=== PATIENT | female | born 1950 | race Caucasian/White ===

== ENCOUNTER 2016-12-04 18:03 | Inpatient (IN) | payer MEDICARE, OTHER ==
[~2016-12-04] VITALS: Ht 170.2 cm; Wt 135.5 kg
[2016-12-04] MEDS ORDERED: morphine 4 MG/ML VIAL IV STA (20:56)
[2016-12-04] MEDS ORDERED: ONDANSETRON 4 MG INJ IV STA (20:56)
[2016-12-04] MEDS ORDERED: PIPER-TAZO 3.375 GM IV (PMX) 100 ML IVPB STA (20:56)
[2016-12-04] MEDS ORDERED: VANCOMYCIN 1 GM (PMX) 250 ML IVPB SCH (21:00)
[2016-12-04 21:18] LABS: BASOPHIL # 0.1 10^3/ul (0.0-0.1); BASOPHILS % 0.4 % (0.0-2.0); EOSINOPHILS # 0.3 10^3/ul (0.0-0.5); EOSINOPHILS % 2.7 % (0.0-7.0); HEMATOCRIT 32.5 % (37.0-47.0); LYMPHOCYTES # 1.9 10^3/ul (0.8-2.9); LYMPHOCYTES % 15.9 % (15.0-51.0); MEAN CORPUSCULAR HGB CONC 30.8 g/dl (32.0-37.0); MEAN PLATELET VOLUME 10.6 fl (7.4-10.4); MONOCYTE # 1.1 10^3/ul (0.3-0.9); MONOCYTES % 8.9 % (0.0-11.0); NEUTROPHIL # 8.5 10^3/ul (1.6-7.5); NEUTROPHILS % 71.3 % (39.0-77.0); PLATELET COUNT 355 10^3/UL (140-415); RED BLOOD COUNT 3.57 10^6/ul (4.20-5.40); RED CELL DISTRIBUTION WIDTH 13.2 % (11.5-14.5); WHITE BLOOD COUNT 11.9 10^3/ul (4.8-10.8)
[2016-12-04 21:38] LABS: ALBUMIN 3.8 g/dl (3.3-4.9); ALBUMIN/GLOBULIN RATIO 0.88; CALCIUM 9.3 mg/dl (8.4-10.2); CREATININE 3.08 mg/dl (0.44-1.00); POTASSIUM 4.5 mmol/L (3.5-5.1); TOTAL PROTEIN 8.1 g/dl (6.1-8.1)
--- NOTE | 2016-12-04 21:39 | RADRPT ---
PROCEDURE: XR Left Foot CLINICAL INDICATION: Osteo TECHNIQUE: AP, oblique, and lateral radiographs were submitted. COMPARISON: None FINDINGS: Osseous structures: There is erosion irregularity to the lateral aspect of the distal left fifth met atarsal for which osteomyelitis is suspected. The remaining osseous elements appear somewhat rarefi ed but intact. Calcaneal spurring is seen at the insertion of the plantar aponeurosis. Joint spaces: There is hyperextension at the second through fifth metatarsal phalangeal joints with flexion of the toes. Soft tissues: There is soft tissue swelling and an ulceration lateral to the distal fifth metatarsal and to the proximal phalanx of the left fifth toe. Vascular calcification is evident. IMPRESSION: 1. Erosion and irregularity to the cortex at the lateral aspect of the distal left fifth metatarsal suspicious for osteomyelitis. There is overlying soft tissue swelling as well as a linear ulcerati on. 2. There is hyperextension at the second through fifth metatarsal phalangeal joints with flexion of the toes that could be a contracture or may be congenital. 3. Calcaneal spurring 4. Vascular calcification. Physician Ramone Date Time Electronically viewed and signed by Physician Ramone on 12/04/2016 21:39 /
[2016-12-04] MEDS ORDERED: HYDR100T7 PO (21:57)
[2016-12-04] MEDS ORDERED: KETO10DR5 OP (22:03)
[2016-12-04] MEDS ORDERED: LOSA25TA5 PO (22:04)
[2016-12-04] MEDS ORDERED: LORA5SOL5 PO (22:04)
[2016-12-04] MEDS ORDERED: NYST15CR28 TOP (22:05)
[2016-12-04] MEDS ORDERED: DEXT1DRO7 OP (22:06)
[2016-12-04] MEDS ORDERED: OMEP20CA16 PO (22:07)
[2016-12-04] MEDS ORDERED: PENT400T2 PO (22:08)
[2016-12-04] MEDS ORDERED: PRAV40TA76 PO (22:08)
[2016-12-04] MEDS ORDERED: AMLO-147 PO (22:09)
[2016-12-04] MEDS ORDERED: CHOL100062 PO (22:10)
[2016-12-04] MEDS ORDERED: FURO40TA4 PO (22:11)
[2016-12-04] MEDS ORDERED: CARSR60 PO (22:11)
[2016-12-04] MEDS ORDERED: LANT3I SC (22:13)
[2016-12-04] MEDS ORDERED: INSU100C SQ (22:14)
[2016-12-04 22:21] VITALS: TEMP 98.6
--- NOTE | 2016-12-04 22:36 | ERA ---
ER Documentation Chief Complaint Date/Time DATE: 12/04/16 TIME: 22:33 Chief Complaint "LEFT FOOT GANGRENE X 4.5 YEARS , FEET FEELS NUMB X 20 YEARS " HX DM HPI This is a 66-year-old female who has had a 4 year white with a left lateral foot ulcer. The patient says it had healed relatively well except 2 weeks ago or so she accidentally ran over her own foot with her automatic scooter. She says she scraped the side of her distal fifth metatarsal phalangeal area and that the wound progressively got worse. She says that it is starting to smell and weep pus. There is no swelling or erythema. She says the pain is constant and dull and worse with movement or standing ROS All systems reviewed and are negative except as per history of present illness. Medications Home Meds Reported Medications Insulin Lispro (Humalog) 100 Unit/1 Ml Cartridge, 12 UNIT SQ TID Y for MEALS 12/04/16 Insulin Glargine* (Lantus*) 100 Unit/Ml Soln, 45 UNIT SC BID, #1 VIAL 12/04/16 Furosemide* (Furosemide*) 40 Mg Tablet, 40 MG PO DAILY, TAB 12/04/16 Diltiazem Hcl* (Cardizem SR*) 60 Mg Capsr, 60 MG PO DAILY, #60 CAP 12/04/16 Cholecalciferol* (Vitamin D3*) 1,000 Unit Tablet, 1000 UNIT PO DAILY, TAB 12/04/16 Amlodipine Besylate* (Amlodipine Besylate*) 10 Mg Tablet, 10 MG PO DAILY, #30 TAB 12/04/16 Pravastatin Sodium* (Pravastatin Sodium*) 40 Mg Tablet, 40 MG PO HS, TAB 12/04/16 Pentoxifylline* (Pentoxifylline*) 400 Mg Tablet.sa, 400 MG PO BID, TAB 12/04/16 Omeprazole* (Omeprazole*) 20 Mg Capsule.dr, 20 MG PO DAILY, #30 CAP 12/04/16 Dextran 70/Hypromellose/Pf (ARTIFICIAL TEARS DROPS) 1 Each Droperette, 1 DROP OP QID 12/04/16 Nystatin* (Nystatin*) 15 Gm Cr, 1 APPLIC TOP TID, #1 TUB 12/04/16 Losartan Potassium* (Losartan Potassium*) 25 Mg Tablet, 25 MG PO DAILY, TAB 12/04/16 Loratadine* (Loratadine* Soln) 5 Mg/5 Ml Solution, 5 MG PO DAILY, #150 ML 12/04/16 Ketotifen Fumarate (Alaway) 10 Ml Drops, 1 DROP OP Q8H, BOTTLE 12/04/16 Hydralazine Hcl* (Hydralazine Hcl*) 100 Mg Tablet, 100 MG PO BID, #90 TAB 12/04/16 Allergies Allergies: Coded Allergies: No Known Allergy (Unverified , 12/04/16) PMhx/Soc History of Surgery: No Anesthesia Reaction: No Hx Neurological Disorder: No Hx Respiratory Disorders: No Hx Cardiac Disorders: Yes (HTN) Hx Psychiatric Problems: No Hx Miscellaneous Medical Probl: Yes (DM) Hx Alcohol Use: No Hx Substance Use: No Hx Tobacco Use: No Smoking Status: Never smoker FmHx Family History: No coronary disease Physical Exam Vitals Vital Signs Date Time Temp Pulse Resp B/P Pulse Ox O2 Delivery O2 Flow Rate FiO2 12/04/16 22:21 98.6 74 18 139/62 99 Room Air 12/04/16 18:07 99.0 79 20 144/68 95 Physical Exam Const: Well-developed, well-nourished Head: Atraumatic, normocephalic Eyes: Normal Conjunctiva, PERRLA, EOMI, normal sclera, no nystagmus ENT: Normal External Ears, Nose and Mouth, moist mucus membranes. Neck: Full range of motion. No meningismus, no lymphadenopathy. Resp: Clear to auscultation bilaterally, no wheezing, rhonchi, rales Cardio: Regular rate and rhythm, no murmurs, S1 S2 present Abd: Soft, non tender x 4, non distended. Normal bowel sounds, no guarding or rebound, no pulsitile abdominal masses or bruits Skin: No petechiae or rashes, no ecchymosis , no maculopapular rash Back: No midline or flank tenderness Ext: No cyanosis, or edema, FROM x 4, the left lateral distal fifth metatarsal has a severe deep wound that is oozing serosanguineous fluid with soft tissue exposure underneath the skin, neurovascularly intact x 4 Neur: Awake and alert, STR 5/5 x 4, sensation intact x 4, no focal findings, cerebellum intact Psych: Normal Mood and Affect Result Diagram: 8/9/17 2045 8/9/17 2045 Results 24 hrs Laboratory Tests Test 12/04/16 20:45 White Blood Count 11.910^3/ul Red Blood Count 3.5710^6/ul Hemoglobin 10.0g/dl Hematocrit 32.5% Mean Corpuscular Volume 91.0fl Mean Corpuscular Hemoglobin 28.0pg Mean Corpuscular Hemoglobin Concent 30.8g/dl Red Cell Distribution Width 13.2% Platelet Count 42404^3/UL Mean Platelet Volume 10.6fl Neutrophils % 71.3% Lymphocytes % 15.9% Monocytes % 8.9% Eosinophils % 2.7% Basophils % 0.4% Nucleated Red Blood Cells % 0.0/100WBC Neutrophils # 8.510^3/ul Lymphocytes # 1.910^3/ul Monocytes # 1.110^3/ul Eosinophils # 0.310^3/ul Basophils # 0.110^3/ul Nucleated Red Blood Cells # 0.010^3/ul Sodium Level 142mmol/L Potassium Level 4.5mmol/L Chloride Level 99mmol/L Carbon Dioxide Level 28mmol/L Anion Gap 20 Blood Urea Nitrogen 62mg/dl Creatinine 3.08mg/dl Glucose Level 302mg/dl Calcium Level 9.3mg/dl Total Bilirubin 0.0mg/dl Direct Bilirubin 0.00mg/dl Indirect Bilirubin 0.0mg/dl Aspartate Amino Transf (AST/SGOT) 16IU/L Alanine Aminotransferase (ALT/SGPT) 23IU/L Alkaline Phosphatase 115IU/L Total Protein 8.1g/dl Albumin 3.8g/dl Globulin 4.30g/dl Albumin/Globulin Ratio 0.88 Current Medications Medications (Trade) Dose Ordered Sig/Lorena Route PRN Reason Start Time Stop Time Status Last Admin Dose Admin Morphine Sulfate (morphine) 4 mg ONCE STAT IV 12/04/16 20:56 12/04/16 21:00 DC Ondansetron HCl 4 mg 4 mg ONCE STAT IV 12/04/16 20:56 12/04/16 21:00 DC Piperacillin Sod/ Tazobactam Sod 100 ml @ 200 mls/hr ONCE STAT IVPB 12/04/16 20:56 12/04/16 21:25 DC 12/04/16 21:14 Vancomycin HCl (Vancocin) 250 ml @ 125 mls/hr ONCE IVPB 12/04/16 21:00 12/04/16 22:59 12/04/16 22:15 Procedures/MDM PROCEDURE: XR Left Foot CLINICAL INDICATION: Osteo TECHNIQUE: AP, oblique, and lateral radiographs were submitted. COMPARISON: None FINDINGS: Osseous structures: There is erosion irregularity to the lateral aspect of the distal left fifth metatarsal for which osteomyelitis is suspected. The remaining osseous elements appear somewhat rarefied but intact. Calcaneal spurring is seen at the insertion of the plantar aponeurosis. Joint spaces: There is hyperextension at the second through fifth metatarsal phalangeal joints with flexion of the toes. Soft tissues: There is soft tissue swelling and an ulceration lateral to the distal fifth metatarsal and to the proximal phalanx of the left fifth toe. Vascular calcification is evident. IMPRESSION: 1. Erosion and irregularity to the cortex at the lateral aspect of the distal left fifth metatarsal suspicious for osteomyelitis. There is overlying soft tissue swelling as well as a linear ulceration. 2. There is hyperextension at the second through fifth metatarsal phalangeal joints with flexion of the toes that could be a contracture or may be congenital. 3. Calcaneal spurring 4. Vascular calcification. Physician Ramone Date Time Electronically viewed and signed by Physician Ramone on 12/04/2016 21:39 RH/ CC: TAE BUI DO Patient received blood cultures and IV antibiotics. We will admit the patient for osteomyelitis of the left foot. Patient will require CT scan and/or MRI of the foot. We will admit to panel Dr. Donald Diagnosis: Primary Impression: Foot osteomyelitis, left Qualified Code: M86.9 - Osteomyelitis of left foot, unspecified type Condition: Stable TAE BUI DO Dec 04, 2016 22:36
[2016-12-04] MEDS ORDERED: ACETAMINOPHEN 325 MG TAB PO PRN (23:00)
[2016-12-04] MEDS ORDERED: ONDANSETRON 4 MG INJ IV PRN (23:00)
[2016-12-05 01:00] VITALS: BP 180/72; RESP 19
[2016-12-05] MEDS ORDERED: INSULIN GLARGINE [LANtus] 3 ML PEN SC ONE ×2 (01:00→01:30)
[2016-12-05] MEDS: INSULIN ASPART [NOVOLOG] 3 ML PEN SC SCH ×7 (01:00→21:00)
[2016-12-05] MEDS: PENTOXIFYLLINE (SR) 400 MG TAB PO SCH ×4 (01:30→21:18)
[2016-12-05] MEDS: AMLODIPINE 10 MG TAB PO SCH ×2 (01:55→09:03)
[2016-12-05] MEDS ORDERED: ACCU-CHEK XX SCH (02:00)
[2016-12-05] MEDS: ACCU-CHEK XX SCH (02:00)
--- NOTE | 2016-12-05 02:08 | HP ---
Date/Time of Note Date/Time of Note DATE: 12/05/16 TIME: 02:08 Assessment/Plan VTE Prophylaxis VTE Prophylaxis Intervention: contraindicated VTE Contraindication Reason: bleeding Assessment/Plan Chief Complaint/Hosp Course This is a 66-year-old female being admitted to the [facility] for: #1 left foot wound infection: X-ray of the left foot is suspicious for osteomyelitis. There is serosanguineous drainage of the left foot along with scant pus material as well as a foul order. At the current time will start the patient on IV antibiotics of vancomycin and Levaquin for gram-positive and gram- negative coverage. Will obtain an MRI of the foot. Will also obtain arterial ultrasound to assess blood flow. Will consult vascular surgery and podiatry. Will consult infectious disease for antibiotic assistance. #2 diabetes mellitus: Continue patient's home regimen of Lantus and mealtime insulin put patient on insulin sliding scale. Check hemoglobin A1c #3 hypertension: Continue patient's home medications #4 hyperlipidemia: Continue statin #5 chronic kidney disease: Previous laboratory values are unknown as patient is here for the first time. Creatinine right now is 3.06 with a BUN of 62. Patient is nonoliguric. At the current time we will consult nephrology for further assistance. Renal dosing of antibiotics and medications. #6 peripheral vascular disease: Continue pentoxifylline #7 anemia: Normocytic anemia. Hemoglobin of 10. Will continue to monitor this. This likely to be secondary to underlying CKD. Will obtain iron studies. #8 DVT and GI prophylaxis: At the current time will hold off on chemical anticoagulation secondary to the patient's bleeding wound of the left foot. Will put SCDs on the patient's right lower extremity. We will put patient on heparin or bilateral SCDs once cleared by vascular surgery and podiatry. Treatment strategy will be implemented as per the clinical course Problems: HPI/ROS Admit Date/Time Admit Date/Time Dec 04, 2016 at 22:33 Hx of Present Illness Chief complaint: Left foot infection This is a 66-year-old female who has had a 4 year white with a left lateral foot ulcer/infection. The patient says it had healed relatively well except 2 weeks ago or so she accidentally ran over her own foot with her automatic scooter. She says she scraped the side of her distal fifth metatarsal phalangeal area and that the wound progressively got worse. She says that it is starting to smell and weep pus. There is no swelling or erythema. She says the pain is constant and dull and worse with movement or standing. Patient does state that she has noticed bleeding on it over the last couple months. She previously had a procedure performed on her left foot secondary to having a previous episode of osteomyelitis. She does follow at the wound clinic. Allergies: NKDA Medications: See JUN PAO Const: As per HPI Eyes : No pain discharge or redness or change in visual acuity ENT: No pain, sore throat, congestion, congestion, dysphagia or discharge Respiratory: No shortness of breath, cough, sputum, wheezing, or pleuritic pain Cardiovascular: No chest pain, palpitation, PND, or edema GI : no change in appetite, abdominal pain, nausea, vomiting, diarrhea, constipation, or change in the color his stool Genitourinary: No dysuria, hematuria, flank pain , discharge or CVA tenderness Musculoskeletal: As per HPI Skin: As per HPI Neuro: No headache, dizziness, syncope, seizure, focal weakness Endocrine: No polyuria, polydipsia, temperature intolerance Psych: No hallucination, depression, anxiety or suicidal ideation PMH/Family/Social Past Medical History Diabetes mellitus, previous left foot osteomyelitis, hypertension, hyperlipidemia, chronic kidney disease, PVD Past Surgical History Left foot surgery status post osteomyelitis, hysterectomy, eye surgery bilateral as a child Family History Significant Family History: no pertinent family hx Social History Alcohol Use: none Smoking Status: Never smoker Drug Use: none Exam/Review of Systems Vital Signs Vitals Vital Signs Date Time Temp Pulse Resp B/P Pulse Ox O2 Delivery O2 Flow Rate FiO2 12/04/16 23:29 77 20 126/66 99 Room Air 12/04/16 22:21 98.6 Exam Exam General: Patient is a morbidly obese female lying in bed in no acute distress HEENT: Atraumatic, normocephalic. The pupils are equal, round and reactive. Extraocular motor are intact Neck: Supple with full range of motion. No rigidity or meningismus Chest: Nontender Lungs: Clear to auscultation bilaterally no crackles rales or wheezing Heart: Normal S1-S2, Regular rhythm and rate. No murmur, S3, or S4 Abdomen: Soft , nontender, nondistended , bowel sounds are present. No guarding no rebound tenderness , No masses or organomegaly. No costovertebral temporal angle mass Extremities: Free range of motion 4, left foot lateral wounds with oozing serosanguineous drainage and foul odor, soft tissue exposure of the left foot on the plantar surface distal pulses diminished on the left lower extremity on exam. Right lower extremity lateral wound noted with dry blood no oozing or weeping. Neurologic: Normal mental status, speech normal, cranial nerves II through XII are intact, motor and sensory are intact, no focal weakness Additional Comments PROCEDURE: XR Left Foot CLINICAL INDICATION: Osteo TECHNIQUE: AP, oblique, and lateral radiographs were submitted. COMPARISON: None FINDINGS: Osseous structures: There is erosion irregularity to the lateral aspect of the distal left fifth metatarsal for which osteomyelitis is suspected. The remaining osseous elements appear somewhat rarefied but intact. Calcaneal spurring is seen at the insertion of the plantar aponeurosis. Joint spaces: There is hyperextension at the second through fifth metatarsal phalangeal joints with flexion of the toes. Soft tissues: There is soft tissue swelling and an ulceration lateral to the distal fifth metatarsal and to the proximal phalanx of the left fifth toe. Vascular calcification is evident. IMPRESSION: 1. Erosion and irregularity to the cortex at the lateral aspect of the distal left fifth metatarsal suspicious for osteomyelitis. There is overlying soft tissue swelling as well as a linear ulceration. 2. There is hyperextension at the second through fifth metatarsal phalangeal joints with flexion of the toes that could be a contracture or may be congenital. 3. Calcaneal spurring 4. Vascular calcification. Physician Ramone Date Time Electronically viewed and signed by Physician Ramone on 12/04/2016 21:39 RH/ CC: TAE BUI DO Labs Result Diagram: 12/04/16204412/04/162044 Medications Medications Current Medications Diagnostic Test (Pha) (Accu-Chek) 1 ea 02 XX ; Start 12/05/16 at 02:00 Amlodipine Besylate (Norvasc) 10 mg DAILY PO ; Start 12/05/16 at 01:42 Diltiazem HCl (Cardizem Sr) 60 mg DAILY PO ; Start 12/05/16 at 09:00 Furosemide (Lasix) 40 mg DAILY@06 PO ; Start 12/05/16 at 06:00 Hydralazine HCl (Apresoline) 100 mg BID PO ; Start 12/05/16 at 01:30 Insulin Glargine (Lantus) 45 unit BID SC ; Start 12/05/16 at 09:00 Losartan Potassium (Cozaar) 25 mg DAILY PO ; Start 12/05/16 at 09:00 Nystatin (Nystatin Cr) 1 applic TID TOP ; Start 12/05/16 at 09:00 Pentoxifylline (Trental) 400 mg BID PO ; Start 12/05/16 at 01:30 Miscellaneous Information 1 drop QID OP ; Start 12/05/16 at 09:00; Status UNV Miscellaneous Information 12 unit TID PRN SQ MEALS; Start 12/05/16 at 01:30 ; Status UNV Miscellaneous Information 1 drop Q8H OP ; Start 12/05/16 at 01:30; Status UNV Pantoprazole (Protonix Tab) 40 mg DAILY@06 PO ; Start 12/05/16 at 06:00 Atorvastatin Calcium (Lipitor) 10 mg DAILY@21 PO ; Start 12/05/16 at 21:00 Hydralazine HCl (Apresoline) 10 mg Q6H PRN IV ELEVATED SYSTOLIC BP; Start 12/05 at 02:00 RANJITH MCDONALD Dec 05, 2016 02:08
[2016-12-05 02:18] VITALS: BP 158/62; RESP 18
[2016-12-05] MEDS ORDERED: NACL 0.9% 3 ML SYG IV SCH (02:30)
[2016-12-05] MEDS ORDERED: morphine 2 MG INJ IV PRN (02:30)
[2016-12-05] MEDS ORDERED: VANCOMYCIN IV PER PHARMACY XX SCH (02:30)
[2016-12-05] MEDS ORDERED: VANCOMYCIN 1.5 GM in SOD CHLORIDE 0.9% 250 ML IVPB ONE (03:00)
[2016-12-05 04:19] VITALS: Ht 170.2 cm; Wt 135.5 kg
[2016-12-05 05:27] LABS: BASOPHILS % 0.4 % (0.0-2.0); EOSINOPHILS # 0.3 10^3/ul (0.0-0.5); EOSINOPHILS % 2.6 % (0.0-7.0); HEMATOCRIT 29.1 % (37.0-47.0); HEMOGLOBIN 9.5 g/dl (12.0-16.0); LYMPHOCYTES % 20.7 % (15.0-51.0); MEAN CORPUSCULAR HEMOGLOBIN 29.6 pg (29.0-33.0); MEAN CORPUSCULAR HGB CONC 32.6 g/dl (32.0-37.0); MEAN CORPUSCULAR VOLUME 90.7 fl (82.0-101.0); MEAN PLATELET VOLUME 10.5 fl (7.4-10.4); MONOCYTE # 0.9 10^3/ul (0.3-0.9); MONOCYTES % 9.2 % (0.0-11.0); NEUTROPHIL # 6.3 10^3/ul (1.6-7.5); NEUTROPHILS % 66.5 % (39.0-77.0); PLATELET COUNT 323 10^3/UL (140-415); RED BLOOD COUNT 3.21 10^6/ul (4.20-5.40); RED CELL DISTRIBUTION WIDTH 13.1 % (11.5-14.5); WHITE BLOOD COUNT 9.5 10^3/ul (4.8-10.8)
[2016-12-05 05:52] LABS: IRON 32 ug/dl (35-150)
[2016-12-05 05:53] LABS: ALBUMIN 3.5 g/dl (3.3-4.9); ALBUMIN/GLOBULIN RATIO 0.92; CALCIUM 9.1 mg/dl (8.4-10.2); CHOL/HDL RATIO 3.7 RATIO; CREATININE 2.96 mg/dl (0.44-1.00); MAGNESIUM 2.2 mg/dl (1.7-2.5); PHOSPHORUS 3.3 mg/dl (2.5-4.9); TOTAL PROTEIN 7.3 g/dl (6.1-8.1)
[2016-12-05] MEDS ORDERED: PENDING SANTYL ORDER FOR WOUND CARE XX PRN (06:00)
[2016-12-05 06:01] LABS: TOTAL IRON BINDING CAPACITY 198 ug/dl (241-421)
[2016-12-05 06:49] LABS: THYROID STIMULATING HORMONE 3.41 MIU/L (0.465-4.680)
[2016-12-05] MEDS: PANTOPRAZOLE (EC) 40 MG TAB PO SCH (07:05)
[2016-12-05] MEDS: FUROSEMIDE 40 MG TAB PO SCH (07:06)
[2016-12-05] MEDS: LEVOFLOXACIN 750MG/D5W (PMX) 150 ML IVPB SCH (07:23)
[2016-12-05 07:52] VITALS: BP 171/78; RESP 20
[2016-12-05] MEDS: KETOTIFEN FUMARATE XX SCH ×2 (08:30→14:29)
[2016-12-05] MEDS: NYSTATIN 15 GM CR TOP SCH ×3 (09:00→21:01)
[2016-12-05] MEDS ORDERED: LOSARTAN 25 MG TAB PO SCH (09:00)
[2016-12-05] MEDS: ARTIFICIAL TEARS 15 ML OPH BOTH EYES SCH ×4 (09:00→21:01)
[2016-12-05] MEDS: ONDANSETRON 4 MG INJ IV PRN (09:01)
[2016-12-05] MEDS: ACETAMINOPHEN 325 MG TAB PO PRN (09:01)
[2016-12-05] MEDS: DILTIAZEM (SR) 60 MG CAP PO SCH (09:03)
[2016-12-05] MEDS: INSULIN GLARGINE [LANtus] 3 ML PEN SC SCH ×2 (09:13→21:26)
--- NOTE | 2016-12-05 12:18 | CONS ---
Date/Time of Note Date/Time of Note DATE: 12/05/16 TIME: 12:17 Consultation Date/Type/Reason Admit Date/Time Dec 04, 2016 at 22:33 Date of Consultation: Dec 05, 2016 Type of Consultation: ID Reason for Consultation Antibiotic management Social History Alcohol Use: none Smoking Status: Never smoker Drug Use: none Exam/Review of Systems Vital Signs Vitals Vital Signs Date Time Temp Pulse Resp B/P Pulse Ox O2 Delivery O2 Flow Rate FiO2 12/05/16 07:52 97.7 71 20 171/78 95 12/04/16 23:29 Room Air Results Result Diagram: 12/05/16 0505 12/05/16 0505 Results 24 hrs Laboratory Tests Test 12/04/16 20:45 12/05/16 00:13 12/05/16 01:29 12/05/16 04:16 White Blood Count 11.9 H Red Blood Count 3.57 L Hemoglobin 10.0 L Hematocrit 32.5 L Mean Corpuscular Volume 91.0 Mean Corpuscular Hemoglobin 28.0 L Mean Corpuscular Hemoglobin Concent 30.8 L Red Cell Distribution Width 13.2 Platelet Count 355 Mean Platelet Volume 10.6 H Neutrophils % 71.3 Lymphocytes % 15.9 Monocytes % 8.9 Eosinophils % 2.7 Basophils % 0.4 Nucleated Red Blood Cells % 0.0 Neutrophils # 8.5 H Lymphocytes # 1.9 Monocytes # 1.1 H Eosinophils # 0.3 Basophils # 0.1 Nucleated Red Blood Cells # 0.0 Sodium Level 142 Potassium Level 4.5 Chloride Level 99 Carbon Dioxide Level 28 Anion Gap 20 H Blood Urea Nitrogen 62 H Creatinine 3.08 H Glucose Level 302 H Calcium Level 9.3 Total Bilirubin 0.0 L Direct Bilirubin 0.00 Indirect Bilirubin 0.0 Aspartate Amino Transf (AST/SGOT) 16 Alanine Aminotransferase (ALT/SGPT) 23 Alkaline Phosphatase 115 Total Protein 8.1 Albumin 3.8 Globulin 4.30 H Albumin/Globulin Ratio 0.88 Bedside Glucose 333 H 325 H 274 H Test 12/05/16 05:05 12/05/16 08:40 White Blood Count 9.5 # Red Blood Count 3.21 L Hemoglobin 9.5 L Hematocrit 29.1 L Mean Corpuscular Volume 90.7 Mean Corpuscular Hemoglobin 29.6 Mean Corpuscular Hemoglobin Concent 32.6 Red Cell Distribution Width 13.1 Platelet Count 323 Mean Platelet Volume 10.5 H Neutrophils % 66.5 Lymphocytes % 20.7 Monocytes % 9.2 Eosinophils % 2.6 Basophils % 0.4 Nucleated Red Blood Cells % 0.0 Neutrophils # 6.3 Lymphocytes # 2.0 Monocytes # 0.9 Eosinophils # 0.3 Basophils # 0.0 Nucleated Red Blood Cells # 0.0 Sodium Level 142 Potassium Level 4.0 Chloride Level 100 Carbon Dioxide Level 29 Anion Gap 17 H Blood Urea Nitrogen 60 H Creatinine 2.96 H Glucose Level 244 H Hemoglobin A1c 8.8 H Calcium Level 9.1 Phosphorus Level 3.3 Magnesium Level 2.2 Iron Level 32 L Total Iron Binding Capacity 198 L Percent Iron Saturation 16 L Total Bilirubin 0.0 L Direct Bilirubin 0.00 Indirect Bilirubin 0.0 Aspartate Amino Transf (AST/SGOT) 16 Alanine Aminotransferase (ALT/SGPT) 22 Alkaline Phosphatase 108 Total Protein 7.3 Albumin 3.5 Globulin 3.80 H Albumin/Globulin Ratio 0.92 Triglycerides Level 113 Cholesterol Level 138 LDL Cholesterol, Calculated 78 HDL Cholesterol 37 Cholesterol/HDL Ratio 3.7 Thyroid Stimulating Hormone (TSH) 3.410 Bedside Glucose 203 Medications Medications Current Medications Diagnostic Test (Pha) (Accu-Chek) 1 ea 02 XX ; Start 12/05/16 at 02:00 Amlodipine Besylate (Norvasc) 10 mg DAILY PO Last administered on 12/05/16 09: 03; Admin Dose 10 MG; Start 12/05/16 at 01:42 Diltiazem HCl (Cardizem Sr) 60 mg DAILY PO Last administered on 12/05/16 09:03 ; Admin Dose 60 MG; Start 12/05/16 at 09:00 Furosemide (Lasix) 40 mg DAILY@06 PO Last administered on 12/05/16 07:06; Admin Dose 40 MG; Start 12/05/16 at 06:00 Hydralazine HCl (Apresoline) 100 mg BID PO Last administered on 12/05/16 09:02 ; Admin Dose 100 MG; Start 12/05/16 at 01:30 Insulin Glargine (Lantus) 45 unit BID SC Last administered on 12/05/16 09:13; Admin Dose 45 UNIT; Start 12/05/16 at 09:00 Losartan Potassium (Cozaar) 25 mg DAILY PO Last administered on 12/05/16 09:02 ; Admin Dose 25 MG; Start 12/05/16 at 09:00 Nystatin (Nystatin Cr) 1 applic TID TOP ; Start 12/05/16 at 09:00 Pentoxifylline (Trental) 400 mg BID PO Last administered on 12/05/16 09:02; Admin Dose 400 MG; Start 12/05/16 at 01:30 Eye Lubricant (Artificial Tears Oph) 1 drop QID BOTH EYES ; Start 12/05/16 at 09 :00 Miscellaneous Information 1 drop Q8H OP ; Start 12/05/16 at 01:30; Status UNV Pantoprazole (Protonix Tab) 40 mg DAILY@06 PO Last administered on 12/05/16 07 :05; Admin Dose 40 MG; Start 12/05/16 at 06:00 Atorvastatin Calcium (Lipitor) 10 mg DAILY@21 PO ; Start 12/05/16 at 21:00 Hydralazine HCl (Apresoline) 10 mg Q6H PRN IV ELEVATED SYSTOLIC BP; Start 12/05 at 02:00 Ondansetron HCl (Zofran Inj) 4 mg Q6H PRN IV NAUSEA AND/OR VOMITING Last administered on 12/05/16 09:01; Admin Dose 4 MG; Start 12/05/16 at 02:30 Acetaminophen (Tylenol Tab) 650 mg Q6H PRN PO PAIN LEVEL 1-3 OR FEVER Last administered on 12/05/16 09:01; Admin Dose 650 MG; Start 12/05/16 at 02:30 Morphine Sulfate (morphine) 2 mg Q4H PRN IV SEVERE PAIN LEVEL 7-10; Start 12/05 at 02:30 Docusate Sodium (Colace) 100 mg Q12H PRN PO CONSTIPATION; Start 12/05/16 at 02: 30 Bisacodyl 5 mg 5 mg DAILY PRN PO CONSTIPATION; Start 12/05/16 at 02:30 Levofloxacin/ Dextrose (Levaquin 750 Mg/ D5W 150 ml (Pmx)) 150 ml @ 100 mls/hr Q48H IVPB Last administered on 12/05/16 07:23; Admin Dose 100 MLS/HR; Start at 06:00 Miscellaneous [facility] This patient patel... PRN PRN XX WOUND CARE; Start 12/05/16 at 06:00 Miscellaneous Information Ketotifen Fumarate (Alaway... Q8H XX ; Start 12/05/16 at 08:30 Ferric Sodium Gluconate Complex/ Sodium Chloride (Ferrlecit/NS) 110 ml @ 100 mls/hr Q24H IVPB ; Start 12/05/16 at 14:00; Stop 12/07/16 at 15:05 ROSI FATIMA MD Dec 05, 2016 12:18
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
[2016-12-05 14:00] VITALS: BP 149/69; RESP 18
[2016-12-05] MEDS: SOD FERRIC GLUC COMPLX 125 MG in SOD CHLORIDE 0.9% 100 ML IVPB SCH (14:30)
--- NOTE | 2016-12-05 16:09 | RADRPT ---
PROCEDURE: US bilateral lower extremity arteries. CLINICAL INDICATION: Bilateral leg pain. Claudication that interferes significantly with the thi ent's lifestyle. TECHNIQUE: Multiple longitudinal and transverse images of the bilateral lower extremity arteries w ere obtained with sifuentes scale, pulsed Doppler, and color Doppler imaging. COMPARISON: No prior studies are available for comparison. FINDINGS: Right COATING MANAGER:115 cm/sec PSFA:125 cm/sec MSFA:127 cm/sec DSFA:102 cm/sec POP:121 cm/sec CLINICAL ASSOCIATE:77 cm/sec DPA:73 cm/sec Left COATING MANAGER:116 cm/sec PSFA:153 cm/sec MSFA:134 cm/sec DSFA:134 cm/sec POP:117 cm/sec CLINICAL ASSOCIATE:134 cm/sec DPA:110 cm/sec The ankle-brachial indices are unobtainable due to densely calcified ankle vessels. There is normal triphasic flow throughout bilaterally. Mild plaque is present in the superficial femoral arteries a nd calf arteries. IMPRESSION: 1. Mild plaque formation without evidence for hemodynamically significant stenosis or occlusion. RPTAT: QQ .Héctor Banks MD, MD Date Time Electronically viewed and signed by .Héctor Banks MD, MD on 12/05/2016 16:09 .R/
--- NOTE | 2016-12-05 16:32 | RADRPT ---
PROCEDURE: MRI OF THE LEFT FOOT. CLINICAL INDICATION: Concern for osteomyelitis.. TECHNIQUE: Multiple MRI images of the left foot were obtained in multiple planes utilizing multipl e pulse sequences. Images were interpreted on the high-resolution PACS system. COMPARISON: Radiographs from 12/04/2016 FINDINGS: 1st ray: There is no acute fracture or bone marrow edema. No evidence of osteomyelitis is present. There is mild chondral loss within the first metatarsophalangeal joint with osseous spurring. The collateral ligaments are intact. No significant joint effusion is present. 2nd ray: There is no acute fracture or bone marrow edema. There is hammertoe deformity at the metat arsophalangeal joint. The chondral surfaces are intact. The collateral ligaments are intact. No si gnificant joint effusion is present. 3rd ray through 5th ray: There is a skin ulcer within the lateral plantar aspect of the foot over th e fifth metatarsal and metatarsophalangeal joint with soft tissue edema and ill-defined fluid. Ther e is mild cortical irregularity with erosions within the fifth proximal phalanx but no significant b one marrow edema or abnormal T1 signal. There is no acute fracture or evidence of osteomyelitis within the remaining digits. There is hamme rtoe deformity at the lesser metatarsophalangeal joints. Chondral surfaces are intact. MIDFOOT: The tarsometatarsal joints are intact. The Lisfranc's ligament is intact. The visualized naviculocuneiform joint is intact. No bone marrow edema is noted. Other findings: There is no Queen's neuroma. No plantar fibroma is visualized. The tendons around the midfoot and forefoot are unremarkable. There is fatty atrophy of the muscles throughout the midfoot and forefoot. RPTAT: ZZ IMPRESSION: 1. Skin ulcer along the lateral plantar aspect of the fifth digit at the level of the distal fifth metatarsal and metatarsophalangeal joint with cellulitis. 2. Erosive changes with mild deformity of the fifth metatarsal head but no significant abnormal mar row signal. This can be seen with chronic osteomyelitis given the adjacent skin ulcer although infl ammatory arthritis can also give this appearance. 3. Mild osteoarthrosis of the first metatarsophalangeal joint. .Kathryn Tivorsak, MD, MD Date Time Electronically viewed and signed by .Kathryn Carr MD, MD on 12/05/2016 16:31 .T/
--- NOTE | 2016-12-05 18:00 | CONS ---
Date/Time of Note Date/Time of Note DATE: 12/05/16 TIME: 18:00 Assessment/Plan Assessment/Plan Additional Assessment/Plan 1. Acute kidney injury on possible CKD due to ATN From osteomyelitis, presented with Cr 3.08 on admission, no previous Cr available to compare 2. Left foot ulcer/Osteomyelitis 3. possible CKD due to diabetic nephropathy 4. Hypertension 5. Hyperlipidemia 6. LE PVD- Mild 7. H/o CVA Plan: Thanks for consultation, she is ordered to have Vascular surgery consultation I will order URine studies including Urine protein/cr ration, Urine Eosinophils , Urine Na, CK total, Uric acid Renal US to assess for kidney size, echogenicity and to rule out hydronephrosis Renally dose all abx, Montior vancomycin level Hold Losartan due to elevated Cr Amlodipine for Hydralzine for BP control will continue to follow up. Total Time spent in consultation is more than 60 minutes. Plan communicated with patient, family and Nursing staff. Consultation Date/Type/Reason Admit Date/Time Dec 04, 2016 at 22:33 Date of Consultation: Dec 05, 2016 Type of Consultation: NEPHROLOGY Reason for Consultation Acute kidney injury vs JENNIFER on CKD, pt presnted with osteomyelitis of foot Referring Provider: RANJITH MCDONALD Hx of Present Illness 66-year-old female with PMHx of HTN< HL, DM II who presnted with left foot ulceration/infection which has been intermittently going on last 4 year. She follows in [facility] wound care clinic/ She is noted to have have Cr 3.08 on admission and renal has been consulted for JENNIFER vs JENNIFER on CKD left foot pain, swelling, ulceration and discharge Constitutional: no complaints Eyes: no complaints ENT: bleeding, no complaints Respiratory: no complaints Cardiovascular: no complaints Gastrointestinal: no complaints Genitourinary: no complaints Musculoskeletal: back pain, bone/joint pain, swelling Skin: no complaints Neurologic: no complaints Past Medical History Medical History: diabetes, high cholesterol, hypertension, other (PVD,. H/o CVA ) Past Surgical History Past Surgical Hx: other (Hysterectomy, Left foot surgery ) Family History Significant Family History: no pertinent family hx Social History Alcohol Use: none Smoking Status: Never smoker Drug Use: none Exam/Review of Systems Vital Signs Vitals Vital Signs Date Time Temp Pulse Resp B/P Pulse Ox O2 Delivery O2 Flow Rate FiO2 12/05/16 14:00 97.6 71 18 149/69 93 12/04/16 23:29 Room Air Exam General: Patient is a morbidly obese female lying in bed in no acute distress HEENT: Atraumatic, normocephalic. The pupils are equal, round and reactive. Extraocular motor are intact Neck: Supple with full range of motion. No rigidity or meningismus Chest: Nontender Lungs: Clear to auscultation bilaterally no crackles rales or wheezing Heart: Normal S1-S2, Regular rhythm and rate. No murmur, S3, or S4 Abdomen: Soft , nontender, nondistended , bowel sounds are present. No guarding no rebound tenderness , No masses or organomegaly. No costovertebral temporal angle mass Extremities: Free range of motion 4, left foot lateral wounds with oozing serosanguineous drainage and foul odor, soft tissue exposure of the left foot on the plantar surface distal pulses diminished on the left lower extremity on exam. Right lower extremity lateral wound noted with dry blood no oozing or weeping. Neurologic: Normal mental status, speech normal, cranial nerves II through XII are intact, motor and sensory are intact, no focal weakness Results Result Diagram: 12/05/16 0505 12/05/16 0505 Results 24 hrs Laboratory Tests Test 12/04/16 20:45 12/05/16 00:13 12/05/16 01:29 12/05/16 04:16 White Blood Count 11.9 H Red Blood Count 3.57 L Hemoglobin 10.0 L Hematocrit 32.5 L Mean Corpuscular Volume 91.0 Mean Corpuscular Hemoglobin 28.0 L Mean Corpuscular Hemoglobin Concent 30.8 L Red Cell Distribution Width 13.2 Platelet Count 355 Mean Platelet Volume 10.6 H Neutrophils % 71.3 Lymphocytes % 15.9 Monocytes % 8.9 Eosinophils % 2.7 Basophils % 0.4 Nucleated Red Blood Cells % 0.0 Neutrophils # 8.5 H Lymphocytes # 1.9 Monocytes # 1.1 H Eosinophils # 0.3 Basophils # 0.1 Nucleated Red Blood Cells # 0.0 Sodium Level 142 Potassium Level 4.5 Chloride Level 99 Carbon Dioxide Level 28 Anion Gap 20 H Blood Urea Nitrogen 62 H Creatinine 3.08 H Glucose Level 302 H Calcium Level 9.3 Total Bilirubin 0.0 L Direct Bilirubin 0.00 Indirect Bilirubin 0.0 Aspartate Amino Transf (AST/SGOT) 16 Alanine Aminotransferase (ALT/SGPT) 23 Alkaline Phosphatase 115 Total Protein 8.1 Albumin 3.8 Globulin 4.30 H Albumin/Globulin Ratio 0.88 Bedside Glucose 333 H 325 H 274 H Test 12/05/16 05:05 12/05/16 08:40 12/05/16 12:25 12/05/16 17:21 White Blood Count 9.5 # Red Blood Count 3.21 L Hemoglobin 9.5 L Hematocrit 29.1 L Mean Corpuscular Volume 90.7 Mean Corpuscular Hemoglobin 29.6 Mean Corpuscular Hemoglobin Concent 32.6 Red Cell Distribution Width 13.1 Platelet Count 323 Mean Platelet Volume 10.5 H Neutrophils % 66.5 Lymphocytes % 20.7 Monocytes % 9.2 Eosinophils % 2.6 Basophils % 0.4 Nucleated Red Blood Cells % 0.0 Neutrophils # 6.3 Lymphocytes # 2.0 Monocytes # 0.9 Eosinophils # 0.3 Basophils # 0.0 Nucleated Red Blood Cells # 0.0 Sodium Level 142 Potassium Level 4.0 Chloride Level 100 Carbon Dioxide Level 29 Anion Gap 17 H Blood Urea Nitrogen 60 H Creatinine 2.96 H Glucose Level 244 H Hemoglobin A1c 8.8 H Calcium Level 9.1 Phosphorus Level 3.3 Magnesium Level 2.2 Iron Level 32 L Total Iron Binding Capacity 198 L Percent Iron Saturation 16 L Total Bilirubin 0.0 L Direct Bilirubin 0.00 Indirect Bilirubin 0.0 Aspartate Amino Transf (AST/SGOT) 16 Alanine Aminotransferase (ALT/SGPT) 22 Alkaline Phosphatase 108 Total Protein 7.3 Albumin 3.5 Globulin 3.80 H Albumin/Globulin Ratio 0.92 Triglycerides Level 113 Cholesterol Level 138 LDL Cholesterol, Calculated 78 HDL Cholesterol 37 Cholesterol/HDL Ratio 3.7 Thyroid Stimulating Hormone (TSH) 3.410 Bedside Glucose 203 126 109 Medications Medications Current Medications Diagnostic Test (Pha) (Accu-Chek) 1 ea 02 XX ; Start 12/05/16 at 02:00 Amlodipine Besylate (Norvasc) 10 mg DAILY PO Last administered on 12/05/16 09: 03; Admin Dose 10 MG; Start 12/05/16 at 01:42 Diltiazem HCl (Cardizem Sr) 60 mg DAILY PO Last administered on 12/05/16 09:03 ; Admin Dose 60 MG; Start 12/05/16 at 09:00 Furosemide (Lasix) 40 mg DAILY@06 PO Last administered on 12/05/16 07:06; Admin Dose 40 MG; Start 12/05/16 at 06:00 Hydralazine HCl (Apresoline) 100 mg BID PO Last administered on 12/05/16 09:02 ; Admin Dose 100 MG; Start 12/05/16 at 01:30 Insulin Glargine (Lantus) 45 unit BID SC Last administered on 12/05/16 09:13; Admin Dose 45 UNIT; Start 12/05/16 at 09:00 Losartan Potassium (Cozaar) 25 mg DAILY PO Last administered on 12/05/16 09:02 ; Admin Dose 25 MG; Start 12/05/16 at 09:00 Nystatin (Nystatin Cr) 1 applic TID TOP ; Start 12/05/16 at 09:00 Pentoxifylline (Trental) 400 mg BID PO Last administered on 12/05/16 09:02; Admin Dose 400 MG; Start 12/05/16 at 01:30 Eye Lubricant (Artificial Tears Oph) 1 drop QID BOTH EYES ; Start 12/05/16 at 09 :00 Miscellaneous Information 1 drop Q8H OP ; Start 12/05/16 at 01:30; Status UNV Pantoprazole (Protonix Tab) 40 mg DAILY@06 PO Last administered on 12/05/16 07 :05; Admin Dose 40 MG; Start 12/05/16 at 06:00 Atorvastatin Calcium (Lipitor) 10 mg DAILY@21 PO ; Start 12/05/16 at 21:00 Hydralazine HCl (Apresoline) 10 mg Q6H PRN IV ELEVATED SYSTOLIC BP; Start 12/05 at 02:00 Ondansetron HCl (Zofran Inj) 4 mg Q6H PRN IV NAUSEA AND/OR VOMITING Last administered on 12/05/16 09:01; Admin Dose 4 MG; Start 12/05/16 at 02:30 Acetaminophen (Tylenol Tab) 650 mg Q6H PRN PO PAIN LEVEL 1-3 OR FEVER Last administered on 12/05/16 09:01; Admin Dose 650 MG; Start 12/05/16 at 02:30 Morphine Sulfate (morphine) 2 mg Q4H PRN IV SEVERE PAIN LEVEL 7-10; Start 8/10 /17 at 02:30 Docusate Sodium (Colace) 100 mg Q12H PRN PO CONSTIPATION; Start 12/05/16 at 02: 30 Bisacodyl 5 mg 5 mg DAILY PRN PO CONSTIPATION; Start 12/05/16 at 02:30 Levofloxacin/ Dextrose (Levaquin 750 Mg/ D5W 150 ml (Pmx)) 150 ml @ 100 mls/hr Q48H IVPB Last administered on 12/05/16 07:23; Admin Dose 100 MLS/HR; Start at 06:00 [facility]isc[facility] This patient patel... PRN PRN XX WOUND CARE; Start 12/05/16 at 06:00 Miscellaneous Information Ketotifen Fumarate (Alaway... Q8H XX ; Start 12/05/16 at 08:30 Ferric Sodium Gluconate Complex/ Sodium Chloride (Ferrlecit/NS) 110 ml @ 100 mls/hr Q24H IVPB Last administered on 12/05/16 14:30; Admin Dose 100 MLS/HR; Start 12/05/16 at 14:00; Stop 12/07/16 at 15:05 MONSE CHILEL MD Dec 05, 2016 18:00
--- NOTE | 2016-12-05 19:12 | RADRPT ---
PROCEDURE: Retroperitoneal US. CLINICAL INDICATION: Renal insufficiency TECHNIQUE: Multiple sonographic images of the kidneys and retroperitoneum were obtained. The imag es were reviewed on a PACS workstation. COMPARISON: No prior studies are available for comparison. FINDINGS: The kidneys are normal in size, contour, cortical thickness and cortical echogenicity. The right kidney measures 9.6 cm. The left kidney measures 11.3 cm. No kidney stones are visualized. There is no evidence for hydronephrosis. The urinary bladder is normal. There are multiple small gallstones within the gallbladder. RPTAT: AA IMPRESSION: Normal appearance of the kidneys. Multiple calcified stones within the gallbladder. .Andriy Valdez MD, Date Time Electronically viewed and signed by .Andriy Valdez MD, MD on 12/05/2016 19:11 .S/
--- NOTE | 2016-12-05 19:56 | CONS ---
Date/Time of Note Date/Time of Note DATE: 12/05/16 TIME: 19:52 Assessment/Plan Assessment/Plan Additional Assessment/Plan This is a 66-year-old female with a history of diabetes hypertension obesity patient has had ulceration in the lateral aspect of the left foot currently being admitted to undergo further therapy including antibiotics therapy Patient has had an ultrasound which shows mild arterial stenosis without hemodynamically significant lesion Patient has renal failure with elevation of the creatinine up to 2 At this time I do not recommend an angiogram with the mild nature of the arterial disease With continue local wound care and antibiotic therapy Consultation Date/Type/Reason Admit Date/Time Dec 04, 2016 at 22:33 Date of Consultation: Dec 05, 2016 Reason for Consultation This is a 66-year-old female with a history of diabetes hypertension obesity patient has had ulceration in the lateral aspect of the left foot currently being admitted to undergo further therapy including antibiotics therapy Patient has had an ultrasound which shows mild arterial stenosis without hemodynamically significant lesion Past Medical History Medical History: no pertinent history Family History Significant Family History: hypertension Social History Alcohol Use: none Smoking Status: Never smoker Drug Use: none Exam/Review of Systems Vital Signs Vitals Vital Signs Date Time Temp Pulse Resp B/P Pulse Ox O2 Delivery O2 Flow Rate FiO2 12/05/16 14:00 97.6 71 18 149/69 93 12/04/16 23:29 Room Air Exam Eyes: EOMI, PERRL, nl conjunctiva, nl lids, nl sclera ENMT: nl external ears & nose, nl lips & teeth, nl nasal mucosa & septum Neck: non-tender, supple Respiratory: clear to auscultation, normal air movement Cardiovascular: nl pulses, regular rate and rhythm Extremities: edema Additional Comments Left foot with edema more swelling than the right foot foot is warm all the way down to the ankle ulceration in the lateral aspect of the foot noted there is palpable femoral no popliteal or pedal pulses Results Result Diagram: 12/05/16 0505 12/05/16 0505 Results 24 hrs Laboratory Tests Test 12/04/16 20:45 12/05/16 00:13 12/05/16 01:29 12/05/16 04:16 White Blood Count 11.9 H Red Blood Count 3.57 L Hemoglobin 10.0 L Hematocrit 32.5 L Mean Corpuscular Volume 91.0 Mean Corpuscular Hemoglobin 28.0 L Mean Corpuscular Hemoglobin Concent 30.8 L Red Cell Distribution Width 13.2 Platelet Count 355 Mean Platelet Volume 10.6 H Neutrophils % 71.3 Lymphocytes % 15.9 Monocytes % 8.9 Eosinophils % 2.7 Basophils % 0.4 Nucleated Red Blood Cells % 0.0 Neutrophils # 8.5 H Lymphocytes # 1.9 Monocytes # 1.1 H Eosinophils # 0.3 Basophils # 0.1 Nucleated Red Blood Cells # 0.0 Sodium Level 142 Potassium Level 4.5 Chloride Level 99 Carbon Dioxide Level 28 Anion Gap 20 H Blood Urea Nitrogen 62 H Creatinine 3.08 H Glucose Level 302 H Calcium Level 9.3 Total Bilirubin 0.0 L Direct Bilirubin 0.00 Indirect Bilirubin 0.0 Aspartate Amino Transf (AST/SGOT) 16 Alanine Aminotransferase (ALT/SGPT) 23 Alkaline Phosphatase 115 Total Protein 8.1 Albumin 3.8 Globulin 4.30 H Albumin/Globulin Ratio 0.88 Bedside Glucose 333 H 325 H 274 H Test 12/05/16 05:05 12/05/16 08:40 12/05/16 12:25 12/05/16 17:21 White Blood Count 9.5 # Red Blood Count 3.21 L Hemoglobin 9.5 L Hematocrit 29.1 L Mean Corpuscular Volume 90.7 Mean Corpuscular Hemoglobin 29.6 Mean Corpuscular Hemoglobin Concent 32.6 Red Cell Distribution Width 13.1 Platelet Count 323 Mean Platelet Volume 10.5 H Neutrophils % 66.5 Lymphocytes % 20.7 Monocytes % 9.2 Eosinophils % 2.6 Basophils % 0.4 Nucleated Red Blood Cells % 0.0 Neutrophils # 6.3 Lymphocytes # 2.0 Monocytes # 0.9 Eosinophils # 0.3 Basophils # 0.0 Nucleated Red Blood Cells # 0.0 Sodium Level 142 Potassium Level 4.0 Chloride Level 100 Carbon Dioxide Level 29 Anion Gap 17 H Blood Urea Nitrogen 60 H Creatinine 2.96 H Glucose Level 244 H Hemoglobin A1c 8.8 H Calcium Level 9.1 Phosphorus Level 3.3 Magnesium Level 2.2 Iron Level 32 L Total Iron Binding Capacity 198 L Percent Iron Saturation 16 L Total Bilirubin 0.0 L Direct Bilirubin 0.00 Indirect Bilirubin 0.0 Aspartate Amino Transf (AST/SGOT) 16 Alanine Aminotransferase (ALT/SGPT) 22 Alkaline Phosphatase 108 Total Protein 7.3 Albumin 3.5 Globulin 3.80 H Albumin/Globulin Ratio 0.92 Triglycerides Level 113 Cholesterol Level 138 LDL Cholesterol, Calculated 78 HDL Cholesterol 37 Cholesterol/HDL Ratio 3.7 Thyroid Stimulating Hormone (TSH) 3.410 Bedside Glucose 203 126 109 Medications Medications Current Medications Diagnostic Test (Pha) (Accu-Chek) XX ; Start 12/05/16 at 02:00 Amlodipine Besylate (Norvasc) 10 mg DAILY PO Last administered on 12/05/16 09: 03; Admin Dose 10 MG; Start 12/05/16 at 01:42 Diltiazem HCl (Cardizem Sr) 60 mg DAILY PO Last administered on 12/05/16 09:03 ; Admin Dose 60 MG; Start 12/05/16 at 09:00 Furosemide (Lasix) 40 mg DAILY@06 PO Last administered on 12/05/16 07:06; Admin Dose 40 MG; Start 12/05/16 at 06:00 Hydralazine HCl (Apresoline) 100 mg BID PO Last administered on 12/05/16 09:02 ; Admin Dose 100 MG; Start 12/05/16 at 01:30 Insulin Glargine (Lantus) 45 unit BID SC Last administered on 12/05/16 09:13; Admin Dose 45 UNIT; Start 12/05/16 at 09:00 Losartan Potassium (Cozaar) 25 mg DAILY PO Last administered on 12/05/16 09:02 ; Admin Dose 25 MG; Start 12/05/16 at 09:00 Nystatin (Nystatin Cr) 1 applic TID TOP ; Start 12/05/16 at 09:00 Pentoxifylline (Trental) 400 mg BID PO Last administered on 12/05/16 09:02; Admin Dose 400 MG; Start 12/05/16 at 01:30 Eye Lubricant (Artificial Tears Oph) 1 drop QID BOTH EYES ; Start 12/05/16 at 09 :00 Miscellaneous Information 1 drop Q8H OP ; Start 12/05/16 at 01:30; Status UNV Pantoprazole (Protonix Tab) 40 mg DAILY@06 PO Last administered on 12/05/16 07 :05; Admin Dose 40 MG; Start 12/05/16 at 06:00 Atorvastatin Calcium (Lipitor) 10 mg DAILY@21 PO ; Start 12/05/16 at 21:00 Hydralazine HCl (Apresoline) 10 mg Q6H PRN IV ELEVATED SYSTOLIC BP; Start 12/05 at 02:00 Ondansetron HCl (Zofran Inj) 4 mg Q6H PRN IV NAUSEA AND/OR VOMITING Last administered on 12/05/16 09:01; Admin Dose 4 MG; Start 12/05/16 at 02:30 Acetaminophen (Tylenol Tab) 650 mg Q6H PRN PO PAIN LEVEL 1-3 OR FEVER Last administered on 12/05/16 09:01; Admin Dose 650 MG; Start 12/05/16 at 02:30 Morphine Sulfate (morphine) 2 mg Q4H PRN IV SEVERE PAIN LEVEL 7-10; Start 12/05 at 02:30 Docusate Sodium (Colace) 100 mg Q12H PRN PO CONSTIPATION; Start 12/05/16 at 02: 30 Bisacodyl 5 mg 5 mg DAILY PRN PO CONSTIPATION; Start 12/05/16 at 02:30 Levofloxacin/ Dextrose (Levaquin 750 Mg/ D5W 150 ml (Pmx)) 150 ml @ 100 mls/hr Q48H IVPB Last administered on 12/05/16 07:23; Admin Dose 100 MLS/HR; Start at 06:00 [facility] This patient patel... PRN PRN XX WOUND CARE; Start 12/05/16 at 06:00 Miscellaneous Information Ketotifen Fumarate (Alaway... Q8H XX ; Start 12/05/16 at 08:30 Ferric Sodium Gluconate Complex/ Sodium Chloride (Ferrlecit/NS) 110 ml @ 100 mls/hr Q24H IVPB Last administered on 12/05/16 14:30; Admin Dose 100 MLS/HR; Start 12/05/16 at 14:00; Stop 12/07/16 at 15:05 LAI LOPEZ MD Dec 05, 2016 19:56
[2016-12-05 20:54] VITALS: BP 175/77; RESP 18
[2016-12-05] MEDS: ATORVASTATIN 10 MG TAB PO SCH (21:01)
[2016-12-05] MEDS ORDERED: COLLAGENASE 30 GM TUBE TOP PRN (23:30)
[2016-12-06] VITALS: BP 145/75
[2016-12-06] MEDS: KETOTIFEN FUMARATE XX SCH ×3 (00:30→16:30)
[2016-12-06] MEDS: ACCU-CHEK XX SCH (02:00)
[2016-12-06 03:25] VITALS: BP 150/69; RESP 18
[2016-12-06] MEDS: ONDANSETRON 4 MG INJ IV PRN ×2 (05:16→12:10)
[2016-12-06] MEDS: PANTOPRAZOLE (EC) 40 MG TAB PO SCH (05:16)
[2016-12-06] MEDS: FUROSEMIDE 40 MG TAB PO SCH (05:17)
[2016-12-06 06:37] LABS: WHITE BLOOD COUNT 9.2 10^3/ul (4.8-10.8)
[2016-12-06 06:38] LABS: BASOPHILS % 0.4 % (0.0-2.0); EOSINOPHILS # 0.3 10^3/ul (0.0-0.5); EOSINOPHILS % 3.2 % (0.0-7.0); HEMATOCRIT 28.6 % (37.0-47.0); HEMOGLOBIN 8.9 g/dl (12.0-16.0); LYMPHOCYTES # 1.6 10^3/ul (0.8-2.9); LYMPHOCYTES % 17.3 % (15.0-51.0); MEAN CORPUSCULAR HEMOGLOBIN 28.7 pg (29.0-33.0); MEAN CORPUSCULAR HGB CONC 31.1 g/dl (32.0-37.0); MEAN CORPUSCULAR VOLUME 92.3 fl (82.0-101.0); MEAN PLATELET VOLUME 10.3 fl (7.4-10.4); MONOCYTE # 0.8 10^3/ul (0.3-0.9); MONOCYTES % 8.8 % (0.0-11.0); NEUTROPHIL # 6.4 10^3/ul (1.6-7.5); PLATELET COUNT 310 10^3/UL (140-415); RED CELL DISTRIBUTION WIDTH 13.2 % (11.5-14.5)
[2016-12-06 07:04] LABS: CREATININE 2.71 mg/dl (0.44-1.00); POTASSIUM 4.5 mmol/L (3.5-5.1)
[2016-12-06 07:08] LABS: URIC ACID 9.4 mg/dl (3.1-7.9)
--- NOTE | 2016-12-06 07:18 | HP ---
Date/Time of Note Date/Time of Note DATE: 12/06/16 TIME: 07:07 Assessment/Plan VTE Prophylaxis VTE Prophylaxis Intervention: SCD's, other Lines/Catheters [facility]from [facility] Saline Lock Urinary Cath still in place: No Assessment/Plan Chief Complaint/Hosp Course Left foot diabetic ulceration lateral 5th MPJ Left foot diabetic heel ulceration Cellulitis Osteomyelitis 5th Met DM2 Wheelchair confined Problems: Assessment/Plan Reviewed imaging. Discussed with patient surgical options. Pt preferred debridement. At risk for amputation. Obtain consent for staged debridement left foot. Can perform under local anesthesia. Initiate dakins/ silvadene. Per vascular no angio. Obtain wound cultures. Heel cushions b/l - at risk for decub given reduced mobility. Appreciate ID recs. HPI/ROS Admit Date/Time Admit Date/Time Dec 04, 2016 at 22:33 Hx of Present Illness Left foot ulcerations. Likely repetitive injury with wheelchair. Severe malodor and local gangrene. Failed outpatient treatment. Radiographs/ MRI + OM. Seen by ID and vascular. ROS Pain left foot obese Wheelchair confined Eyes: no complaints ENT: bleeding, no complaints Respiratory: no complaints Cardiovascular: no complaints Gastrointestinal: no complaints Genitourinary: no complaints Musculoskeletal: back pain, bone/joint pain, swelling Skin: no complaints Neurologic: no complaints PMH/Family/Social Past Medical History Medical History: diabetes, high cholesterol, hypertension, other (PVD,. H/o CVA ) Past Surgical History Past Surgical Hx: other (Hysterectomy, Left foot surgery ) Social History Alcohol Use: none Smoking Status: Never smoker Drug Use: none Exam/Review of Systems Vital Signs Vitals Vital Signs Date Time Temp Pulse Resp B/P Pulse Ox O2 Delivery O2 Flow Rate FiO2 12/06/16 03:25 98.3 73 18 150/69 92 12/04/16 23:29 Room Air Intake and Output 12/05/16 12/05/16 12/06/16 15:00 23:00 07:00 Intake Total 600 ml 870 ml 480 ml Output Total 400 ml Balance 600 ml 870 ml 80 ml Exam Cardiovascular: edema Musculoskeletal: swelling (left lateral foot 5th MPJ necrotic skin/ subcutaneous tissue/ fascia/ bone palpable and soft) Skin: other (blister adjacent to heel wound and prox to lateral wound. Heel ulceratioin est 5x6 cm. Left lat 5th MPJ wound est 4x5 with necrotic fascia/ malodor/ pain with palpation) Labs Result Diagram: 12/06/16 0623 12/05/16 0505 Medications Medications Current Medications Diagnostic Test (Pha) (Accu-Chek) 1 ea 02 XX ; Start 12/05/16 at 02:00 Amlodipine Besylate (Norvasc) 10 mg DAILY PO Last administered on 12/05/16 09: 03; Admin Dose 10 MG; Start 12/05/16 at 01:42 Diltiazem HCl (Cardizem Sr) 60 mg DAILY PO Last administered on 12/05/16 09:03 ; Admin Dose 60 MG; Start 12/05/16 at 09:00 Furosemide (Lasix) 40 mg DAILY@06 PO Last administered on 12/06/16 05:17; Admin Dose 40 MG; Start 12/05/16 at 06:00 Hydralazine HCl (Apresoline) 100 mg BID PO Last administered on 12/05/16 21:19 ; Admin Dose 100 MG; Start 12/05/16 at 01:30 Insulin Glargine (Lantus) 45 unit BID SC Last administered on 12/05/16 21:26; Admin Dose 45 UNIT; Start 12/05/16 at 09:00 Losartan Potassium (Cozaar) 25 mg DAILY PO Last administered on 12/05/16 09:02 ; Admin Dose 25 MG; Start 12/05/16 at 09:00; Status Future Hold Nystatin (Nystatin Cr) 1 applic TID TOP Last administered on 12/05/16 21:01; Admin Dose 1 APPLIC; Start 12/05/16 at 09:00 Pentoxifylline (Trental) 400 mg BID PO Last administered on 12/05/16 21:18; Admin Dose 400 MG; Start 12/05/16 at 01:30 Eye Lubricant (Artificial Tears Oph) 1 drop QID BOTH EYES Last administered on 12/05/16 21:01; Admin Dose 1 DROP; Start 12/05/16 at 09:00 Miscellaneous Information 1 drop Q8H OP ; Start 12/05/16 at 01:30; Status UNV Pantoprazole (Protonix Tab) 40 mg DAILY@06 PO Last administered on 12/06/16 05 :16; Admin Dose 40 MG; Start 12/05/16 at 06:00 Atorvastatin Calcium (Lipitor) 10 mg DAILY@21 PO Last administered on 21:01; Admin Dose 10 MG; Start 12/05/16 at 21:00 Hydralazine HCl (Apresoline) 10 mg Q6H PRN IV ELEVATED SYSTOLIC BP; Start 12/05 at 02:00 Ondansetron HCl (Zofran Inj) 4 mg Q6H PRN IV NAUSEA AND/OR VOMITING Last administered on 12/06/16 05:16; Admin Dose 4 MG; Start 12/05/16 at 02:30 Acetaminophen (Tylenol Tab) 650 mg Q6H PRN PO PAIN LEVEL 1-3 OR FEVER Last administered on 12/05/16 09:01; Admin Dose 650 MG; Start 12/05/16 at 02:30 Morphine Sulfate (morphine) 2 mg Q4H PRN IV SEVERE PAIN LEVEL 7-10; Start 12/05 at 02:30 Docusate Sodium (Colace) 100 mg Q12H PRN PO CONSTIPATION; Start 12/05/16 at 02: 30 Bisacodyl 5 mg 5 mg DAILY PRN PO CONSTIPATION; Start 12/05/16 at 02:30 Levofloxacin/ Dextrose (Levaquin 750 Mg/ D5W 150 ml (Pmx)) 150 ml @ 100 mls/hr Q48H IVPB Last administered on 12/05/16 07:23; Admin Dose 100 MLS/HR; Start at 06:00 Miscellaneous Information Ketotifen Fumarate (Alaway... Q8H XX ; Start 12/05/16 at 08:30 Ferric Sodium Gluconate Complex/ Sodium Chloride (Ferrlecit/NS) 110 ml @ 100 mls/hr Q24H IVPB Last administered on 12/05/16 14:30; Admin Dose 100 MLS/HR; Start 12/05/16 at 14:00; Stop 12/07/16 at 15:05 Collagenase (Santyl) 1 applic DAILY TOP ; Start 12/06/16 at 09:00 Collagenase (Santyl) 1 applic PRN PRN TOP WOUND CARE; Start 12/05/16 at 23:30 Silver Sulfadiazine (Thermazene 1% 25 Gm) 1 applic BID TOP ; Start 12/06/16 at 09:00; Status UNV Sodium Hypochlorite (Dakin'S (Dilute 1/40%)) 1 applic BID IRR ; Start 12/06/16 at 09:00; Status BUBBAV JOSEPH HAHN DPM Dec 06, 2016 07:17
[2016-12-06 07:50] LABS: MAGNESIUM 2.1 mg/dl (1.7-2.5); PHOSPHORUS 4.4 mg/dl (2.5-4.9)
[2016-12-06] MEDS: SODIUM HYPOCHLORITE 1/40% 1L IRRIG IRR SCH ×2 (08:37→20:35)
[2016-12-06] MEDS: ARTIFICIAL TEARS 15 ML OPH BOTH EYES SCH ×4 (08:48→21:39)
[2016-12-06] MEDS: PENTOXIFYLLINE (SR) 400 MG TAB PO SCH ×2 (08:49→20:18)
[2016-12-06] MEDS: AMLODIPINE 10 MG TAB PO SCH (08:49)
[2016-12-06] MEDS: DILTIAZEM (SR) 60 MG CAP PO SCH (08:50)
[2016-12-06] MEDS: NYSTATIN 15 GM CR TOP SCH ×3 (08:50→21:38)
[2016-12-06] MEDS: INSULIN GLARGINE [LANtus] 3 ML PEN SC SCH ×2 (08:51→20:30)
[2016-12-06] MEDS: INSULIN ASPART [NOVOLOG] 3 ML PEN SC SCH ×7 (08:52→20:26)
[2016-12-06] MEDS: COLLAGENASE 30 GM TUBE TOP SCH (08:54)
[2016-12-06] MEDS: SILVER SULFADIAZINE 1% 25 GM CR TOP SCH ×2 (08:54→20:17)
[2016-12-06 08:59] VITALS: BP 150/71; RESP 18
--- NOTE | 2016-12-06 09:59 | PN ---
Date/Time of Note Date/Time of Note DATE: 12/06/16 TIME: 09:59 Assessment/Plan VTE Prophylaxis VTE Prophylaxis Intervention: heparin Lines/Catheters IV C[facility]ter Type (from [facility] Saline Lock Urinary Cath still in place: No Assessment/Plan Chief Complaint/Hosp Course 1. Diabetic foot ulcer of the lateral fifth toe with underlying osteomyelitis. Continue antibiotics as per infectious diseases. Podiatry following. 2. Left diabetic heel ulceration. Continue antimicrobials as per infectious diseases. Podiatry following. 3. Type 2 diabetes mellitus. Continue sliding scale insulin along with pre- meal insulin and basal insulin. Hemoglobin A1c 8.8. 4. Essential hypertension. Continue antihypertensives. 5. Chronic kidney disease. Avoid nephrotoxic medications. Being followed by nephrology. 6. Iron deficiency anemia. Continue iron supplements. 7. Peripheral vascular disease. Being followed by vascular surgery. Bilateral lower extremity arterial Doppler study negative for any significant hemodynamic stenosis. Continue medical management. 8. Gram-positive bacteremia. On antibiotics as per infectious diseases. Repeat blood cultures 2 pending. 9. Obesity. BMI of 46.8 kg/m. Weight reduction advised. 10. Dyslipidemia. Continue statins. 11. Fluids, electrolytes, and nutrition. Carbohydrate controlled diet. 12. DVT prophylaxis. Subcutaneous heparin. 13. Plan. Continue antimicrobials as per infectious diseases. Continue local wound care. Await further recommendations from vascular surgery and podiatry. Case discussed with Dr. Duran. Problems: Subjective 24 Hr Interval Summary Free Text/Dictation The patient remains afebrile. Denies any pain. Exam/Review of Systems Vital Signs Vitals Vital Signs Date Time Temp Pulse Resp B/P Pulse Ox O2 Delivery O2 Flow Rate FiO2 12/06/16 08:59 98.6 70 18 150/71 91 12/04/16 23:29 Room Air Intake and Output 12/05/16 12/05/16 12/06/16 15:00 23:00 07:00 Intake Total 600 ml 870 ml 480 ml Output Total 400 ml Balance 600 ml 870 ml 80 ml Exam General: Morbidly obese 66 year-old female lying in bed in no apparent distress. HEENT: Normocephalic, atraumatic. Eyes: Anicteric sclerae, conjunctivae clear. ENT: Nasal septum midline, oral mucosa moist. Neck supple, no JVD noticed. Respiratory: Bilaterally diminished breath sounds. No use of accessory muscles of respiration. No adventitious breath sounds. Cardiovascular: S1, S2 heard. No murmurs or gallops. Abdomen: Soft, nontender, and nondistended. Bowel sounds positive in all 4 quadrants. Genitourinary: Deferred. Extremities: No cyanosis, no clubbing. Peripheral pulses palpable. Left fifth toe edema and erythema. Neurologic: Cranial nerves II through XII grossly intact. The patient is awake, alert, and oriented. Results Result Diagram: 12/06/16 0623 12/06/16 0623 Results 24 hrs Laboratory Tests Test 12/05/16 12:25 12/05/16 17:21 12/05/16 20:34 12/06/16 06:23 Bedside Glucose 126 109 142 White Blood Count 9.2 Red Blood Count 3.10 L Hemoglobin 8.9 L Hematocrit 28.6 L Mean Corpuscular Volume 92.3 Mean Corpuscular Hemoglobin 28.7 L Mean Corpuscular Hemoglobin Concent 31.1 L Red Cell Distribution Width 13.2 Platelet Count 310 Mean Platelet Volume 10.3 Neutrophils % 69.0 Lymphocytes % 17.3 Monocytes % 8.8 Eosinophils % 3.2 Basophils % 0.4 Nucleated Red Blood Cells % 0.0 Neutrophils # 6.4 Lymphocytes # 1.6 Monocytes # 0.8 Eosinophils # 0.3 Basophils # 0.0 Nucleated Red Blood Cells # 0.0 Sodium Level 142 Potassium Level 4.5 Chloride Level 99 Carbon Dioxide Level 30 Anion Gap 18 H Blood Urea Nitrogen 55 H Creatinine 2.71 H Glucose Level 101 # Uric Acid 9.4 H Calcium Level 9.0 Phosphorus Level 4.4 Magnesium Level 2.1 Creatine Kinase 32 Test 12/06/16 08:35 Bedside Glucose 144 Medications Medications Current Medications Diagnostic Test (Pha) (Accu-Chek) XX ; Start 12/05/16 at 02:00 Amlodipine Besylate (Norvasc) 10 mg DAILY PO Last administered on 12/06/16 08: 49; Admin Dose 10 MG; Start 12/05/16 at 01:42 Diltiazem HCl (Cardizem Sr) 60 mg DAILY PO Last administered on 12/06/16 08:50 ; Admin Dose 60 MG; Start 12/05/16 at 09:00 Furosemide (Lasix) 40 mg DAILY@06 PO Last administered on 12/06/16 05:17; Admin Dose 40 MG; Start 12/05/16 at 06:00 Hydralazine HCl (Apresoline) 100 mg BID PO Last administered on 12/06/16 08:49 ; Admin Dose 100 MG; Start 12/05/16 at 01:30 Insulin Glargine (Lantus) 45 unit BID SC Last administered on 12/06/16 08:51; Admin Dose 45 UNIT; Start 12/05/16 at 09:00 Losartan Potassium (Cozaar) 25 mg DAILY PO Last administered on 12/05/16 09:02 ; Admin Dose 25 MG; Start 12/05/16 at 09:00; Status Future Hold Nystatin (Nystatin Cr) 1 applic TID TOP Last administered on 12/06/16 08:50; Admin Dose 1 APPLIC; Start 12/05/16 at 09:00 Pentoxifylline (Trental) 400 mg BID PO Last administered on 12/06/16 08:49; Admin Dose 400 MG; Start 12/05/16 at 01:30 Eye Lubricant (Artificial Tears Oph) 1 drop QID BOTH EYES Last administered on 12/06/16 08:48; Admin Dose 1 DROP; Start 12/05/16 at 09:00 Miscellaneous Information 1 drop Q8H OP ; Start 12/05/16 at 01:30; Status UNV Pantoprazole (Protonix Tab) 40 mg DAILY@06 PO Last administered on 12/06/16 05 :16; Admin Dose 40 MG; Start 12/05/16 at 06:00 Atorvastatin Calcium (Lipitor) 10 mg DAILY@21 PO Last administered on 21:01; Admin Dose 10 MG; Start 12/05/16 at 21:00 Hydralazine HCl (Apresoline) 10 mg Q6H PRN IV ELEVATED SYSTOLIC BP; Start 12/05 at 02:00 Ondansetron HCl (Zofran Inj) 4 mg Q6H PRN IV NAUSEA AND/OR VOMITING Last administered on 12/06/16 05:16; Admin Dose 4 MG; Start 12/05/16 at 02:30 Acetaminophen (Tylenol Tab) 650 mg Q6H PRN PO PAIN LEVEL 1-3 OR FEVER Last administered on 12/05/16 09:01; Admin Dose 650 MG; Start 12/05/16 at 02:30 Morphine Sulfate (morphine) 2 mg Q4H PRN IV SEVERE PAIN LEVEL 7-10; Start 12/05 at 02:30 Docusate Sodium (Colace) 100 mg Q12H PRN PO CONSTIPATION; Start 12/05/16 at 02: 30 Bisacodyl 5 mg 5 mg DAILY PRN PO CONSTIPATION; Start 12/05/16 at 02:30 Levofloxacin/ Dextrose (Levaquin 750 Mg/ D5W 150 ml (Pmx)) 150 ml @ 100 mls/hr Q48H IVPB Last administered on 12/05/16 07:23; Admin Dose 100 MLS/HR; Start at 06:00 Miscellaneous Information Ketotifen Fumarate (Alaway... Q8H XX ; Start 12/05/16 at 08:30 Ferric Sodium Gluconate Complex/ Sodium Chloride (Ferrlecit/NS) 110 ml @ 100 mls/hr Q24H IVPB Last administered on 12/05/16 14:30; Admin Dose 100 MLS/HR; Start 12/05/16 at 14:00; Stop 12/07/16 at 15:05 Collagenase (Santyl) 1 applic DAILY TOP ; Start 12/06/16 at 09:00 Collagenase (Santyl) 1 applic PRN PRN TOP WOUND CARE; Start 12/05/16 at 23:30 Silver Sulfadiazine (Thermazene 1% 25 Gm) 1 applic BID TOP ; Start 12/06/16 at 09:00 Sodium Hypochlorite (Dakin'S (Dilute 1/40%)) 1 applic BID IRR ; Start 12/06/16 at 09:00 HILDA CRAVEN NP Dec 06, 2016 09:59
--- NOTE | 2016-12-06 10:45 | PN ---
Date/Time of Note Date/Time of Note DATE: 12/06/16 TIME: 10:42 Assessment/Plan Lines/Catheters IV Catheter Type (from Nrs): Saline Lock Buitrago in Place (from Nrs): No Assessment/Plan Chief Complaint/Hosp Course This is a 66-year-old female with a history of diabetes hypertension obesity patient has had ulceration in the lateral aspect of the left foot currently being admitted to undergo further therapy including antibiotics therapy Patient has had an ultrasound which shows mild arterial stenosis without hemodynamically significant lesion Patient has renal failure with elevation of the creatinine up to 2.71 At this time I do not recommend an angiogram with the mild nature of the arterial disease With continue local wound care and antibiotic therapy Problems: Subjective 24 Hr Interval Summary Constitutional: improved Pain Control: mild Exam/Review of Systems Vital Signs Vitals Vital Signs Date Time Temp Pulse Resp B/P Pulse Ox O2 Delivery O2 Flow Rate FiO2 12/06/16 08:59 98.6 70 18 150/71 91 12/04/16 23:29 Room Air Intake and Output 12/05/16 12/05/16 12/06/16 15:00 23:00 07:00 Intake Total 600 ml 870 ml 480 ml Output Total 400 ml Balance 600 ml 870 ml 80 ml Exam Eyes: EOMI, nl conjunctiva, nl lids, nl sclera ENMT: mucosa pink and moist, nl external ears & nose, nl lips & teeth, nl nasal mucosa & septum Neck: non-tender, supple Respiratory: clear to auscultation, normal air movement Cardiovascular: nl pulses, regular rate and rhythm Gastrointestinal: nl liver, spleen, non-tender, soft Additional Comments Left foot with edema more swelling than the right foot. foot is warm all the way down to the ankle ulceration in the lateral aspect of the foot noted. there is palpable femoral no popliteal or pedal pulses Results Result Diagram: 12/06/16 0623 12/06/16 0623 LAI LOPEZ MD Dec 06, 2016 10:45
[2016-12-06 11:19] LABS: PROTEIN/CREAT RATIO 1.98 RATIO
[2016-12-06] MEDS: SOD FERRIC GLUC COMPLX 125 MG in SOD CHLORIDE 0.9% 100 ML IVPB SCH (15:15)
[2016-12-06 15:20] VITALS: BP 167/77; RESP 18
--- NOTE | 2016-12-06 15:48 | CONS ---
Date/Time of Note Date/Time of Note DATE: 12/06/16 TIME: 15:44 Assessment/Plan Assessment/Plan Chief Complaint/Hosp Course 66-year-old female with PMHx of HTN< HL, DM II who presnted with left foot ulceration/infection which has been intermittently going on last 4 year. She follows in [facility] wound care clinic/ She is noted to have have Cr 3.08 on admission and renal has been consulted for JENNIFER vs JENNIFER on CKD Problems: Additional Assessment/Plan 1. Acute kidney injury on possible CKD due to ATN From osteomyelitis, presented with Cr 3.08 on admission, no previous Cr available to compare 2. Left foot ulcer/Osteomyelitis 3. possible CKD due to diabetic nephropathy 4. Hypertension 5. Hyperlipidemia 6. LE PVD- Mild 7. H/o CVA 8. Hyperuricemia Plan: renal US c/w medical renal disease pt has JENNIFER on CKD Amlodipine 10 mg PO QHS IV hydralzine prn Hold losartan due to persistently elevated Cr Hyperuricemia with Uric acid 9.4- start allopurinol 100m po daily relgan 10mg IV x1 today with dinner due to nausea, vomiting then tomorrow we will see pt need reglan 5mg PO QAC with meals - she has diabetic gastroparesis Consultation Date/Type/Reason Admit Date/Time Dec 04, 2016 at 22:33 Initial Consult Date 12/05/16 Type of Consultation: NEPHROLOGY Referring Provider: RANJITH MCDONALD 24 HR Interval Summary Free Text/Dictation Cr 2.71, BP has been running high Exam/Review of Systems Vital Signs Vitals Vital Signs Date Time Temp Pulse Resp B/P Pulse Ox O2 Delivery O2 Flow Rate FiO2 12/06/16 15:20 98.2 71 18 167/77 92 12/04/16 23:29 Room Air Intake and Output 12/05/16 12/05/16 12/06/16 15:00 23:00 07:00 Intake Total 600 ml 870 ml 480 ml Output Total 400 ml Balance 600 ml 870 ml 80 ml Results Result Diagram: 12/06/16 0612/06/16 0623 Results 24 hrs Laboratory Tests Test 12/05/16 17:21 12/05/16 20:34 12/06/16 02:30 12/06/16 06:23 Bedside Glucose 109 142 Urine Eosinophils % 0.0 Urine Random Creatinine 61.35 Urine Random Sodium 35 Urine Protein/Creatinine Ratio 1.98 Urine Total Protein 122.0 H White Blood Count 9.2 Red Blood Count 3.10 L Hemoglobin 8.9 L Hematocrit 28.6 L Mean Corpuscular Volume 92.3 Mean Corpuscular Hemoglobin 28.7 L Mean Corpuscular Hemoglobin Concent 31.1 L Red Cell Distribution Width 13.2 Platelet Count 310 Mean Platelet Volume 10.3 Neutrophils % 69.0 Lymphocytes % 17.3 Monocytes % 8.8 Eosinophils % 3.2 Basophils % 0.4 Nucleated Red Blood Cells % 0.0 Neutrophils # 6.4 Lymphocytes # 1.6 Monocytes # 0.8 Eosinophils # 0.3 Basophils # 0.0 Nucleated Red Blood Cells # 0.0 Sodium Level 142 Potassium Level 4.5 Chloride Level 99 Carbon Dioxide Level 30 Anion Gap 18 H Blood Urea Nitrogen 55 H Creatinine 2.71 H Glucose Level 101 # Uric Acid 9.4 H Calcium Level 9.0 Phosphorus Level 4.4 Magnesium Level 2.1 Creatine Kinase 32 Test 12/06/16 08:35 12/06/16 11:53 Bedside Glucose 144 126 Medications Medications Current Medications Diagnostic Test (Pha) (Accu-Chek) 1 ea 02 XX ; Start 12/05/16 at 02:00 Amlodipine Besylate (Norvasc) 10 mg DAILY PO Last administered on 12/06/16 08: 49; Admin Dose 10 MG; Start 12/05/16 at 01:42 Diltiazem HCl (Cardizem Sr) 60 mg DAILY PO Last administered on 12/06/16 08:50 ; Admin Dose 60 MG; Start 12/05/16 at 09:00 Furosemide (Lasix) 40 mg DAILY@06 PO Last administered on 12/06/16 05:17; Admin Dose 40 MG; Start 12/05/16 at 06:00 Hydralazine HCl (Apresoline) 100 mg BID PO Last administered on 12/06/16 08:49 ; Admin Dose 100 MG; Start 12/05/16 at 01:30 Insulin Glargine (Lantus) 45 unit BID SC Last administered on 12/06/16 08:51; Admin Dose 45 UNIT; Start 12/05/16 at 09:00 Losartan Potassium (Cozaar) 25 mg DAILY PO Last administered on 12/05/16 09:02 ; Admin Dose 25 MG; Start 12/05/16 at 09:00; Status Future Hold Nystatin (Nystatin Cr) 1 applic TID TOP Last administered on 12/06/16 12:00; Admin Dose 1 APPLIC; Start 12/05/16 at 09:00 Pentoxifylline (Trental) 400 mg BID PO Last administered on 12/06/16 08:49; Admin Dose 400 MG; Start 12/05/16 at 01:30 Eye Lubricant (Artificial Tears Oph) 1 drop QID BOTH EYES Last administered on 12/06/16 12:02; Admin Dose 1 DROP; Start 12/05/16 at 09:00 Miscellaneous Information 1 drop Q8H OP ; Start 12/05/16 at 01:30; Status UNV Pantoprazole (Protonix Tab) 40 mg DAILY@06 PO Last administered on 12/06/16 05 :16; Admin Dose 40 MG; Start 12/05/16 at 06:00 Atorvastatin Calcium (Lipitor) 10 mg DAILY@21 PO Last administered on 21:01; Admin Dose 10 MG; Start 12/05/16 at 21:00 Hydralazine HCl (Apresoline) 10 mg Q6H PRN IV ELEVATED SYSTOLIC BP; Start 12/05 at 02:00 Ondansetron HCl (Zofran Inj) 4 mg Q6H PRN IV NAUSEA AND/OR VOMITING Last administered on 12/06/16 12:10; Admin Dose 4 MG; Start 12/05/16 at 02:30 Acetaminophen (Tylenol Tab) 650 mg Q6H PRN PO PAIN LEVEL 1-3 OR FEVER Last administered on 12/05/16 09:01; Admin Dose 650 MG; Start 12/05/16 at 02:30 Morphine Sulfate (morphine) 2 mg Q4H PRN IV SEVERE PAIN LEVEL 7-10; Start 12/05 at 02:30 Docusate Sodium (Colace) 100 mg Q12H PRN PO CONSTIPATION; Start 12/05/16 at 02: 30 Bisacodyl 5 mg 5 mg DAILY PRN PO CONSTIPATION; Start 12/05/16 at 02:30 Levofloxacin/ Dextrose (Levaquin 750 Mg/ D5W 150 ml (Pmx)) 150 ml @ 100 mls/hr Q48H IVPB Last administered on 12/05/16 07:23; Admin Dose 100 MLS/HR; Start at 06:00 Miscellaneous Information Ketotifen Fumarate (Alaway... Q8H XX ; Start 12/05/16 at 08:30 Ferric Sodium Gluconate Complex/ Sodium Chloride (Ferrlecit/NS) 110 ml @ 100 mls/hr Q24H IVPB Last administered on 12/06/16 15:15; Admin Dose 100 MLS/HR; Start 12/05/16 at 14:00; Stop 12/07/16 at 15:05 Collagenase (Santyl) 1 applic DAILY TOP ; Start 12/06/16 at 09:00 Collagenase (Santyl) 1 applic PRN PRN TOP WOUND CARE; Start 12/05/16 at 23:30 Silver Sulfadiazine (Thermazene 1% 25 Gm) 1 applic BID TOP ; Start 12/06/16 at 09:00 Sodium Hypochlorite (Dakin'S (Dilute 1/40%)) 1 applic BID IRR ; Start 12/06/16 at 09:00 Heparin Sodium (Porcine) (Heparin (5000 Units/0.5 ml)) 5,000 unit BID SC ; Start 12/06/16 at 21:00 Miscellaneous Information (*Rx Drug Level Order Reminder*) VANCOMYCIN RANDOM LEVEL IN AM ONCE ONCE XX ; Start 12/07/16 at 05:00; Stop 12/07/16 at 05:01 MONSE CHILEL MD Dec 06, 2016 15:48
[2016-12-06] MEDS ORDERED: LIDOCAINE 1% (MPF) 30 ML INJ INJ PRN (16:30)
[2016-12-06] MEDS ORDERED: METOCLOPRAMIDE 10 MG INJ IV ONE (17:30)
[2016-12-06] MEDS: ALLOPURINOL 100 MG TAB PO SCH (17:30)
[2016-12-06] MEDS: DOCUSATE SODIUM 100 MG CAP PO PRN (20:17)
[2016-12-06] MEDS: ATORVASTATIN 10 MG TAB PO SCH (20:18)
[2016-12-06] MEDS: HEPARIN 5,000 UNIT/0.5 ML VIAL SC SCH (20:30)
[2016-12-06] MEDS: ACETAMINOPHEN 325 MG TAB PO PRN (20:34)
[2016-12-06 21:47] VITALS: BP 181/88; RESP 18
[2016-12-06 23:06] VITALS: BP 143/65; PULSE 70
--- NOTE | 2016-12-06 23:37 | CONS ---
Date/Time of Note Date/Time of Note DATE: 12/06/16 TIME: 23:13 Assessment/Plan Assessment/Plan Chief Complaint/Hosp Course ID PROGRESS NOTE=> NOTE: I rounded on the patient earlier today about noon with note placed later CURRENT ABX: DAY #2 => Vanco IV s/p Zosyn x1 12/14 pm 24H INTERVAL SUMMARY * A/A/o -> no fevers, VSS, foot is painful -- she had similar problem about 1- year ago, recurrent recently * She tells me has been seen by podiatry who plans debridement * She is on Vanco IV, Zosyn was not continued from the ED dose; nevertheless she is stable. * At this time will hold off on Zosyn pending I&D of wound pathogens * BCx from ED (+)1/2 bottles GPC + * NO current evidence of sepsis -- WBC normalized Exam Constitutional: alert, oriented, super morbid obese, laying in bed supine Psych: nl mood/affect, no complaints HEENT: Unremarkable Neck: non-tender, supple Respiratory: No wheezing, equal chest rise bilaterally without dyspnea on observation Cardiovascular: RRR Gastrointestinal: Soft, NT Extremities: (+)Left complex diabetic foot ulcer - draining see photos Neurological: CARTRIDGE LOADER II-XII 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 SIRS on admission w/low grade temp TMax 99.0, leukocytosis 11.6 w/left shift , VSS +> due to Left diabetic foot infection * BCx (+) 1/2 bottles from ED = GPC pending final 2. Acute traumatic left diabetic foot wound infection w/concern acute osteomyelitis => Foot got caught in motor chair * 12/05/16 MRI LEFT FOOT: * 1. Skin ulcer along the lateral plantar aspect of the fifth digit at the level of the distal fifth metatarsal and metatarsophalangeal joint with cellulitis. * 2. Erosive changes with mild deformity of the fifth metatarsal head but no significant abnormal marrow signal. This can be seen with chronic osteomyelitis given the adjacent skin ulcer although inflammatory arthritis can also give this appearance. * 3. Mild osteoarthrosis of the first metatarsophalangeal joint. 3. Hx of prior left Diabetic foot (+)MRSA infection w/osteomyelitis -> resolved ~1-year ago 4. DMT2 w/complication of DM peripheral neuropathy 5. Mild PAD=> Arterial Duplex revealed: Mild plaque formation without evidence for hemodynamically significant stenosis or occlusion. 6. HTN 7. HLD 8. Tinnitus ( ) MRSA Nares -> Screening ordered INVASIVES: ABX ALLERGY: PCN CURRENT ABX: DAY #2 => Vanco IV s/p Zosyn x1 12/14 pm ID RECOMMENDATIONS 1. Wound cx on order by [facility], will hold off on starting Zosyn or Levaquin until wound cx obtained 2. Swab nares for MRSA 3. Continue Vanco for hx of MRSA wound and (+)GPC Blood cultures. 4. Follow [facility] recs . . Problems: Consultation Date/Type/Reason Admit Date/Time Dec 04, 2016 at 22:33 Initial Consult Date 12/05/16 Type of Consultation: ID Referring Provider: RANJITH MCDONALD Exam/Review of Systems Vital Signs Vitals Vital Signs Date Time Temp Pulse Resp B/P Pulse Ox O2 Delivery O2 Flow Rate FiO2 12/06/16 23:06 70 143/65 12/06/16 21:47 97.9 18 98 12/04/16 23:29 Room Air Intake and Output 12/05/16 12/05/16 12/06/16 15:00 23:00 07:00 Intake Total 600 ml 870 ml 480 ml Output Total 400 ml Balance 600 ml 870 ml 80 ml Results Result Diagram: 12/06/1662212/06/16622 Results 24 hrs Laboratory Tests Test 12/06/16 02:30 12/06/16 06:23 12/06/16 08:35 12/06/16 11:53 Urine Eosinophils % 0.0 Urine Random Creatinine 61.35 Urine Random Sodium 35 Urine Protein/Creatinine Ratio 1.98 Urine Total Protein 122.0 H White Blood Count 9.2 Red Blood Count 3.10 L Hemoglobin 8.9 L Hematocrit 28.6 L Mean Corpuscular Volume 92.3 Mean Corpuscular Hemoglobin 28.7 L Mean Corpuscular Hemoglobin Concent 31.1 L Red Cell Distribution Width 13.2 Platelet Count 310 Mean Platelet Volume 10.3 Neutrophils % 69.0 Lymphocytes % 17.3 Monocytes % 8.8 Eosinophils % 3.2 Basophils % 0.4 Nucleated Red Blood Cells % 0.0 Neutrophils # 6.4 Lymphocytes # 1.6 Monocytes # 0.8 Eosinophils # 0.3 Basophils # 0.0 Nucleated Red Blood Cells # 0.0 Sodium Level 142 Potassium Level 4.5 Chloride Level 99 Carbon Dioxide Level 30 Anion Gap 18 H Blood Urea Nitrogen 55 H Creatinine 2.71 H Glucose Level 101 # Uric Acid 9.4 H Calcium Level 9.0 Phosphorus Level 4.4 Magnesium Level 2.1 Creatine Kinase 32 Bedside Glucose 144 126 Test 12/06/16 17:41 12/06/16 20:26 Bedside Glucose 87 172 Medications Medications Current Medications Diagnostic Test (Pha) (Accu-Chek) XX ; Start 12/05/16 at 02:00 Amlodipine Besylate (Norvasc) 10 mg DAILY PO Last administered on 12/06/16 08: 49; Admin Dose 10 MG; Start 12/05/16 at 01:42 Diltiazem HCl (Cardizem Sr) 60 mg DAILY PO Last administered on 12/06/16 08:50 ; Admin Dose 60 MG; Start 12/05/16 at 09:00 Furosemide (Lasix) 40 mg DAILY@06 PO Last administered on 12/06/16 05:17; Admin Dose 40 MG; Start 12/05/16 at 06:00 Hydralazine HCl (Apresoline) 100 mg BID PO Last administered on 12/06/16 20:35 ; Admin Dose 100 MG; Start 12/05/16 at 01:30 Insulin Glargine (Lantus) 45 unit BID SC Last administered on 12/06/16 20:30; Admin Dose 45 UNIT; Start 12/05/16 at 09:00 Losartan Potassium (Cozaar) 25 mg DAILY PO Last administered on 12/05/16 09:02 ; Admin Dose 25 MG; Start 12/05/16 at 09:00; Status Future Hold Nystatin (Nystatin Cr) 1 applic TID TOP Last administered on 12/06/16 21:38; Admin Dose 1 APPLIC; Start 12/05/16 at 09:00 Pentoxifylline (Trental) 400 mg BID PO Last administered on 12/06/16 20:18; Admin Dose 400 MG; Start 12/05/16 at 01:30 Eye Lubricant (Artificial Tears Oph) 1 drop QID BOTH EYES Last administered on 12/06/16 21:39; Admin Dose 1 DROP; Start 12/05/16 at 09:00 Miscellaneous Information 1 drop Q8H OP ; Start 12/05/16 at 01:30; Status UNV Pantoprazole (Protonix Tab) 40 mg DAILY@06 PO Last administered on 12/06/16 05 :16; Admin Dose 40 MG; Start 12/05/16 at 06:00 Atorvastatin Calcium (Lipitor) 10 mg DAILY@21 PO Last administered on 20:18; Admin Dose 10 MG; Start 12/05/16 at 21:00 Hydralazine HCl (Apresoline) 10 mg Q6H PRN IV ELEVATED SYSTOLIC BP; Start 12/05 at 02:00 Ondansetron HCl (Zofran Inj) 4 mg Q6H PRN IV NAUSEA AND/OR VOMITING Last administered on 12/06/16 12:10; Admin Dose 4 MG; Start 12/05/16 at 02:30 Acetaminophen (Tylenol Tab) 650 mg Q6H PRN PO PAIN LEVEL 1-3 OR FEVER Last administered on 12/06/16 20:34; Admin Dose 650 MG; Start 12/05/16 at 02:30 Morphine Sulfate (morphine) 2 mg Q4H PRN IV SEVERE PAIN LEVEL 7-10; Start 12/05 at 02:30 Docusate Sodium (Colace) 100 mg Q12H PRN PO CONSTIPATION Last administered on 20:17; Admin Dose 100 MG; Start 12/05/16 at 02:30 Bisacodyl 5 mg 5 mg DAILY PRN PO CONSTIPATION; Start 12/05/16 at 02:30 Levofloxacin/ Dextrose (Levaquin 750 Mg/ D5W 150 ml (Pmx)) 150 ml @ 100 mls/hr Q48H IVPB Last administered on 12/05/16 07:23; Admin Dose 100 MLS/HR; Start at 06:00 Miscellaneous Information Ketotifen Fumarate (Alaway... Q8H XX ; Start 12/05/16 at 08:30 Ferric Sodium Gluconate Complex/ Sodium Chloride (Ferrlecit/NS) 110 ml @ 100 mls/hr Q24H IVPB Last administered on 12/06/16 15:15; Admin Dose 100 MLS/HR; Start 12/05/16 at 14:00; Stop 12/07/16 at 15:05 Collagenase (Santyl) 1 applic DAILY TOP ; Start 12/06/16 at 09:00 Collagenase (Santyl) 1 applic PRN PRN TOP WOUND CARE; Start 12/05/16 at 23:30 Silver Sulfadiazine (Thermazene 1% 25 Gm) 1 applic BID TOP Last administered on 12/06/16 20:17; Admin Dose 1 APPLIC; Start 12/06/16 at 09:00 Sodium Hypochlorite (Dakin'S (Dilute 1/40%)) 1 applic BID IRR Last administered on 12/06/16 20:35; Admin Dose 1 APPLIC; Start 12/06/16 at 09:00 Heparin Sodium (Porcine) (Heparin (5000 Units/0.5 ml)) 5,000 unit BID SC Last administered on 12/06/16 20:30; Admin Dose 5,000 UNIT; Start 12/06/16 at 21:00 Miscellaneous Information (*Rx Drug Level Order Reminder*) VANCOMYCIN RANDOM LEVEL IN AM ONCE ONCE XX ; Start 12/07/16 at 05:00; Stop 12/07/16 at 05:01 Allopurinol (Zyloprim) 100 mg DAILY PO Last administered on 12/06/16 17:30; Admin Dose 100 MG; Start 12/06/16 at 16:00 NAHOMY LEPE NP Dec 06, 2016 23:24
[2016-12-07] MEDS: KETOTIFEN FUMARATE XX SCH ×3 (00:30→16:30)
[2016-12-07] MEDS: ACCU-CHEK XX SCH (02:00)
--- NOTE | 2016-12-07 02:38 | OPR ---
DATE OF OPERATION: 12/06/2016 SURGEON: Robson Hernandez DPM. NURSE TRANSITION: None. PREOPERATIVE DIAGNOSES: 1. Possible diabetic foot ulceration, lateral fifth metaphalangeal joint. 2. Left foot diabetic heel ulcer. 3. Cellulitis. 4. Osteomyelitis, fifth metatarsal. 5. Diabetes type 2. POSTOPERATIVE DIAGNOSES: 1. Possible diabetic foot ulceration, lateral fifth metaphalangeal joint. 2. Left foot diabetic heel ulcer. 3. Cellulitis. 4. Osteomyelitis, fifth metatarsal. 5. Diabetes type 2. PROCEDURES PERFORMED: 1. Excisional debridement of skin and subcutaneous tissue, muscle, fascia of left foot, fifth MPJ 3 x 2 cm. 2. Excisional debridement of skin and subcutaneous tissue, left heel, 4 x 5 cm. PATHOLOGY: Wound cultures. ANESTHESIA: Lidocaine 1% plain 6 mL. ESTIMATED BLOOD LOSS: Ten mL. Hemostasis with compression. INDICATION FOR PROCEDURE: Nonhealing, infected ulceration with gangrenous tissue. Recommend procedure to eradicate grossly infected tissue as part of a staged intervention for the ulceration. The patient is not scheduled for vascular surgery. PROCEDURE IN DETAIL: The patient was seen at bedside. Skin was cleansed with Betadine and injected to the perforated fifth metatarsal using lidocaine 1% plain. Using pickup scissors, blade excisional debridement of skin and subcutaneous tissue, muscle and fascia performed, 3 x 2 cm. The patient had an estimated blood loss of 10 mL. Wound was irrigated with Dakin's. Culture was obtained. Attention was directed to the heel. In a similar fashion, using pickup scissors, excisional debridement performed of the heel ulceration, skin and subcutaneous tissue, 4 x 5 cm. Estimated blood loss of 5 mL. Wound was irrigated with Dakin's. The patient tolerated the procedure well. Applied dry sterile dressings. Continue daily dressing changes with irrigation with Dakin's 0.125%, application of Silvadene ointment. Further recommendations once culture results received. Dictated By: Robson Hernandez DPM /patricia/adelita /Document#: [id number]
[2016-12-07 04:13] VITALS: BP 163/72; RESP 18
[2016-12-07 04:17] VITALS: BP 156/72; PULSE 85
[2016-12-07] MEDS: LEVOFLOXACIN 750MG/D5W (PMX) 150 ML IVPB SCH (05:16)
[2016-12-07] MEDS: FUROSEMIDE 40 MG TAB PO SCH (05:17)
[2016-12-07] MEDS: PANTOPRAZOLE (EC) 40 MG TAB PO SCH (05:17)
[2016-12-07 05:58] LABS: BASOPHILS % 0.3 % (0.0-2.0); EOSINOPHILS # 0.2 10^3/ul (0.0-0.5); EOSINOPHILS % 2.6 % (0.0-7.0); LYMPHOCYTES # 1.8 10^3/ul (0.8-2.9); LYMPHOCYTES % 19.6 % (15.0-51.0); MEAN CORPUSCULAR HEMOGLOBIN 27.6 pg (29.0-33.0); MEAN PLATELET VOLUME 10.4 fl (7.4-10.4); MONOCYTE # 0.9 10^3/ul (0.3-0.9); MONOCYTES % 10.3 % (0.0-11.0); NEUTROPHIL # 5.8 10^3/ul (1.6-7.5); NEUTROPHILS % 65.2 % (39.0-77.0); PLATELET COUNT 338 10^3/UL (140-415); RED BLOOD COUNT 3.26 10^6/ul (4.20-5.40)
[2016-12-07 06:23] LABS: ALBUMIN 3.2 g/dl (3.3-4.9); ALBUMIN/GLOBULIN RATIO 0.8; CALCIUM 9.4 mg/dl (8.4-10.2); CREATININE 2.82 mg/dl (0.44-1.00); POTASSIUM 4.5 mmol/L (3.5-5.1); TOTAL PROTEIN 7.2 g/dl (6.1-8.1)
[2016-12-07 06:55] LABS: MAGNESIUM 2.2 mg/dl (1.7-2.5); PHOSPHORUS 4.6 mg/dl (2.5-4.9)
[2016-12-07] MEDS: ONDANSETRON 4 MG INJ IV PRN ×2 (07:56→13:54)
[2016-12-07] MEDS: INSULIN ASPART [NOVOLOG] 3 ML PEN SC SCH ×7 (08:00→20:34)
[2016-12-07 08:01] VITALS: BP 150/69; RESP 18
[2016-12-07] MEDS: ARTIFICIAL TEARS 15 ML OPH BOTH EYES SCH ×4 (08:01→20:33)
[2016-12-07] MEDS: SILVER SULFADIAZINE 1% 25 GM CR TOP SCH ×2 (08:01→20:33)
[2016-12-07] MEDS: COLLAGENASE 30 GM TUBE TOP SCH (08:01)
[2016-12-07] MEDS: PENTOXIFYLLINE (SR) 400 MG TAB PO SCH ×2 (08:01→20:33)
[2016-12-07] MEDS: ALLOPURINOL 100 MG TAB PO SCH (08:01)
[2016-12-07] MEDS: NYSTATIN 15 GM CR TOP SCH ×4 (08:01→20:33)
[2016-12-07] MEDS: HEPARIN 5,000 UNIT/0.5 ML VIAL SC SCH ×2 (08:03→20:37)
[2016-12-07] MEDS: INSULIN GLARGINE [LANtus] 3 ML PEN SC SCH ×2 (08:04→20:36)
[2016-12-07] MEDS: DILTIAZEM (SR) 60 MG CAP PO SCH (08:11)
[2016-12-07] MEDS: SODIUM HYPOCHLORITE 1/40% 1L IRRIG IRR SCH ×2 (08:11→20:34)
[2016-12-07] MEDS: AMLODIPINE 10 MG TAB PO SCH (08:12)
--- NOTE | 2016-12-07 11:02 | PN ---
Date/Time of Note Date/Time of Note DATE: 12/07/16 TIME: 11:01 Assessment/Plan Lines/Catheters IV Catheter Type (from Nrsg): Saline Lock Buitrago in Place (from Nrsg): No Assessment/Plan Chief Complaint/Hosp Course This is a 66-year-old female with a history of diabetes hypertension obesity patient has had ulceration in the lateral aspect of the left foot currently being admitted to undergo further therapy including antibiotics therapy Patient has had an ultrasound which shows mild arterial stenosis without hemodynamically significant lesion Patient has renal failure with elevation of the creatinine up to 2.71 At this time I do not recommend an angiogram with the mild nature of the arterial disease With continue local wound care and antibiotic therapy per podiatry Problems: Subjective 24 Hr Interval Summary Constitutional: improved Pain Control: mild Exam/Review of Systems Vital Signs Vitals Vital Signs Date Time Temp Pulse Resp B/P Pulse Ox O2 Delivery O2 Flow Rate FiO2 12/07/16 08:01 98.0 70 18 150/69 92 12/04/16 23:29 Room Air Intake and Output 12/06/16 12/06/16 12/07/16 15:00 23:00 07:00 Intake Total 480 ml 390 ml Balance 480 ml 390 ml Exam ENMT: mucosa pink and moist, nl external ears & nose, nl lips & teeth, nl nasal mucosa & septum Neck: non-tender, supple Respiratory: clear to auscultation, normal air movement Cardiovascular: nl pulses, regular rate and rhythm Gastrointestinal: nl liver, spleen, non-tender, soft Results Result Diagram: 12/07/16 0500 12/07/16 0500 LAI LOPEZ MD Dec 07, 2016 11:02
--- NOTE | 2016-12-07 11:05 | PN ---
Date/Time of Note Date/Time of Note DATE: 12/07/16 TIME: 11:04 Assessment/Plan VTE Prophylaxis VTE Prophylaxis Intervention: heparin Lines/Catheters IV [facility] Saline Lock Urinary Cath still in place: No Assessment/Plan Chief Complaint/Hosp Course 1. Diabetic foot ulcer of the lateral fifth toe with underlying osteomyelitis. Status post excisional debridement of skin and subcutaneous tissue, muscle, fascia of the left foot fifth metatarsal tarsal phalangeal joint on 12/06/2016 Continue antibiotics as per infectious diseases. 2. Left diabetic heel ulceration. Continue antimicrobials as per infectious diseases. Status post excisional debridement of the skin and subcutaneous tissue of the left heel on 12/06/2016. 3. Type 2 diabetes mellitus. Continue sliding scale insulin along with pre- meal insulin and basal insulin. Hemoglobin A1c 8.8. 4. Essential hypertension. Continue antihypertensives. 5. Chronic kidney disease. Avoid nephrotoxic medications. Being followed by nephrology. 6. Iron deficiency anemia. Continue iron supplements. 7. Peripheral vascular disease. Being followed by vascular surgery. Bilateral lower extremity arterial Doppler study negative for any significant hemodynamic stenosis. Continue medical management. 8. Gram-positive bacteremia. On antibiotics as per infectious diseases. Repeat blood cultures 2 pending. 9. Obesity. BMI of 46.8 kg/m. Weight reduction advised. 10. Dyslipidemia. Continue statins. 11. Fluids, electrolytes, and nutrition. Carbohydrate controlled diet. 12. DVT prophylaxis. Subcutaneous heparin. 13. Plan. Continue antimicrobials as per infectious diseases. Continue local wound care. Await further recommendations from vascular surgery and podiatry. Case discussed with Dr. Duran. Problems: Subjective 24 Hr Interval Summary Free Text/Dictation Denies any pain. Exam/Review of Systems Vital Signs Vitals Vital Signs Date Time Temp Pulse Resp B/P Pulse Ox O2 Delivery O2 Flow Rate FiO2 12/07/16 08:01 98.0 70 18 150/69 92 12/04/16 23:29 Room Air Intake and Output 12/06/16 12/06/16 12/07/16 15:00 23:00 07:00 Intake Total 480 ml 390 ml Balance 480 ml 390 ml Exam General: Morbidly obese 66 year-old female lying in bed in no apparent distress. HEENT: Normocephalic, atraumatic. Eyes: Anicteric sclerae, conjunctivae clear. ENT: Nasal septum midline, oral mucosa moist. Neck supple, no JVD noticed. Respiratory: Bilaterally diminished breath sounds. No use of accessory muscles of respiration. No adventitious breath sounds. Cardiovascular: S1, S2 heard. No murmurs or gallops. Abdomen: Soft, nontender, and nondistended. Bowel sounds positive in all 4 quadrants. Genitourinary: Deferred. Extremities: No cyanosis, no clubbing. Peripheral pulses palpable. Neurologic: Cranial nerves II through XII grossly intact. The patient is awake, alert, and oriented. Results Result Diagram: 12/07/16 0500 12/07/16 0500 Results 24 hrs Laboratory Tests Test 12/06/16 11:53 12/06/16 17:41 12/06/16 20:26 12/07/16 05:00 Bedside Glucose 126 87 172 White Blood Count 9.0 Red Blood Count 3.26 L Hemoglobin 9.0 L Hematocrit 30.0 L Mean Corpuscular Volume 92.0 Mean Corpuscular Hemoglobin 27.6 L Mean Corpuscular Hemoglobin Concent 30.0 L Red Cell Distribution Width 13.0 Platelet Count 338 Mean Platelet Volume 10.4 Neutrophils % 65.2 Lymphocytes % 19.6 Monocytes % 10.3 Eosinophils % 2.6 Basophils % 0.3 Nucleated Red Blood Cells % 0.0 Neutrophils # 5.8 Lymphocytes # 1.8 Monocytes # 0.9 Eosinophils # 0.2 Basophils # 0.0 Nucleated Red Blood Cells # 0.0 Sodium Level 142 Potassium Level 4.5 Chloride Level 100 Carbon Dioxide Level 32 H Anion Gap 15 Blood Urea Nitrogen 53 H Creatinine 2.82 H Glucose Level 109 Calcium Level 9.4 Phosphorus Level 4.6 Magnesium Level 2.2 Total Bilirubin 0.0 L Direct Bilirubin 0.00 Indirect Bilirubin 0.0 Aspartate Amino Transf (AST/SGOT) 19 Alanine Aminotransferase (ALT/SGPT) 21 Alkaline Phosphatase 87 Total Protein 7.2 Albumin 3.2 L Globulin 4.00 H Albumin/Globulin Ratio 0.80 Random Vancomycin Level 12.6 Test 12/07/16 07:54 Bedside Glucose 98 Medications Medications Current Medications Diagnostic Test (Pha) (Accu-Chek) 1 02 XX ; Start 12/05/16 at 02:00 Amlodipine Besylate (Norvasc) 10 mg DAILY PO Last administered on 12/07/16t 08: 12; Admin Dose 10 MG; Start 12/05/16 at 01:42 Diltiazem HCl (Cardizem Sr) 60 mg DAILY PO Last administered on 12/07/16 08:11 ; Admin Dose 60 MG; Start 12/05/16 at 09:00 Furosemide (Lasix) 40 mg DAILY@06 PO Last administered on 12/07/16 05:17; Admin Dose 40 MG; Start 12/05/16 at 06:00 Hydralazine HCl (Apresoline) 100 mg BID PO Last administered on 12/07/16 08:10 ; Admin Dose 100 MG; Start 12/05/16 at 01:30 Insulin Glargine (Lantus) 45 unit BID SC Last administered on 12/07/16 08:04; Admin Dose 45 UNIT; Start 12/05/16 at 09:00 Losartan Potassium (Cozaar) 25 mg DAILY PO Last administered on 12/05/16 09:02 ; Admin Dose 25 MG; Start 12/05/16 at 09:00; Status Future Hold Nystatin (Nystatin Cr) 1 applic TID TOP Last administered on 12/07/16 08:01; Admin Dose 1 APPLIC; Start 12/05/16 at 09:00 Pentoxifylline (Trental) 400 mg BID PO Last administered on 12/07/16 08:01; Admin Dose 400 MG; Start 12/05/16 at 01:30 Eye Lubricant (Artificial Tears Oph) 1 drop QID BOTH EYES Last administered on 12/07/16 08:01; Admin Dose 1 DROP; Start 12/05/16 at 09:00 Miscellaneous Information 1 drop Q8H OP ; Start 12/05/16 at 01:30; Status UNV Pantoprazole (Protonix Tab) 40 mg DAILY@06 PO Last administered on 12/07/16 05 :17; Admin Dose 40 MG; Start 12/05/16 at 06:00 Atorvastatin Calcium (Lipitor) 10 mg DAILY@21 PO Last administered on 20:18; Admin Dose 10 MG; Start 12/05/16 at 21:00 Hydralazine HCl (Apresoline) 10 mg Q6H PRN IV ELEVATED SYSTOLIC BP; Start 12/05 at 02:00 Ondansetron HCl (Zofran Inj) 4 mg Q6H PRN IV NAUSEA AND/OR VOMITING Last administered on 12/07/16 07:56; Admin Dose 4 MG; Start 12/05/16 at 02:30 Acetaminophen (Tylenol Tab) 650 mg Q6H PRN PO PAIN LEVEL 1-3 OR FEVER Last administered on 12/06/16 20:34; Admin Dose 650 MG; Start 12/05/16 at 02:30 Morphine Sulfate (morphine) 2 mg Q4H PRN IV SEVERE PAIN LEVEL 7-10; Start 12/05 at 02:30 Docusate Sodium (Colace) 100 mg Q12H PRN PO CONSTIPATION Last administered on 20:17; Admin Dose 100 MG; Start 12/05/16 at 02:30 Bisacodyl 5 mg 5 mg DAILY PRN PO CONSTIPATION; Start 12/05/16 at 02:30 Levofloxacin/ Dextrose (Levaquin 750 Mg/ D5W 150 ml (Pmx)) 150 ml @ 100 mls/hr Q48H IVPB Last administered on 12/07/16 05:16; Admin Dose 100 MLS/HR; Start at 06:00 Miscellaneous Information Ketotifen Fumarate (Alaway... Q8H XX ; Start 12/05/16 at 08:30 Ferric Sodium Gluconate Complex/ Sodium Chloride (Ferrlecit/NS) 110 ml @ 100 mls/hr Q24H IVPB Last administered on 12/06/16 15:15; Admin Dose 100 MLS/HR; Start 12/05/16 at 14:00; Stop 12/07/16 at 15:05 Collagenase (Santyl) 1 applic DAILY TOP Last administered on 12/07/16 08:01; Admin Dose 1 APPLIC; Start 12/06/16 at 09:00 Collagenase (Santyl) 1 applic PRN PRN TOP WOUND CARE; Start 12/05/16 at 23:30 Silver Sulfadiazine (Thermazene 1% 25 Gm) 1 applic BID TOP Last administered on 12/07/16 08:01; Admin Dose 1 APPLIC; Start 12/06/16 at 09:00 Sodium Hypochlorite (Dakin'S (Dilute 1/40%)) 1 applic BID IRR Last administered on 12/07/16 08:11; Admin Dose 1 APPLIC; Start 12/06/16 at 09:00 Heparin Sodium (Porcine) (Heparin (5000 Units/0.5 ml)) 5,000 unit BID SC Last administered on 12/07/16 08:03; Admin Dose 5,000 UNIT; Start 12/06/16 at 21:00 Allopurinol 100 mg 100 mg DAILY PO Last administered on 12/07/16 08:01; Admin Dose 100 MG; Start 12/06/16 at 16:00 Vancomycin HCl/ Sodium Chloride (Vancocin/NS) 250 ml @ 83.333 mls/ hr 12 IVPB ; Start 12/07/16 at 12:00; Stop 12/07/16 at 23:59 HILDA CRAVEN NP Dec 07, 2016 11:05
[2016-12-07] MEDS ORDERED: VANCOMYCIN 1.5 GM in SOD CHLORIDE 0.9% 250 ML IVPB SCH (12:00)
--- NOTE | 2016-12-07 13:14 | CONS ---
Date/Time of Note Date/Time of Note DATE: 12/07/16 TIME: 13:12 Assessment/Plan Assessment/Plan Chief Complaint/Hosp Course 66-year-old female with PMHx of HTN< HL, DM II who presnted with left foot ulceration/infection which has been intermittently going on last 4 year. She follows in [facility] wound care clinic/ She is noted to have have Cr 3.08 on admission and renal has been consulted for JENNIFER vs JENNIFER on CKD Problems: Additional Assessment/Plan 1. Acute kidney injury on possible CKD due to ATN From osteomyelitis, presented with Cr 3.08 on admission, no previous Cr available to compare 2. Left foot ulcer/Osteomyelitis 3. possible CKD due to diabetic nephropathy 4. Hypertension 5. Hyperlipidemia 6. LE PVD- Mild 7. H/o CVA 8. Hyperuricemia Plan: renal US c/w medical renal disease pt has JENNIFER on CKD Amlodipine 10 mg PO QHS IV hydralzine prn Hold losartan due to persistently elevated Cr Hyperuricemia with Uric acid 9.4- started on allopurinol 100mg po daily reglan prn nausea, vomiting Consultation Date/Type/Reason Admit Date/Time Dec 04, 2016 at 22:33 Initial Consult Date 12/05/16 Type of Consultation: NEPHROLOGY Referring Provider: RANJITH MCDONALD 24 HR Interval Summary Free Text/Dictation Cr 2.82, BP stable Exam/Review of Systems Vital Signs Vitals Vital Signs Date Time Temp Pulse Resp B/P Pulse Ox O2 Delivery O2 Flow Rate FiO2 12/07/16 08:01 98.0 70 18 150/69 92 12/04/16 23:29 Room Air Intake and Output 12/06/16 12/06/16 12/07/16 15:00 23:00 07:00 Intake Total 480 ml 390 ml Balance 480 ml 390 ml Exam Constitutional: alert Psych: no complaints Head: normocephalic Eyes: nl conjunctiva Neck: supple Respiratory: clear to auscultation, diminished breath sounds, normal air movement Gastrointestinal: non-tender, soft Musculoskeletal: nl extremities to inspection 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-XII 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 Skin: nl turgor Lymph: nl lymph nodes Results Result Diagram: 12/07/16 0500 12/07/16 0500 Results 24 hrs Laboratory Tests Test 12/06/16 17:41 12/06/16 20:26 12/07/16 05:00 12/07/16 07:54 Bedside Glucose 87 172 98 White Blood Count 9.0 Red Blood Count 3.26 L Hemoglobin 9.0 L Hematocrit 30.0 L Mean Corpuscular Volume 92.0 Mean Corpuscular Hemoglobin 27.6 L Mean Corpuscular Hemoglobin Concent 30.0 L Red Cell Distribution Width 13.0 Platelet Count 338 Mean Platelet Volume 10.4 Neutrophils % 65.2 Lymphocytes % 19.6 Monocytes % 10.3 Eosinophils % 2.6 Basophils % 0.3 Nucleated Red Blood Cells % 0.0 Neutrophils # 5.8 Lymphocytes # 1.8 Monocytes # 0.9 Eosinophils # 0.2 Basophils # 0.0 Nucleated Red Blood Cells # 0.0 Sodium Level 142 Potassium Level 4.5 Chloride Level 100 Carbon Dioxide Level 32 H Anion Gap 15 Blood Urea Nitrogen 53 H Creatinine 2.82 H Glucose Level 109 Calcium Level 9.4 Phosphorus Level 4.6 Magnesium Level 2.2 Total Bilirubin 0.0 L Direct Bilirubin 0.00 Indirect Bilirubin 0.0 Aspartate Amino Transf (AST/SGOT) 19 Alanine Aminotransferase (ALT/SGPT) 21 Alkaline Phosphatase 87 Total Protein 7.2 Albumin 3.2 L Globulin 4.00 H Albumin/Globulin Ratio 0.80 Random Vancomycin Level 12.6 Test 12/07/16 12:09 Bedside Glucose 88 Medications Medications Current Medications Diagnostic Test (Pha) (Accu-Chek) 1 ea 02 XX ; Start 12/05/16 at 02:00 Amlodipine Besylate (Norvasc) 10 mg DAILY PO Last administered on 12/07/16 08: 12; Admin Dose 10 MG; Start 12/05/16 at 01:42 Diltiazem HCl (Cardizem Sr) 60 mg DAILY PO Last administered on 12/07/16 08:11 ; Admin Dose 60 MG; Start 12/05/16 at 09:00 Furosemide (Lasix) 40 mg DAILY@06 PO Last administered on 12/07/16 05:17; Admin Dose 40 MG; Start 12/05/16 at 06:00 Hydralazine HCl (Apresoline) 100 mg BID PO Last administered on 12/07/16 08:10 ; Admin Dose 100 MG; Start 12/05/16 at 01:30 Insulin Glargine (Lantus) 45 unit BID SC Last administered on 12/07/16 08:04; Admin Dose 45 UNIT; Start 12/05/16 at 09:00 Losartan Potassium (Cozaar) 25 mg DAILY PO Last administered on 12/05/16 09:02 ; Admin Dose 25 MG; Start 12/05/16 at 09:00; Status Future Hold Nystatin (Nystatin Cr) 1 applic TID TOP Last administered on 12/07/16 08:01; Admin Dose 1 APPLIC; Start 12/05/16 at 09:00 Pentoxifylline (Trental) 400 mg BID PO Last administered on 12/07/16 08:01; Admin Dose 400 MG; Start 12/05/16 at 01:30 Eye Lubricant (Artificial Tears Oph) 1 drop QID BOTH EYES Last administered on 12/07/16 08:01; Admin Dose 1 DROP; Start 12/05/16 at 09:00 Miscellaneous Information 1 drop Q8H OP ; Start 12/05/16 at 01:30; Status UNV Pantoprazole (Protonix Tab) 40 mg DAILY@06 PO Last administered on 12/07/16 05 :17; Admin Dose 40 MG; Start 12/05/16 at 06:00 Atorvastatin Calcium (Lipitor) 10 mg DAILY@21 PO Last administered on 20:18; Admin Dose 10 MG; Start 12/05/16 at 21:00 Hydralazine HCl (Apresoline) 10 mg Q6H PRN IV ELEVATED SYSTOLIC BP; Start 12/05 at 02:00 Ondansetron HCl (Zofran Inj) 4 mg Q6H PRN IV NAUSEA AND/OR VOMITING Last administered on 12/07/16 07:56; Admin Dose 4 MG; Start 12/05/16 at 02:30 Acetaminophen (Tylenol Tab) 650 mg Q6H PRN PO PAIN LEVEL 1-3 OR FEVER Last administered on 12/06/16 20:34; Admin Dose 650 MG; Start 12/05/16 at 02:30 Morphine Sulfate (morphine) 2 mg Q4H PRN IV SEVERE PAIN LEVEL 7-10; Start 12/05 at 02:30 Docusate Sodium (Colace) 100 mg Q12H PRN PO CONSTIPATION Last administered on 20:17; Admin Dose 100 MG; Start 12/05/16 at 02:30 Bisacodyl 5 mg 5 mg DAILY PRN PO CONSTIPATION; Start 12/05/16 at 02:30 Levofloxacin/ Dextrose (Levaquin 750 Mg/ D5W 150 ml (Pmx)) 150 ml @ 100 mls/hr Q48H IVPB Last administered on 12/07/16 05:16; Admin Dose 100 MLS/HR; Start at 06:00 Miscellaneous Information Ketotifen Fumarate (Alaway... Q8H XX ; Start 12/05/16 at 08:30 Ferric Sodium Gluconate Complex/ Sodium Chloride (Ferrlecit/NS) 110 ml @ 100 mls/hr Q24H IVPB Last administered on 12/06/16 15:15; Admin Dose 100 MLS/HR; Start 12/05/16 at 14:00; Stop 12/07/16 at 15:05 Collagenase (Santyl) 1 applic DAILY TOP Last administered on 12/07/16 08:01; Admin Dose 1 APPLIC; Start 12/06/16 at 09:00 Collagenase (Santyl) 1 applic PRN PRN TOP WOUND CARE; Start 12/05/16 at 23:30 Silver Sulfadiazine (Thermazene 1% 25 Gm) 1 applic BID TOP Last administered on 12/07/16 08:01; Admin Dose 1 APPLIC; Start 12/06/16 at 09:00 Sodium Hypochlorite (Dakin'S (Dilute 1/40%)) 1 applic BID IRR Last administered on 12/07/16 08:11; Admin Dose 1 APPLIC; Start 12/06/16 at 09:00 Heparin Sodium (Porcine) (Heparin (5000 Units/0.5 ml)) 5,000 unit BID SC Last administered on 12/07/16 08:03; Admin Dose 5,000 UNIT; Start 12/06/16 at 21:00 Allopurinol 100 mg 100 mg DAILY PO Last administered on 12/07/16 08:01; Admin Dose 100 MG; Start 12/06/16 at 16:00 Vancomycin HCl/ Sodium Chloride (Vancocin/NS) 250 ml @ 83.333 mls/ hr 12 IVPB Last administered on 12/07/16 12:12; Admin Dose 83.333 MLS/HR; Start 12/07/16 at 12:00; Stop 12/07/16 at 23:59 MONSE CHILEL MD Dec 07, 2016 13:14
[2016-12-07] MEDS: SOD FERRIC GLUC COMPLX 125 MG in SOD CHLORIDE 0.9% 100 ML IVPB SCH (13:54)
[2016-12-07 14:57] VITALS: BP 168/76; RESP 20
[2016-12-07 20:00] VITALS: BP 147/67; RESP 20
[2016-12-07] MEDS: ATORVASTATIN 10 MG TAB PO SCH (20:33)
[2016-12-07] MEDS: BISACODYL (EC) 5 MG TAB PO PRN (22:13)
--- NOTE | 2016-12-08 00:25 | PN ---
DATE: 12/07/2016 SUBJECTIVE DATA: No acute changes. Patient is lying comfortably in bed. No fevers overnight. LABORATORY AND DIAGNOSTIC DATA: WBC 9, no shift, no bounce. BUN 63, creatinine 2.82. MICROBIOLOGY: Blood culture on admission grew gram-positive cocci in pairs and clusters. ANTIMICROBIALS: Vancomycin and Levaquin. PHYSICAL EXAMINATION: GENERAL: Fragile elderly woman, who is in no distress. HEENT: Head is atraumatic, normocephalic. Sclerae anicteric. Buccal mucosa dry. NECK: Supple. CHEST: Symmetrical. Breath sounds diminished at the bases. HEART: S1, S2. ABDOMEN: Soft. Bowel sounds are present. EXTREMITIES: Left foot dressing is intact. ASSESSMENT: 1. Left foot diabetic heel ulcer with cellulitis and 5th metatarsal osteomyelitis, status post incision and drainage done by Dr. Hernandez on December 06, 2016. 2. Diabetes. 3. Diabetic neuropathy. 4. Peripheral arterial disease. 5. Acute kidney injury on possible chronic kidney disease. 6. History of cerebrovascular accident. 7. Bacteremia on admission. PLAN: Patient remains stable. He is being seen by Podiatry, vascular team and nephrology team. Vancomycin level today 12.6. We are going to repeat blood cultures. Await for wound cultures. Continue present care as per primary team and consultants. Patient will require long-term IV antibiotics for osteomyelitis of the toe unless the toe is amputated. Will follow Podiatry recommendations. Dictated By: Brie Santos NP /patricia/kelli /Document#: [id number] [place]
[2016-12-08] MEDS: KETOTIFEN FUMARATE XX SCH ×3 (00:28→15:37)
[2016-12-08] MEDS: ACCU-CHEK XX SCH (01:14)
[2016-12-08] MEDS: KETOTIFEN FUMARATE OP SCH ×3 (01:30→17:30)
[2016-12-08 02:00] VITALS: BP 161/72; RESP 18
[2016-12-08] MEDS: hydrALAzine 20 MG INJ IV PRN (03:35)
[2016-12-08] MEDS: PANTOPRAZOLE (EC) 40 MG TAB PO SCH (05:29)
[2016-12-08] MEDS: FUROSEMIDE 40 MG TAB PO SCH (05:30)
[2016-12-08 05:31] VITALS: BP 152/72; PULSE 71
[2016-12-08] MEDS: INSULIN ASPART [NOVOLOG] 3 ML PEN SC SCH ×7 (07:35→21:00)
[2016-12-08 08:26] VITALS: BP 157/69; RESP 18
[2016-12-08] MEDS: HEPARIN 5,000 UNIT/0.5 ML VIAL SC SCH ×2 (09:00→20:12)
[2016-12-08] MEDS: ARTIFICIAL TEARS 15 ML OPH BOTH EYES SCH ×4 (09:19→22:24)
[2016-12-08] MEDS: ALLOPURINOL 100 MG TAB PO SCH (09:22)
[2016-12-08] MEDS: AMLODIPINE 10 MG TAB PO SCH (09:22)
[2016-12-08] MEDS: PENTOXIFYLLINE (SR) 400 MG TAB PO SCH ×2 (09:22→22:24)
[2016-12-08] MEDS: DILTIAZEM (SR) 60 MG CAP PO SCH (09:22)
[2016-12-08] MEDS: INSULIN GLARGINE [LANtus] 3 ML PEN SC SCH ×2 (09:36→21:20)
--- NOTE | 2016-12-08 11:26 | PN ---
Date/Time of Note Date/Time of Note DATE: 12/08/16 TIME: 11:25 Assessment/Plan VTE Prophylaxis VTE Prophylaxis Intervention: heparin Lines/Catheters IV [facility]from [facility] Saline Lock Urinary Cath still in place: No Assessment/Plan Chief Complaint/Hosp Course 1. Diabetic foot ulcer of the lateral fifth toe with underlying osteomyelitis. Status post excisional debridement of skin and subcutaneous tissue, muscle, fascia of the left foot fifth metatarsal tarsal phalangeal joint on 12/06/2016 Continue antibiotics as per infectious diseases. 2. Left diabetic heel ulceration. Continue antimicrobials as per infectious diseases. Status post excisional debridement of the skin and subcutaneous tissue of the left heel on 12/06/2016. 3. Type 2 diabetes mellitus. Continue sliding scale insulin along with pre- meal insulin and basal insulin. Hemoglobin A1c 8.8. 4. Essential hypertension. Continue antihypertensives. 5. Chronic kidney disease. Avoid nephrotoxic medications. Being followed by nephrology. 6. Iron deficiency anemia. Continue iron supplements. 7. Peripheral vascular disease. Being followed by vascular surgery. Bilateral lower extremity arterial Doppler study negative for any significant hemodynamic stenosis. Continue medical management. 8. Gram-positive bacteremia. On antibiotics as per infectious diseases. Repeat blood cultures 2 pending. 9. Obesity. BMI of 46.8 kg/m. Weight reduction advised. 10. Dyslipidemia. Continue statins. 11. Fluids, electrolytes, and nutrition. Carbohydrate controlled diet. 12. DVT prophylaxis. Subcutaneous heparin (patient refusing heparin). 13. Plan. Continue antimicrobials as per infectious diseases. Continue local wound care. Await further recommendations from consultants. Case discussed with Dr. Duran. Problems: Subjective 24 Hr Interval Summary Free Text/Dictation Episode of hypoglycemia in the morning today. Exam/Review of Systems Vital Signs Vitals Vital Signs Date Time Temp Pulse Resp B/P Pulse Ox O2 Delivery O2 Flow Rate FiO2 12/08/16 08:26 98.1 75 18 157/69 92 12/04/16 23:29 Room Air Intake and Output 12/07/16 12/07/16 12/08/16 15:00 23:00 07:00 Intake Total 525 ml 360 ml Balance 525 ml 360 ml Exam General: Morbidly obese 66 year-old female lying in bed in no apparent distress. HEENT: Normocephalic, atraumatic. Eyes: Anicteric sclerae, conjunctivae clear. ENT: Nasal septum midline, oral mucosa moist. Neck supple, no JVD noticed. Respiratory: Bilaterally diminished breath sounds. No use of accessory muscles of respiration. No adventitious breath sounds. Cardiovascular: S1, S2 heard. No murmurs or gallops. Abdomen: Soft, nontender, and nondistended. Bowel sounds positive in all 4 quadrants. Genitourinary: Deferred. Extremities: No cyanosis, no clubbing. Peripheral pulses palpable. Neurologic: Cranial nerves II through XII grossly intact. The patient is awake, alert, and oriented. Results Result Diagram: 12/07/16 0500 12/07/16 0500 Results 24 hrs Laboratory Tests Test 12/07/16 12:09 12/07/16 16:59 12/07/16 20:31 12/08/16 07:59 Bedside Glucose 88 75 91 55 L Test 12/08/16 08:22 12/08/16 08:42 12/08/16 09:18 Bedside Glucose 60 L 102 147 Medications Medications Current Medications Diagnostic Test (Pha) (Accu-Chek) XX ; Start 12/05/16 at 02:00 Amlodipine Besylate (Norvasc) 10 mg DAILY PO Last administered on 12/08/16 09: 22; Admin Dose 10 MG; Start 12/05/16 at 01:42 Diltiazem HCl (Cardizem Sr) 60 mg DAILY PO Last administered on 12/08/16 09:22 ; Admin Dose 60 MG; Start 12/05/16 at 09:00 Furosemide (Lasix) 40 mg DAILY@06 PO Last administered on 12/08/16 05:30; Admin Dose 40 MG; Start 12/05/16 at 06:00 Hydralazine HCl (Apresoline) 100 mg BID PO Last administered on 12/08/16 09:26 ; Admin Dose 100 MG; Start 12/05/16 at 01:30 Insulin Glargine (Lantus) 45 unit BID SC Last administered on 12/08/16 09:36; Admin Dose 45 UNIT; Start 12/05/16 at 09:00 Losartan Potassium (Cozaar) 25 mg DAILY PO Last administered on 12/05/16 09:02 ; Admin Dose 25 MG; Start 12/05/16 at 09:00; Status Future Hold Nystatin (Nystatin Cr) 1 applic TID TOP Last administered on 12/07/16 20:33; Admin Dose 1 APPLIC; Start 12/05/16 at 09:00 Pentoxifylline (Trental) 400 mg BID PO Last administered on 12/08/16 09:22; Admin Dose 400 MG; Start 12/05/16 at 01:30 Eye Lubricant (Artificial Tears Oph) 1 drop QID BOTH EYES Last administered on 12/08/16 09:19; Admin Dose 1 DROP; Start 12/05/16 at 09:00 Miscellaneous Information 1 drop Q8H OP ; Start 12/05/16 at 01:30; Status UNV Pantoprazole (Protonix Tab) 40 mg DAILY@06 PO Last administered on 12/08/16 05 :29; Admin Dose 40 MG; Start 12/05/16 at 06:00 Atorvastatin Calcium (Lipitor) 10 mg DAILY@21 PO Last administered on 20:33; Admin Dose 10 MG; Start 12/05/16 at 21:00 Hydralazine HCl (Apresoline) 10 mg Q6H PRN IV ELEVATED SYSTOLIC BP Last administered on 12/08/16 03:35; Admin Dose 10 MG; Start 12/05/16 at 02:00 Ondansetron HCl (Zofran Inj) 4 mg Q6H PRN IV NAUSEA AND/OR VOMITING Last administered on 12/07/16 13:54; Admin Dose 4 MG; Start 12/05/16 at 02:30 Acetaminophen (Tylenol Tab) 650 mg Q6H PRN PO PAIN LEVEL 1-3 OR FEVER Last administered on 12/06/16 20:34; Admin Dose 650 MG; Start 12/05/16 at 02:30 Morphine Sulfate (morphine) 2 mg Q4H PRN IV SEVERE PAIN LEVEL 7-10; Start 12/05 at 02:30 Docusate Sodium (Colace) 100 mg Q12H PRN PO CONSTIPATION Last administered on 20:17; Admin Dose 100 MG; Start 12/05/16 at 02:30 Bisacodyl 5 mg 5 mg DAILY PRN PO CONSTIPATION Last administered on 12/07/16 22 :13; Admin Dose 5 MG; Start 12/05/16 at 02:30 Levofloxacin/ Dextrose (Levaquin 750 Mg/ D5W 150 ml (Pmx)) 150 ml @ 100 mls/hr Q48H IVPB Last administered on 12/07/16 05:16; Admin Dose 100 MLS/HR; Start at 06:00 Miscellaneous Information (*Order Clarification Bulletin) Ketotifen Fumarate ( Alaway... Q8H XX ; Start 12/05/16 at 08:30 Collagenase (Santyl) 1 applic DAILY TOP Last administered on 12/07/16 08:01; Admin Dose 1 APPLIC; Start 12/06/16 at 09:00 Collagenase (Santyl) 1 applic PRN PRN TOP WOUND CARE; Start 12/05/16 at 23:30 Silver Sulfadiazine (Thermazene 1% 25 Gm) 1 applic BID TOP Last administered on 12/07/16 20:33; Admin Dose 1 APPLIC; Start 12/06/16 at 09:00 Sodium Hypochlorite (Dakin'S (Dilute 1/40%)) 1 applic BID IRR Last administered on 12/07/16 20:34; Admin Dose 1 APPLIC; Start 12/06/16 at 09:00 Heparin Sodium (Porcine) (Heparin (5000 Units/0.5 ml)) 5,000 unit BID SC Last administered on 12/07/16 20:37; Admin Dose 5,000 UNIT; Start 12/06/16 at 21:00 Allopurinol (Zyloprim) 100 mg DAILY PO Last administered on 12/08/16 09:22; Admin Dose 100 MG; Start 12/06/16 at 16:00 HILDA CRAVEN NP Dec 08, 2016 11:26
[2016-12-08] MEDS ORDERED: DIPHENHYDRAMINE 25 MG CAP PO PRN (12:00)
[2016-12-08] MEDS: NYSTATIN 15 GM CR TOP SCH ×3 (13:00→22:24)
[2016-12-08] MEDS: SILVER SULFADIAZINE 1% 25 GM CR TOP SCH ×2 (14:17→21:00)
[2016-12-08] MEDS: MUPIROCIN 2% 22 GM OINT TOP SCH ×2 (14:18→22:23)
[2016-12-08] MEDS: SODIUM HYPOCHLORITE 1/40% 1L IRRIG IRR SCH ×2 (14:18→22:25)
[2016-12-08] MEDS: COLLAGENASE 30 GM TUBE TOP SCH (14:18)
[2016-12-08 14:21] VITALS: BP 158/70; RESP 16
--- NOTE | 2016-12-08 15:17 | CONS ---
Date/Time of Note Date/Time of Note DATE: 12/08/16 TIME: 15:16 Assessment/Plan Assessment/Plan Chief Complaint/Hosp Course 66-year-old female with PMHx of HTN< HL, DM II who presnted with left foot ulceration/infection which has been intermittently going on last 4 year. She follows in [facility] wound care clinic/ She is noted to have have Cr 3.08 on admission and renal has been consulted for JENNIFER vs JENNIFER on CKD Problems: Additional Assessment/Plan 1. Acute kidney injury on possible CKD due to ATN From osteomyelitis, presented with Cr 3.08 on admission, no previous Cr available to compare 2. Left foot ulcer/Osteomyelitis 3. possible CKD due to diabetic nephropathy 4. Hypertension 5. Hyperlipidemia 6. LE PVD- Mild 7. H/o CVA 8. Hyperuricemia Plan: renal US c/w medical renal disease pt has JENNIFER on CKD Amlodipine 10 mg PO QHS IV hydralzine prn Hold losartan due to persistently elevated Cr Hyperuricemia with Uric acid 9.4- started on allopurinol 100mg po daily reglan prn nausea, vomiting Consultation Date/Type/Reason Admit Date/Time Dec 04, 2016 at 22:33 Initial Consult Date 12/05/16 Type of Consultation: NEPHROLOGY Referring Provider: RANJITH MCDONALD 24 HR Interval Summary Free Text/Dictation No chemistry today, afebirle, BP stable Exam/Review of Systems Vital Signs Vitals Vital Signs Date Time Temp Pulse Resp B/P Pulse Ox O2 Delivery O2 Flow Rate FiO2 12/08/16 14:21 98.1 97 16 158/70 98 12/04/16 23:29 Room Air Intake and Output 12/07/16 12/07/16 12/08/16 15:00 23:00 07:00 Intake Total 525 ml 360 ml Balance 525 ml 360 ml Exam Constitutional: alert Psych: no complaints Head: normocephalic Eyes: nl conjunctiva Neck: supple Respiratory: clear to auscultation, diminished breath sounds, normal air movement Gastrointestinal: non-tender, soft Musculoskeletal: nl extremities to inspection 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 Skin: nl turgor Lymph: nl lymph nodes Results Result Diagram: 12/07/16 0500 12/07/16 0500 Results 24 hrs Laboratory Tests Test 12/07/16 16:59 12/07/16 20:31 12/08/16 07:59 12/08/16 08:22 Bedside Glucose 75 91 55 L 60 L Test 12/08/16 08:42 12/08/16 09:18 12/08/16 12:04 Bedside Glucose 102 147 172 Medications Medications Current Medications Diagnostic Test (Pha) (Accu-Chek) 1 02 XX ; Start 12/05/16 at 02:00 Amlodipine Besylate (Norvasc) 10 mg DAILY PO Last administered on 12/08/16 09: 22; Admin Dose 10 MG; Start 12/05/16 at 01:42 Diltiazem HCl (Cardizem Sr) 60 mg DAILY PO Last administered on 12/08/16 09:22 ; Admin Dose 60 MG; Start 12/05/16 at 09:00 Furosemide (Lasix) 40 mg DAILY@06 PO Last administered on 12/08/16 05:30; Admin Dose 40 MG; Start 12/05/16 at 06:00 Hydralazine HCl (Apresoline) 100 mg BID PO Last administered on 12/08/16 09:26 ; Admin Dose 100 MG; Start 12/05/16 at 01:30 Insulin Glargine (Lantus) 45 unit BID SC Last administered on 12/08/16 09:36; Admin Dose 45 UNIT; Start 12/05/16 at 09:00 Losartan Potassium (Cozaar) 25 mg DAILY PO Last administered on 12/05/16 09:02 ; Admin Dose 25 MG; Start 12/05/16 at 09:00; Status Future Hold Nystatin (Nystatin Cr) 1 applic TID TOP Last administered on 12/08/16 14:18; Admin Dose 1 APPLIC; Start 12/05/16 at 09:00 Pentoxifylline (Trental) 400 mg BID PO Last administered on 12/08/16 09:22; Admin Dose 400 MG; Start 12/05/16 at 01:30 Eye Lubricant (Artificial Tears Oph) 1 drop QID BOTH EYES Last administered on 12/08/16 14:19; Admin Dose 1 DROP; Start 12/05/16 at 09:00 Miscellaneous Information 1 drop Q8H OP ; Start 12/05/16 at 01:30; Status UNV Pantoprazole (Protonix Tab) 40 mg DAILY@06 PO Last administered on 12/08/16 05 :29; Admin Dose 40 MG; Start 12/05/16 at 06:00 Atorvastatin Calcium (Lipitor) 10 mg DAILY@21 PO Last administered on 20:33; Admin Dose 10 MG; Start 12/05/16 at 21:00 Hydralazine HCl (Apresoline) 10 mg Q6H PRN IV ELEVATED SYSTOLIC BP Last administered on 12/08/16 03:35; Admin Dose 10 MG; Start 12/05/16 at 02:00 Ondansetron HCl (Zofran Inj) 4 mg Q6H PRN IV NAUSEA AND/OR VOMITING Last administered on 12/07/16 13:54; Admin Dose 4 MG; Start 12/05/16 at 02:30 Acetaminophen (Tylenol Tab) 650 mg Q6H PRN PO PAIN LEVEL 1-3 OR FEVER Last administered on 12/06/16 20:34; Admin Dose 650 MG; Start 12/05/16 at 02:30 Morphine Sulfate (morphine) 2 mg Q4H PRN IV SEVERE PAIN LEVEL 7-10; Start 12/05 at 02:30 Docusate Sodium (Colace) 100 mg Q12H PRN PO CONSTIPATION Last administered on 20:17; Admin Dose 100 MG; Start 12/05/16 at 02:30 Bisacodyl 5 mg 5 mg DAILY PRN PO CONSTIPATION Last administered on 12/07/16 22 :13; Admin Dose 5 MG; Start 12/05/16 at 02:30 Levofloxacin/ Dextrose (Levaquin 750 Mg/ D5W 150 ml (Pmx)) 150 ml @ 100 mls/hr Q48H IVPB Last administered on 12/07/16 05:16; Admin Dose 100 MLS/HR; Start at 06:00 Miscellaneous Information (*Order Clarification Bulletin) Ketotifen Fumarate ( Alaway... Q8H XX ; Start 12/05/16 at 08:30 Collagenase (Santyl) 1 applic DAILY TOP Last administered on 12/08/16 14:18; Admin Dose 1 APPLIC; Start 12/06/16 at 09:00 Collagenase (Santyl) 1 applic PRN PRN TOP WOUND CARE; Start 12/05/16 at 23:30 Silver Sulfadiazine (Thermazene 1% 25 Gm) 1 applic BID TOP Last administered on 12/08/16 14:17; Admin Dose 1 APPLIC; Start 12/06/16 at 09:00 Sodium Hypochlorite (Dakin'S (Dilute 1/40%)) 1 applic BID IRR Last administered on 12/08/16 14:18; Admin Dose 1 APPLIC; Start 12/06/16 at 09:00 Heparin Sodium (Porcine) (Heparin (5000 Units/0.5 ml)) 5,000 unit BID SC Last administered on 12/07/16 20:37; Admin Dose 5,000 UNIT; Start 12/06/16 at 21:00 Allopurinol (Zyloprim) 100 mg DAILY PO Last administered on 12/08/16 09:22; Admin Dose 100 MG; Start 12/06/16 at 16:00 Aspirin (Aspirin) 81 mg DAILY PO ; Start 12/09/16 at 09:00 Mupirocin (Bactroban) 1 applic BID TOP Last administered on 12/08/16 14:18; Admin Dose 1 APPLIC; Start 12/08/16 at 12:30 Diphenhydramine HCl (Benadryl) 25 mg Q6H PRN PO ITCHING; Start 12/08/16 at 12: 00 Miscellaneous Information (*Rx Drug Level Order Reminder*) VANCOMYCIN RANDOM LEVEL 8... ONCE ONCE XX ; Start 12/09/16 at 05:00; Stop 12/09/16 at 05:01 MONSE CHILEL MD Dec 08, 2016 15:17
--- NOTE | 2016-12-08 17:05 | PN ---
Date/Time of Note Date/Time of Note DATE: 12/08/16 TIME: 17:04 Assessment/Plan Lines/Catheters IV Catheter Type (from Nrsg): Saline Lock Buitrago in Place (from Nrsg): No Assessment/Plan Chief Complaint/Hosp Course This is a 66-year-old female with a history of diabetes hypertension obesity patient has had ulceration in the lateral aspect of the left foot currently being admitted to undergo further therapy including antibiotics therapy Patient has had an ultrasound which shows mild arterial stenosis without hemodynamically significant lesion Patient has renal failure with elevation of the creatinine up to 2.82 At this time I do not recommend an angiogram with the mild nature of the arterial disease With continue local wound care and antibiotic therapy per podiatry Problems: Subjective 24 Hr Interval Summary Constitutional: improved Pain Control: mild Exam/Review of Systems Vital Signs Vitals Vital Signs Date Time Temp Pulse Resp B/P Pulse Ox O2 Delivery O2 Flow Rate FiO2 12/08/16 14:21 98.1 97 16 158/70 98 12/04/16 23:29 Room Air Intake and Output 12/07/16 12/07/16 12/08/16 14:59 22:59 06:59 Intake Total 525 ml 360 ml Balance 525 ml 360 ml Exam Eyes: EOMI, nl conjunctiva, nl lids, nl sclera ENMT: mucosa pink and moist, nl external ears & nose, nl lips & teeth, nl nasal mucosa & septum Neck: non-tender, supple Respiratory: clear to auscultation, normal air movement Cardiovascular: nl pulses, regular rate and rhythm Gastrointestinal: nl liver, spleen, non-tender, soft Results Result Diagram: 12/07/16 0500 12/07/16 0500 LAI LOPEZ MD Dec 08, 2016 17:05
--- NOTE | 2016-12-08 19:06 | PN ---
DATE: 12/08/2016 SUBJECTIVE: No events overnight. The patient is sleeping, looks comfortable. She is afebrile. No labs this morning. MICROBIOLOGY: Repeat blood cultures since December 07 negative. Blood culture on admission grew coag-negative Staph species. ANTIMICROBIALS: Vancomycin. PHYSICAL EXAMINATION: GENERAL: This is a fragile, elderly woman who is in no distress. Head is atraumatic and normocephalic. Sclerae are anicteric. Buccal mucosa is dry. NECK: Supple. LUNGS: Chest rise is symmetrical. Breath sounds diminished at the bases. HEART: S1, S2. ABDOMEN: Soft. Bowel sounds are present. EXTREMITIES: Without cyanosis. Left foot dressing intact. ASSESSMENT: 1. Left diabetic foot ulceration with fifth metatarsal osteomyelitis, status post incision and drainage on December 06, 2016. 2. Diabetes with diabetic neuropathy. 3. Peripheral arterial disease. 4. Status post coag-negative Staph bacteremia on admission, possibly contaminant. 5. Acute possibly on chronic kidney disease. PLAN: The patient remains stable, on appropriate antimicrobials, blood cultures repeated on December 07, negative so far. We will continue her on current regimen. Await for wound cultures. The patient will require long-term IV antibiotics to treat osteomyelitis. Dictated By: Brie Santos NP /patricia/adelita /Document#: [id number]
[2016-12-08 20:43] VITALS: BP 159/74; RESP 18
[2016-12-08] MEDS ORDERED: INSULIN GLARGINE [LANtus] 3 ML PEN SC SCH (21:00)
[2016-12-08] MEDS: BISACODYL (EC) 5 MG TAB PO PRN (22:22)
[2016-12-08] MEDS: ATORVASTATIN 10 MG TAB PO SCH (22:24)
[2016-12-09] MEDS: KETOTIFEN FUMARATE XX SCH ×2 (00:30→08:16)
[2016-12-09] MEDS: KETOTIFEN FUMARATE OP SCH ×2 (01:30→09:30)
[2016-12-09] MEDS: ACCU-CHEK XX SCH (02:00)
[2016-12-09 03:43] VITALS: BP 159/78; RESP 18
[2016-12-09] MEDS: FUROSEMIDE 40 MG TAB PO SCH (05:20)
[2016-12-09] MEDS: PANTOPRAZOLE (EC) 40 MG TAB PO SCH (05:20)
[2016-12-09] MEDS: LEVOFLOXACIN 750MG/D5W (PMX) 150 ML IVPB SCH (05:20)
[2016-12-09 06:01] LABS: BASOPHIL # 0.1 10^3/ul (0.0-0.1); BASOPHILS % 0.4 % (0.0-2.0); EOSINOPHILS # 0.1 10^3/ul (0.0-0.5); EOSINOPHILS % 1.1 % (0.0-7.0); HEMATOCRIT 29.8 % (37.0-47.0); HEMOGLOBIN 9.2 g/dl (12.0-16.0); LYMPHOCYTES # 1.7 10^3/ul (0.8-2.9); MEAN CORPUSCULAR HEMOGLOBIN 28.1 pg (29.0-33.0); MEAN CORPUSCULAR HGB CONC 30.9 g/dl (32.0-37.0); MEAN CORPUSCULAR VOLUME 91.1 fl (82.0-101.0); MEAN PLATELET VOLUME 9.9 fl (7.4-10.4); MONOCYTES % 8.6 % (0.0-11.0); NEUTROPHIL # 8.5 10^3/ul (1.6-7.5); NEUTROPHILS % 73.5 % (39.0-77.0); PLATELET COUNT 309 10^3/UL (140-415); RED BLOOD COUNT 3.27 10^6/ul (4.20-5.40); RED CELL DISTRIBUTION WIDTH 13.2 % (11.5-14.5); WHITE BLOOD COUNT 11.5 10^3/ul (4.8-10.8)
[2016-12-09 06:36] LABS: CALCIUM 9.3 mg/dl (8.4-10.2); CREATININE 2.8 mg/dl (0.44-1.00); MAGNESIUM 2.1 mg/dl (1.7-2.5); PHOSPHORUS 4.1 mg/dl (2.5-4.9); POTASSIUM 4.4 mmol/L (3.5-5.1)
[2016-12-09] MEDS: INSULIN ASPART [NOVOLOG] 3 ML PEN SC SCH ×7 (08:14→21:00)
[2016-12-09] MEDS: HEPARIN 5,000 UNIT/0.5 ML VIAL SC SCH ×2 (09:00→21:00)
[2016-12-09] MEDS: SODIUM HYPOCHLORITE 1/40% 1L IRRIG IRR SCH ×2 (09:00→21:00)
[2016-12-09 09:07] VITALS: BP 152/87; RESP 20
[2016-12-09] MEDS: DOCUSATE SODIUM 100 MG CAP PO PRN (09:17)
[2016-12-09] MEDS: PENTOXIFYLLINE (SR) 400 MG TAB PO SCH ×2 (09:17→22:08)
[2016-12-09] MEDS: ASPIRIN 81 MG TAB PO SCH (09:17)
[2016-12-09] MEDS: BISACODYL (EC) 5 MG TAB PO PRN (09:17)
[2016-12-09] MEDS: DILTIAZEM (SR) 60 MG CAP PO SCH (09:17)
[2016-12-09] MEDS: AMLODIPINE 10 MG TAB PO SCH (09:18)
[2016-12-09] MEDS: ALLOPURINOL 100 MG TAB PO SCH (09:18)
[2016-12-09] MEDS: INSULIN GLARGINE [LANtus] 3 ML PEN SC SCH ×2 (09:19→22:23)
[2016-12-09] MEDS: MUPIROCIN 2% 22 GM OINT TOP SCH (09:20)
[2016-12-09] MEDS: COLLAGENASE 30 GM TUBE TOP SCH (09:20)
[2016-12-09] MEDS: NYSTATIN 15 GM CR TOP SCH ×3 (09:20→21:00)
[2016-12-09] MEDS: SILVER SULFADIAZINE 1% 25 GM CR TOP SCH ×2 (09:20→21:00)
[2016-12-09] MEDS ORDERED: LACTULOSE 30ML CUP PO PRN (12:00)
[2016-12-09] MEDS ORDERED: BISACODYL 10 MG SUPP PR PRN (12:00)
--- NOTE | 2016-12-09 12:31 | CONS ---
Date/Time of Note Date/Time of Note DATE: 12/09/16 TIME: 12:28 Assessment/Plan Assessment/Plan Chief Complaint/Hosp Course 66-year-old female with PMHx of HTN< HL, DM II who presnted with left foot ulceration/infection which has been intermittently going on last 4 year. She follows in [facility] wound care clinic/ She is noted to have have Cr 3.08 on admission and renal has been consulted for JENNIFER vs JENNIFER on CKD Problems: Additional Assessment/Plan 1. Acute kidney injury on possible CKD due to ATN From osteomyelitis, presented with Cr 3.08 on admission, no previous Cr available to compare 2. Left foot ulcer/Osteomyelitis 3. possible CKD due to diabetic nephropathy 4. Hypertension 5. Hyperlipidemia 6. LE PVD- Mild 7. H/o CVA 8. Hyperuricemia Plan: renal US c/w medical renal disease pt has JENNIFER on CKD Amlodipine 10 mg PO QHS Hold losartan due to persistently elevated Cr - currently Cr has been around 2.08 Hyperuricemia with Uric acid 9.4- on allopurinol 100mg po daily reglan prn nausea, vomiting Consultation Date/Type/Reason Admit Date/Time Dec 04, 2016 at 22:33 Initial Consult Date 12/05/16 Type of Consultation: NEPHROLOGY Referring Provider: RANJITH MCDONALD 24 HR Interval Summary Free Text/Dictation Cr has been around 2.8, seen by wound care nurse today Exam/Review of Systems Vital Signs Vitals Vital Signs Date Time Temp Pulse Resp B/P Pulse Ox O2 Delivery O2 Flow Rate FiO2 12/09/16 09:07 98.1 74 20 152/87 95 Intake and Output 12/08/16 12/08/16 12/09/16 15:00 23:00 07:00 Intake Total 1120 ml 430 ml Balance 1120 ml 430 ml Exam Constitutional: alert Respiratory: clear to auscultation, diminished breath sounds, normal air movement Gastrointestinal: non-tender, soft Musculoskeletal: nl extremities to inspection 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 Skin: nl turgor Lymph: nl lymph nodes Results Result Diagram: 12/09/16 0538 12/09/16 0538 Results 24 hrs Laboratory Tests Test 12/08/16 17:19 12/08/16 17:45 12/08/16 18:07 12/08/16 18:31 Bedside Glucose 68 L 73 75 108 Test 12/08/16 18:52 12/08/16 21:16 12/09/16 05:38 12/09/16 08:10 Bedside Glucose 104 154 144 White Blood Count 11.5 #H Red Blood Count 3.27 L Hemoglobin 9.2 L Hematocrit 29.8 L Mean Corpuscular Volume 91.1 Mean Corpuscular Hemoglobin 28.1 L Mean Corpuscular Hemoglobin Concent 30.9 L Red Cell Distribution Width 13.2 Platelet Count 309 Mean Platelet Volume 9.9 Neutrophils % 73.5 Lymphocytes % 15.0 Monocytes % 8.6 Eosinophils % 1.1 Basophils % 0.4 Nucleated Red Blood Cells % 0.0 Neutrophils # 8.5 H Lymphocytes # 1.7 Monocytes # 1.0 H Eosinophils # 0.1 Basophils # 0.1 Nucleated Red Blood Cells # 0.0 Sodium Level 141 Potassium Level 4.4 Chloride Level 98 Carbon Dioxide Level 32 H Anion Gap 15 Blood Urea Nitrogen 46 H Creatinine 2.80 H Glucose Level 139 Calcium Level 9.3 Phosphorus Level 4.1 Magnesium Level 2.1 Random Vancomycin Level 16.8 Medications Medications Current Medications Diagnostic Test (Pha) (Accu-Chek) 1 ea 02 XX ; Start 12/05/16 at 02:00 Amlodipine Besylate (Norvasc) 10 mg DAILY PO Last administered on 12/09/16 09: 18; Admin Dose 10 MG; Start 12/05/16 at 01:42 Diltiazem HCl (Cardizem Sr) 60 mg DAILY PO Last administered on 12/09/16 09:17 ; Admin Dose 60 MG; Start 12/05/16 at 09:00 Furosemide (Lasix) 40 mg DAILY@06 PO Last administered on 12/09/16 05:20; Admin Dose 40 MG; Start 12/05/16 at 06:00 Hydralazine HCl (Apresoline) 100 mg BID PO Last administered on 12/09/16 09:18 ; Admin Dose 100 MG; Start 12/05/16 at 01:30 Losartan Potassium (Cozaar) 25 mg DAILY PO Last administered on 12/05/16 09:02 ; Admin Dose 25 MG; Start 12/05/16 at 09:00; Status Future Hold Nystatin (Nystatin Cr) 1 applic TID TOP Last administered on 12/09/16 09:20; Admin Dose 1 APPLIC; Start 12/05/16 at 09:00 Pentoxifylline (Trental) 400 mg BID PO Last administered on 12/09/16 09:17; Admin Dose 400 MG; Start 12/05/16 at 01:30 Eye Lubricant (Artificial Tears Oph) 1 drop QID BOTH EYES Last administered on 12/08/16 22:24; Admin Dose 1 DROP; Start 12/05/16 at 09:00 Pantoprazole (Protonix Tab) 40 mg DAILY@06 PO Last administered on 12/09/16 05 :20; Admin Dose 40 MG; Start 12/05/16 at 06:00 Atorvastatin Calcium (Lipitor) 10 mg DAILY@21 PO Last administered on 22:24; Admin Dose 10 MG; Start 12/05/16 at 21:00 Hydralazine HCl (Apresoline) 10 mg Q6H PRN IV ELEVATED SYSTOLIC BP Last administered on 12/08/16 03:35; Admin Dose 10 MG; Start 12/05/16 at 02:00 Ondansetron HCl (Zofran Inj) 4 mg Q6H PRN IV NAUSEA AND/OR VOMITING Last administered on 12/07/16 13:54; Admin Dose 4 MG; Start 12/05/16 at 02:30 Acetaminophen (Tylenol Tab) 650 mg Q6H PRN PO PAIN LEVEL 1-3 OR FEVER Last administered on 12/06/16 20:34; Admin Dose 650 MG; Start 12/05/16 at 02:30 Morphine Sulfate (morphine) 2 mg Q4H PRN IV SEVERE PAIN LEVEL 7-10; Start 12/05 at 02:30 Bisacodyl 5 mg 5 mg DAILY PRN PO CONSTIPATION Last administered on 12/09/16 09 :17; Admin Dose 5 MG; Start 12/05/16 at 02:30 Levofloxacin/ Dextrose (Levaquin 750 Mg/ D5W 150 ml (Pmx)) 150 ml @ 100 mls/hr Q48H IVPB Last administered on 12/09/16 05:20; Admin Dose 100 MLS/HR; Start at 06:00 Collagenase (Santyl) 1 applic DAILY TOP Last administered on 12/09/16 09:20; Admin Dose 1 APPLIC; Start 12/06/16 at 09:00 Collagenase (Santyl) 1 applic PRN PRN TOP WOUND CARE; Start 12/05/16 at 23:30 Silver Sulfadiazine (Thermazene 1% 25 Gm) 1 applic BID TOP Last administered on 12/09/16 09:20; Admin Dose 1 APPLIC; Start 12/06/16 at 09:00 Sodium Hypochlorite (Dakin'S (Dilute 1/40%)) 1 applic BID IRR Last administered on 12/08/16 22:25; Admin Dose 1 APPLIC; Start 12/06/16 at 09:00 Heparin Sodium (Porcine) (Heparin (5000 Units/0.5 ml)) 5,000 unit BID SC Last administered on 12/07/16 20:37; Admin Dose 5,000 UNIT; Start 12/06/16 at 21:00 Allopurinol (Zyloprim) 100 mg DAILY PO Last administered on 12/09/16 09:18; Admin Dose 100 MG; Start 12/06/16 at 16:00 Aspirin (Aspirin) 81 mg DAILY PO Last administered on 12/09/16 09:17; Admin Dose 81 MG; Start 12/09/16 at 09:00 Mupirocin (Bactroban) 1 applic BID TOP Last administered on 12/09/16 09:20; Admin Dose 1 APPLIC; Start 12/08/16 at 12:30 Diphenhydramine HCl (Benadryl) 25 mg Q6H PRN PO ITCHING; Start 12/08/16 at 12: 00 Miscellaneous Information -RECEIVED FROM FLOOR (... BID@,16 XX ; Start at 16:00 Insulin Glargine (Lantus) 36 unit BID SC Last administered on 12/09/16 09:19; Admin Dose 36 UNIT; Start 12/08/16 at 21:00 Docusate Sodium (Colace) 100 mg Q12H PO ; Start 12/09/16 at 14:30 Bisacodyl (Dulcolax Supp) 10 mg DAILY PRN [place] CONSTIPATION; Start 12/09/16 at 12 :00 Lactulose (Enulose) 20 gm Q6H PRN PO CONSTIPATION; Start 12/09/16 at 12:00 Senna (Senokot) 2 tab BID PO ; Start 12/09/16 at 12:00 MONSE CHILEL MD Dec 09, 2016 12:30
[2016-12-09] MEDS: ARTIFICIAL TEARS 15 ML OPH BOTH EYES SCH ×4 (12:45→22:08)
[2016-12-09] MEDS: SENNA TAB PO SCH ×2 (12:49→22:08)
--- NOTE | 2016-12-09 14:12 | PN ---
Date/Time of Note Date/Time of Note DATE: 12/09/16 TIME: 14:04 Assessment/Plan VTE Prophylaxis VTE Prophylaxis Intervention: heparin Lines/Catheters IV Catheter Type (from [facility]): [facility] Urinary Cath still in place: No Assessment/Plan Chief Complaint/Hosp Course Assessment and plan 1. Diabetic foot ulcer of the lateral fifth toe with underlying osteomyelitis. Patient is status post excisional debridement of skin and subcutis tissue, muscle, fascia of the left foot fifth metatarsal phalangeal joint on December 06, 2016. Continue antibiotics. Continue with wound care. 2. Left diabetic heel ulceration. Continue antibiotics. Of note patient is reported status post excisional debridement of left heel on December 06, 2016 3. Type 2 diabetes. A1c was noted at 8.8. Continue insulin regimen. Adjust as needed. 4. Essential hypertension. Stable at present. Continue antihypertensives and adjust needed 5. CKD. Nephrotoxic medications to be avoided as possible. Medications renally dosed. Monitor renal panel. Continue with nephrology recommendations. 6. Iron deficiency anemia. Continue iron supplement. 7. History of PVD. Vascular surgeon following. No tentative plan for surgical intervention at this time. Bilateral lower extremity arterial study did show no significant hemodynamic stenosis. Monitor for now. 8. Gram-positive bacteremia. Continue on antibiotics per ID recommendations 9. Morbid obesity. Weight reduction was advised. 10. History of dyslipidemia. Continue on statin medication 11. Constipation. Patient is report having constipation for 7 days. Will start on bowel regimen per Disposition plan: Continue antibiotics and wound care. Patient noted with constipation for reportedly 7 days. Start on bowel regimen. Discharged in medically stable and cleared by consultants Discussed plan of care with Dr. Sequeira Problems: Subjective 24 Hr Interval Summary Free Text/Dictation Reports having constipation. 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, nl mental status, nl speech Skin: other (osteomyelitis of left lower extremity) Results Result Diagram: 12/09/16 0538 12/09/16 0538 Results 24 hrs Laboratory Tests Test 12/08/16 17:19 12/08/16 17:45 12/08/16 18:07 12/08/16 18:31 Bedside Glucose 68 L 73 75 108 Test 12/08/16 18:52 12/08/16 21:16 12/09/16 05:38 12/09/16 08:10 Bedside Glucose 104 154 144 White Blood Count 11.5 #H Red Blood Count 3.27 L Hemoglobin 9.2 L Hematocrit 29.8 L Mean Corpuscular Volume 91.1 Mean Corpuscular Hemoglobin 28.1 L Mean Corpuscular Hemoglobin Concent 30.9 L Red Cell Distribution Width 13.2 Platelet Count 309 Mean Platelet Volume 9.9 Neutrophils % 73.5 Lymphocytes % 15.0 Monocytes % 8.6 Eosinophils % 1.1 Basophils % 0.4 Nucleated Red Blood Cells % 0.0 Neutrophils # 8.5 H Lymphocytes # 1.7 Monocytes # 1.0 H Eosinophils # 0.1 Basophils # 0.1 Nucleated Red Blood Cells # 0.0 Sodium Level 141 Potassium Level 4.4 Chloride Level 98 Carbon Dioxide Level 32 H Anion Gap 15 Blood Urea Nitrogen 46 H Creatinine 2.80 H Glucose Level 139 Calcium Level 9.3 Phosphorus Level 4.1 Magnesium Level 2.1 Random Vancomycin Level 16.8 Test 12/09/16 12:44 Bedside Glucose 137 Medications Medications Current Medications Diagnostic Test (Pha) (Accu-Chek) 1 02 XX ; Start 12/05/16 at 02:00 Amlodipine Besylate (Norvasc) 10 mg DAILY PO Last administered on 12/09/16 09: 18; Admin Dose 10 MG; Start 12/05/16 at 01:42 Diltiazem HCl (Cardizem Sr) 60 mg DAILY PO Last administered on 12/09/16 09:17 ; Admin Dose 60 MG; Start 12/05/16 at 09:00 Furosemide (Lasix) 40 mg DAILY@06 PO Last administered on 12/09/16 05:20; Admin Dose 40 MG; Start 12/05/16 at 06:00 Hydralazine HCl (Apresoline) 100 mg BID PO Last administered on 12/09/16 09:18 ; Admin Dose 100 MG; Start 12/05/16 at 01:30 Losartan Potassium (Cozaar) 25 mg DAILY PO Last administered on 12/05/16 09:02 ; Admin Dose 25 MG; Start 12/05/16 at 09:00; Status Future Hold Nystatin (Nystatin Cr) 1 applic TID TOP Last administered on 12/09/16 09:20; Admin Dose 1 APPLIC; Start 12/05/16 at 09:00 Pentoxifylline (Trental) 400 mg BID PO Last administered on 12/09/16 09:17; Admin Dose 400 MG; Start 12/05/16 at 01:30 Eye Lubricant (Artificial Tears Oph) 1 drop QID BOTH EYES Last administered on 12/09/16 12:45; Admin Dose 1 DROP; Start 12/05/16 at 09:00 Pantoprazole (Protonix Tab) 40 mg DAILY@06 PO Last administered on 12/09/16 05 :20; Admin Dose 40 MG; Start 12/05/16 at 06:00 Atorvastatin Calcium (Lipitor) 10 mg DAILY@21 PO Last administered on 22:24; Admin Dose 10 MG; Start 12/05/16 at 21:00 Hydralazine HCl (Apresoline) 10 mg Q6H PRN IV ELEVATED SYSTOLIC BP Last administered on 12/08/16 03:35; Admin Dose 10 MG; Start 12/05/16 at 02:00 Ondansetron HCl (Zofran Inj) 4 mg Q6H PRN IV NAUSEA AND/OR VOMITING Last administered on 12/07/16 13:54; Admin Dose 4 MG; Start 12/05/16 at 02:30 Acetaminophen (Tylenol Tab) 650 mg Q6H PRN PO PAIN LEVEL 1-3 OR FEVER Last administered on 12/06/16 20:34; Admin Dose 650 MG; Start 12/05/16 at 02:30 Morphine Sulfate (morphine) 2 mg Q4H PRN IV SEVERE PAIN LEVEL 7-10; Start 12/05 at 02:30 Bisacodyl 5 mg 5 mg DAILY PRN PO CONSTIPATION Last administered on 12/09/16 09 :17; Admin Dose 5 MG; Start 12/05/16 at 02:30 Levofloxacin/ Dextrose (Levaquin 750 Mg/ D5W 150 ml (Pmx)) 150 ml @ 100 mls/hr Q48H IVPB Last administered on 12/09/16 05:20; Admin Dose 100 MLS/HR; Start at 06:00 Collagenase (Santyl) 1 applic DAILY TOP Last administered on 12/09/16 09:20; Admin Dose 1 APPLIC; Start 12/06/16 at 09:00 Collagenase (Santyl) 1 applic PRN PRN TOP WOUND CARE; Start 12/05/16 at 23:30 Silver Sulfadiazine (Thermazene 1% 25 Gm) 1 applic BID TOP Last administered on 12/09/16 09:20; Admin Dose 1 APPLIC; Start 12/06/16 at 09:00 Sodium Hypochlorite (Dakin'S (Dilute 1/40%)) 1 applic BID IRR Last administered on 12/08/16 22:25; Admin Dose 1 APPLIC; Start 12/06/16 at 09:00 Heparin Sodium (Porcine) (Heparin (5000 Units/0.5 ml)) 5,000 unit BID SC Last administered on 12/07/16 20:37; Admin Dose 5,000 UNIT; Start 12/06/16 at 21:00 Allopurinol (Zyloprim) 100 mg DAILY PO Last administered on 12/09/16 09:18; Admin Dose 100 MG; Start 12/06/16 at 16:00 Aspirin (Aspirin) 81 mg DAILY PO Last administered on 12/09/16 09:17; Admin Dose 81 MG; Start 12/09/16 at 09:00 Mupirocin (Bactroban) 1 applic BID TOP Last administered on 12/09/16 09:20; Admin Dose 1 APPLIC; Start 12/08/16 at 12:30 Diphenhydramine HCl (Benadryl) 25 mg Q6H PRN PO ITCHING; Start 12/08/16 at 12: 00 Miscellaneous Information -RECEIVED FROM FLOOR (... BID@10,16 XX ; Start at 16:00 Insulin Glargine (Lantus) 36 unit BID SC Last administered on 12/09/16 09:19; Admin Dose 36 UNIT; Start 12/08/16 at 21:00 Docusate Sodium (Colace) 100 mg Q12H PO ; Start 12/09/16 at 14:30 Bisacodyl (Dulcolax Supp) 10 mg DAILY PRN [place] CONSTIPATION; Start 12/09/16 at 12 :00 Lactulose (Enulose) 20 gm Q6H PRN PO CONSTIPATION; Start 12/09/16 at 12:00 Senna 2 tab 2 tab BID PO Last administered on 12/09/16t 12:49; Admin Dose 2 TAB ; Start 12/09/16 at 12:00 Vancomycin HCl/ Sodium Chloride (Vancocin/NS) 250 ml @ 83.333 mls/ hr Q48H IVPB ; Start 12/09/16 at 14:30 DOROTA LEMON Dec 09, 2016 14:12
[2016-12-09] MEDS ORDERED: VANCOMYCIN 1.5 GM in SOD CHLORIDE 0.9% 250 ML IVPB SCH (14:30)
[2016-12-09 15:00] VITALS: BP 179/84; RESP 20
[2016-12-09] MEDS: DOCUSATE SODIUM 100 MG CAP PO SCH (16:24)
[2016-12-09 21:51] VITALS: BP 159/87; RESP 18
[2016-12-09] MEDS: ATORVASTATIN 10 MG TAB PO SCH (22:09)
[2016-12-10] MEDS: MUPIROCIN 2% 22 GM OINT TOP SCH ×3 (00:53→21:54)
[2016-12-10 02:00] VITALS: BP 144/69
[2016-12-10] MEDS: ACCU-CHEK XX SCH (02:00)
[2016-12-10] MEDS: DOCUSATE SODIUM 100 MG CAP PO SCH ×2 (02:46→16:27)
--- NOTE | 2016-12-10 04:16 | PN ---
DATE: 12/09/2016 INFECTIOUS DISEASE PROGRESS NOTE SUBJECTIVE DATA: No acute changes. The patient is alert, feels good, denies pain/discomfort. No fevers. LABORATORY AND DIAGNOSTIC DATA: WBC today 11.5, no shift, no bounce. BUN 46, creatinine 2.80. Microbiology: Blood culture on admission grew coag-negative staph species. Repeat blood culture is negative. Nares swab positive for MRSA. Left with wound culture growing gram-negative rods. ANTIMICROBIALS: Vancomycin, Levaquin. OBJECTIVE DATA: GENERAL: This is a morbidly obese, well developed, elderly woman who is awake, in no distress. HEENT: Head atraumatic, normocephalic. Sclerae anicteric. Buccal mucosa is pink. NECK: Supple. CHEST: Rise symmetrical. Breath sounds clear. HEART: S1, S2. ABDOMEN: Soft. Bowel sounds present. EXTREMITIES: Left foot dressing intact. ASSESSMENT: 1. Left foot cellulitis and osteomyelitis of the toe, status post incision and drainage on December 06, 2016; wound cultures preliminary growing gram-negative rods. 2. Methicillin-resistant Staphylococcus aureus nares colonization. 3. Status post coagulase-negative staphylococcal bacteremia on admission consistent with contaminant. 4. Diabetes. 5. Peripheral vascular disease. 6. Acute on chronic kidney disease. PLAN: The patient remains stable, on appropriate antimicrobials, pending final cultures. Anticipate discharge on IV antibiotics for 6 weeks. We will give final recommendations after culture is finalized. Discussed with patient and family member at bedside. Dictated By: Cm Santos NP /patricia/dayana /Document#: [id number] [place]
[2016-12-10] MEDS: FUROSEMIDE 40 MG TAB PO SCH (05:24)
[2016-12-10] MEDS: PANTOPRAZOLE (EC) 40 MG TAB PO SCH (05:24)
[2016-12-10 08:00] VITALS: BP 185/92; RESP 18
[2016-12-10] MEDS: ASPIRIN 81 MG TAB PO SCH (08:42)
[2016-12-10] MEDS: DILTIAZEM (SR) 60 MG CAP PO SCH (08:42)
[2016-12-10] MEDS: PENTOXIFYLLINE (SR) 400 MG TAB PO SCH ×2 (08:42→21:37)
[2016-12-10] MEDS: ALLOPURINOL 100 MG TAB PO SCH (08:42)
[2016-12-10] MEDS: AMLODIPINE 10 MG TAB PO SCH (08:43)
[2016-12-10] MEDS: ONDANSETRON 4 MG INJ IV PRN (08:43)
[2016-12-10] MEDS: INSULIN ASPART [NOVOLOG] 3 ML PEN SC SCH ×7 (08:47→21:37)
[2016-12-10] MEDS: HEPARIN 5,000 UNIT/0.5 ML VIAL SC SCH ×2 (08:50→21:36)
[2016-12-10] MEDS: ARTIFICIAL TEARS 15 ML OPH BOTH EYES SCH ×4 (08:51→21:37)
[2016-12-10] MEDS: SENNA TAB PO SCH ×2 (08:51→21:40)
[2016-12-10 10:19] LABS: BASOPHILS % 0.5 % (0.0-2.0); EOSINOPHILS # 0.2 10^3/ul (0.0-0.5); EOSINOPHILS % 2.6 % (0.0-7.0); HEMATOCRIT 29.9 % (37.0-47.0); HEMOGLOBIN 9.4 g/dl (12.0-16.0); LYMPHOCYTES # 1.4 10^3/ul (0.8-2.9); LYMPHOCYTES % 15.4 % (15.0-51.0); MEAN CORPUSCULAR HGB CONC 31.4 g/dl (32.0-37.0); MEAN CORPUSCULAR VOLUME 92.3 fl (82.0-101.0); MONOCYTE # 0.7 10^3/ul (0.3-0.9); MONOCYTES % 7.9 % (0.0-11.0); NEUTROPHILS % 72.6 % (39.0-77.0); PLATELET COUNT 303 10^3/UL (140-415); RED BLOOD COUNT 3.24 10^6/ul (4.20-5.40); RED CELL DISTRIBUTION WIDTH 13.2 % (11.5-14.5); WHITE BLOOD COUNT 8.8 10^3/ul (4.8-10.8)
[2016-12-10 10:39] LABS: CALCIUM 9.2 mg/dl (8.4-10.2); CREATININE 2.62 mg/dl (0.44-1.00); POTASSIUM 4.5 mmol/L (3.5-5.1)
[2016-12-10] MEDS: INSULIN GLARGINE [LANtus] 3 ML PEN SC SCH ×2 (12:30→21:59)
[2016-12-10] MEDS: NYSTATIN 15 GM CR TOP SCH ×3 (12:34→22:02)
[2016-12-10] MEDS: SILVER SULFADIAZINE 1% 25 GM CR TOP SCH ×2 (12:34→22:01)
[2016-12-10] MEDS: COLLAGENASE 30 GM TUBE TOP SCH ×2 (12:35→22:01)
[2016-12-10] MEDS: SODIUM HYPOCHLORITE 1/40% 1L IRRIG IRR SCH ×2 (12:35→21:41)
[2016-12-10 14:32] VITALS: BP 138/75; RESP 18
--- NOTE | 2016-12-10 14:52 | PN ---
Date/Time of Note Date/Time of Note DATE: 12/10/16 TIME: 14:51 Assessment/Plan Lines/Catheters IV Catheter Type (from Nrsg): Peripheral IV Buitrago in Place (from Nrsg): No Assessment/Plan Chief Complaint/Hosp Course This is a 66-year-old female with a history of diabetes hypertension obesity patient has had ulceration in the lateral aspect of the left foot currently being admitted to undergo further therapy including antibiotics therapy Patient has had an ultrasound which shows mild arterial stenosis without hemodynamically significant lesion Patient has renal failure with elevation of the creatinine up to 2.82 At this time I do not recommend an angiogram with the mild nature of the arterial disease With continue local wound care and antibiotic therapy per podiatry Discussed extensively with the patient Problems: Subjective 24 Hr Interval Summary Constitutional: improved Pain Control: mild Exam/Review of Systems Vital Signs Vitals Vital Signs Date Time Temp Pulse Resp B/P Pulse Ox O2 Delivery O2 Flow Rate FiO2 12/10/16 14:32 98.0 77 18 138/75 93 Intake and Output 12/09/16 12/09/16 12/10/16 15:00 23:00 07:00 Intake Total 770 ml 580 ml Output Total 200 ml Balance 570 ml 580 ml Exam ENMT: mucosa pink and moist, nl external ears & nose, nl lips & teeth, nl nasal mucosa & septum Neck: non-tender, supple Respiratory: clear to auscultation, normal air movement Cardiovascular: nl pulses, regular rate and rhythm Results Result Diagram: 12/10/16 0947 12/10/16 0947 LAI LOPEZ MD Dec 10, 2016 14:52
--- NOTE | 2016-12-10 15:29 | PN ---
Date/Time of Note Date/Time of Note DATE: 12/10/16 TIME: 15:24 Assessment/Plan VTE Prophylaxis VTE Prophylaxis Intervention: heparin Lines/Catheters IV Catheter Type (from [facility]): Peripheral IV Urinary Cath still in place: No Assessment/Plan Chief Complaint/Hosp Course Assessment and plan 1. Diabetic foot ulcer of the lateral fifth toe with underlying osteomyelitis. Patient is status post excisional debridement of skin and subcutis tissue, muscle, fascia of the left foot fifth metatarsal phalangeal joint on December 06, 2016. Continue antibiotics. Continue with wound care. Plan for long-term antibiotics per ID recommendations. Plan for PICC line placement today. 2. Left diabetic heel ulceration. Continue antibiotics. Of note patient is reported status post excisional debridement of left heel on December 06, 2016 3. Type 2 diabetes. A1c was noted at 8.8. Continue insulin regimen. Adjust as needed. Stable 4. Essential hypertension. Stable at present. Continue antihypertensives and adjust needed 5. CKD. Nephrotoxic medications to be avoided as possible. Medications renally dosed. Monitor renal panel. Continue with nephrology recommendations. 6. Iron deficiency anemia. Continue iron supplement. 7. History of PVD. Vascular surgeon following. No tentative plan for surgical intervention at this time. Bilateral lower extremity arterial study did show no significant hemodynamic stenosis. Monitor for now. 8. Gram-positive bacteremia. Continue on antibiotics per ID recommendations 9. Morbid obesity. Weight reduction was advised. 10. History of dyslipidemia. Continue on statin medication 11. Constipation. Improved. Continue bowel regimen Disposition plan: Continue with antibiotics. Plan for PICC line. Discussed plan of care with Dr. Sequeira Problems: Subjective 24 Hr Interval Summary Free Text/Dictation Reports being able to have a bowel movement. No specific complaints at this time. Exam/Review of Systems Vital Signs Vitals Vital Signs Date Time Temp Pulse Resp B/P Pulse Ox O2 Delivery O2 Flow Rate FiO2 12/10/16 14:32 98.0 77 18 138/75 93 Intake and Output 12/09/16 12/09/16 12/10/16 15:00 23:00 07:00 Intake Total 770 ml 580 ml Output Total 200 ml Balance 570 ml 580 ml Exam Constitutional: alert, obese, oriented, no signs or symptoms of distress Psych: anxiety Head: normocephalic Neck: supple, No jvd Respiratory: normal air movement Cardiovascular: regular rate and rhythm Gastrointestinal: soft Musculoskeletal: swelling (bilateral lower extremities) unchanged Neurological: SPORTS PHYSIOTHERAPIST II-XII intact, nl mental status, nl speech Skin: other (osteomyelitis of left lower extremity) Results Result Diagram: 12/10/16 0947 12/10/16 0947 Results 24 hrs Laboratory Tests Test 12/09/16 17:16 12/09/16 22:15 12/10/16 08:05 12/10/16 08:16 Bedside Glucose 107 126 226 H Lab Scanned Report REFERENCE LAB Test 12/10/16 09:47 12/10/16 12:06 White Blood Count 8.8 # Red Blood Count 3.24 L Hemoglobin 9.4 L Hematocrit 29.9 L Mean Corpuscular Volume 92.3 Mean Corpuscular Hemoglobin 29.0 Mean Corpuscular Hemoglobin Concent 31.4 L Red Cell Distribution Width 13.2 Platelet Count 303 Mean Platelet Volume 10.0 Neutrophils % 72.6 Lymphocytes % 15.4 Monocytes % 7.9 Eosinophils % 2.6 Basophils % 0.5 Nucleated Red Blood Cells % 0.0 Neutrophils # (Manual) 6.4 Lymphocytes # 1.4 Monocytes # 0.7 Eosinophils # 0.2 Basophils # 0.0 Nucleated Red Blood Cells # 0.0 Sodium Level 141 Potassium Level 4.5 Chloride Level 99 Carbon Dioxide Level 30 Anion Gap 17 H Blood Urea Nitrogen 43 H Creatinine 2.62 H Glucose Level 213 Calcium Level 9.2 Bedside Glucose 151 Medications Medications Current Medications Diagnostic Test (Pha) (Accu-Chek) 1 ea 02 XX ; Start 12/05/16 at 02:00 Amlodipine Besylate (Norvasc) 10 mg DAILY PO Last administered on 12/10/16 08: 43; Admin Dose 10 MG; Start 12/05/16 at 01:42 Diltiazem HCl (Cardizem Sr) 60 mg DAILY PO Last administered on 12/10/16 08:42 ; Admin Dose 60 MG; Start 12/05/16 at 09:00 Furosemide (Lasix) 40 mg DAILY@06 PO Last administered on 12/10/16 05:24; Admin Dose 40 MG; Start 12/05/16 at 06:00 Hydralazine HCl (Apresoline) 100 mg BID PO Last administered on 12/10/16 08:53 ; Admin Dose 100 MG; Start 12/05/16 at 01:30 Losartan Potassium (Cozaar) 25 mg DAILY PO Last administered on 12/05/16 09:02 ; Admin Dose 25 MG; Start 12/05/16 at 09:00; Status Future Hold Nystatin (Nystatin Cr) 1 applic TID TOP Last administered on 12/10/16 13:55; Admin Dose 1 APPLIC; Start 12/05/16 at 09:00 Pentoxifylline (Trental) 400 mg BID PO Last administered on 12/10/16 08:42; Admin Dose 400 MG; Start 12/05/16 at 01:30 Eye Lubricant (Artificial Tears Oph) 1 drop QID BOTH EYES Last administered on 12/10/16 12:36; Admin Dose 1 DROP; Start 12/05/16 at 09:00 Pantoprazole (Protonix Tab) 40 mg DAILY@06 PO Last administered on 12/10/16 05 :24; Admin Dose 40 MG; Start 12/05/16 at 06:00 Atorvastatin Calcium (Lipitor) 10 mg DAILY@21 PO Last administered on 22:09; Admin Dose 10 MG; Start 12/05/16 at 21:00 Hydralazine HCl (Apresoline) 10 mg Q6H PRN IV ELEVATED SYSTOLIC BP Last administered on 12/08/16 03:35; Admin Dose 10 MG; Start 12/05/16 at 02:00 Ondansetron HCl (Zofran Inj) 4 mg Q6H PRN IV NAUSEA AND/OR VOMITING Last administered on 12/10/16 08:43; Admin Dose 4 MG; Start 12/05/16 at 02:30 Acetaminophen (Tylenol Tab) 650 mg Q6H PRN PO PAIN LEVEL 1-3 OR FEVER Last administered on 12/06/16 20:34; Admin Dose 650 MG; Start 12/05/16 at 02:30 Morphine Sulfate (morphine) 2 mg Q4H PRN IV SEVERE PAIN LEVEL 7-10; Start 12/05 at 02:30 Bisacodyl 5 mg 5 mg DAILY PRN PO CONSTIPATION Last administered on 12/09/16 09 :17; Admin Dose 5 MG; Start 12/05/16 at 02:30 Levofloxacin/ Dextrose (Levaquin 750 Mg/ D5W 150 ml (Pmx)) 150 ml @ 100 mls/hr Q48H IVPB Last administered on 12/09/16 05:20; Admin Dose 100 MLS/HR; Start at 06:00 Collagenase (Santyl) 1 applic DAILY TOP Last administered on 12/10/16 12:35; Admin Dose 1 APPLIC; Start 12/06/16 at 09:00 Collagenase (Santyl) 1 applic PRN PRN TOP WOUND CARE; Start 12/05/16 at 23:30 Silver Sulfadiazine (Thermazene 1% 25 Gm) 1 applic BID TOP Last administered on 12/10/16 12:34; Admin Dose 1 APPLIC; Start 12/06/16 at 09:00 Sodium Hypochlorite (Dakin'S (Dilute 1/40%)) 1 applic BID IRR Last administered on 12/10/16 12:35; Admin Dose 1 APPLIC; Start 12/06/16 at 09:00 Heparin Sodium (Porcine) (Heparin (5000 Units/0.5 ml)) 5,000 unit BID SC Last administered on 12/10/16 08:50; Admin Dose 5,000 UNIT; Start 12/06/16 at 21:00 Allopurinol (Zyloprim) 100 mg DAILY PO Last administered on 12/10/16 08:42; Admin Dose 100 MG; Start 12/06/16 at 16:00 Aspirin (Aspirin) 81 mg DAILY PO Last administered on 12/10/16 08:42; Admin Dose 81 MG; Start 12/09/16 at 09:00 Mupirocin (Bactroban) 1 applic BID TOP Last administered on 12/10/16 09:00; Admin Dose 1 APPLIC; Start 12/08/16 at 12:30 Diphenhydramine HCl (Benadryl) 25 mg Q6H PRN PO ITCHING; Start 12/08/16 at 12: 00 Miscellaneous Information -RECEIVED FROM FLOOR (... BID@10,16 XX ; Start at 16:00 Insulin Glargine (Lantus) 36 unit BID SC Last administered on 12/10/16 12:30; Admin Dose 36 UNIT; Start 12/08/16 at 21:00 Docusate Sodium (Colace) 100 mg Q12H PO Last administered on 12/10/16 02:46; Admin Dose 100 MG; Start 12/09/16 at 14:30 Bisacodyl (Dulcolax Supp) 10 mg DAILY PRN [place] CONSTIPATION; Start 12/09/16 at 12 :00 Lactulose (Enulose) 20 gm Q6H PRN PO CONSTIPATION; Start 12/09/16 at 12:00 Senna 2 tab 2 tab BID PO Last administered on 12/09/16 22:08; Admin Dose 2 TAB ; Start 12/09/16 at 12:00 Vancomycin HCl/ Sodium Chloride (Vancocin/NS) 250 ml @ 83.333 mls/ hr Q48H IVPB Last administered on 12/09/16 16:24; Admin Dose 83.333 MLS/HR; Start at 14:30 DOROTA LEMON Dec 10, 2016 15:29
[2016-12-10] MEDS ORDERED: LIDOCAINE 1% (MPF) 5 ML VIAL SC ONE (15:30)
[2016-12-10] MEDS: CEFTRIAXONE 1 GM/50 ML (PMX) 50 ML IVPB SCH (17:41)
--- NOTE | 2016-12-10 18:14 | CONS ---
Date/Time of Note Date/Time of Note DATE: 12/10/16 TIME: 18:13 Assessment/Plan Assessment/Plan Chief Complaint/Hosp Course 66-year-old female with PMHx of HTN< HL, DM II who presnted with left foot ulceration/infection which has been intermittently going on last 4 year. She follows in [facility] wound care clinic/ She is noted to have have Cr 3.08 on admission and renal has been consulted for JENNIFER vs JENNIFER on CKD Problems: Additional Assessment/Plan 1. Acute kidney injury on possible CKD due to ATN From osteomyelitis, presented with Cr 3.08 on admission, no previous Cr available to compare 2. Left foot ulcer/Osteomyelitis 3. possible CKD due to diabetic nephropathy 4. Hypertension 5. Hyperlipidemia 6. LE PVD- Mild 7. H/o CVA 8. Hyperuricemia Plan: renal US c/w medical renal disease pt has JENNIFER on CKD Amlodipine 10 mg PO QHS Hold losartan due to persistently elevated Cr - currently Cr has been around 2.08 Hyperuricemia with Uric acid 9.4- on allopurinol 100mg po daily reglan prn nausea, vomiting Consultation Date/Type/Reason Admit Date/Time Dec 04, 2016 at 22:33 Initial Consult Date 12/05/16 Type of Consultation: NEPHROLOGY Referring Provider: RANJITH MCDONALD 24 HR Interval Summary Free Text/Dictation Cr 2.62 Exam/Review of Systems Vital Signs Vitals Vital Signs Date Time Temp Pulse Resp B/P Pulse Ox O2 Delivery O2 Flow Rate FiO2 12/10/16 14:32 98.0 77 18 138/75 93 Intake and Output 12/09/16 12/09/16 12/10/16 15:00 23:00 07:00 Intake Total 770 ml 580 ml Output Total 200 ml Balance 570 ml 580 ml Exam Constitutional: alert Respiratory: clear to auscultation, diminished breath sounds, normal air movement Gastrointestinal: non-tender, soft Musculoskeletal: nl extremities to inspection Neurological: DIAGNOSTIC RADIOLOGIST II-XII intact Skin: nl turgor Lymph: nl lymph nodes Results Result Diagram: 12/10/16 0947 12/10/16 0947 Results 24 hrs Laboratory Tests Test 12/09/16 22:15 12/10/16 08:05 12/10/16 08:16 12/10/16 09:47 Bedside Glucose 126 226 H Lab Scanned Report REFERENCE LAB White Blood Count 8.8 # Red Blood Count 3.24 L Hemoglobin 9.4 L Hematocrit 29.9 L Mean Corpuscular Volume 92.3 Mean Corpuscular Hemoglobin 29.0 Mean Corpuscular Hemoglobin Concent 31.4 L Red Cell Distribution Width 13.2 Platelet Count 303 Mean Platelet Volume 10.0 Neutrophils % 72.6 Lymphocytes % 15.4 Monocytes % 7.9 Eosinophils % 2.6 Basophils % 0.5 Nucleated Red Blood Cells % 0.0 Neutrophils # (Manual) 6.4 Lymphocytes # 1.4 Monocytes # 0.7 Eosinophils # 0.2 Basophils # 0.0 Nucleated Red Blood Cells # 0.0 Sodium Level 141 Potassium Level 4.5 Chloride Level 99 Carbon Dioxide Level 30 Anion Gap 17 H Blood Urea Nitrogen 43 H Creatinine 2.62 H Glucose Level 213 Calcium Level 9.2 Test 12/10/16 12:06 12/10/16 16:55 Bedside Glucose 151 119 Medications Medications Current Medications Diagnostic Test (Pha) (Accu-Chek) 1 ea 02 XX ; Start 12/05/16 at 02:00 Amlodipine Besylate (Norvasc) 10 mg DAILY PO Last administered on 12/10/16 08: 43; Admin Dose 10 MG; Start 12/05/16 at 01:42 Diltiazem HCl (Cardizem Sr) 60 mg DAILY PO Last administered on 12/10/16 08:42 ; Admin Dose 60 MG; Start 12/05/16 at 09:00 Furosemide (Lasix) 40 mg DAILY@06 PO Last administered on 12/10/16 05:24; Admin Dose 40 MG; Start 12/05/16 at 06:00 Hydralazine HCl (Apresoline) 100 mg BID PO Last administered on 12/10/16 08:53 ; Admin Dose 100 MG; Start 12/05/16 at 01:30 Losartan Potassium (Cozaar) 25 mg DAILY PO Last administered on 12/05/16 09:02 ; Admin Dose 25 MG; Start 12/05/16 at 09:00; Status Future Hold Nystatin (Nystatin Cr) 1 applic TID TOP Last administered on 12/10/16 13:55; Admin Dose 1 APPLIC; Start 12/05/16 at 09:00 Pentoxifylline (Trental) 400 mg BID PO Last administered on 12/10/16 08:42; Admin Dose 400 MG; Start 12/05/16 at 01:30 Eye Lubricant (Artificial Tears Oph) 1 drop QID BOTH EYES Last administered on 12/10/16 16:27; Admin Dose 1 DROP; Start 12/05/16 at 09:00 Pantoprazole (Protonix Tab) 40 mg DAILY@06 PO Last administered on 12/10/16 05 :24; Admin Dose 40 MG; Start 12/05/16 at 06:00 Atorvastatin Calcium (Lipitor) 10 mg DAILY@21 PO Last administered on 22:09; Admin Dose 10 MG; Start 12/05/16 at 21:00 Hydralazine HCl (Apresoline) 10 mg Q6H PRN IV ELEVATED SYSTOLIC BP Last administered on 12/08/16 03:35; Admin Dose 10 MG; Start 12/05/16 at 02:00 Ondansetron HCl (Zofran Inj) 4 mg Q6H PRN IV NAUSEA AND/OR VOMITING Last administered on 12/10/16 08:43; Admin Dose 4 MG; Start 12/05/16 at 02:30 Acetaminophen (Tylenol Tab) 650 mg Q6H PRN PO PAIN LEVEL 1-3 OR FEVER Last administered on 12/06/16 20:34; Admin Dose 650 MG; Start 12/05/16 at 02:30 Morphine Sulfate (morphine) 2 mg Q4H PRN IV SEVERE PAIN LEVEL 7-10; Start 12/05 at 02:30 Bisacodyl (Dulcolax) 5 mg DAILY PRN PO CONSTIPATION Last administered on 09:17; Admin Dose 5 MG; Start 12/05/16 at 02:30 Collagenase (Santyl) 1 applic DAILY TOP Last administered on 12/10/16 12:35; Admin Dose 1 APPLIC; Start 12/06/16 at 09:00 Collagenase (Santyl) 1 applic PRN PRN TOP WOUND CARE; Start 12/05/16 at 23:30 Silver Sulfadiazine (Thermazene 1% 25 Gm) 1 applic BID TOP Last administered on 12/10/16 12:34; Admin Dose 1 APPLIC; Start 12/06/16 at 09:00 Sodium Hypochlorite (Dakin'S (Dilute 1/40%)) 1 applic BID IRR Last administered on 12/10/16 12:35; Admin Dose 1 APPLIC; Start 12/06/16 at 09:00 Heparin Sodium (Porcine) (Heparin (5000 Units/0.5 ml)) 5,000 unit BID SC Last administered on 12/10/16 08:50; Admin Dose 5,000 UNIT; Start 12/06/16 at 21:00 Allopurinol (Zyloprim) 100 mg DAILY PO Last administered on 12/10/16 08:42; Admin Dose 100 MG; Start 12/06/16 at 16:00 Aspirin (Aspirin) 81 mg DAILY PO Last administered on 12/10/16 08:42; Admin Dose 81 MG; Start 12/09/16 at 09:00 Mupirocin (Bactroban) 1 applic BID TOP Last administered on 12/10/16 09:00; Admin Dose 1 APPLIC; Start 12/08/16 at 12:30 Diphenhydramine HCl (Benadryl) 25 mg Q6H PRN PO ITCHING; Start 12/08/16 at 12: 00 Miscellaneous Information -RECEIVED FROM FLOOR (... BID@10,16 XX ; Start at 16:00 Insulin Glargine (Lantus) 36 unit BID SC Last administered on 12/10/16 12:30; Admin Dose 36 UNIT; Start 12/08/16 at 21:00 Docusate Sodium (Colace) 100 mg Q12H PO Last administered on 12/10/16 16:27; Admin Dose 100 MG; Start 12/09/16 at 14:30 Bisacodyl (Dulcolax Supp) 10 mg DAILY PRN [place] CONSTIPATION; Start 12/09/16 at 12 :00 Lactulose (Enulose) 20 gm Q6H PRN PO CONSTIPATION; Start 12/09/16 at 12:00 Senna 2 tab 2 tab BID PO Last administered on 12/09/16 22:08; Admin Dose 2 TAB ; Start 12/09/16 at 12:00 Daptomycin 815 mg/ Sodium Chloride 100 ml @ 200 mls/hr Q48H IVPB ; Start at 18:00 Ceftriaxone Sodium (Rocephin) 50 ml @ 100 mls/hr Q24H IVPB Last administered on 12/10/16 17:41; Admin Dose 100 MLS/HR; Start 12/10/16 at 17:00 MONSE CHILEL MD Dec 10, 2016 18:14
[2016-12-10] MEDS: SOD CHLORIDE 0.9% IVPB SCH (19:55)
[2016-12-10] MEDS: DAPTOMYCIN IVPB SCH (19:55)
[2016-12-10 20:25] VITALS: BP 139/67; RESP 20
[2016-12-10] MEDS: ATORVASTATIN 10 MG TAB PO SCH (21:37)
--- NOTE | 2016-12-10 22:56 | PN ---
DATE: 12/10/2016 SUBJECTIVE DATA: No events overnight. Patient is alert, feels good, looks comfortable. No fevers. LABORATORY AND DIAGNOSTIC DATA: WBC 8.8, no shift, no bands. BUN 43, creatinine 2.62. MICROBIOLOGY: Left foot wound culture growing multidrug- resistant E coli susceptible to cefotaxime, gentamicin, tobramycin and Bactrim. PHYSICAL EXAMINATION: GENERAL: Morbidly obese, elderly white woman who is alert, in no distress. HEENT: Head atraumatic, normocephalic. Sclerae anicteric. Buccal mucosa pink. NECK: Supple. CHEST: Rise symmetrical. Breath sounds clear. HEART: S1, S2. ABDOMEN: Soft, bowel sounds present. EXTREMITIES: With bilateral edema. Left foot dressing intact. ASSESSMENT: 1. Left diabetic foot ulceration with toe osteomyelitis and wound culture growing multidrug-resistant Escherichia coli. 2. Methicillin-resistant Staphylococcus aureus nares colonization. 3. Coag-negative staph bacteremia, possibly contaminant. 4. Poorly controlled diabetes. 5. Chronic kidney disease. 6. Peripheral vascular disease. 7. Morbid obesity. PLAN: Patient remains stable. She is being seen by multiple consultants. We are going to start her on IV Rocephin. We will change vancomycin to daptomycin, given chronic kidney disease and anticipate discharge her on current antibiotics for 6 weeks. Patient will require PICC line placement. Above was discussed with patient at bedside. Dictated By: Cm Santos NP /patricia/mathieu /Document#: [id number]
[2016-12-11] MEDS: ACCU-CHEK XX SCH (02:00)
[2016-12-11 02:17] VITALS: BP 157/72; PULSE 73; RESP 19
[2016-12-11] MEDS: DOCUSATE SODIUM 100 MG CAP PO SCH ×2 (02:30→05:42)
[2016-12-11] MEDS: PANTOPRAZOLE (EC) 40 MG TAB PO SCH (05:40)
[2016-12-11] MEDS: ONDANSETRON 4 MG INJ IV PRN (05:40)
[2016-12-11] MEDS: FUROSEMIDE 40 MG TAB PO SCH (05:41)
[2016-12-11] MEDS: hydrALAzine 20 MG INJ IV PRN (05:49)
[2016-12-11 06:00] VITALS: BP 149/67
[2016-12-11 08:00] VITALS: BP 165/72; RESP 20
[2016-12-11] MEDS: INSULIN ASPART [NOVOLOG] 3 ML PEN SC SCH ×7 (08:32→21:00)
[2016-12-11] MEDS: INSULIN GLARGINE [LANtus] 3 ML PEN SC SCH ×2 (08:33→21:27)
[2016-12-11] MEDS: ARTIFICIAL TEARS 15 ML OPH BOTH EYES SCH ×4 (08:35→21:20)
[2016-12-11] MEDS: DILTIAZEM (SR) 60 MG CAP PO SCH (08:36)
[2016-12-11] MEDS: PENTOXIFYLLINE (SR) 400 MG TAB PO SCH ×2 (08:36→21:21)
[2016-12-11] MEDS: ALLOPURINOL 100 MG TAB PO SCH (08:36)
[2016-12-11] MEDS: AMLODIPINE 10 MG TAB PO SCH (08:36)
[2016-12-11] MEDS: SENNA TAB PO SCH ×2 (08:37→21:21)
[2016-12-11] MEDS: MUPIROCIN 2% 22 GM OINT TOP SCH ×2 (08:38→21:31)
[2016-12-11] MEDS: ASPIRIN 81 MG TAB PO SCH (08:40)
[2016-12-11] MEDS: SILVER SULFADIAZINE 1% 25 GM CR TOP SCH ×2 (08:43→21:32)
[2016-12-11] MEDS: SODIUM HYPOCHLORITE 1/40% 1L IRRIG IRR SCH ×2 (08:43→21:31)
[2016-12-11] MEDS: NYSTATIN 15 GM CR TOP SCH ×3 (08:43→21:30)
[2016-12-11] MEDS ORDERED: ASPI81TA3 PO (09:11)
[2016-12-11] MEDS ORDERED: HYDR100T7 PO (09:11)
[2016-12-11] MEDS ORDERED: ALLO100T PO (09:11)
[2016-12-11] MEDS ORDERED: AMLO-147 PO (09:11)
[2016-12-11] MEDS ORDERED: DAPT500V IV (09:12)
[2016-12-11] MEDS ORDERED: FURO40TA4 PO (09:12)
[2016-12-11] MEDS ORDERED: SENN-53 PO (09:12)
[2016-12-11] MEDS ORDERED: ATOR10TA65 PO (09:12)
[2016-12-11] MEDS ORDERED: NOVO3I SC (09:12)
[2016-12-11] MEDS ORDERED: SAN30GM TOP (09:12)
[2016-12-11] MEDS ORDERED: PANT40TA4 PO (09:12)
[2016-12-11] MEDS ORDERED: LANT3I SC (09:12)
[2016-12-11] MEDS ORDERED: SSD1C20 TOP (09:12)
[2016-12-11] MEDS ORDERED: CARSR60 PO (09:12)
[2016-12-11] MEDS ORDERED: PENT400T2 PO (09:12)
[2016-12-11] MEDS ORDERED: DOCU-216 PO (09:12)
[2016-12-11] MEDS ORDERED: CEFT1PIG2 IVPB (09:12)
--- NOTE | 2016-12-11 09:23 | PDOCDIS ---
Discharge Instructions DIAGNOSIS Discharge Diagnosis 1. Diabetic foot ulcer of the lateral fifth toe with underlying osteomyelitis. 2. Left diabetic heel ulceration 3. Type 2 diabetes. A1c was noted at 8.8. 4. Essential hypertension. 5. CKD. 6. Iron deficiency anemia. 7. History of PVD. 8. Gram-positive bacteremia. 9. Morbid obesity. 10. History of dyslipidemia. 11. Constipation. CONDITION Patient Condition: Stable HOME CARE INSTRUCTIONS: Diet Instructions: Low Fat /CholesterolSpecial Diet: carb controlled diet FOLLOW UP/APPOINTMENTS Follow-up Plan 1. Follow up with Dr. Robson Hernandez in one week 2. Follow up with Dr. Nathaniel Stark in one week 3. Follow up with your primary care provider in 1-2 weeks 4. Follow up with Dr. Ryan Tobias in one week DOROTA LEMON Dec 11, 2016 09:23
--- NOTE | 2016-12-11 10:02 | RADRPT ---
PROCEDURE: US guidance for PICC line CLINICAL INDICATION: PICC line placement TECHNIQUE: Multiple real-time images were acquired of the patient's arm utilizing a high resolutio n transducer. This was performed by the PICC line nurse for venous access. COMPARISON: None FINDINGS: See impression. IMPRESSION: Ultrasound guidance for PICC line placement. There is a patent and compressible left upper extremity vein. RPTAT: AA Physician Lexi Date Time Electronically viewed and signed by Cecil Vallejo Physician on 12/11/2016 10:02 /
--- NOTE | 2016-12-11 10:07 | RADRPT ---
PROCEDURE: XR Chest. CLINICAL INDICATION: Check Line Placement TECHNIQUE: Single frontal view of the chest was obtained. COMPARISON: None FINDINGS: A left-sided PICC line is noted with its tip in the distal SVC. There is mild cardiomegaly and mild to moderate pulmonary vascular congestion. No definite focal infiltrates are identified. The aortic arch is calcified. There is no significant pleural effusion or pneumothorax. IMPRESSION: Left-sided PICC line with its tip in the distal SVC. Mild cardiomegaly and mild to moderate pulmonary vascular congestion. Aortic atherosclerosis. No definite focal infiltrates or effusions. RPTAT: EE Physician Lexi Date Time Electronically viewed and signed by Physician Lexi on 12/11/2016 10:07 /
[2016-12-11] MEDS ORDERED: SOD CHLORIDE 0.9% 100 ML ONE (10:24)
[2016-12-11] MEDS: HEPARIN 5,000 UNIT/0.5 ML VIAL SC SCH ×2 (12:17→21:28)
--- NOTE | 2016-12-11 13:11 | CONS ---
Date/Time of Note Date/Time of Note DATE: 12/11/16 TIME: 13:08 Assessment/Plan Assessment/Plan Chief Complaint/Hosp Course 66-year-old female with PMHx of HTN< HL, DM II who presnted with left foot ulceration/infection which has been intermittently going on last 4 year. She follows in [facility] wound care clinic/ She is noted to have have Cr 3.08 on admission and renal has been consulted for JENNIFER vs JENNIFER on CKD Problems: Additional Assessment/Plan 1. Acute kidney injury on possible CKD due to ATN From osteomyelitis, presented with Cr 3.08 on admission, no previous Cr available to compare 2. Left foot ulcer/Osteomyelitis 3. possible CKD due to diabetic nephropathy 4. Hypertension 5. Hyperlipidemia 6. LE PVD- Mild 7. H/o CVA 8. Hyperuricemia Plan: renal US c/w medical renal disease pt has JENNIFER on CKD, Cr slighlty improved to 2.6, PICC line placed Amlodipine 10 mg PO QHS Hyperuricemia with Uric acid 9.4- on allopurinol 100mg po daily reglan prn nausea, vomiting IV abx as per ID Renally dose antibioitics, discussed with Pharmacy today Consultation Date/Type/Reason Admit Date/Time Dec 04, 2016 at 22:33 Initial Consult Date 12/05/16 Type of Consultation: NEPHROLOGY Referring Provider: RANJITH MCDONALD 24 HR Interval Summary Free Text/Dictation Cr 2.62, PICC line Exam/Review of Systems Vital Signs Vitals Vital Signs Date Time Temp Pulse Resp B/P Pulse Ox O2 Delivery O2 Flow Rate FiO2 12/11/16 08:00 98.3 72 20 165/72 92 12/11/16 02:17 Room Air Intake and Output 12/10/16 12/10/16 12/11/16 15:00 23:00 07:00 Intake Total 150 ml Balance 150 ml Results Result Diagram: 12/10/16 0947 12/10/16 0947 Results 24 hrs Laboratory Tests Test 12/10/16 16:55 12/10/16 21:33 12/11/16 02:07 12/11/16 08:24 Bedside Glucose 119 256 H 225 H 227 H Test 12/11/16 12:03 Bedside Glucose 244 H Medications Medications Current Medications Diagnostic Test (Pha) (Accu-Chek) 1 ea 02 XX ; Start 12/05/16 at 02:00 Amlodipine Besylate (Norvasc) 10 mg DAILY PO Last administered on 12/11/16 08: 36; Admin Dose 10 MG; Start 12/05/16 at 01:42 Diltiazem HCl (Cardizem Sr) 60 mg DAILY PO Last administered on 12/11/16 08:36 ; Admin Dose 60 MG; Start 12/05/16 at 09:00 Furosemide (Lasix) 40 mg DAILY@06 PO Last administered on 12/11/16 05:41; Admin Dose 40 MG; Start 12/05/16 at 06:00 Hydralazine HCl (Apresoline) 100 mg BID PO Last administered on 12/11/16 08:37 ; Admin Dose 100 MG; Start 12/05/16 at 01:30 Losartan Potassium (Cozaar) 25 mg DAILY PO Last administered on 12/05/16 09:02 ; Admin Dose 25 MG; Start 12/05/16 at 09:00; Status Future Hold Nystatin (Nystatin Cr) 1 applic TID TOP Last administered on 12/11/16 12:21; Admin Dose 1 APPLIC; Start 12/05/16 at 09:00 Pentoxifylline (Trental) 400 mg BID PO Last administered on 12/11/16 08:36; Admin Dose 400 MG; Start 12/05/16 at 01:30 Eye Lubricant (Artificial Tears Oph) 1 drop QID BOTH EYES Last administered on 12/11/16 12:21; Admin Dose 1 DROP; Start 12/05/16 at 09:00 Pantoprazole (Protonix Tab) 40 mg DAILY@06 PO Last administered on 12/11/16 05 :40; Admin Dose 40 MG; Start 12/05/16 at 06:00 Atorvastatin Calcium (Lipitor) 10 mg DAILY@21 PO Last administered on 21:37; Admin Dose 10 MG; Start 12/05/16 at 21:00 Hydralazine HCl (Apresoline) 10 mg Q6H PRN IV ELEVATED SYSTOLIC BP Last administered on 12/11/16 05:49; Admin Dose 10 MG; Start 12/05/16 at 02:00 Ondansetron HCl (Zofran Inj) 4 mg Q6H PRN IV NAUSEA AND/OR VOMITING Last administered on 12/11/16 05:40; Admin Dose 4 MG; Start 12/05/16 at 02:30 Acetaminophen (Tylenol Tab) 650 mg Q6H PRN PO PAIN LEVEL 1-3 OR FEVER Last administered on 12/06/16 20:34; Admin Dose 650 MG; Start 12/05/16 at 02:30 Morphine Sulfate (morphine) 2 mg Q4H PRN IV SEVERE PAIN LEVEL 7-10; Start 12/05 at 02:30 Bisacodyl (Dulcolax) 5 mg DAILY PRN PO CONSTIPATION Last administered on 09:17; Admin Dose 5 MG; Start 12/05/16 at 02:30 Collagenase (Santyl) 1 applic DAILY TOP Last administered on 12/10/16 22:01; Admin Dose 1 APPLIC; Start 12/06/16 at 09:00 Collagenase (Santyl) 1 applic PRN PRN TOP WOUND CARE; Start 12/05/16 at 23:30 Silver Sulfadiazine (Thermazene 1% 25 Gm) 1 applic BID TOP Last administered on 12/11/16 08:43; Admin Dose 1 APPLIC; Start 12/06/16 at 09:00 Sodium Hypochlorite (Dakin'S (Dilute 1/40%)) 1 applic BID IRR Last administered on 12/11/16 08:43; Admin Dose 1 APPLIC; Start 12/06/16 at 09:00 Heparin Sodium (Porcine) (Heparin (5000 Units/0.5 ml)) 5,000 unit BID SC Last administered on 12/11/16 12:17; Admin Dose 5,000 UNIT; Start 12/06/16 at 21:00 Allopurinol (Zyloprim) 100 mg DAILY PO Last administered on 12/11/16 08:36; Admin Dose 100 MG; Start 12/06/16 at 16:00 Aspirin (Aspirin) 81 mg DAILY PO Last administered on 12/11/16 08:40; Admin Dose 81 MG; Start 12/09/16 at 09:00 Mupirocin (Bactroban) 1 applic BID TOP Last administered on 12/11/16 08:38; Admin Dose 1 APPLIC; Start 12/08/16 at 12:30 Diphenhydramine HCl (Benadryl) 25 mg Q6H PRN PO ITCHING; Start 12/08/16 at 12: 00 Miscellaneous Information -RECEIVED FROM FLOOR (... BID@10,16 XX ; Start at 16:00 Insulin Glargine (Lantus) 36 unit BID SC Last administered on 12/11/16 08:33; Admin Dose 36 UNIT; Start 12/08/16 at 21:00 Docusate Sodium (Colace) 100 mg Q12H PO Last administered on 12/11/16 05:42; Admin Dose 100 MG; Start 12/09/16 at 14:30 Bisacodyl (Dulcolax Supp) 10 mg DAILY PRN [place] CONSTIPATION; Start 12/09/16 at 12 :00 Lactulose (Enulose) 20 gm Q6H PRN PO CONSTIPATION; Start 12/09/16 at 12:00 Senna 2 tab 2 tab BID PO Last administered on 12/10/16 21:40; Admin Dose 2 TAB ; Start 12/09/16 at 12:00 Daptomycin 815 mg/ Sodium Chloride 100 ml @ 200 mls/hr Q48H IVPB Last administered on 12/10/16 19:55; Admin Dose 200 MLS/HR; Start 12/10/16 at 18:00 Ceftriaxone Sodium (Rocephin) 50 ml @ 100 mls/hr Q24H IVPB Last administered on 12/10/16 17:41; Admin Dose 100 MLS/HR; Start 12/10/16 at 17:00 IV Flush (NS 10 ml) 10 ml PRN PRN IV IV PROTOCOL; Start 12/11/16 at 11:00 MONSE CHILEL MD Dec 11, 2016 13:11
[2016-12-11 14:00] VITALS: BP 171/80; RESP 22
[2016-12-11 14:28] LABS: BASOPHILS % 0.4 % (0.0-2.0); EOSINOPHILS # 0.3 10^3/ul (0.0-0.5); EOSINOPHILS % 3.2 % (0.0-7.0); HEMATOCRIT 27.7 % (37.0-47.0); HEMOGLOBIN 8.8 g/dl (12.0-16.0); LYMPHOCYTES # 1.7 10^3/ul (0.8-2.9); LYMPHOCYTES % 19.2 % (15.0-51.0); MEAN CORPUSCULAR HEMOGLOBIN 29.6 pg (29.0-33.0); MEAN CORPUSCULAR HGB CONC 31.8 g/dl (32.0-37.0); MEAN CORPUSCULAR VOLUME 93.3 fl (82.0-101.0); MEAN PLATELET VOLUME 10.1 fl (7.4-10.4); MONOCYTES % 11.2 % (0.0-11.0); NEUTROPHILS % 65.2 % (39.0-77.0); PLATELET COUNT 302 10^3/UL (140-415); RED BLOOD COUNT 2.97 10^6/ul (4.20-5.40); RED CELL DISTRIBUTION WIDTH 13.3 % (11.5-14.5)
--- NOTE | 2016-12-11 14:32 | PN ---
Date/Time of Note Date/Time of Note DATE: 12/11/16 TIME: 14:29 Assessment/Plan VTE Prophylaxis VTE Prophylaxis Intervention: heparin Lines/Catheters IV Catheter Type (from Nrs): PICC Line Central line still needed: Yes Urinary Cath still in place: No Assessment/Plan Chief Complaint/Hosp Course Assessment and plan 1. Diabetic foot ulcer of the lateral fifth toe with underlying osteomyelitis. Patient is status post excisional debridement of skin and subcutis tissue, muscle, fascia of the left foot fifth metatarsal phalangeal joint on December 06, 2016. Continue antibiotics. Continue with wound care. Plan for long-term antibiotics per ID recommendations. Patient status post PICC line placement. 2. Left diabetic heel ulceration. Continue antibiotics. Of note patient is reported status post excisional debridement of left heel on December 06, 2016 3. Type 2 diabetes. A1c was noted at 8.8. Continue insulin regimen. Adjust as needed. Stable 4. Essential hypertension. Stable at present. Continue antihypertensives and adjust needed 5. CKD. Nephrotoxic medications to be avoided as possible. Medications renally dosed. Monitor renal panel. Continue with nephrology recommendations. 6. Iron deficiency anemia. Continue iron supplement. 7. History of PVD. Vascular surgeon following. No tentative plan for surgical intervention at this time. Bilateral lower extremity arterial study did show no significant hemodynamic stenosis. Monitor for now. 8. Gram-positive bacteremia. Continue on antibiotics per ID recommendations 9. Morbid obesity. Weight reduction was advised. 10. History of dyslipidemia. Continue on statin medication 11. Constipation. Improved. Continue bowel regimen Disposition plan: Patient status post PICC line. Still monitoring renal panel. Discussed with pump tester. Will keep in-house and monitor for now. Anticipate discharge within the next 24 hours if remains medically stable and cleared by risk control consultant Discussed plan of care with Dr. Sequeira Problems: Subjective 24 Hr Interval Summary Free Text/Dictation no s/s of distress. Exam/Review of Systems Vital Signs Vitals Vital Signs Date Time Temp Pulse Resp B/P Pulse Ox O2 Delivery O2 Flow Rate FiO2 12/11/16 08:00 98.3 72 20 165/72 92 12/11/16 02:17 Room Air Intake and Output 12/10/16 12/10/16 12/11/16 15:00 23:00 07:00 Intake Total 150 ml Balance 150 ml Exam Constitutional: alert, obese, oriented, no signs or symptoms of distress Psych: anxiety Head: normocephalic Neck: supple, No jvd Respiratory: normal air movement Cardiovascular: regular rate and rhythm Gastrointestinal: soft Musculoskeletal: swelling (bilateral lower extremities) unchanged Neurological: DUMPMAN II-XII intact, nl mental status, nl speech Skin: other (osteomyelitis of left lower extremity) Results Result Diagram: 12/11/16 1403 12/10/16 0947 Results 24 hrs Laboratory Tests Test 12/10/16 16:55 12/10/16 21:33 12/11/16 02:07 12/11/16 08:24 Bedside Glucose 119 256 H 225 H 227 H Test 12/11/16 12:03 12/11/16 14:03 Bedside Glucose 244 H White Blood Count 9.0 Red Blood Count 2.97 L Hemoglobin 8.8 L Hematocrit 27.7 L Mean Corpuscular Volume 93.3 Mean Corpuscular Hemoglobin 29.6 Mean Corpuscular Hemoglobin Concent 31.8 L Red Cell Distribution Width 13.3 Platelet Count 302 Mean Platelet Volume 10.1 Neutrophils % 65.2 Lymphocytes % 19.2 Monocytes % 11.2 H Eosinophils % 3.2 Basophils % 0.4 Nucleated Red Blood Cells % 0.0 Neutrophils # (Manual) 5.9 Lymphocytes # 1.7 Monocytes # 1.0 H Eosinophils # 0.3 Basophils # 0.0 Nucleated Red Blood Cells # 0.0 Medications Medications Current Medications Diagnostic Test (Pha) (Accu-Chek) 1 ea 02 XX ; Start 12/05/16 at 02:00 Amlodipine Besylate (Norvasc) 10 mg DAILY PO Last administered on 12/11/16 08: 36; Admin Dose 10 MG; Start 12/05/16 at 01:42 Diltiazem HCl (Cardizem Sr) 60 mg DAILY PO Last administered on 12/11/16 08:36 ; Admin Dose 60 MG; Start 12/05/16 at 09:00 Furosemide (Lasix) 40 mg DAILY@06 PO Last administered on 12/11/16 05:41; Admin Dose 40 MG; Start 12/05/16 at 06:00 Hydralazine HCl (Apresoline) 100 mg BID PO Last administered on 12/11/16 08:37 ; Admin Dose 100 MG; Start 12/05/16 at 01:30 Losartan Potassium (Cozaar) 25 mg DAILY PO Last administered on 12/05/16 09:02 ; Admin Dose 25 MG; Start 12/05/16 at 09:00; Status Future Hold Nystatin (Nystatin Cr) 1 applic TID TOP Last administered on 12/11/16 12:21; Admin Dose 1 APPLIC; Start 12/05/16 at 09:00 Pentoxifylline (Trental) 400 mg BID PO Last administered on 12/11/16 08:36; Admin Dose 400 MG; Start 12/05/16 at 01:30 Eye Lubricant (Artificial Tears Oph) 1 drop QID BOTH EYES Last administered on 12/11/16 12:21; Admin Dose 1 DROP; Start 12/05/16 at 09:00 Pantoprazole (Protonix Tab) 40 mg DAILY@06 PO Last administered on 12/11/16 05 :40; Admin Dose 40 MG; Start 12/05/16 at 06:00 Atorvastatin Calcium (Lipitor) 10 mg DAILY@21 PO Last administered on 21:37; Admin Dose 10 MG; Start 12/05/16 at 21:00 Hydralazine HCl (Apresoline) 10 mg Q6H PRN IV ELEVATED SYSTOLIC BP Last administered on 12/11/16 05:49; Admin Dose 10 MG; Start 12/05/16 at 02:00 Ondansetron HCl (Zofran Inj) 4 mg Q6H PRN IV NAUSEA AND/OR VOMITING Last administered on 12/11/16 05:40; Admin Dose 4 MG; Start 12/05/16 at 02:30 Acetaminophen (Tylenol Tab) 650 mg Q6H PRN PO PAIN LEVEL 1-3 OR FEVER Last administered on 12/06/16 20:34; Admin Dose 650 MG; Start 12/05/16 at 02:30 Morphine Sulfate (morphine) 2 mg Q4H PRN IV SEVERE PAIN LEVEL 7-10; Start 12/05 at 02:30 Bisacodyl (Dulcolax) 5 mg DAILY PRN PO CONSTIPATION Last administered on 09:17; Admin Dose 5 MG; Start 12/05/16 at 02:30 Collagenase (Santyl) 1 applic DAILY TOP Last administered on 12/10/16 22:01; Admin Dose 1 APPLIC; Start 12/06/16 at 09:00 Collagenase (Santyl) 1 applic PRN PRN TOP WOUND CARE; Start 12/05/16 at 23:30 Silver Sulfadiazine (Thermazene 1% 25 Gm) 1 applic BID TOP Last administered on 12/11/16 08:43; Admin Dose 1 APPLIC; Start 12/06/16 at 09:00 Sodium Hypochlorite (Dakin'S (Dilute 1/40%)) 1 applic BID IRR Last administered on 12/11/16 08:43; Admin Dose 1 APPLIC; Start 12/06/16 at 09:00 Heparin Sodium (Porcine) (Heparin (5000 Units/0.5 ml)) 5,000 unit BID SC Last administered on 12/11/16 12:17; Admin Dose 5,000 UNIT; Start 12/06/16 at 21:00 Allopurinol (Zyloprim) 100 mg DAILY PO Last administered on 12/11/16 08:36; Admin Dose 100 MG; Start 12/06/16 at 16:00 Aspirin (Aspirin) 81 mg DAILY PO Last administered on 12/11/16 08:40; Admin Dose 81 MG; Start 12/09/16 at 09:00 Mupirocin (Bactroban) 1 applic BID TOP Last administered on 12/11/16 08:38; Admin Dose 1 APPLIC; Start 12/08/16 at 12:30 Diphenhydramine HCl (Benadryl) 25 mg Q6H PRN PO ITCHING; Start 12/08/16 at 12: 00 Miscellaneous Information -RECEIVED FROM FLOOR (... BID@ XX ; Start at 16:00 Insulin Glargine (Lantus) 36 unit BID SC Last administered on 12/11/16 08:33; Admin Dose 36 UNIT; Start 12/08/16 at 21:00 Docusate Sodium (Colace) 100 mg Q12H PO Last administered on 12/11/16 05:42; Admin Dose 100 MG; Start 12/09/16 at 14:30 Bisacodyl (Dulcolax Supp) 10 mg DAILY PRN [place] CONSTIPATION; Start 12/09/16 at 12 :00 Lactulose (Enulose) 20 gm Q6H PRN PO CONSTIPATION; Start 12/09/16 at 12:00 Senna 2 tab 2 tab BID PO Last administered on 12/10/16 21:40; Admin Dose 2 TAB ; Start 12/09/16 at 12:00 Daptomycin 815 mg/ Sodium Chloride 100 ml @ 200 mls/hr Q48H IVPB Last administered on 12/10/16 19:55; Admin Dose 200 MLS/HR; Start 12/10/16 at 18:00 Ceftriaxone Sodium (Rocephin) 50 ml @ 100 mls/hr Q24H IVPB Last administered on 12/10/16 17:41; Admin Dose 100 MLS/HR; Start 12/10/16 at 17:00 IV Flush (NS 10 ml) 10 ml PRN PRN IV IV PROTOCOL; Start 12/11/16 at 11:00 DOROTA LEMON Dec 11, 2016 14:32
[2016-12-11 14:50] LABS: CREATININE 2.64 mg/dl (0.44-1.00); POTASSIUM 3.9 mmol/L (3.5-5.1)
[2016-12-11] MEDS: CEFTRIAXONE 1 GM/50 ML (PMX) 50 ML IVPB SCH (16:13)
--- NOTE | 2016-12-11 16:37 | CONS ---
Date/Time of Note Date/Time of Note DATE: 12/11/16 TIME: 16:32 Assessment/Plan Assessment/Plan Chief Complaint/Hosp Course SUBJECTIVE DATA: No events overnight. Patient is alert, feels good, looks comfortable. No fevers. MICROBIOLOGY: Left foot wound culture growing multidrug- resistant E coli susceptible to cefotaxime, gentamicin, tobramycin and Bactrim. Abx: Rocephin, Daptomycin PHYSICAL EXAMINATION: GENERAL: Morbidly obese, elderly white woman who is alert, in no distress. HEENT: Head atraumatic, normocephalic. Sclerae anicteric. Buccal mucosa pink. NECK: Supple. CHEST: Rise symmetrical. Breath sounds clear. HEART: S1, S2. ABDOMEN: Soft, bowel sounds present. EXTREMITIES: With bilateral edema. Left foot dressing intact. ASSESSMENT: 1. Left diabetic foot ulceration with toe osteomyelitis and wound culture growing multidrug-resistant Escherichia coli. 2. Methicillin-resistant Staphylococcus aureus nares colonization. 3. Coag-negative staph bacteremia, possibly contaminant. 4. Poorly controlled diabetes. 5. Chronic kidney disease. 6. Peripheral vascular disease. 7. Morbid obesity. PLAN: Patient remains stable. PICC was placed, she is going to be dc home on current abx for 6 weeks, f/u with podiatry [facility] staff Problems: Consultation Date/Type/Reason Admit Date/Time Dec 04, 2016 at 22:33 Initial Consult Date 12/05/16 Type of Consultation: id Referring Provider: RANJITH MCDONALD Exam/Review of Systems Vital Signs Vitals Vital Signs Date Time Temp Pulse Resp B/P Pulse Ox O2 Delivery O2 Flow Rate FiO2 12/11/16 08:00 98.3 72 20 165/72 92 12/11/16 02:17 Room Air Intake and Output 12/10/16 12/10/16 12/11/16 15:00 23:00 07:00 Intake Total 150 ml Balance 150 ml Results Result Diagram: 12/11/16 1403 12/11/16 1403 Results 24 hrs Laboratory Tests Test 12/10/16 16:55 12/10/16 21:33 12/11/16 02:07 12/11/16 08:24 Bedside Glucose 119 256 H 225 H 227 H Test 12/11/16 12:03 12/11/16 14:03 Bedside Glucose 244 H White Blood Count 9.0 Red Blood Count 2.97 L Hemoglobin 8.8 L Hematocrit 27.7 L Mean Corpuscular Volume 93.3 Mean Corpuscular Hemoglobin 29.6 Mean Corpuscular Hemoglobin Concent 31.8 L Red Cell Distribution Width 13.3 Platelet Count 302 Mean Platelet Volume 10.1 Neutrophils % 65.2 Lymphocytes % 19.2 Monocytes % 11.2 H Eosinophils % 3.2 Basophils % 0.4 Nucleated Red Blood Cells % 0.0 Neutrophils # (Manual) 5.9 Lymphocytes # 1.7 Monocytes # 1.0 H Eosinophils # 0.3 Basophils # 0.0 Nucleated Red Blood Cells # 0.0 Sodium Level 138 Potassium Level 3.9 Chloride Level 101 Carbon Dioxide Level 30 Anion Gap 11 Blood Urea Nitrogen 43 H Creatinine 2.64 H Glucose Level 204 Calcium Level 9.0 Medications Medications Current Medications Diagnostic Test (Pha) (Accu-Chek) 1 ea XX ; Start 12/05/16 at 02:00 Amlodipine Besylate (Norvasc) 10 mg DAILY PO Last administered on 12/11/16 08: 36; Admin Dose 10 MG; Start 12/05/16 at 01:42 Diltiazem HCl (Cardizem Sr) 60 mg DAILY PO Last administered on 12/11/16 08:36 ; Admin Dose 60 MG; Start 12/05/16 at 09:00 Furosemide (Lasix) 40 mg DAILY@06 PO Last administered on 12/11/16 05:41; Admin Dose 40 MG; Start 12/05/16 at 06:00 Hydralazine HCl (Apresoline) 100 mg BID PO Last administered on 12/11/16 08:37 ; Admin Dose 100 MG; Start 12/05/16 at 01:30 Losartan Potassium (Cozaar) 25 mg DAILY PO Last administered on 12/05/16 09:02 ; Admin Dose 25 MG; Start 12/05/16 at 09:00; Status Future Hold Nystatin (Nystatin Cr) 1 applic TID TOP Last administered on 12/11/16 12:21; Admin Dose 1 APPLIC; Start 12/05/16 at 09:00 Pentoxifylline (Trental) 400 mg BID PO Last administered on 12/11/16 08:36; Admin Dose 400 MG; Start 12/05/16 at 01:30 Eye Lubricant (Artificial Tears Oph) 1 drop QID BOTH EYES Last administered on 12/11/16 16:20; Admin Dose 1 DROP; Start 12/05/16 at 09:00 Pantoprazole (Protonix Tab) 40 mg DAILY@06 PO Last administered on 12/11/16 05 :40; Admin Dose 40 MG; Start 12/05/16 at 06:00 Atorvastatin Calcium (Lipitor) 10 mg DAILY@21 PO Last administered on 21:37; Admin Dose 10 MG; Start 12/05/16 at 21:00 Hydralazine HCl (Apresoline) 10 mg Q6H PRN IV ELEVATED SYSTOLIC BP Last administered on 12/11/16 05:49; Admin Dose 10 MG; Start 12/05/16 at 02:00 Ondansetron HCl (Zofran Inj) 4 mg Q6H PRN IV NAUSEA AND/OR VOMITING Last administered on 12/11/16 05:40; Admin Dose 4 MG; Start 12/05/16 at 02:30 Acetaminophen (Tylenol Tab) 650 mg Q6H PRN PO PAIN LEVEL 1-3 OR FEVER Last administered on 12/06/16 20:34; Admin Dose 650 MG; Start 12/05/16 at 02:30 Morphine Sulfate (morphine) 2 mg Q4H PRN IV SEVERE PAIN LEVEL 7-10; Start 12/05 at 02:30 Bisacodyl (Dulcolax) 5 mg DAILY PRN PO CONSTIPATION Last administered on 09:17; Admin Dose 5 MG; Start 12/05/16 at 02:30 Collagenase (Santyl) 1 applic DAILY TOP Last administered on 12/10/16 22:01; Admin Dose 1 APPLIC; Start 12/06/16 at 09:00 Collagenase (Santyl) 1 applic PRN PRN TOP WOUND CARE; Start 12/05/16 at 23:30 Silver Sulfadiazine (Thermazene 1% 25 Gm) 1 applic BID TOP Last administered on 12/11/16 08:43; Admin Dose 1 APPLIC; Start 12/06/16 at 09:00 Sodium Hypochlorite (Dakin'S (Dilute 1/40%)) 1 applic BID IRR Last administered on 12/11/16 08:43; Admin Dose 1 APPLIC; Start 12/06/16 at 09:00 Heparin Sodium (Porcine) (Heparin (5000 Units/0.5 ml)) 5,000 unit BID SC Last administered on 12/11/16 12:17; Admin Dose 5,000 UNIT; Start 12/06/16 at 21:00 Allopurinol (Zyloprim) 100 mg DAILY PO Last administered on 12/11/16 08:36; Admin Dose 100 MG; Start 12/06/16 at 16:00 Aspirin (Aspirin) 81 mg DAILY PO Last administered on 12/11/16 08:40; Admin Dose 81 MG; Start 12/09/16 at 09:00 Mupirocin (Bactroban) 1 applic BID TOP Last administered on 12/11/16 08:38; Admin Dose 1 APPLIC; Start 12/08/16 at 12:30 Diphenhydramine HCl (Benadryl) 25 mg Q6H PRN PO ITCHING; Start 12/08/16 at 12: 00 Miscellaneous Information -RECEIVED FROM FLOOR (... BID@10,16 XX ; Start at 16:00 Insulin Glargine (Lantus) 36 unit BID SC Last administered on 12/11/16 08:33; Admin Dose 36 UNIT; Start 12/08/16 at 21:00 Docusate Sodium (Colace) 100 mg Q12H PO Last administered on 12/11/16 05:42; Admin Dose 100 MG; Start 12/09/16 at 14:30 Bisacodyl (Dulcolax Supp) 10 mg DAILY PRN [place] CONSTIPATION; Start 12/09/16 at 12 :00 Lactulose (Enulose) 20 gm Q6H PRN PO CONSTIPATION; Start 12/09/16 at 12:00 Senna 2 tab 2 tab BID PO Last administered on 12/10/16 21:40; Admin Dose 2 TAB ; Start 12/09/16 at 12:00 Daptomycin 815 mg/ Sodium Chloride 100 ml @ 200 mls/hr Q48H IVPB Last administered on 12/10/16 19:55; Admin Dose 200 MLS/HR; Start 12/10/16 at 18:00 Ceftriaxone Sodium (Rocephin) 50 ml @ 100 mls/hr Q24H IVPB Last administered on 12/11/16 16:13; Admin Dose 100 MLS/HR; Start 12/10/16 at 17:00 IV Flush (NS 10 ml) 10 ml PRN PRN IV IV PROTOCOL; Start 12/11/16 at 11:00 AMELIA BLAKE NP Dec 11, 2016 16:36
--- NOTE | 2016-12-11 18:17 | PN ---
Date/Time of Note Date/Time of Note DATE: 12/11/16 TIME: 18:16 Assessment/Plan Lines/Catheters IV Catheter Type (from Nrsg): PICC Line Buitrago in Place (from Nrsg): No Assessment/Plan Chief Complaint/Hosp Course This is a 66-year-old female with a history of diabetes hypertension obesity patient has had ulceration in the lateral aspect of the left foot currently being admitted to undergo further therapy including antibiotics therapy Patient has had an ultrasound which shows mild arterial stenosis without hemodynamically significant lesion Patient has renal failure with elevation of the creatinine up to 2.64 At this time I do not recommend an angiogram with the mild nature of the arterial disease With continue local wound care and antibiotic therapy per podiatry Discussed extensively with the patient at length Problems: Subjective 24 Hr Interval Summary Constitutional: improved Pain Control: mild Exam/Review of Systems Vital Signs Vitals Vital Signs Date Time Temp Pulse Resp B/P Pulse Ox O2 Delivery O2 Flow Rate FiO2 12/11/16 08:00 98.3 72 20 165/72 92 12/11/16 02:17 Room Air Intake and Output 12/10/16 12/10/16 12/11/16 15:00 23:00 07:00 Intake Total 150 ml Balance 150 ml Exam Respiratory: clear to auscultation, normal air movement Cardiovascular: nl pulses, regular rate and rhythm Gastrointestinal: nl liver, spleen, non-tender, soft Additional Comments Foot ulcer noted Results Result Diagram: 12/11/16 1403 12/11/16 1403 LAI LOPEZ MD Dec 11, 2016 18:17
[2016-12-11 20:02] VITALS: BP 132/67; RESP 18
[2016-12-11] MEDS: ATORVASTATIN 10 MG TAB PO SCH (21:21)
[2016-12-12 02:00] VITALS: BP 157/71; RESP 19
[2016-12-12] MEDS: ACCU-CHEK XX SCH (02:00)
[2016-12-12] MEDS: DOCUSATE SODIUM 100 MG CAP PO SCH ×2 (02:30→06:21)
[2016-12-12] MEDS: PANTOPRAZOLE (EC) 40 MG TAB PO SCH (06:21)
[2016-12-12] MEDS: FUROSEMIDE 40 MG TAB PO SCH (06:21)
[2016-12-12] MEDS: ONDANSETRON 4 MG INJ IV PRN (06:23)
[2016-12-12] MEDS: hydrALAzine 20 MG INJ IV PRN (06:23)
[2016-12-12 08:00] VITALS: BP 141/66; RESP 18
[2016-12-12] MEDS: INSULIN ASPART [NOVOLOG] 3 ML PEN SC SCH ×6 (08:07→17:42)
[2016-12-12] MEDS: INSULIN GLARGINE [LANtus] 3 ML PEN SC SCH (08:09)
[2016-12-12] MEDS: ALLOPURINOL 100 MG TAB PO SCH (08:58)
--- NOTE | 2016-12-12 08:58 | CONS ---
Date/Time of Note Date/Time of Note DATE: 12/12/16 TIME: 08:55 Assessment/Plan Assessment/Plan Chief Complaint/Hosp Course 66-year-old female with PMHx of HTN< HL, DM II who presnted with left foot ulceration/infection which has been intermittently going on last 4 year. She follows in [facility] wound care clinic/ She is noted to have have Cr 3.08 on admission and renal has been consulted for JENNIFER vs JENNIFER on CKD Problems: Additional Assessment/Plan 1. Acute kidney injury on possible CKD due to ATN From osteomyelitis, presented with Cr 3.08 on admission, no previous Cr available to compare 2. Left foot ulcer/Osteomyelitis 3. possible CKD due to diabetic nephropathy 4. Hypertension 5. Hyperlipidemia 6. LE PVD- Mild 7. H/o CVA 8. Hyperuricemia Plan: renal US c/w medical renal disease pt has JENNIFER on CKD, Cr slighlty improved to 2.6, PICC line placed Amlodipine 10 mg PO QHS Hyperuricemia with Uric acid 9.4- on allopurinol 100mg po daily reglan prn nausea, vomiting IV abx as per ID Renally dose antibioitics, discussed with Pharmacy today ok to d/c with follow up with me in clinic in 1-2 weeks Consultation Date/Type/Reason Admit Date/Time Dec 04, 2016 at 22:33 Initial Consult Date 12/05/16 Type of Consultation: NEPHROLOGY Referring Provider: RANJITH MCDONALD 24 HR Interval Summary Free Text/Dictation Cr 2.64, BP stable, afebrile Exam/Review of Systems Vital Signs Vitals Vital Signs Date Time Temp Pulse Resp B/P Pulse Ox O2 Delivery O2 Flow Rate FiO2 12/12/16 02:00 97.5 74 19 157/71 93 12/11/16 02:17 Room Air Intake and Output 12/11/16 12/11/16 12/12/16 15:00 23:00 07:00 Intake Total 770 ml 450 ml Balance 770 ml 450 ml Exam Constitutional: alert Respiratory: clear to auscultation, diminished breath sounds, normal air movement Gastrointestinal: non-tender, soft Musculoskeletal: nl extremities to inspection Neurological: SENSITIZED PAPER TESTER II-XII intact Skin: nl turgor Lymph: nl lymph nodes Results Result Diagram: 12/11/16 1403 12/11/16 1403 Results 24 hrs Laboratory Tests Test 12/11/16 12:03 12/11/16 14:03 12/11/16 17:29 12/11/16 21:20 Bedside Glucose 244 H 133 121 White Blood Count 9.0 Red Blood Count 2.97 L Hemoglobin 8.8 L Hematocrit 27.7 L Mean Corpuscular Volume 93.3 Mean Corpuscular Hemoglobin 29.6 Mean Corpuscular Hemoglobin Concent 31.8 L Red Cell Distribution Width 13.3 Platelet Count 302 Mean Platelet Volume 10.1 Neutrophils % 65.2 Lymphocytes % 19.2 Monocytes % 11.2 H Eosinophils % 3.2 Basophils % 0.4 Nucleated Red Blood Cells % 0.0 Neutrophils # (Manual) 5.9 Lymphocytes # 1.7 Monocytes # 1.0 H Eosinophils # 0.3 Basophils # 0.0 Nucleated Red Blood Cells # 0.0 Sodium Level 138 Potassium Level 3.9 Chloride Level 101 Carbon Dioxide Level 30 Anion Gap 11 Blood Urea Nitrogen 43 H Creatinine 2.64 H Glucose Level 204 Calcium Level 9.0 Test 12/12/16 08:03 Bedside Glucose 167 Medications Medications Current Medications Diagnostic Test (Pha) (Accu-Chek) 1 ea 02 XX ; Start 12/05/16 at 02:00 Amlodipine Besylate (Norvasc) 10 mg DAILY PO Last administered on 12/11/16 08: 36; Admin Dose 10 MG; Start 12/05/16 at 01:42 Diltiazem HCl (Cardizem Sr) 60 mg DAILY PO Last administered on 12/11/16 08:36 ; Admin Dose 60 MG; Start 12/05/16 at 09:00 Furosemide (Lasix) 40 mg DAILY@06 PO Last administered on 12/12/16 06:21; Admin Dose 40 MG; Start 12/05/16 at 06:00 Hydralazine HCl (Apresoline) 100 mg BID PO Last administered on 12/11/16 21:24 ; Admin Dose 100 MG; Start 12/05/16 at 01:30 Losartan Potassium (Cozaar) 25 mg DAILY PO Last administered on 12/05/16 09:02 ; Admin Dose 25 MG; Start 12/05/16 at 09:00; Status Future Hold Nystatin (Nystatin Cr) 1 applic TID TOP Last administered on 12/11/16 21:30; Admin Dose 1 APPLIC; Start 12/05/16 at 09:00 Pentoxifylline (Trental) 400 mg BID PO Last administered on 12/11/16 21:21; Admin Dose 400 MG; Start 12/05/16 at 01:30 Eye Lubricant (Artificial Tears Oph) 1 drop QID BOTH EYES Last administered on 12/11/16 21:20; Admin Dose 1 DROP; Start 12/05/16 at 09:00 Pantoprazole (Protonix Tab) 40 mg DAILY@06 PO Last administered on 12/12/16 06 :21; Admin Dose 40 MG; Start 12/05/16 at 06:00 Atorvastatin Calcium (Lipitor) 10 mg DAILY@21 PO Last administered on 21:21; Admin Dose 10 MG; Start 12/05/16 at 21:00 Hydralazine HCl (Apresoline) 10 mg Q6H PRN IV ELEVATED SYSTOLIC BP Last administered on 12/12/16 06:23; Admin Dose 10 MG; Start 12/05/16 at 02:00 Ondansetron HCl (Zofran Inj) 4 mg Q6H PRN IV NAUSEA AND/OR VOMITING Last administered on 12/12/16 06:23; Admin Dose 4 MG; Start 12/05/16 at 02:30 Acetaminophen (Tylenol Tab) 650 mg Q6H PRN PO PAIN LEVEL 1-3 OR FEVER Last administered on 12/06/16 20:34; Admin Dose 650 MG; Start 12/05/16 at 02:30 Morphine Sulfate (morphine) 2 mg Q4H PRN IV SEVERE PAIN LEVEL 7-10; Start 12/05 at 02:30 Bisacodyl (Dulcolax) 5 mg DAILY PRN PO CONSTIPATION Last administered on 09:17; Admin Dose 5 MG; Start 12/05/16 at 02:30 Collagenase (Santyl) 1 applic DAILY TOP Last administered on 12/10/16 22:01; Admin Dose 1 APPLIC; Start 12/06/16 at 09:00 Collagenase (Santyl) 1 applic PRN PRN TOP WOUND CARE; Start 12/05/16 at 23:30 Silver Sulfadiazine (Thermazene 1% 25 Gm) 1 applic BID TOP Last administered on 12/11/16 21:32; Admin Dose 1 APPLIC; Start 12/06/16 at 09:00 Sodium Hypochlorite (Dakin'S (Dilute 1/40%)) 1 applic BID IRR Last administered on 12/11/16 21:31; Admin Dose 1 APPLIC; Start 12/06/16 at 09:00 Heparin Sodium (Porcine) (Heparin (5000 Units/0.5 ml)) 5,000 unit BID SC Last administered on 12/11/16 21:28; Admin Dose 5,000 UNIT; Start 12/06/16 at 21:00 Allopurinol (Zyloprim) 100 mg DAILY PO Last administered on 12/11/16 08:36; Admin Dose 100 MG; Start 12/06/16 at 16:00 Aspirin (Aspirin) 81 mg DAILY PO Last administered on 12/11/16 08:40; Admin Dose 81 MG; Start 12/09/16 at 09:00 Mupirocin (Bactroban) 1 applic BID TOP Last administered on 12/11/16 21:31; Admin Dose 1 APPLIC; Start 12/08/16 at 12:30 Diphenhydramine HCl (Benadryl) 25 mg Q6H PRN PO ITCHING; Start 12/08/16 at 12: 00 Miscellaneous Information -RECEIVED FROM FLOOR (... BID@10,16 XX ; Start at 16:00 Insulin Glargine (Lantus) 36 unit BID SC Last administered on 12/12/16 08:09; Admin Dose 36 UNIT; Start 12/08/16 at 21:00 Docusate Sodium (Colace) 100 mg Q12H PO Last administered on 12/12/16 06:21; Admin Dose 100 MG; Start 12/09/16 at 14:30 Bisacodyl (Dulcolax Supp) 10 mg DAILY PRN [place] CONSTIPATION; Start 12/09/16 at 12 :00 Lactulose (Enulose) 20 gm Q6H PRN PO CONSTIPATION; Start 12/09/16 at 12:00 Senna 2 tab 2 tab BID PO Last administered on 12/11/16 21:21; Admin Dose 2 TAB ; Start 12/09/16 at 12:00 Daptomycin 815 mg/ Sodium Chloride 100 ml @ 200 mls/hr Q48H IVPB Last administered on 12/10/16 19:55; Admin Dose 200 MLS/HR; Start 12/10/16 at 18:00 Ceftriaxone Sodium (Rocephin) 50 ml @ 100 mls/hr Q24H IVPB Last administered on 12/11/16t 16:13; Admin Dose 100 MLS/HR; Start 12/10/16 at 17:00 IV Flush (NS 10 ml) 10 ml PRN PRN IV IV PROTOCOL; Start 12/11/16 at 11:00 MONSE CHILEL MD Dec 12, 2016 08:58
[2016-12-12] MEDS: ASPIRIN 81 MG TAB PO SCH (08:59)
[2016-12-12] MEDS: DILTIAZEM (SR) 60 MG CAP PO SCH (08:59)
[2016-12-12] MEDS: SENNA TAB PO SCH (08:59)
[2016-12-12] MEDS: AMLODIPINE 10 MG TAB PO SCH (09:00)
[2016-12-12] MEDS: SODIUM HYPOCHLORITE 1/40% 1L IRRIG IRR SCH (09:00)
[2016-12-12] MEDS: PENTOXIFYLLINE (SR) 400 MG TAB PO SCH (09:00)
[2016-12-12] MEDS: ARTIFICIAL TEARS 15 ML OPH BOTH EYES SCH ×3 (09:01→17:12)
[2016-12-12] MEDS: SILVER SULFADIAZINE 1% 25 GM CR TOP SCH (09:03)
[2016-12-12] MEDS: COLLAGENASE 30 GM TUBE TOP SCH (09:03)
[2016-12-12] MEDS: NYSTATIN 15 GM CR TOP SCH ×2 (09:03→12:24)
[2016-12-12] MEDS: MUPIROCIN 2% 22 GM OINT TOP SCH (09:03)
[2016-12-12] MEDS: HEPARIN 5,000 UNIT/0.5 ML VIAL SC SCH (09:06)
[2016-12-12 10:31] LABS: BASOPHILS % 0.4 % (0.0-2.0); EOSINOPHILS # 0.3 10^3/ul (0.0-0.5); EOSINOPHILS % 2.6 % (0.0-7.0); HEMATOCRIT 27.4 % (37.0-47.0); HEMOGLOBIN 8.4 g/dl (12.0-16.0); LYMPHOCYTES # 1.6 10^3/ul (0.8-2.9); LYMPHOCYTES % 15.9 % (15.0-51.0); MEAN CORPUSCULAR HEMOGLOBIN 28.5 pg (29.0-33.0); MEAN CORPUSCULAR HGB CONC 30.7 g/dl (32.0-37.0); MEAN CORPUSCULAR VOLUME 92.9 fl (82.0-101.0); MEAN PLATELET VOLUME 10.4 fl (7.4-10.4); MONOCYTE # 0.9 10^3/ul (0.3-0.9); MONOCYTES % 9.1 % (0.0-11.0); NEUTROPHILS % 71.3 % (39.0-77.0); PLATELET COUNT 272 10^3/UL (140-415); RED BLOOD COUNT 2.95 10^6/ul (4.20-5.40); RED CELL DISTRIBUTION WIDTH 13.7 % (11.5-14.5); WHITE BLOOD COUNT 9.8 10^3/ul (4.8-10.8)
[2016-12-12 10:36] LABS: CALCIUM 8.9 mg/dl (8.4-10.2); CREATININE 2.36 mg/dl (0.44-1.00); POTASSIUM 4.3 mmol/L (3.5-5.1)
--- NOTE | 2016-12-12 11:33 | PN ---
Date/Time of Note Date/Time of Note DATE: 12/12/16 TIME: 11:31 Assessment/Plan Lines/Catheters IV Catheter Type (from Nrs): PICC Line Buitrago in Place (from Nrsg): No Assessment/Plan Chief Complaint/Hosp Course This is a 66-year-old female with a history of diabetes hypertension obesity patient has had ulceration in the lateral aspect of the left foot currently being admitted to undergo further therapy including antibiotics therapy Patient has had an ultrasound which shows mild arterial stenosis without hemodynamically significant lesion Patient has renal failure with elevation of the creatinine up to 2.64 At this time I do not recommend an angiogram with the mild nature of the arterial disease With continue local wound care and antibiotic therapy per podiatry Discussed extensively with the patient at length FU with me at out pt Problems: Subjective 24 Hr Interval Summary Constitutional: improved Exam/Review of Systems Vital Signs Vitals Vital Signs Date Time Temp Pulse Resp B/P Pulse Ox O2 Delivery O2 Flow Rate FiO2 12/12/16 08:00 98.6 62 18 141/66 62 12/11/16 02:17 Room Air Intake and Output 12/11/16 12/11/16 12/12/16 15:00 23:00 07:00 Intake Total 770 ml 450 ml Balance 770 ml 450 ml Exam Neck: non-tender, supple Respiratory: clear to auscultation, normal air movement Cardiovascular: nl pulses, regular rate and rhythm Gastrointestinal: nl liver, spleen, non-tender, soft Results Result Diagram: 12/12/16 0950 12/12/16 0950 LAI LOPEZ MD Dec 12, 2016 11:33
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
[2016-12-12 14:00] VITALS: BP 134/64; RESP 20
--- NOTE | 2016-12-12 14:33 | CONS ---
Date/Time of Note Date/Time of Note DATE: 12/12/16 TIME: 14:32 Assessment/Plan Assessment/Plan Chief Complaint/Hosp Course SUBJECTIVE DATA: No events overnight. Patient is sleeping, no fevers, nad MICROBIOLOGY: Left foot wound culture growing multidrug- resistant E coli susceptible to cefotaxime, gentamicin, tobramycin and Bactrim. Abx: Rocephin, Daptomycin PHYSICAL EXAMINATION: GENERAL: Morbidly obese, elderly white woman who is alert, in no distress. HEENT: Head atraumatic, normocephalic. Sclerae anicteric. Buccal mucosa pink. NECK: Supple. CHEST: Rise symmetrical. Breath sounds clear. HEART: S1, S2. ABDOMEN: Soft, bowel sounds present. EXTREMITIES: With bilateral edema. Left foot dressing intact. ASSESSMENT: 1. Left diabetic foot ulceration with toe osteomyelitis and wound culture growing multidrug-resistant Escherichia coli. 2. Methicillin-resistant Staphylococcus aureus nares colonization. 3. Coag-negative staph bacteremia, possibly contaminant. 4. Poorly controlled diabetes. 5. Chronic kidney disease. 6. Peripheral vascular disease. 7. Morbid obesity. PLAN: Patient remains stable. pending dc home on current abx for 6 weeks, f/u with podiatry [facility] staff Problems: Consultation Date/Type/Reason Admit Date/Time Dec 04, 2016 at 22:33 Initial Consult Date 12/05/16 Type of Consultation: ID Referring Provider: RANJITH MCDONALD Exam/Review of Systems Vital Signs Vitals Vital Signs Date Time Temp Pulse Resp B/P Pulse Ox O2 Delivery O2 Flow Rate FiO2 12/12/16 08:00 98.6 62 18 141/66 62 12/11/16 02:17 Room Air Intake and Output 12/11/16 12/11/16 12/12/16 15:00 23:00 07:00 Intake Total 770 ml 450 ml Balance 770 ml 450 ml Results Result Diagram: 12/12/16 0950 12/12/16 0950 Results 24 hrs Laboratory Tests Test 12/11/16 17:29 12/11/16 21:20 12/12/16 08:03 12/12/16 09:50 Bedside Glucose 133 121 167 White Blood Count 9.8 Red Blood Count 2.95 L Hemoglobin 8.4 L Hematocrit 27.4 L Mean Corpuscular Volume 92.9 Mean Corpuscular Hemoglobin 28.5 L Mean Corpuscular Hemoglobin Concent 30.7 L Red Cell Distribution Width 13.7 Platelet Count 272 Mean Platelet Volume 10.4 Neutrophils % 71.3 Lymphocytes % 15.9 Monocytes % 9.1 Eosinophils % 2.6 Basophils % 0.4 Nucleated Red Blood Cells % 0.0 Neutrophils # (Manual) 7 Lymphocytes # 1.6 Monocytes # 0.9 Eosinophils # 0.3 Basophils # 0.0 Nucleated Red Blood Cells # 0.0 Sodium Level 136 Potassium Level 4.3 Chloride Level 101 Carbon Dioxide Level 26 Anion Gap 13 Blood Urea Nitrogen 48 H Creatinine 2.36 H Glucose Level 207 Calcium Level 8.9 Creatine Kinase 44 Test 12/12/16 12:10 Bedside Glucose 178 Medications Medications Current Medications Diagnostic Test (Pha) (Accu-Chek) 1 ea 02 XX ; Start 12/05/16 at 02:00 Amlodipine Besylate (Norvasc) 10 mg DAILY PO Last administered on 12/12/16 09: 00; Admin Dose 10 MG; Start 12/05/16 at 01:42 Diltiazem HCl (Cardizem Sr) 60 mg DAILY PO Last administered on 12/12/16 08:59 ; Admin Dose 60 MG; Start 12/05/16 at 09:00 Furosemide (Lasix) 40 mg DAILY@06 PO Last administered on 12/12/16 06:21; Admin Dose 40 MG; Start 12/05/16 at 06:00 Hydralazine HCl (Apresoline) 100 mg BID PO Last administered on 12/12/16 08:59 ; Admin Dose 100 MG; Start 12/05/16 at 01:30 Losartan Potassium (Cozaar) 25 mg DAILY PO Last administered on 12/05/16 09:02 ; Admin Dose 25 MG; Start 12/05/16 at 09:00; Status Future Hold Nystatin (Nystatin Cr) 1 applic TID TOP Last administered on 12/12/16 09:03; Admin Dose 1 APPLIC; Start 12/05/16 at 09:00 Pentoxifylline (Trental) 400 mg BID PO Last administered on 12/12/16 09:00; Admin Dose 400 MG; Start 12/05/16 at 01:30 Eye Lubricant (Artificial Tears Oph) 1 drop QID BOTH EYES Last administered on 12/12/16 12:15; Admin Dose 1 DROP; Start 12/05/16 at 09:00 Pantoprazole (Protonix Tab) 40 mg DAILY@06 PO Last administered on 12/12/16 06 :21; Admin Dose 40 MG; Start 12/05/16 at 06:00 Atorvastatin Calcium (Lipitor) 10 mg DAILY@21 PO Last administered on 21:21; Admin Dose 10 MG; Start 12/05/16 at 21:00 Hydralazine HCl (Apresoline) 10 mg Q6H PRN IV ELEVATED SYSTOLIC BP Last administered on 12/12/16 06:23; Admin Dose 10 MG; Start 12/05/16 at 02:00 Ondansetron HCl (Zofran Inj) 4 mg Q6H PRN IV NAUSEA AND/OR VOMITING Last administered on 12/12/16 06:23; Admin Dose 4 MG; Start 12/05/16 at 02:30 Acetaminophen (Tylenol Tab) 650 mg Q6H PRN PO PAIN LEVEL 1-3 OR FEVER Last administered on 12/06/16 20:34; Admin Dose 650 MG; Start 12/05/16 at 02:30 Morphine Sulfate (morphine) 2 mg Q4H PRN IV SEVERE PAIN LEVEL 7-10; Start 12/05 at 02:30 Bisacodyl (Dulcolax) 5 mg DAILY PRN PO CONSTIPATION Last administered on 09:17; Admin Dose 5 MG; Start 12/05/16 at 02:30 Collagenase (Santyl) 1 applic DAILY TOP Last administered on 12/12/16 09:03; Admin Dose 1 APPLIC; Start 12/06/16 at 09:00 Collagenase (Santyl) 1 applic PRN PRN TOP WOUND CARE; Start 12/05/16 at 23:30 Silver Sulfadiazine (Thermazene 1% 25 Gm) 1 applic BID TOP Last administered on 12/12/16 09:03; Admin Dose 1 APPLIC; Start 12/06/16 at 09:00 Sodium Hypochlorite (Dakin'S (Dilute 1/40%)) 1 applic BID IRR Last administered on 12/11/16 21:31; Admin Dose 1 APPLIC; Start 12/06/16 at 09:00 Heparin Sodium (Porcine) (Heparin (5000 Units/0.5 ml)) 5,000 unit BID SC Last administered on 12/12/16 09:06; Admin Dose 5,000 UNIT; Start 12/06/16 at 21:00 Allopurinol (Zyloprim) 100 mg DAILY PO Last administered on 12/12/16 08:58; Admin Dose 100 MG; Start 12/06/16 at 16:00 Aspirin (Aspirin) 81 mg DAILY PO Last administered on 12/12/16 08:59; Admin Dose 81 MG; Start 12/09/16 at 09:00 Mupirocin (Bactroban) 1 applic BID TOP Last administered on 12/12/16 09:03; Admin Dose 1 APPLIC; Start 12/08/16 at 12:30 Diphenhydramine HCl (Benadryl) 25 mg Q6H PRN PO ITCHING; Start 12/08/16 at 12: 00 Miscellaneous Information -RECEIVED FROM FLOOR (... BID@10,16 XX ; Start at 16:00 Insulin Glargine (Lantus) 36 unit BID SC Last administered on 12/12/16 08:09; Admin Dose 36 UNIT; Start 12/08/16 at 21:00 Docusate Sodium (Colace) 100 mg Q12H PO Last administered on 12/12/16 06:21; Admin Dose 100 MG; Start 12/09/16 at 14:30 Bisacodyl (Dulcolax Supp) 10 mg DAILY PRN [place] CONSTIPATION; Start 12/09/16 at 12 :00 Lactulose (Enulose) 20 gm Q6H PRN PO CONSTIPATION; Start 12/09/16 at 12:00 Senna 2 tab 2 tab BID PO Last administered on 12/12/16 08:59; Admin Dose 2 TAB ; Start 12/09/16 at 12:00 Daptomycin 815 mg/ Sodium Chloride 100 ml @ 200 mls/hr Q48H IVPB Last administered on 12/10/16 19:55; Admin Dose 200 MLS/HR; Start 12/10/16 at 18:00 Ceftriaxone Sodium (Rocephin) 50 ml @ 100 mls/hr Q24H IVPB Last administered on 12/11/16 16:13; Admin Dose 100 MLS/HR; Start 12/10/16 at 17:00 IV Flush (NS 10 ml) 10 ml PRN PRN IV IV PROTOCOL; Start 12/11/16 at 11:00 AMELIA BLAKE NP Dec 12, 2016 14:33
[2016-12-12] MEDS: CEFTRIAXONE 1 GM/50 ML (PMX) 50 ML IVPB SCH (16:31)
[2016-12-12] MEDS: SOD CHLORIDE 0.9% IVPB SCH (17:12)
[2016-12-12] MEDS: DAPTOMYCIN IVPB SCH (17:12)
[2016-12-12] MEDS: ACETAMINOPHEN 325 MG TAB PO PRN (18:53)
== END 2016-12-12 19:18 | disposition home or self-care (01) | DRG 982 ==
LOC: E/R 18:03 → PP2 22:33
PROVIDERS: ADMIT Family Medicine; ATTEND Family Medicine
PROC: 0KBW0ZZ Excision of Left Foot Muscle, Open Approach (ICD-10-PCS; principal; 2016-12-06)
PROC: 02HV33Z Insertion of Infusion Device into Superior Vena Cava, Percutaneous Approach (ICD-10-PCS; 2016-12-11)
DX: E11.69 Type 2 diabetes mellitus with other specified complication (principal); L97.429 Non-pressure chronic ulcer of left heel and midfoot with unspecified severity; M86.9 Osteomyelitis, unspecified; N17.0 Acute kidney failure with tubular necrosis; E11.621 Type 2 diabetes mellitus with foot ulcer; Z68.42 Body mass index [BMI] 45.0-49.9, adult; E11.22 Type 2 diabetes mellitus with diabetic chronic kidney disease; D50.9 Iron deficiency anemia, unspecified; I12.9 Hypertensive chronic kidney disease with stage 1 through stage 4 chronic kidney disease, or unspecified chronic kidney disease; N17.9 Acute kidney failure, unspecified; E78.5 Hyperlipidemia, unspecified; I73.9 Peripheral vascular disease, unspecified; E66.01 Morbid (severe) obesity due to excess calories; K59.00 Constipation, unspecified; Z79.4 Long term (current) use of insulin; Z79.82 Long term (current) use of aspirin; N18.9 Chronic kidney disease, unspecified; A49.9 Bacterial infection, unspecified; Z86.73 Personal history of transient ischemic attack (TIA), and cerebral infarction without residual deficits; E79.0 Hyperuricemia without signs of inflammatory arthritis and tophaceous disease
CPT/HCPCS: 36415; 36569; 71010; 73718; 76775; 76937; 80048; 80053; 80061; 80202; 81003; 82550; 82570; 82962; 83036; 83540; 83735; 84100; 84300; 84443; 84560; 85025; 87040; 87070; 87081; 89190; 93922; 96374; 96375; A4310; J0360; J0696; J1644; J1815; J1956; J2405; J2543; J2765; J2916; J3370; J7050

== ENCOUNTER 2016-12-18 17:15 | Inpatient (IN) | payer MEDICARE, OTHER ==
[~2016-12-18] VITALS: Ht 170.2 cm; Wt 134.5 kg
[~2016-12-18 17:15] MED LIST: ALLO100T PO; AMLO-147 PO; ASPI81TA3 PO; ATOR10TA65 PO; CARSR60 PO; CEFT1PIG2 IVPB; CHOL100062 PO; DAPT500V IV; DEXT1DRO7 OP; DOCU-216 PO; FURO40TA4 PO; HYDR100T7 PO; KETO10DR5 OP; LANT3I SC; LORA5SOL5 PO; NOVO3I SC; NYST15CR28 TOP; PANT40TA4 PO; PENT400T2 PO; SAN30GM TOP; SENN-53 PO; SSD1C20 TOP
--- NOTE | 2016-12-18 19:25 | ERA ---
ER Documentation Chief Complaint Date/Time DATE: 12/18/16 TIME: 19:24 Chief Complaint fever, n/v, currently on antbx infusion via picc for ft infect HPI 66-year-old woman presents with fever and recent cough. She was discharged about 5 days ago after being treated as an inpatient for left foot cellulitis. She continues to receive daily daptomycin and ceftriaxone via her PICC line. She states a few days after discharge she developed multiple daily episodes of vomiting recent cough and fever. She denies diarrhea, no blood per rectum, no chest pain or shortness of breath, no discharge from the foot. ROS All systems reviewed and are negative except as per history of present illness. Medications Home Meds Active Scripts Silver Sulfadiazine (THERMAZENE 1% 25 GM) 1 Applic Cr, 1 APPLIC TOP BID, #100 GM Prov:DOROTA LEMON 12/11/16 Sennosides* (Senna Lax*) 8.6 Mg Tablet, 2 TAB PO BID for 30 Days, TAB Prov:DOROTA LEMON 12/11/16 Pentoxifylline* (Pentoxifylline*) 400 Mg Tablet.sa, 400 MG PO BID for 30 Days Prov:DOROTA LEMON 12/11/16 Pantoprazole* (Pantoprazole*) 40 Mg Tablet.dr, 40 MG PO DAILY@06 for 30 Days Prov:DOROTA LEMON 12/11/16 Insulin Aspart* (Novolog Insulin Pen*) 100 Unit/Ml Soln, 12 UNIT SC WITH MEALS for 30 Days Prov:DOROTA LEMON 12/11/16 Docusate Sodium (Dok) 100 Mg Capsule, 100 MG PO Q12H, #60 CAP Prov:DOROTA LEMON 12/11/16 Furosemide* (Furosemide*) 40 Mg Tablet, 40 MG PO DAILY@06 for 30 Days, TAB Prov:DOROTA LEMON 12/11/16 Diltiazem Hcl* (Cardizem SR*) 60 Mg Capsr, 60 MG PO DAILY for 30 Days, CAP Prov:DOROTA LEMON 12/11/16 Daptomycin (Daptomycin) 500 Mg Vial, 815 MG IV DAILY for 42 Days, VIAL Prov:DOROTA LEMON 12/11/16 Collagenase* (Santyl*) 30 Gm Oint..gm., 1 APPLIC TOP DAILY for 30 Days Prov:DOROTA LEMON 12/11/16 Ceftriaxone Sod* (Rocephin* 1GM/50ML (PMX)) 1 Gm/50 Ml Iv.soln., 1 GM IVPB Q24H for 42 Days, EA Prov:DOROTA LEMON 12/11/16 Atorvastatin (Atorvastatin) 10 Mg Tablet, 10 MG PO DAILY@21 for 30 Days, TAB Prov:MATTCHRISDOROTA 12/11/16 Aspirin (Aspirin) 81 Mg Chew, 81 MG PO DAILY for 30 Days, TAB Prov:XOCHILTDOROTA 12/11/16 Amlodipine Besylate* (Amlodipine Besylate*) 10 Mg Tablet, 10 MG PO DAILY for 30 Days, TAB Prov:MATTCHRISDOROTA 12/11/16 Allopurinol* (Allopurinol*) 100 Mg Tablet, 100 MG PO DAILY for 30 Days, TAB Prov:MATTCHRISDOROTA 12/11/16 Hydralazine Hcl* (Hydralazine Hcl*) 100 Mg Tablet, 100 MG PO BID for 30 Days, TAB Prov:MATTCHRISDOROTA 12/11/16 Reported Medications Insulin Glargine* (Lantus*) 100 Unit/Ml Soln, 32 UNIT SC BID, #1 VIAL 12/18/16 Cholecalciferol* (Vitamin D3*) 1,000 Unit Tablet, 1000 UNIT PO DAILY, TAB 12/04/16 Dextran 70/Hypromellose/Pf (ARTIFICIAL TEARS DROPS) 1 Each Droperette, 1 DROP OP QID 12/04/16 Nystatin* (Nystatin*) 15 Gm Cr, 1 APPLIC TOP TID, #1 TUB 12/04/16 Loratadine* (Loratadine* Soln) 5 Mg/5 Ml Solution, 5 MG PO DAILY, #150 ML 12/04/16 Ketotifen Fumarate (Alaway) 10 Ml Drops, 1 DROP OP Q8H, BOTTLE 12/04/16 Discontinued Reported Medications Insulin Lispro (Humalog) 100 Unit/1 Ml Cartridge, 12 UNIT SQ TID Y for MEALS 12/04/16 Insulin Glargine* (Lantus*) 100 Unit/Ml Soln, 45 UNIT SC BID, #1 VIAL 12/04/16 Furosemide* (Furosemide*) 40 Mg Tablet, 40 MG PO DAILY, TAB 12/04/16 Diltiazem Hcl* (Cardizem SR*) 60 Mg Capsr, 60 MG PO DAILY, #60 CAP 12/04/16 Amlodipine Besylate* (Amlodipine Besylate*) 10 Mg Tablet, 10 MG PO DAILY, #30 TAB 12/04/16 Pravastatin Sodium* (Pravastatin Sodium*) 40 Mg Tablet, 40 MG PO HS, TAB 12/04/16 Pentoxifylline* (Pentoxifylline*) 400 Mg Tablet.sa, 400 MG PO BID, TAB 12/04/16 Omeprazole* (Omeprazole*) 20 Mg Capsule.dr, 20 MG PO DAILY, #30 CAP 12/04/16 Losartan Potassium* (Losartan Potassium*) 25 Mg Tablet, 25 MG PO DAILY, TAB 12/04/16 Discontinued Scripts Insulin Glargine* (Lantus*) 100 Unit/Ml Soln, 36 UNIT SC BID for 30 Days Prov:DOROTA LEMON 12/11/16 Allergies Allergies: Coded Allergies: No Known Allergy (Unverified , 12/04/16) PMhx/Soc Acute kidney injury left foot osteomyelitis, hypertension, hyperlipidemia, obesity, peripheral vascular disease, diabetes mellitus, wheelchair confined History of Surgery: Yes Anesthesia Reaction: No Hx Neurological Disorder: Yes Hx Respiratory Disorders: Yes (SOB AT TIMES) Hx Cardiac Disorders: Yes (HTN, HIGH LAURA, STROKE) Hx Psychiatric Problems: No Hx Miscellaneous Medical Probl: No Hx Alcohol Use: No Hx Substance Use: No Hx Tobacco Use: No Smoking Status: Never smoker FmHx Family History: No diabetes Physical Exam Vitals Vital Signs Date Time Temp Pulse Resp B/P Pulse Ox O2 Delivery O2 Flow Rate FiO2 12/18/16 21:40 97.8 69 20 153/64 100 Nasal Cannula 2.0 12/18/16 21:03 67 18 97 Nasal Cannula 2.0 12/18/16 20:30 Nasal Cannula 2 12/18/16 17:23 100.0 68 20 128/59 98 Physical Exam Const: Well-developed well-nourished woman, febrile Head: Atraumatic Eyes: Normal Conjunctiva ENT: Normal External Ears, Nose and Mouth. Neck: Full range of motion..~ No meningismus. Resp: Poor breath sounds bilaterally, crackles at the bases Cardio: Regular rate and rhythm, no murmurs Abd: Soft, non tender, non distended. Normal bowel sounds Skin: No petechiae or rashes Back: No midline or flank tenderness Ext: No cyanosis circumferential bilateral lower extremity edema, 3+ with chronic changes of the left foot Neur: Awake and alert Psych: Normal Mood and Affect Result Diagram: 12/18/16192912/18/161929 Results 24 hrs Laboratory Tests Test 12/18/16 19:30 12/18/16 21:40 White Blood Count 15.210^3/ul Red Blood Count 3.4710^6/ul Hemoglobin 10.0g/dl Hematocrit 31.5% Mean Corpuscular Volume 90.8fl Mean Corpuscular Hemoglobin 28.8pg Mean Corpuscular Hemoglobin Concent 31.7g/dl Red Cell Distribution Width 14.0% Platelet Count 02080^3/UL Mean Platelet Volume 10.9fl Neutrophils % 89.9% Lymphocytes % 3.4% Monocytes % 6.1% Eosinophils % 0.0% Basophils % 0.1% Nucleated Red Blood Cells % 0.0/100WBC Neutrophils # (Manual) 1410^3/ul Lymphocytes # 0.510^3/ul Monocytes # 0.910^3/ul Eosinophils # 0.010^3/ul Basophils # 0.010^3/ul Nucleated Red Blood Cells # 0.010^3/ul Prothrombin Time 15.6Sec Prothrombin Time Ratio 1.2 INR International Normalized Ratio 1.23 Activated Partial Thromboplast Time 32.9Sec Sodium Level 137mmol/L Potassium Level 4.2mmol/L Chloride Level 100mmol/L Carbon Dioxide Level 23mmol/L Anion Gap 18 Blood Urea Nitrogen 82mg/dl Creatinine 3.97mg/dl Glucose Level 237mg/dl Lactic Acid Level 0.9mmol/L 0.8mmol/L Calcium Level 9.2mg/dl Total Bilirubin 0.0mg/dl Direct Bilirubin 0.00mg/dl Indirect Bilirubin 0.0mg/dl Aspartate Amino Transf (AST/SGOT) 41IU/L Alanine Aminotransferase (ALT/SGPT) 38IU/L Alkaline Phosphatase 251IU/L Troponin I 0.044ng/ml Total Protein 8.0g/dl Albumin 3.7g/dl Globulin 4.30g/dl Albumin/Globulin Ratio 0.86 Lipase 31U/L Current Medications Medications (Trade) Dose Ordered Sig/Lorena Route PRN Reason Start Time Stop Time Status Last Admin Dose Admin Sodium Chloride 1,000 ml @ 1,000 mls/hr Q1H ONCE IV 12/18/16 20:00 12/18/16 20:59 DC 12/18/16 20:00 Vancomycin HCl 250 ml @ 125 mls/hr ONCE IVPB 12/18/16 20:00 12/18/16 21:59 DC 12/18/16 20:58 Piperacillin Sod/ Tazobactam Sod (Zosyn 3.375gm/ 100 ml (Pmx)) 100 ml @ 200 mls/hr ONCE ONCE IVPB 12/18/16 20:00 12/18/16 20:29 DC 12/18/16 20:00 Ibuprofen (Motrin) 600 mg ONCE ONCE PO 12/18/16 20:00 12/18/16 20:01 DC 12/18/16 20:01 Ketorolac Tromethamine (Toradol) 30 mg ONCE STAT IV 12/18/16 19:33 12/18/16 19:34 DC 12/18/16 20:01 Ondansetron HCl (Zofran Inj) 4 mg ONCE STAT IV 12/18/16 19:33 12/18/16 19:34 DC 12/18/16 20:01 Albuterol (Proventil 0.5% (Neb)) 10 mg ONCE STAT INH 12/18/16 20:55 12/18/16 20:56 DC 12/18/16 21:02 Procedures/MDM IV line was established patient was placed on regulatory affairs analyst rhythm strip revealed a sinus rhythm at about 70 bpm with upright P and T waves. Patient was febrile. Blood, urine, wound cultures were all obtained results are pending I will follow-up. One view chest x-ray performed, read by me large right middle lobe infiltrate, no pneumothorax, no end of the diaphragm EKG performed, read by me revealed a normal sinus rhythm at 68 bpm, normal axis with a first-degree atrial ventricular block and a DE interval of 260 ms, no concerning ST elevations or depressions noted. I administered ibuprofen 600 mg p.o. for fever, 1 L normal saline intravenously , Zosyn 3.375 g IV and vancomycin 1 g IV. I did not administer the full 30 cc KG dose of IV fluids because the patient has edematous extremities, acute on chronic kidney injury, previous fluid overload, and obstructive sleep apnea. She is a high risk for developing further respiratory difficulty secondary to fluid retention. CBC reveals a leukocytosis of 15, electrolytes revealed dehydration and renal failure with a BUN/creatinine 82/4, liver function tests normal, troponin negative. Lactic acid levels were low. Patient's infectious symptoms have not stabilized and the patient is at risk of rapid decompensation. The patient will be admitted for careful hydration, antibiotic therapy, and infectious source control. Severe Sepsis Assessment: Infectious Source: Aspiration pneumonia No evidence of endorgan damage Severe Sepsis Managment: Blood Cultures X 2 before broad spectrum antibiotics initiated within 3 hours of recognition. 30 ml/kg NS bolus Completed Initial Lactate: Normal Repeat Lactate not indicated as initial < 2.0 Critical Care: Time: 42 minutes, this was time separate from billable procedures Treatments/Evaluations: Emergent fluid management, while maintaining close respiratory support. Immediate broad spectrum antibiotic therapy. Simultaneous assessment for possible sources in order to direct therapy. Consideration for invasive and chemical support to prevent respiratory or cardiac collapse. Septic Shock Assessment (1 hour post 30 ml/kg fluid bolus): Hypotension (SBP < 90 or 40 mmHg drop, MAP < 65): No Lactic acid > 4.0 No Perfusion Reassessment for Septic Shock: Temp afebrile, pulse 80, blood pressure 140/80, respiratory rate 16 breaths per minute, Heart Exam: Regular rate and rhythm Lung Exam: No Crackles Capillary Refill: Less than 2 seconds Peripheral Pulses: Radially present Skin: [place] and dry Hypotensive Treatment (not required for isolated lactic acid elevation): Comfort Care: No Central LIne: Not indicated Vasopressor started: Not indicated I considered further perfusion assessment with CVP measurement, SCVO2, bedside ultrasound volume assessment, passive leg raise, trial of further fluid bolus. And preceded with gentle IV fluids, broad-spectrum antibiotics. Accepting Care Team: Current data and ongoing care discussed. Time: Time of admission Primary Provider: Hospital Consulting: Infectious disease Outstanding Data: none Departure Diagnosis: Primary Impression: Sepsis Qualified Code: A41.9 - Sepsis, due to unspecified organism Additional Impressions: Pneumonia Qualified Code: J18.1 - Pneumonia of right middle lobe due to infectious organism Osteomyelitis Qualified Code: M86.072 - Acute hematogenous osteomyelitis of left foot Acute kidney injury Aspiration pneumonia Qualified Code: J69.0 - Aspiration pneumonia of right middle lobe due to vomit Condition: MERCEDES Arredondo MD Dec 18, 2016 19:25
[2016-12-18] MEDS ORDERED: KETOROLAC 30 MG INJ IV STA (19:33)
[2016-12-18] MEDS ORDERED: ONDANSETRON 4 MG INJ IV STA (19:33)
[2016-12-18 19:56] LABS: ABNORMAL IP MESSAGE 1; BASOPHILS % 0.1 % (0.0-2.0); HEMATOCRIT 31.5 % (37.0-47.0); MEAN CORPUSCULAR VOLUME 90.8 fl (82.0-101.0); MEAN PLATELET VOLUME 10.9 fl (7.4-10.4); RED BLOOD COUNT 3.47 10^6/ul (4.20-5.40); WHITE BLOOD COUNT 15.2 10^3/ul (4.8-10.8)
[2016-12-18 20:00] LABS: LYMPHOCYTES # 0.5 10^3/ul (0.8-2.9); LYMPHOCYTES % 3.4 % (15.0-51.0); MEAN CORPUSCULAR HEMOGLOBIN 28.8 pg (29.0-33.0); MEAN CORPUSCULAR HGB CONC 31.7 g/dl (32.0-37.0); MONOCYTE # 0.9 10^3/ul (0.3-0.9); MONOCYTES % 6.1 % (0.0-11.0); NEUTROPHILS % 89.9 % (39.0-77.0); PLATELET COUNT 235 10^3/UL (140-415)
[2016-12-18] MEDS ORDERED: VANCOMYCIN 1 GM (PMX) 250 ML IVPB SCH (20:00)
[2016-12-18] MEDS ORDERED: SOD CHLORIDE 0.9% 1,000 ML IV ONE (20:00)
[2016-12-18] MEDS ORDERED: IBUPROFEN 600 MG TAB PO ONE (20:00)
[2016-12-18] MEDS ORDERED: PIPER-TAZO 3.375 GM IV (PMX) 100 ML IVPB ONE (20:00)
[2016-12-18 20:02] LABS: POSITIVE DIFF @See below
[2016-12-18 20:11] LABS: PT RATIO 1.2
[2016-12-18 20:15] LABS: ALBUMIN 3.7 g/dl (3.3-4.9); ALBUMIN/GLOBULIN RATIO 0.86; CALCIUM 9.2 mg/dl (8.4-10.2); CREATININE 3.97 mg/dl (0.44-1.00); POTASSIUM 4.2 mmol/L (3.5-5.1)
--- NOTE | 2016-12-18 20:19 | RADRPT ---
PROCEDURE: Portable chest x-ray. CLINICAL INDICATION: 66 years of age, female. Possible sepsis. TECHNIQUE: Portable AP view of the chest. COMPARISON: None available. FINDINGS: Cardiomediastinal contours are normal. There is multi focal lung consolidation greatest in the right mid lung zone but also involving left mid and bilateral lower lung zones. Negative for pleural effusion or pneumothorax. Degenerative changes in spine. IMPRESSION: Multi focal lung consolidation greatest in right mid lung zone in keeping with multifocal pneumonia. RPTAT: HCTS Josette Juarez Physician Date Time Electronically viewed and signed by Josette Juarez Physician on 12/18/2016 20:18 CS/
[2016-12-18 20:26] LABS: TROPONIN-I 0.044 ng/ml (0.00-0.12)
[2016-12-18] MEDS ORDERED: ALBUTEROL 0.5% (NEB) 2.5 MG/0.5 ML AMP INH STA (20:55)
[2016-12-18 22:02] LABS: INR 1.23; PARTIAL THROMBOPLASTIN TIME 32.9 Sec (25.0-35.0); PROTIME 15.6 Sec (12.2-14.2)
[2016-12-18] MEDS ORDERED: LANT3I SC (22:15)
--- NOTE | 2016-12-18 23:07 | HP ---
Date/Time of Note Date/Time of Note DATE: 12/18/16 TIME: 23:06 Assessment/Plan VTE Prophylaxis VTE Prophylaxis Intervention: heparin Assessment/Plan Assessment/Plan 66-year-old female recently discharged after diagnosis was osteomyelitis is now here with fever and cough managed as follows: 1. Sepsis secondary to #2 2. Healthcare associated multifocal pneumonia 3. Diabetic foot ulcer with osteomyelitis and treatment 4. Diabetes mellitus type 2: uncontrolled 5. JENNIFER on Chronic kidney disease 6. Hypertension 7. History of gout 8. Morbid obesity 9. Dyslipidemia on statin Plan: Admit patient, continue recommended antibiotics for osteomyelitis, I just to include broad-spectrum for pneumonia. ID consultation, blood and sputum cultures obtained as well. Continue home regimen for diabetes as well as high blood pressure therapy, continue in-house monitoring and titration. Provide supportive care, oxygen therapy and pain control as indicated Further interventions dependent on clinical course. HPI/ROS Admit Date/Time Admit Date/Time 12/18/16 Hx of Present Illness Ms. Sheridan is a 66-year-old female with a history of high blood pressure, diabetes, gout, and osteomyelitis in the past who presents to the ER with fever and cough. She was just here and discharged 5 days ago after being diagnosed with osteomyelitis from a diabetic ulcer and is scheduled to receive long-term IV antibiotics via PICC line. Fever cough started a few days after discharge, but the cough is nonbloody, she has had no vomiting or abdominal pain, denies blood in her urine or in her stool. She has had no diarrhea as well. Chest x- ray in the emergency room is concerning for multifocal pneumonia, she is being admitted for further management. ROS 12 point review if systems was done and pertinent findings are as noted. PMH/Family/Social Past Medical History * Diabetic foot ulcer of the lateral fifth toe with underlying osteomyelitis * Type 2 diabetes. Last A1c was noted at 8.8 * Essential hypertension. * CKD. * Iron deficiency anemia * PVD. * Hx of Gram-positive bacteremia. Continue on antibiotics per ID recommendations * Morbid obesity. * Dyslipidemia. Past Surgical History 1. Hysterectomy 2. Debridement of feet Past Surgical Hx: other Social History Alcohol Use: none Smoking Status: Never smoker Exam/Review of Systems Vital Signs Vitals Vital Signs Date Time Temp Pulse Resp B/P Pulse Ox O2 Delivery O2 Flow Rate FiO2 12/18/16 21:40 97.8 69 20 153/64 100 Nasal Cannula 2.0 Exam Constitutional: alert, oriented, other Head: normocephalic (Obese) Eyes: PERRL ENMT: mucosa pink and moist Neck: supple Respiratory: crackles/rales, diminished breath sounds, wheezing Cardiovascular: regular rate and rhythm, No murmurs/extra sounds Gastrointestinal: bowel sounds, non-tender, soft Extremities: other (Bilateral foot edema about 2-3+, with left foot ulcer) Labs Result Diagram: 12/18/16192912/18/161929 Procedures Procedures PROCEDURE: Portable chest x-ray. CLINICAL INDICATION: 66 years of age, female. Possible sepsis. TECHNIQUE: Portable AP view of the chest. COMPARISON: None available. FINDINGS: Cardiomediastinal contours are normal. There is multi focal lung consolidation greatest in the right mid lung zone but also involving left mid and bilateral lower lung zones. Negative for pleural effusion or pneumothorax. Degenerative changes in spine. IMPRESSION: Multi focal lung consolidation greatest in right mid lung zone in keeping with multifocal pneumonia. RPTAT: HCTS Josette Juarez Physician Date Time Electronically viewed and signed by Josette Juarez Physician on 12/18/2016 20: 18 CS/ CC: MERCEDES BOWDEN MD, BOLATITO M. Dec 18, 2016 23:07
[2016-12-19 01:44] VITALS: TEMP 98.1
[2016-12-19] MEDS ORDERED: VANCOMYCIN IV PER PHARMACY XX SCH (02:30)
[2016-12-19] MEDS: DOCUSATE SODIUM 100 MG CAP PO SCH ×2 (02:30→14:30)
[2016-12-19] MEDS ORDERED: KETOTIFEN FUMARATE OP SCH (02:30)
[2016-12-19] MEDS ORDERED: GLUCOSE GEL 15 GRAM TUBE PO PRN ×2 (03:00)
[2016-12-19] MEDS ORDERED: GLUCAGON 1 MG INJ IM PRN (03:00)
[2016-12-19] MEDS ORDERED: DEXTROSE 50% 50 ML SYRINGE IV PRN ×2 (03:00)
[2016-12-19] MEDS ORDERED: VANCOMYCIN 1 GM in NS 250 ML IVPB ONE (03:00)
[2016-12-19] MEDS ORDERED: FUROSEMIDE 40 MG INJ IV ONE (03:00)
[2016-12-19] MEDS ORDERED: GLUCOSE GEL 15 GRAM TUBE BUCCAL PRN (03:00)
[2016-12-19 03:45] VITALS: Ht 170.2 cm; Wt 134.5 kg
[2016-12-19 04:03] VITALS: BP 138/63; PULSE 66; RESP 18
[2016-12-19] MEDS ORDERED: FUROSEMIDE 40 MG TAB PO SCH (06:00)
[2016-12-19] MEDS: SOD CHLORIDE 0.9% 1,000 ML IV SCH ×2 (07:11→21:33)
[2016-12-19] MEDS: PANTOPRAZOLE (EC) 40 MG TAB PO SCH (07:11)
[2016-12-19] MEDS: INSULIN ASPART [NOVOLOG] 3 ML PEN SC SCH ×9 (07:51→21:31)
[2016-12-19 08:00] VITALS: PULSE 62
[2016-12-19] MEDS ORDERED: ARTIFICIAL TEARS 15 ML OPH BOTH EYES PRN (08:30)
[2016-12-19] MEDS ORDERED: DEXTRAN OP SCH (09:00)
[2016-12-19] MEDS: ARTIFICIAL TEARS 15 ML OPH BOTH EYES SCH ×4 (09:00→20:46)
[2016-12-19] MEDS ORDERED: INSULIN GLARGINE [LANtus] 3 ML PEN SC SCH (09:00)
[2016-12-19] MEDS: SILVER SULFADIAZINE 1% 25 GM CR TOP SCH ×2 (09:00→21:00)
[2016-12-19] MEDS ORDERED: [UNRECOGNIZED DRUG - OTHER] OP SCH (09:00)
[2016-12-19] MEDS ORDERED: HYPROMELLOSE OP SCH (09:00)
[2016-12-19] MEDS: ALBUTEROL/IPRATROPIUM (NEB) 3 ML AMP HHN SCH ×3 (09:29→19:43)
[2016-12-19] MEDS: PIPER-TAZO 3.375 GM IV (PMX) 100 ML IVPB SCH ×2 (09:54→15:04)
[2016-12-19] MEDS: ASPIRIN 81 MG TAB PO SCH (09:58)
[2016-12-19 10:00] LABS: ALBUMIN 2.9 g/dl (3.3-4.9); CALCIUM 8.4 mg/dl (8.4-10.2); CREATININE 4.34 mg/dl (0.44-1.00); POTASSIUM 4.4 mmol/L (3.5-5.1); TOTAL PROTEIN 6.6 g/dl (6.1-8.1)
[2016-12-19] MEDS: LACTOBACILLUS RHAMNOSUS CAP PO SCH ×2 (10:02→21:21)
[2016-12-19] MEDS: CHOLECALCIFEROL 1,000 UNIT TAB PO SCH (10:02)
[2016-12-19] MEDS: COLLAGENASE 30 GM TUBE TOP SCH (10:04)
[2016-12-19] MEDS: PENTOXIFYLLINE (SR) 400 MG TAB PO SCH ×2 (10:04→21:22)
[2016-12-19] MEDS: ALLOPURINOL 100 MG TAB PO SCH (10:04)
[2016-12-19] MEDS: LORATADINE 10 MG TAB PO SCH (10:04)
[2016-12-19] MEDS: SENNA TAB PO SCH ×2 (10:05→21:21)
[2016-12-19] MEDS: AMLODIPINE 10 MG TAB PO SCH (10:07)
[2016-12-19] MEDS: DILTIAZEM (SR) 60 MG CAP PO SCH (10:07)
[2016-12-19 10:09] VITALS: BP 149/54; PULSE 66; RESP 20
[2016-12-19 12:22] LABS: BASOPHILS % 0.3 % (0.0-2.0); EOSINOPHILS % 0.4 % (0.0-7.0); HEMATOCRIT 23.8 % (37.0-47.0); HEMOGLOBIN 7.4 g/dl (12.0-16.0); LYMPHOCYTES # 1.2 10^3/ul (0.8-2.9); LYMPHOCYTES % 10.3 % (15.0-51.0); MEAN CORPUSCULAR HGB CONC 31.1 g/dl (32.0-37.0); MEAN CORPUSCULAR VOLUME 93.3 fl (82.0-101.0); MEAN PLATELET VOLUME 10.9 fl (7.4-10.4); MONOCYTES % 8.6 % (0.0-11.0); PLATELET COUNT 213 10^3/UL (140-415); RED BLOOD COUNT 2.55 10^6/ul (4.20-5.40); RED CELL DISTRIBUTION WIDTH 13.9 % (11.5-14.5); WHITE BLOOD COUNT 11.2 10^3/ul (4.8-10.8)
--- NOTE | 2016-12-19 17:31 | PN ---
Date/Time of Note Date/Time of Note DATE: 12/19/16 TIME: 17:29 Assessment/Plan VTE Prophylaxis VTE Prophylaxis Intervention: SCD's Assessment/Plan Assessment/Plan 66-year-old female with pmhx notable for DM2, CKD, HTN recently admitted for diabetic foot OM now with sepsis 2/2 health care associated pneumonia. #HCAP: cont zosyn and vanc --->abx adjusted for CrCl 19 so decreasing zosyn dose -anticipate 7 days of therapy for HCAP -check sputum cultures and strep urine Ag (will have to check scanned documents for results) #JENNIFER on CKD: baseline closer to mid 2s -likely ATN from sepsis but if does not improve may need to talk to renal about HD -could also be AIN from zosyn -given ID wants pt to be abx for another 4 weeks, I am very concerned about pt' s custodial renal health. Will consult renal in AM and I think this patient will need dialysis by the end of her antibiotic course #diabetic foot infection sp debridement NOT amputation or complete resection of infected tissue during previous admission (wound culture NOT bone biopsy with EColi) -MRI results from last admit reviewed. 5th toe with reported cellulitis, read as chronic OM v inflammatory arthritis. Given that OM is CHRONIC and NOT ACUTE, may also need to talk to podiatry about further debridement? -cont vanc, decrease zosyn dose given Crcl 19 -given severity of JENNIFER, may need to talk to ID about alternative abx strategies -consider talking to podiatry about possible debridement/additional resection of OM tissue. If all infected bone resected, may be able to shorten length of abx therapy #DM2 with hyperglycemia -increase insulin slightly. CDE note reviewed #HTN. HL: cont home meds TO DO IN AM: consult nephrology given worsening Cr and likely need for dialysis before her OM abx course is complete Subjective 24 Hr Interval Summary Free Text/Dictation Pt in good spirits this morning Exam/Review of Systems Vital Signs Vitals Vital Signs Date Time Temp Pulse Resp B/P Pulse Ox O2 Delivery O2 Flow Rate FiO2 12/19/16 14:53 2.0 12/19/16 14:52 77 18 95 Nasal Cannula 12/19/16 10:09 149/54 12/19/16 04:03 98.8 Exam nad no mrg abd soft no rashes L lateral foot wound noted, 6 cm x 2 cm, granular base with some thick yellow/ white discharge. Results Result Diagram: 12/19/16 1158 12/19/16 0852 Results 24 hrs Laboratory Tests Test 12/18/16 19:30 12/18/16 21:40 12/19/16 03:29 12/19/16 07:27 White Blood Count 15.2 #H Red Blood Count 3.47 L Hemoglobin 10.0 L Hematocrit 31.5 L Mean Corpuscular Volume 90.8 Mean Corpuscular Hemoglobin 28.8 L Mean Corpuscular Hemoglobin Concent 31.7 L Red Cell Distribution Width 14.0 Platelet Count 235 Mean Platelet Volume 10.9 H Neutrophils % 89.9 H Lymphocytes % 3.4 L Monocytes % 6.1 Eosinophils % 0.0 Basophils % 0.1 Nucleated Red Blood Cells % 0.0 Neutrophils # (Manual) 14 H Lymphocytes # 0.5 L Monocytes # 0.9 Eosinophils # 0.0 Basophils # 0.0 Nucleated Red Blood Cells # 0.0 Prothrombin Time 15.6 H Prothrombin Time Ratio 1.2 INR International Normalized Ratio 1.23 Activated Partial Thromboplast Time 32.9 Sodium Level 137 Potassium Level 4.2 Chloride Level 100 Carbon Dioxide Level 23 Anion Gap 18 H Blood Urea Nitrogen 82 H Creatinine 3.97 H Glucose Level 237 H Lactic Acid Level 0.9 0.8 Calcium Level 9.2 Total Bilirubin 0.0 L Direct Bilirubin 0.00 Indirect Bilirubin 0.0 Aspartate Amino Transf (AST/SGOT) 41 Alanine Aminotransferase (ALT/SGPT) 38 Alkaline Phosphatase 251 H Troponin I 0.044 Total Protein 8.0 Albumin 3.7 Globulin 4.30 H Albumin/Globulin Ratio 0.86 Lipase 31 Bedside Glucose 370 H 391 H Test 12/19/16 08:52 12/19/16 11:41 12/19/16 11:58 12/19/16 17:17 Sodium Level 139 Potassium Level 4.4 Chloride Level 100 Carbon Dioxide Level 23 Anion Gap 20 H Blood Urea Nitrogen 83 H Creatinine 4.34 H Glucose Level 399 #H Calcium Level 8.4 Total Bilirubin 0.0 L Direct Bilirubin 0.00 Indirect Bilirubin 0.0 Aspartate Amino Transf (AST/SGOT) 41 Alanine Aminotransferase (ALT/SGPT) 45 Alkaline Phosphatase 205 H Total Protein 6.6 # Albumin 2.9 L Bedside Glucose 347 H 311 H White Blood Count 11.2 #H Red Blood Count 2.55 #L Hemoglobin 7.4 #L Hematocrit 23.8 #L Mean Corpuscular Volume 93.3 Mean Corpuscular Hemoglobin 29.0 Mean Corpuscular Hemoglobin Concent 31.1 L Red Cell Distribution Width 13.9 Platelet Count 213 Mean Platelet Volume 10.9 H Neutrophils % 80.0 H Lymphocytes % 10.3 L Monocytes % 8.6 Eosinophils % 0.4 Basophils % 0.3 Nucleated Red Blood Cells % 0.0 Neutrophils # (Manual) 8.9 H Lymphocytes # 1.2 Monocytes # 1.0 H Eosinophils # 0.0 Basophils # 0.0 Nucleated Red Blood Cells # 0.0 Medications Medications Current Medications Allopurinol (Zyloprim) 100 mg DAILY PO Last administered on 12/19/16 10:04; Admin Dose 100 MG; Start 12/19/16 at 09:00 Amlodipine Besylate (Norvasc) 10 mg DAILY PO Last administered on 12/19/16 10: 07; Admin Dose 10 MG; Start 12/19/16 at 09:00 Aspirin (Aspirin) 81 mg DAILY PO Last administered on 12/19/16 09:58; Admin Dose 81 MG; Start 12/19/16 at 09:00 Atorvastatin Calcium (Lipitor) 10 mg DAILY@21 PO ; Start 12/19/16 at 21:00 Cholecalciferol (Vitamin D) 1,000 unit DAILY PO Last administered on 12/19/16 10:02; Admin Dose 1,000 UNIT; Start 12/19/16 at 09:00 Collagenase (Santyl) 1 applic DAILY TOP Last administered on 12/19/16 10:04; Admin Dose 1 APPLIC; Start 12/19/16 at 09:00 Diltiazem HCl (Cardizem Sr) 60 mg DAILY PO Last administered on 12/19/16 10:07 ; Admin Dose 60 MG; Start 12/19/16 at 09:00 Docusate Sodium (Colace) 100 mg Q12H PO ; Start 12/19/16 at 02:30 Hydralazine HCl (Apresoline) 100 mg BID PO Last administered on 12/19/16 10:07 ; Admin Dose 100 MG; Start 12/19/16 at 09:00 Loratadine (Claritin) 5 mg DAILY PO Last administered on 12/19/16 10:04; Admin Dose 5 MG; Start 12/19/16 at 09:00 Pantoprazole (Protonix Tab) 40 mg DAILY@06 PO Last administered on 12/19/16 07 :11; Admin Dose 40 MG; Start 12/19/16 at 06:00 Pentoxifylline (Trental) 400 mg BID PO Last administered on 12/19/16 10:04; Admin Dose 400 MG; Start 12/19/16 at 09:00 Senna (Senokot) 2 tab BID PO Last administered on 12/19/16 10:05; Admin Dose 2 TAB; Start 12/19/16 at 09:00 Silver Sulfadiazine (Thermazene 1% 25 Gm) 1 applic BID TOP ; Start 12/19/16 at 09:00 Miscellaneous Information 1 drop Q8H OP ; Start 12/19/16 at 02:30; Status UNV Diagnostic Test (Pha) 1 ea 1 ea 02 XX ; Start 12/20/16 at 02:00 Piperacillin Sod/ Tazobactam Sod (Zosyn 3.375gm/ 100 ml (Pmx)) 100 ml @ 200 mls /hr Q8 IVPB Last administered on 12/19/16 15:04; Admin Dose 200 MLS/HR; Start 12/19/16 at 06:00 Ondansetron HCl (Zofran Inj) 4 mg Q6H PRN IV NAUSEA AND/OR VOMITING; Start at 02:30 Lactobacillus Acidophilus/ Rhamnosus 1 cap 1 cap BID PO Last administered on 10:02; Admin Dose 1 CAP; Start 12/19/16 at 09:00 Sodium Chloride (NS) 1,000 ml @ 50 mls/hr Q20H IV Last administered on 07:11; Admin Dose 50 MLS/HR; Start 12/19/16 at 03:00 Miscellaneous Information 1 ea NOTE XX ; Start 12/19/16 at 03:00 Glucose (Glutose) 15 gm Q15M PRN PO DECREASED GLUCOSE; Start 12/19/16 at 03:00 Glucose (Glutose) 22.5 gm Q15M PRN PO DECREASED GLUCOSE; Start 12/19/16 at 03: 00 Dextrose (D50w Syringe) 25 ml Q15M PRN IV DECREASED GLUCOSE; Start 12/19/16 at 03:00 Dextrose (D50w Syringe) 50 ml Q15M PRN IV DECREASED GLUCOSE; Start 12/19/16 at 03:00 Glucagon (Glucagen) 1 mg Q15M PRN IM DECREASED GLUCOSE; Start 12/19/16 at 03:00 Glucose (Glutose) 15 gm Q15M PRN BUCCAL DECREASED GLUCOSE; Start 12/19/16 at 03 :00 Eye Lubricant (Artificial Tears Oph) 1 drop QID BOTH EYES ; Start 12/19/16 at 09 :00 Insulin Glargine (Lantus) 36 unit BID SC ; Start 12/19/16 at 21:00 Miscellaneous Information (*Order Clarification Bulletin) Ketotifen Fumarate ( Alaway... Q8H XX ; Start 12/19/16 at 15:30 FABIAN LEO MD Dec 19, 2016 17:31
[2016-12-19 18:45] VITALS: BP 136/64; RESP 18
[2016-12-19] MEDS: KETOTIFEN FUMARATE XX SCH ×2 (19:30→22:33)
[2016-12-19 19:32] VITALS: BP 136/63; RESP 20
[2016-12-19] MEDS: ATORVASTATIN 10 MG TAB PO SCH (21:22)
[2016-12-19] MEDS: PIPER-TAZO 2.25 GM (PMX) 50 ML IVPB SCH (21:27)
[2016-12-19] MEDS: INSULIN GLARGINE [LANtus] 3 ML PEN SC SCH (21:31)
--- NOTE | 2016-12-19 21:59 | CONS ---
Date/Time of Note Date/Time of Note DATE: 12/19/16 TIME: 21:50 Assessment/Plan Assessment/Plan Additional Assessment/Plan ASSESSMENT: 1. Non Oliguric Acute kidney injury on CKD III/IV due to ATN 2. 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 HTN 4. Diabetic foot infection 5. Health care associated PNA Plan : IV abx zosyn and vancomycin IVF NS at 50 cc/hr pt had a full CKD work up done on last admission Cr 4.34- need close monitoring keep pt euvolemic will follow up renally dose all antibiotics Consultation Date/Type/Reason Admit Date/Time 12/18/16 Date of Consultation: Dec 19, 2016 Type of Consultation: NEPHROLOGY Reason for Consultation acute kidney injury on CKD Referring Provider: FABIAN LEO MD Hx of Present Illness 66-year-old female with a history of high blood pressure, diabetes, gout, and osteomyelitis in the past who presents to the ER with fever and cough. She was just here and discharged 5 days ago after being diagnosed with osteomyelitis from a diabetic ulcer and is scheduled to receive long-term IV antibiotics via PICC line. Fever cough started a few days after discharge, but the cough is nonbloody, she has had no vomiting or abdominal pain, denies blood in her urine or in her stool. She has had no diarrhea as well. Chest x-ray in the emergency room is concerning for multifocal pneumonia, she is being admitted for further management.. Baseline Cr 2.5- admitted with Cr 5.0.she is admitted for HCAP and on IV abx. 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) Past Surgical History Past Surgical Hx: other (Hyeserectomy, Foot surgery ) Family History Significant Family History: no pertinent family hx Social History Alcohol Use: none Smoking Status: Never smoker Drug Use: none Exam/Review of Systems Vital Signs Vitals Vital Signs Date Time Temp Pulse Resp B/P Pulse Ox O2 Delivery O2 Flow Rate FiO2 12/19/16 19:44 91 4.0 12/19/16 19:44 69 26 Nasal Cannula 12/19/16 19:32 98.1 136/63 Exam Constitutional: alert, oriented, other Head: normocephalic (Obese) Eyes: PERRL ENMT: mucosa pink and moist Neck: supple Respiratory: crackles/rales, diminished breath sounds, wheezing Cardiovascular: regular rate and rhythm, No murmurs/extra sounds Gastrointestinal: bowel sounds, non-tender, soft Extremities: other (Bilateral foot edema about 2-3+, with left foot ulcer) Results Result Diagram: 12/19/16 1158 12/19/16 0852 Results 24 hrs Laboratory Tests Test 12/19/16 03:29 12/19/16 07:27 12/19/16 08:52 12/19/16 11:41 Bedside Glucose 370 H 391 H 347 H Sodium Level 139 Potassium Level 4.4 Chloride Level 100 Carbon Dioxide Level 23 Anion Gap 20 H Blood Urea Nitrogen 83 H Creatinine 4.34 H Glucose Level 399 #H Calcium Level 8.4 Total Bilirubin 0.0 L Direct Bilirubin 0.00 Indirect Bilirubin 0.0 Aspartate Amino Transf (AST/SGOT) 41 Alanine Aminotransferase (ALT/SGPT) 45 Alkaline Phosphatase 205 H B-Type Natriuretic Peptide 5960 H Total Protein 6.6 # Albumin 2.9 L Test 12/19/16 11:58 12/19/16 17:17 12/19/16 21:19 White Blood Count 11.2 #H Red Blood Count 2.55 #L Hemoglobin 7.4 #L Hematocrit 23.8 #L Mean Corpuscular Volume 93.3 Mean Corpuscular Hemoglobin 29.0 Mean Corpuscular Hemoglobin Concent 31.1 L Red Cell Distribution Width 13.9 Platelet Count 213 Mean Platelet Volume 10.9 H Neutrophils % 80.0 H Lymphocytes % 10.3 L Monocytes % 8.6 Eosinophils % 0.4 Basophils % 0.3 Nucleated Red Blood Cells % 0.0 Neutrophils # (Manual) 8.9 H Lymphocytes # 1.2 Monocytes # 1.0 H Eosinophils # 0.0 Basophils # 0.0 Nucleated Red Blood Cells # 0.0 Bedside Glucose 311 H 269 H Medications Medications Current Medications Allopurinol (Zyloprim) 100 mg DAILY PO Last administered on 12/19/16 10:04; Admin Dose 100 MG; Start 12/19/16 at 09:00 Amlodipine Besylate (Norvasc) 10 mg DAILY PO Last administered on 12/19/16 10: 07; Admin Dose 10 MG; Start 12/19/16 at 09:00 Aspirin (Aspirin) 81 mg DAILY PO Last administered on 12/19/16 09:58; Admin Dose 81 MG; Start 12/19/16 at 09:00 Atorvastatin Calcium (Lipitor) 10 mg DAILY@21 PO Last administered on 21:22; Admin Dose 10 MG; Start 12/19/16 at 21:00 Cholecalciferol (Vitamin D) 1,000 unit DAILY PO Last administered on 12/19/16 10:02; Admin Dose 1,000 UNIT; Start 12/19/16 at 09:00 Collagenase (Santyl) 1 applic DAILY TOP Last administered on 12/19/16 10:04; Admin Dose 1 APPLIC; Start 12/19/16 at 09:00 Diltiazem HCl (Cardizem Sr) 60 mg DAILY PO Last administered on 12/19/16 10:07 ; Admin Dose 60 MG; Start 12/19/16 at 09:00 Docusate Sodium (Colace) 100 mg Q12H PO ; Start 12/19/16 at 02:30 Hydralazine HCl (Apresoline) 100 mg BID PO Last administered on 12/19/16 21:21 ; Admin Dose 100 MG; Start 12/19/16 at 09:00 Loratadine (Claritin) 5 mg DAILY PO Last administered on 12/19/16 10:04; Admin Dose 5 MG; Start 12/19/16 at 09:00 Pantoprazole (Protonix Tab) 40 mg DAILY@06 PO Last administered on 12/19/16 07 :11; Admin Dose 40 MG; Start 12/19/16 at 06:00 Pentoxifylline (Trental) 400 mg BID PO Last administered on 12/19/16 21:22; Admin Dose 400 MG; Start 12/19/16 at 09:00 Senna (Senokot) 2 tab BID PO Last administered on 12/19/16 21:21; Admin Dose 2 TAB; Start 12/19/16 at 09:00 Silver Sulfadiazine (Thermazene 1% 25 Gm) 1 applic BID TOP ; Start 12/19/16 at 09:00 Miscellaneous Information 1 drop Q8H OP ; Start 12/19/16 at 02:30; Status UNV Diagnostic Test (Pha) (Accu-Chek) 1 ea 02 XX ; Start 12/20/16 at 02:00 Ondansetron HCl (Zofran Inj) 4 mg Q6H PRN IV NAUSEA AND/OR VOMITING; Start at 02:30 Lactobacillus Acidophilus/ Rhamnosus 1 cap 1 cap BID PO Last administered on 21:21; Admin Dose 1 CAP; Start 12/19/16 at 09:00 Sodium Chloride (NS) 1,000 ml @ 50 mls/hr Q20H IV Last administered on 21:33; Admin Dose 50 MLS/HR; Start 12/19/16 at 03:00 Miscellaneous Information 1 ea NOTE XX ; Start 12/19/16 at 03:00 Glucose (Glutose) 15 gm Q15M PRN PO DECREASED GLUCOSE; Start 12/19/16 at 03:00 Glucose (Glutose) 22.5 gm Q15M PRN PO DECREASED GLUCOSE; Start 12/19/16 at 03: 00 Dextrose (D50w Syringe) 25 ml Q15M PRN IV DECREASED GLUCOSE; Start 12/19/16 at 03:00 Dextrose (D50w Syringe) 50 ml Q15M PRN IV DECREASED GLUCOSE; Start 12/19/16 at 03:00 Glucagon (Glucagen) 1 mg Q15M PRN IM DECREASED GLUCOSE; Start 12/19/16 at 03:00 Glucose (Glutose) 15 gm Q15M PRN BUCCAL DECREASED GLUCOSE; Start 12/19/16 at 03 :00 Eye Lubricant (Artificial Tears Oph) 1 drop QID BOTH EYES ; Start 12/19/16 at 09 :00 Insulin Glargine (Lantus) 36 unit BID SC Last administered on 12/19/16 21:31; Admin Dose 36 UNIT; Start 12/19/16 at 21:00 Miscellaneous Information Ketotifen Fumarate (Alaway... Q8H XX ; Start 12/19/16 at 15:30 Piperacillin Sod/ Tazobactam Sod (Zosyn 2.25gm/ 50ml (Pmx)) 50 ml @ 100 mls/hr Q8 IVPB Last administered on 12/19/16 21:27; Admin Dose 100 MLS/HR; Start at 22:00 Acetaminophen (Tylenol Tab) 325 mg Q4H PRN PO PAIN AND OR ELEVATED TEMP; Start 12/19/16 at 19:30; Status UNV MONSE CHILEL MD Dec 19, 2016 21:59
[2016-12-20] VITALS (11 sets, daily range): BP systolic 93–187; BP diastolic 51–83; PULSE 72–80; RESP 18–22
[2016-12-20] MEDS: ALBUTEROL/IPRATROPIUM (NEB) 3 ML AMP HHN PRN (00:05)
[2016-12-20] MEDS ORDERED: FUROSEMIDE 40 MG INJ IV ONE ×2 (00:30→12:30)
--- NOTE | 2016-12-20 01:04 | RADRPT ---
PROCEDURE: Portable chest x-ray. CLINICAL INDICATION: 66 years of age, female. shortness of breath. TECHNIQUE: Portable AP view of the chest. COMPARISON: December 18, 2016 FINDINGS: Left arm PICC line is in similar position with tip over inferior SVC. Cardiomediastinal contours are normal. Multi focal lung consolidation is mildly increased from prior exam. Main focus of consolidation is the right mid lung zone and is similar. Right lower lung zone consolidation has increased. Left mid and lower lung zone consolidation is similar. Negative for pleural effusion or pneumothorax. No acute bony abnormality. IMPRESSION: Multi focal lung consolidation concerning for multifocal pneumonia is mildly increased from prior ex am. RPTAT: [facility]CTS Physician Venancio Date Time Electronically viewed and signed by Physician Venancio on 12/20/2016 01:03 /
[2016-12-20] MEDS: ACCU-CHEK XX SCH (01:13)
[2016-12-20] MEDS: DOCUSATE SODIUM 100 MG CAP PO SCH ×2 (02:11→14:59)
[2016-12-20] MEDS: ALBUTEROL/IPRATROPIUM (NEB) 3 ML AMP HHN SCH ×4 (02:36→19:50)
[2016-12-20] MEDS: PIPER-TAZO 2.25 GM (PMX) 50 ML IVPB SCH ×3 (05:13→21:44)
[2016-12-20] MEDS: PANTOPRAZOLE (EC) 40 MG TAB PO SCH (05:14)
[2016-12-20 06:13] LABS: BASOPHILS % 0.3 % (0.0-2.0); EOSINOPHILS # 0.1 10^3/ul (0.0-0.5); EOSINOPHILS % 0.7 % (0.0-7.0); HEMATOCRIT 23.6 % (37.0-47.0); HEMOGLOBIN 7.3 g/dl (12.0-16.0); LYMPHOCYTES # 0.8 10^3/ul (0.8-2.9); LYMPHOCYTES % 5.3 % (15.0-51.0); MEAN CORPUSCULAR HEMOGLOBIN 28.4 pg (29.0-33.0); MEAN CORPUSCULAR HGB CONC 30.9 g/dl (32.0-37.0); MEAN CORPUSCULAR VOLUME 91.8 fl (82.0-101.0); MEAN PLATELET VOLUME 11.1 fl (7.4-10.4); MONOCYTE # 1.1 10^3/ul (0.3-0.9); MONOCYTES % 7.8 % (0.0-11.0); NEUTROPHILS % 85.1 % (39.0-77.0); PLATELET COUNT 237 10^3/UL (140-415); RED BLOOD COUNT 2.57 10^6/ul (4.20-5.40); RED CELL DISTRIBUTION WIDTH 14.1 % (11.5-14.5); WHITE BLOOD COUNT 14.1 10^3/ul (4.8-10.8)
[2016-12-20] MEDS: ACETAMINOPHEN 325 MG TAB PO PRN ×2 (06:34→20:38)
[2016-12-20 06:39] LABS: CALCIUM 8.6 mg/dl (8.4-10.2); CREATININE 5.22 mg/dl (0.44-1.00); POTASSIUM 4.5 mmol/L (3.5-5.1)
[2016-12-20] MEDS: KETOTIFEN FUMARATE XX SCH ×3 (07:30→23:30)
[2016-12-20] MEDS: INSULIN GLARGINE [LANtus] 3 ML PEN SC SCH ×2 (08:18→20:28)
[2016-12-20] MEDS: INSULIN ASPART [NOVOLOG] 3 ML PEN SC SCH ×7 (08:18→20:23)
[2016-12-20] MEDS: SILVER SULFADIAZINE 1% 25 GM CR TOP SCH ×2 (09:00→21:00)
[2016-12-20] MEDS: ARTIFICIAL TEARS 15 ML OPH BOTH EYES SCH ×4 (09:00→20:41)
[2016-12-20] MEDS: PENTOXIFYLLINE (SR) 400 MG TAB PO SCH ×2 (09:09→20:31)
[2016-12-20] MEDS: LACTOBACILLUS RHAMNOSUS CAP PO SCH ×2 (09:09→20:31)
[2016-12-20] MEDS: CHOLECALCIFEROL 1,000 UNIT TAB PO SCH (09:10)
[2016-12-20] MEDS: LORATADINE 10 MG TAB PO SCH (09:10)
[2016-12-20] MEDS: SENNA TAB PO SCH ×2 (09:10→20:31)
[2016-12-20] MEDS: ALLOPURINOL 100 MG TAB PO SCH (09:11)
[2016-12-20] MEDS: DILTIAZEM (SR) 60 MG CAP PO SCH (09:12)
[2016-12-20] MEDS: ASPIRIN 81 MG TAB PO SCH (09:12)
[2016-12-20] MEDS: AMLODIPINE 10 MG TAB PO SCH (09:13)
[2016-12-20] MEDS: COLLAGENASE 30 GM TUBE TOP SCH (09:14)
--- NOTE | 2016-12-20 12:25 | CONS ---
Date/Time of Note Date/Time of Note DATE: 12/20/16 TIME: 12:20 Assessment/Plan Assessment/Plan Chief Complaint/Hosp Course 66-year-old female with a history of high blood pressure, diabetes, gout, and osteomyelitis in the past who presents to the ER with fever and cough. She was just here and discharged 5 days ago after being diagnosed with osteomyelitis from a diabetic ulcer and is scheduled to receive long-term IV antibiotics via PICC line. Fever cough started a few days after discharge, but the cough is nonbloody, she has had no vomiting or abdominal pain, denies blood in her urine or in her stool. She has had no diarrhea as well. Chest x-ray in the emergency room is concerning for multifocal pneumonia, she is being admitted for further management.. Baseline Cr 2.5- admitted with Cr 5.0.she is admitted for HCAP and on IV abx. she was previosuly seen in Med/surge floor around 7 pm Problems: Additional Assessment/Plan 1. Non Oliguric to oliguric Acute kidney injury on CKD III/IV due to ATN- worsening renal failure with fluid overload now 2. 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 HTN 4. Diabetic foot infection 5. Health care associated PNA Plan : need ID abx for better abx that are not nephrotoxic pt BUN/Cr worsening now with Fluid overload, D/c IV fluids, will give Albumin 25 % 100ml IV x1 then lasix 40mg IV x 1 after albumin pt needs initiatoin of HD urgently due to worsening renal failure with oliguria - she said to me that she is not sure about HD at this time... she said she want to think about it and will let us know. will have social work therapist consult to see pt and discuss with pt family about goals of care renally dose all antibiotics Consultation Date/Type/Reason Admit Date/Time Dec 18, 2016 at 20:59 Initial Consult Date 12/19/16 Type of Consultation: NEPHROLOGY Referring Provider: FABIAN LEO MD 24 HR Interval Summary Free Text/Dictation pt gets IV abx for PNA and Foot infection, BUN/Cr worsening, urine output dropped to 50cc/hr Exam/Review of Systems Vital Signs Vitals Vital Signs Date Time Temp Pulse Resp B/P Pulse Ox O2 Delivery O2 Flow Rate FiO2 12/20/16 08:15 98.1 84 22 148/70 92 8/25/17 08:00 5.0 12/20/16 02:20 Simple Mask Intake and Output 12/19/16 12/19/16 12/20/16 15:00 23:00 07:00 Intake Total 1460 ml 1155 ml Balance 1460 ml 1155 ml Exam Constitutional: alert, oriented, other Head: normocephalic (Obese) Eyes: PERRL ENMT: mucosa pink and moist Neck: supple Respiratory: crackles/rales, diminished breath sounds, wheezing Cardiovascular: regular rate and rhythm, No murmurs/extra sounds Gastrointestinal: bowel sounds, non-tender, soft Extremities: other (Bilateral foot edema about 2-3+, with left foot ulcer) Results Result Diagram: 12/20/16 0510 12/20/16 0510 Results 24 hrs Laboratory Tests Test 12/19/16 17:17 12/19/16 21:19 12/20/16 01:09 12/20/16 05:10 Bedside Glucose 311 H 269 H 232 H White Blood Count 14.1 #H Red Blood Count 2.57 L Hemoglobin 7.3 L Hematocrit 23.6 L Mean Corpuscular Volume 91.8 Mean Corpuscular Hemoglobin 28.4 L Mean Corpuscular Hemoglobin Concent 30.9 L Red Cell Distribution Width 14.1 Platelet Count 237 Mean Platelet Volume 11.1 H Neutrophils % 85.1 H Lymphocytes % 5.3 L Monocytes % 7.8 Eosinophils % 0.7 Basophils % 0.3 Nucleated Red Blood Cells % 0.0 Neutrophils # (Manual) 12.0 H Lymphocytes # 0.8 Monocytes # 1.1 H Eosinophils # 0.1 Basophils # 0.0 Nucleated Red Blood Cells # 0.0 Sodium Level 140 Potassium Level 4.5 Chloride Level 100 Carbon Dioxide Level 21 Anion Gap 24 H Blood Urea Nitrogen 93 H Creatinine 5.22 H Glucose Level 222 #H Calcium Level 8.6 Test 12/20/16 08:03 Bedside Glucose 270 H Medications Medications Current Medications Allopurinol (Zyloprim) 100 mg DAILY PO Last administered on 12/20/16 09:11; Admin Dose 100 MG; Start 12/19/16 at 09:00 Amlodipine Besylate (Norvasc) 10 mg DAILY PO Last administered on 12/20/16 09: 13; Admin Dose 10 MG; Start 12/19/16 at 09:00 Aspirin (Aspirin) 81 mg DAILY PO Last administered on 12/20/16 09:12; Admin Dose 81 MG; Start 12/19/16 at 09:00 Atorvastatin Calcium (Lipitor) 10 mg DAILY@21 PO Last administered on 21:22; Admin Dose 10 MG; Start 12/19/16 at 21:00 Cholecalciferol (Vitamin D) 1,000 unit DAILY PO Last administered on 12/20/16 09:10; Admin Dose 1,000 UNIT; Start 12/19/16 at 09:00 Collagenase (Santyl) 1 applic DAILY TOP Last administered on 12/20/16 09:14; Admin Dose 1 APPLIC; Start 12/19/16 at 09:00 Diltiazem HCl (Cardizem Sr) 60 mg DAILY PO Last administered on 12/20/16 09:12 ; Admin Dose 60 MG; Start 12/19/16 at 09:00 Docusate Sodium (Colace) 100 mg Q12H PO ; Start 12/19/16 at 02:30 Hydralazine HCl (Apresoline) 100 mg BID PO Last administered on 12/20/16 09:13 ; Admin Dose 100 MG; Start 12/19/16 at 09:00 Loratadine (Claritin) 5 mg DAILY PO Last administered on 12/20/16 09:10; Admin Dose 5 MG; Start 12/19/16 at 09:00 Pantoprazole (Protonix Tab) 40 mg DAILY@06 PO Last administered on 12/20/16 05 :14; Admin Dose 40 MG; Start 12/19/16 at 06:00 Pentoxifylline (Trental) 400 mg BID PO Last administered on 12/20/16 09:09; Admin Dose 400 MG; Start 12/19/16 at 09:00 Senna (Senokot) 2 tab BID PO Last administered on 12/20/16 09:10; Admin Dose 2 TAB; Start 12/19/16 at 09:00 Silver Sulfadiazine (Thermazene 1% 25 Gm) 1 applic BID TOP ; Start 12/19/16 at 09:00 Miscellaneous Information 1 drop Q8H OP ; Start 12/19/16 at 02:30; Status UNV Diagnostic Test (Pha) (Accu-Chek) 1 ea 02 XX ; Start 12/20/16 at 02:00 Ondansetron HCl (Zofran Inj) 4 mg Q6H PRN IV NAUSEA AND/OR VOMITING; Start at 02:30 Lactobacillus Acidophilus/ Rhamnosus (Culturelle) 1 cap BID PO Last administered on 12/20/16 09:09; Admin Dose 1 CAP; Start 12/19/16 at 09:00 Miscellaneous Information 1 ea NOTE XX ; Start 12/19/16 at 03:00 Glucose (Glutose) 15 gm Q15M PRN PO DECREASED GLUCOSE; Start 12/19/16 at 03:00 Glucose (Glutose) 22.5 gm Q15M PRN PO DECREASED GLUCOSE; Start 12/19/16 at 03: 00 Dextrose (D50w Syringe) 25 ml Q15M PRN IV DECREASED GLUCOSE; Start 12/19/16 at 03:00 Dextrose (D50w Syringe) 50 ml Q15M PRN IV DECREASED GLUCOSE; Start 12/19/16 at 03:00 Glucagon (Glucagen) 1 mg Q15M PRN IM DECREASED GLUCOSE; Start 12/19/16 at 03:00 Glucose (Glutose) 15 gm Q15M PRN BUCCAL DECREASED GLUCOSE; Start 12/19/16 at 03 :00 Eye Lubricant (Artificial Tears Oph) 1 drop QID BOTH EYES ; Start 12/19/16 at 09 :00 Insulin Glargine (Lantus) 36 unit BID SC Last administered on 12/20/16 08:18; Admin Dose 36 UNIT; Start 12/19/16 at 21:00 Miscellaneous Information Ketotifen Fumarate (Alaway... Q8H XX ; Start 12/19/16 at 15:30 Piperacillin Sod/ Tazobactam Sod (Zosyn 2.25gm/ 50ml (Pmx)) 50 ml @ 100 mls/hr Q8 IVPB Last administered on 12/20/16 05:13; Admin Dose 100 MLS/HR; Start at 22:00 Acetaminophen (Tylenol Tab) 325 mg Q4H PRN PO PAIN AND OR ELEVATED TEMP Last administered on 12/20/16 06:34; Admin Dose 325 MG; Start 12/19/16 at 19:30 Miscellaneous Information VANCOMYCIN RANDOM ON 11/27... ONCE ONCE XX ; Start at 05:00; Stop 12/21/16 at 05:01 Albumin Human (Albumin Human 25%) 100 ml @ 100 mls/hr ONCE IV ; Start 12/20/16 at 13:30; Stop 12/20/16 at 14:29 Furosemide (Lasix) 40 mg ONCE ONCE IV ; Start 12/20/16 at 12:30; Stop 12/20/16 at 12:31 MONSE CHILEL MD Dec 20, 2016 12:25
[2016-12-20] MEDS ORDERED: ALBUMIN HUMAN 25% 100 ML IV SCH (13:30)
--- NOTE | 2016-12-20 14:55 | CONS ---
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) Past Surgical History Past Surgical Hx: other (Hyeserectomy, Foot surgery ) Social History Alcohol Use: none Smoking Status: Never smoker Drug Use: none Exam/Review of Systems Vital Signs Vitals Vital Signs Date Time Temp Pulse Resp B/P Pulse Ox O2 Delivery O2 Flow Rate FiO2 12/20/16 14:34 97.8 79 20 164/71 94 12/20/16 13:23 Nasal Cannula 6.0 Intake and Output 12/19/16 12/19/16 12/20/16 15:00 23:00 07:00 Intake Total 1460 ml 1155 ml Balance 1460 ml 1155 ml Results Result Diagram: 12/20/16 0510 12/20/16 0510 Results 24 hrs Laboratory Tests Test 12/19/16 17:17 12/19/16 21:19 12/20/16 01:09 12/20/16 05:10 Bedside Glucose 311 H 269 H 232 H White Blood Count 14.1 #H Red Blood Count 2.57 L Hemoglobin 7.3 L Hematocrit 23.6 L Mean Corpuscular Volume 91.8 Mean Corpuscular Hemoglobin 28.4 L Mean Corpuscular Hemoglobin Concent 30.9 L Red Cell Distribution Width 14.1 Platelet Count 237 Mean Platelet Volume 11.1 H Neutrophils % 85.1 H Lymphocytes % 5.3 L Monocytes % 7.8 Eosinophils % 0.7 Basophils % 0.3 Nucleated Red Blood Cells % 0.0 Neutrophils # (Manual) 12.0 H Lymphocytes # 0.8 Monocytes # 1.1 H Eosinophils # 0.1 Basophils # 0.0 Nucleated Red Blood Cells # 0.0 Sodium Level 140 Potassium Level 4.5 Chloride Level 100 Carbon Dioxide Level 21 Anion Gap 24 H Blood Urea Nitrogen 93 H Creatinine 5.22 H Glucose Level 222 #H Calcium Level 8.6 Test 12/20/16 08:03 Bedside Glucose 270 H Medications Medications Current Medications Allopurinol (Zyloprim) 100 mg DAILY PO Last administered on 12/20/16 09:11; Admin Dose 100 MG; Start 12/19/16 at 09:00 Amlodipine Besylate (Norvasc) 10 mg DAILY PO Last administered on 12/20/16 09: 13; Admin Dose 10 MG; Start 12/19/16 at 09:00 Aspirin (Aspirin) 81 mg DAILY PO Last administered on 12/20/16 09:12; Admin Dose 81 MG; Start 12/19/16 at 09:00 Atorvastatin Calcium (Lipitor) 10 mg DAILY@21 PO Last administered on 21:22; Admin Dose 10 MG; Start 12/19/16 at 21:00 Cholecalciferol (Vitamin D) 1,000 unit DAILY PO Last administered on 12/20/16 09:10; Admin Dose 1,000 UNIT; Start 12/19/16 at 09:00 Collagenase (Santyl) 1 applic DAILY TOP Last administered on 12/20/16 09:14; Admin Dose 1 APPLIC; Start 12/19/16 at 09:00 Diltiazem HCl (Cardizem Sr) 60 mg DAILY PO Last administered on 12/20/16 09:12 ; Admin Dose 60 MG; Start 12/19/16 at 09:00 Docusate Sodium (Colace) 100 mg Q12H PO ; Start 12/19/16 at 02:30 Hydralazine HCl (Apresoline) 100 mg BID PO Last administered on 12/20/16 09:13 ; Admin Dose 100 MG; Start 12/19/16 at 09:00 Loratadine (Claritin) 5 mg DAILY PO Last administered on 12/20/16 09:10; Admin Dose 5 MG; Start 12/19/16 at 09:00 Pantoprazole (Protonix Tab) 40 mg DAILY@06 PO Last administered on 12/20/16 05 :14; Admin Dose 40 MG; Start 12/19/16 at 06:00 Pentoxifylline (Trental) 400 mg BID PO Last administered on 12/20/16 09:09; Admin Dose 400 MG; Start 12/19/16 at 09:00 Senna (Senokot) 2 tab BID PO Last administered on 8/25/17at 09:10; Admin Dose 2 TAB; Start 12/19/16 at 09:00 Silver Sulfadiazine (Thermazene 1% 25 Gm) 1 applic BID TOP ; Start 12/19/16 at 09:00 Miscellaneous Information 1 drop Q8H OP ; Start 12/19/16 at 02:30; Status UNV Diagnostic Test (Pha) (Accu-Chek) 1 ea 02 XX ; Start 12/20/16 at 02:00 Ondansetron HCl (Zofran Inj) 4 mg Q6H PRN IV NAUSEA AND/OR VOMITING; Start at 02:30 Lactobacillus Acidophilus/ Rhamnosus (Culturelle) 1 cap BID PO Last administered on 12/20/16 09:09; Admin Dose 1 CAP; Start 12/19/16 at 09:00 Miscellaneous Information 1 ea NOTE XX ; Start 12/19/16 at 03:00 Glucose (Glutose) 15 gm Q15M PRN PO DECREASED GLUCOSE; Start 12/19/16 at 03:00 Glucose (Glutose) 22.5 gm Q15M PRN PO DECREASED GLUCOSE; Start 12/19/16 at 03: 00 Dextrose (D50w Syringe) 25 ml Q15M PRN IV DECREASED GLUCOSE; Start 12/19/16 at 03:00 Dextrose (D50w Syringe) 50 ml Q15M PRN IV DECREASED GLUCOSE; Start 12/19/16 at 03:00 Glucagon (Glucagen) 1 mg Q15M PRN IM DECREASED GLUCOSE; Start 12/19/16 at 03:00 Glucose (Glutose) 15 gm Q15M PRN BUCCAL DECREASED GLUCOSE; Start 12/19/16 at 03 :00 Eye Lubricant (Artificial Tears Oph) 1 drop QID BOTH EYES ; Start 12/19/16 at 09 :00 Insulin Glargine (Lantus) 36 unit BID SC Last administered on 12/20/16 08:18; Admin Dose 36 UNIT; Start 12/19/16 at 21:00 Miscellaneous Information Ketotifen Fumarate (Alaway... Q8H XX ; Start 12/19/16 at 15:30 Piperacillin Sod/ Tazobactam Sod (Zosyn 2.25gm/ 50ml (Pmx)) 50 ml @ 100 mls/hr Q8 IVPB Last administered on 8/25/17at 05:13; Admin Dose 100 MLS/HR; Start at 22:00 Acetaminophen (Tylenol Tab) 325 mg Q4H PRN PO PAIN AND OR ELEVATED TEMP Last administered on 12/20/16t 06:34; Admin Dose 325 MG; Start 12/19/16 at 19:30 Miscellaneous Information VANCOMYCIN RANDOM ON 11/27... ONCE ONCE XX ; Start at 05:00; Stop 12/21/16 at 05:01 Linezolid (Zyvox 600mg/D5W (Pmx)) 300 ml @ 300 mls/hr Q12 IVPB ; Start at 21:00; Status UNV ROSI FATIMA MD Dec 20, 2016 14:55
--- NOTE | 2016-12-20 16:09 | PN ---
Date/Time of Note Date/Time of Note DATE: 12/20/16 TIME: 16:05 Assessment/Plan VTE Prophylaxis VTE Prophylaxis Intervention: SCD's Lines/Catheters Urinary Cath still in place: Yes Reason Cath still needed: other (indicate) (need strict Is/Os) Assessment/Plan Assessment/Plan 66-year-old female with pmhx notable for DM2, CKD, HTN recently admitted for diabetic foot OM now with sepsis 2/2 health care associated pneumonia. #HCAP: cont zosyn, vanc changed to linezolid --->abx adjusted for CrCl 19 so decreasing zosyn dose -anticipate 7 days of therapy for HCAP -check sputum cultures and strep urine Ag (will have to check scanned documents for results) -will monitor platelets closely while on Linezolid #JENNIFER on CKD: baseline closer to mid 2s -likely ATN from sepsis v result of nephrotox abx. -MUCH APPRECIATE RENAL ASSISTANCE. Agreed than given pt's poor renal reserve, HYDROGRAPHIC ENGINEER indicated for volume removal for this patient. -ID helping with modification of abx regimen #diabetic foot infection sp debridement NOT amputation or complete resection of infected tissue during previous admission (wound culture NOT bone biopsy with EColi) -MRI results from last admit reviewed. 5th toe with reported cellulitis, read as chronic OM v inflammatory arthritis. Given that OM is CHRONIC and NOT ACUTE, -podiatry consulted for further debridement - decreased zosyn dose given Crcl 19, ID changed vanc to linezolid #DM2 with hyperglycemia -increase insulin slightly. CDE note reviewed #HTN. HL: cont home meds CM consult closer to discharge for help with outpatient HD Subjective 24 Hr Interval Summary Free Text/Dictation Pt very tachypneic this AM. Requiring more O2 than yesterday and UOP significantly dropping off Exam/Review of Systems Vital Signs Vitals Vital Signs Date Time Temp Pulse Resp B/P Pulse Ox O2 Delivery O2 Flow Rate FiO2 12/20/16 14:34 97.8 79 20 164/71 94 12/20/16 13:23 Nasal Cannula 6.0 Intake and Output 12/19/16 12/19/16 12/20/16 14:59 22:59 06:59 Intake Total 1460 ml 1155 ml Balance 1460 ml 1155 ml Exam short of breath with even short sentences obese no abd distension no rashes foot wrapped Cr worse Results Result Diagram: 12/20/16 0510 12/20/16 0510 Results 24 hrs Laboratory Tests Test 12/19/16 17:17 12/19/16 21:19 12/20/16 01:09 12/20/16 05:10 Bedside Glucose 311 H 269 H 232 H White Blood Count 14.1 #H Red Blood Count 2.57 L Hemoglobin 7.3 L Hematocrit 23.6 L Mean Corpuscular Volume 91.8 Mean Corpuscular Hemoglobin 28.4 L Mean Corpuscular Hemoglobin Concent 30.9 L Red Cell Distribution Width 14.1 Platelet Count 237 Mean Platelet Volume 11.1 H Neutrophils % 85.1 H Lymphocytes % 5.3 L Monocytes % 7.8 Eosinophils % 0.7 Basophils % 0.3 Nucleated Red Blood Cells % 0.0 Neutrophils # (Manual) 12.0 H Lymphocytes # 0.8 Monocytes # 1.1 H Eosinophils # 0.1 Basophils # 0.0 Nucleated Red Blood Cells # 0.0 Sodium Level 140 Potassium Level 4.5 Chloride Level 100 Carbon Dioxide Level 21 Anion Gap 24 H Blood Urea Nitrogen 93 H Creatinine 5.22 H Glucose Level 222 #H Calcium Level 8.6 Test 12/20/16 08:03 Bedside Glucose 270 H Medications Medications Current Medications Allopurinol (Zyloprim) 100 mg DAILY PO Last administered on 12/20/16 09:11; Admin Dose 100 MG; Start 12/19/16 at 09:00 Amlodipine Besylate (Norvasc) 10 mg DAILY PO Last administered on 12/20/16 09: 13; Admin Dose 10 MG; Start 12/19/16 at 09:00 Aspirin (Aspirin) 81 mg DAILY PO Last administered on 12/20/16 09:12; Admin Dose 81 MG; Start 12/19/16 at 09:00 Atorvastatin Calcium (Lipitor) 10 mg DAILY@21 PO Last administered on 21:22; Admin Dose 10 MG; Start 12/19/16 at 21:00 Cholecalciferol (Vitamin D) 1,000 unit DAILY PO Last administered on 12/20/16 09:10; Admin Dose 1,000 UNIT; Start 12/19/16 at 09:00 Collagenase (Santyl) 1 applic DAILY TOP Last administered on 12/20/16 09:14; Admin Dose 1 APPLIC; Start 12/19/16 at 09:00 Diltiazem HCl (Cardizem Sr) 60 mg DAILY PO Last administered on 12/20/16 09:12 ; Admin Dose 60 MG; Start 12/19/16 at 09:00 Docusate Sodium (Colace) 100 mg Q12H PO Last administered on 12/20/16 14:59; Admin Dose 100 MG; Start 12/19/16 at 02:30 Hydralazine HCl (Apresoline) 100 mg BID PO Last administered on 12/20/16 09:13 ; Admin Dose 100 MG; Start 12/19/16 at 09:00 Loratadine (Claritin) 5 mg DAILY PO Last administered on 12/20/16 09:10; Admin Dose 5 MG; Start 12/19/16 at 09:00 Pantoprazole (Protonix Tab) 40 mg DAILY@06 PO Last administered on 12/20/16 05 :14; Admin Dose 40 MG; Start 12/19/16 at 06:00 Pentoxifylline (Trental) 400 mg BID PO Last administered on 12/20/16 09:09; Admin Dose 400 MG; Start 12/19/16 at 09:00 Senna (Senokot) 2 tab BID PO Last administered on 12/20/16 09:10; Admin Dose 2 TAB; Start 12/19/16 at 09:00 Silver Sulfadiazine (Thermazene 1% 25 Gm) 1 applic BID TOP ; Start 12/19/16 at 09:00 Miscellaneous Information 1 drop Q8H OP ; Start 12/19/16 at 02:30; Status UNV Diagnostic Test (Pha) (Accu-Chek) 1 ea 02 XX ; Start 12/20/16 at 02:00 Ondansetron HCl (Zofran Inj) 4 mg Q6H PRN IV NAUSEA AND/OR VOMITING; Start at 02:30 Lactobacillus Acidophilus/ Rhamnosus (Culturelle) 1 cap BID PO Last administered on 12/20/16 09:09; Admin Dose 1 CAP; Start 12/19/16 at 09:00 Miscellaneous Information 1 ea NOTE XX ; Start 12/19/16 at 03:00 Glucose (Glutose) 15 gm Q15M PRN PO DECREASED GLUCOSE; Start 12/19/16 at 03:00 Glucose (Glutose) 22.5 gm Q15M PRN PO DECREASED GLUCOSE; Start 12/19/16 at 03: 00 Dextrose (D50w Syringe) 25 ml Q15M PRN IV DECREASED GLUCOSE; Start 12/19/16 at 03:00 Dextrose (D50w Syringe) 50 ml Q15M PRN IV DECREASED GLUCOSE; Start 12/19/16 at 03:00 Glucagon (Glucagen) 1 mg Q15M PRN IM DECREASED GLUCOSE; Start 12/19/16 at 03:00 Glucose (Glutose) 15 gm Q15M PRN BUCCAL DECREASED GLUCOSE; Start 12/19/16 at 03 :00 Eye Lubricant (Artificial Tears Oph) 1 drop QID BOTH EYES ; Start 12/19/16 at 09 :00 Insulin Glargine (Lantus) 36 unit BID SC Last administered on 12/20/16 08:18; Admin Dose 36 UNIT; Start 12/19/16 at 21:00 Miscellaneous Information Ketotifen Fumarate (Alaway... Q8H XX ; Start 12/19/16 at 15:30 Piperacillin Sod/ Tazobactam Sod (Zosyn 2.25gm/ 50ml (Pmx)) 50 ml @ 100 mls/hr Q8 IVPB Last administered on 12/20/16 14:59; Admin Dose 100 MLS/HR; Start at 22:00 Acetaminophen (Tylenol Tab) 325 mg Q4H PRN PO PAIN AND OR ELEVATED TEMP Last administered on 12/20/16 06:34; Admin Dose 325 MG; Start 12/19/16 at 19:30 Miscellaneous Information VANCOMYCIN RANDOM ON 11/27... ONCE ONCE XX ; Start at 05:00; Stop 12/21/16 at 05:01 Linezolid (Zyvox 600mg/D5W (Pmx)) 300 ml @ 300 mls/hr Q12 IVPB ; Start at 21:00 FABIAN LEO MD Dec 20, 2016 16:09
--- NOTE | 2016-12-20 17:44 | CONS ---
DATE OF ADMISSION: 12/18/2016 DATE OF CONSULTATION: 12/20/2016 REASON FOR CONSULTATION: Antibiotic management. HISTORY OF PRESENT ILLNESS: Vivian Sheridan is a 66-year-old female, well known to us from previous admissions. Patient was recently discharged after the diagnosis of osteomyelitis was made who now comes in with fever and cough and is being seen for antibiotic management. Past problems include: 1. Hypertension. 2. Diabetes. 3. Gout. 4. Osteomyelitis. The patient was discharged 5 days prior to admission with diagnosis of osteomyelitis from a diabetic ulcer. She was placed on a PICC line. Now she comes in with fever, cough which started a few days after the discharge. Chest x-ray in the emergency room is consistent with multifocal pneumonia for which she was admitted. On admission, her white count is 15.2, H and H of 10 and 31.5, platelet count 235,000. BUN 82 and creatinine 3.97, random glucose was 237. HOSPITAL COURSE: She was seen by Dr. Nathaniel Stark. He felt she had nonoliguric to oliguric acute renal failure due to ATN, worsening renal failure with fluid overload. She needs non nephrotoxic antibiotics. She was placed initially on Zosyn and vancomycin. The x-rays show multifocal focal lung consolidation as previously outlined. PAST MEDICAL HISTORY: Operations as outlined. FAMILY HISTORY: Noncontributory. SOCIAL HISTORY: She does not smoke, drink, or abuse drugs. ALLERGIES: NONE TO PENICILLIN, SULFA, OR FOODS. MEDICATION: Per chart. REVIEW OF SYSTEMS: As per HPI. PHYSICAL EXAMINATION: GENERAL APPEARANCE: The patient is an obese, well developed, well-nourished female who is alert, responsive, in no acute distress. VITAL SIGNS: Stable. She is afebrile. SKIN: Without generalized rash. HEENT: Within normal limits. NECK: Supple. Lymph nodes nonpalpable. CHEST: Decreased breath sounds at the bases. HEART: Without murmur or gallop. ABDOMEN: Soft, nontender, without organosplenomegaly or masses. EXTREMITIES: She has bilateral foot edema of 2 to 3+ with a left foot ulcer. RECTAL: Deferred. GENITAL: Deferred. NEUROLOGIC: No focal neurological abnormality. IMPRESSION AND PLAN: So, the patient is admitted with: 1. Sepsis secondary to healthcare-associated pneumonia. 2. diabetic foot with osteomyelitis. 3. [id number] renal failure. 4. Diabetes mellitus. 5. Hypertension. 6. Gout. 7. Obesity. 8. Dyslipidemia. I am going to switch her from vancomycin to Zyvox or linezolid. We will continue her on this regimen. I will dictate my findings to the hospitalists and to Dr. Nathaniel Stark. Dictated By: Hermilo Styles MD JD/patricia/quentin /Document#: [id number]
[2016-12-20] MEDS: LINEZOLID 600 MG/D5W (PMX) 300 ML IVPB SCH (20:30)
[2016-12-20] MEDS: ATORVASTATIN 10 MG TAB PO SCH (20:31)
[2016-12-21] VITALS (10 sets, daily range): BP systolic 118–155; BP diastolic 55–68; PULSE 66–75; RESP 18–22
[2016-12-21] MEDS ORDERED: morphine 2 MG INJ IV PRN (00:15)
[2016-12-21] MEDS ORDERED: morphine 2 MG INJ ONE (00:35)
[2016-12-21] MEDS: ACCU-CHEK XX SCH (02:00)
[2016-12-21] MEDS: ALBUTEROL/IPRATROPIUM (NEB) 3 ML AMP HHN SCH (02:00)
[2016-12-21] MEDS: DOCUSATE SODIUM 100 MG CAP PO SCH ×2 (02:30→16:34)
--- NOTE | 2016-12-21 04:25 | OPR ---
DATE OF OPERATION: 12/20/2016 PREOPERATIVE DIAGNOSIS: Renal failure. POSTOPERATIVE DIAGNOSIS: Renal failure. OPERATIVE PROCEDURE: Right femoral dialysis catheter placement. SURGEON: Dr. Tobias. ANESTHESIA: Local. Risks, benefits, complications, alternatives explained to the patient and the family. Consent obtained. OPERATIVE PROCEDURE: The patient was placed in supine position and draped in usual sterile fashion. 1 percent lidocaine was through the operation for local anesthesia. Access was gained in the right common femoral vein. Guidewire was advanced without any difficulty. Subcutaneous tissue was dilated. 20 cm dialysis catheter advanced over a guide wire, secured to skin using silk sutures. Both ports of the catheter were aspirated and injected using saline solution. Patient tolerated the procedure well. Dictated By: Ryan Tobias MD /patricia/ /Document#: [id number]
[2016-12-21] MEDS: PANTOPRAZOLE (EC) 40 MG TAB PO SCH (06:34)
[2016-12-21] MEDS: PIPER-TAZO 2.25 GM (PMX) 50 ML IVPB SCH ×3 (06:34→22:50)
[2016-12-21] MEDS: KETOTIFEN FUMARATE XX SCH ×3 (07:30→23:30)
[2016-12-21] MEDS: INSULIN ASPART [NOVOLOG] 3 ML PEN SC SCH ×7 (08:33→20:53)
[2016-12-21] MEDS: INSULIN GLARGINE [LANtus] 3 ML PEN SC SCH ×2 (08:34→20:57)
[2016-12-21 08:42] LABS: BASOPHILS % 0.2 % (0.0-2.0); EOSINOPHILS # 0.3 10^3/ul (0.0-0.5); EOSINOPHILS % 2.9 % (0.0-7.0); HEMATOCRIT 23.5 % (37.0-47.0); HEMOGLOBIN 7.2 g/dl (12.0-16.0); LYMPHOCYTES # 0.7 10^3/ul (0.8-2.9); LYMPHOCYTES % 6.3 % (15.0-51.0); MEAN CORPUSCULAR HEMOGLOBIN 28.6 pg (29.0-33.0); MEAN CORPUSCULAR HGB CONC 30.6 g/dl (32.0-37.0); MEAN CORPUSCULAR VOLUME 93.3 fl (82.0-101.0); MEAN PLATELET VOLUME 11.4 fl (7.4-10.4); MONOCYTE # 0.7 10^3/ul (0.3-0.9); MONOCYTES % 6.5 % (0.0-11.0); NEUTROPHILS % 83.6 % (39.0-77.0); PLATELET COUNT 246 10^3/UL (140-415); RED BLOOD COUNT 2.52 10^6/ul (4.20-5.40); WHITE BLOOD COUNT 10.9 10^3/ul (4.8-10.8)
[2016-12-21 08:49] LABS: CALCIUM 8.5 mg/dl (8.4-10.2); CREATININE 4.27 mg/dl (0.44-1.00); POTASSIUM 5.2 mmol/L (3.5-5.1)
[2016-12-21] MEDS: ALBUTEROL/IPRATROPIUM (NEB) 3 ML AMP HHN PRN (09:00)
[2016-12-21] MEDS: DILTIAZEM (SR) 60 MG CAP PO SCH (09:00)
[2016-12-21] MEDS: AMLODIPINE 10 MG TAB PO SCH (09:00)
[2016-12-21] MEDS: LINEZOLID 600 MG/D5W (PMX) 300 ML IVPB SCH ×2 (09:16→20:51)
[2016-12-21] MEDS: SILVER SULFADIAZINE 1% 25 GM CR TOP SCH ×2 (09:17→20:52)
[2016-12-21] MEDS: LORATADINE 10 MG TAB PO SCH (09:17)
[2016-12-21] MEDS: ONDANSETRON 4 MG INJ IV PRN (09:17)
[2016-12-21] MEDS: ARTIFICIAL TEARS 15 ML OPH BOTH EYES SCH ×4 (09:17→20:51)
[2016-12-21] MEDS: LACTOBACILLUS RHAMNOSUS CAP PO SCH ×2 (09:18→20:51)
[2016-12-21] MEDS: ASPIRIN 81 MG TAB PO SCH (09:18)
[2016-12-21] MEDS: SENNA TAB PO SCH ×2 (09:18→20:52)
[2016-12-21] MEDS: CHOLECALCIFEROL 1,000 UNIT TAB PO SCH (09:18)
[2016-12-21] MEDS: ALLOPURINOL 100 MG TAB PO SCH (09:19)
[2016-12-21] MEDS: PENTOXIFYLLINE (SR) 400 MG TAB PO SCH ×2 (09:19→20:52)
[2016-12-21] MEDS: COLLAGENASE 30 GM TUBE TOP SCH (09:20)
--- NOTE | 2016-12-21 11:48 | CONS ---
Date/Time of Note Date/Time of Note DATE: 12/21/16 TIME: 11:42 Assessment/Plan Assessment/Plan Chief Complaint/Hosp Course 66-year-old female with a history of high blood pressure, diabetes, gout, and osteomyelitis in the past who presents to the ER with fever and cough. She was just here and discharged 5 days ago after being diagnosed with osteomyelitis from a diabetic ulcer and is scheduled to receive long-term IV antibiotics via PICC line. Fever cough started a few days after discharge, but the cough is nonbloody, she has had no vomiting or abdominal pain, denies blood in her urine or in her stool. She has had no diarrhea as well. Chest x-ray in the emergency room is concerning for multifocal pneumonia, she is being admitted for further management.. Baseline Cr 2.5- admitted with Cr 5.0.she is admitted for HCAP and on IV abx. she was previosuly seen in Med/surge floor around 7 pm Problems: Additional Assessment/Plan 1. Non Oliguric to oliguric Acute kidney injury on CKD III/IV due to ATN- worsening renal failure with fluid overload now - stared on HD on 12/20/16 2. 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 HTN 4. Diabetic foot infection 5. Health care associated PNA Plan : started on HD for acute renal failure with fluid overload s/p 1 session of HD yeterday, plan for HD today and tomorrow Podiatry to decide for LE gangerene renally dose all antibiotics will follow up Consultation Date/Type/Reason Admit Date/Time Dec 18, 2016 at 20:59 Initial Consult Date 12/19/16 Type of Consultation: NEPHROLOGY Referring Provider: FABIAN LEO MD 24 HR Interval Summary Free Text/Dictation c/o nausea, did not eat, BP stable, afebrile Exam/Review of Systems Vital Signs Vitals Vital Signs Date Time Temp Pulse Resp B/P Pulse Ox O2 Delivery O2 Flow Rate FiO2 12/21/16 09:00 92 20 93 Nasal Cannula 5.0 12/21/16 08:13 98.0 140/65 Intake and Output 12/20/16 12/20/16 12/21/16 15:00 23:00 07:00 Intake Total 1430 ml Output Total 2700 ml Balance -1270 ml Exam Constitutional: alert, oriented, other Head: normocephalic (Obese) Eyes: PERRL ENMT: mucosa pink and moist Neck: supple Respiratory: crackles/rales, diminished breath sounds, wheezing Cardiovascular: regular rate and rhythm, No murmurs/extra sounds Gastrointestinal: bowel sounds, non-tender, soft Extremities: other (Bilateral foot edema about 2-3+, with left foot ulcer) + leisa catheter Results Result Diagram: 12/21/16 0455 12/21/16 0455 Results 24 hrs Laboratory Tests Test 12/20/16 17:43 12/20/16 20:21 12/21/16 04:55 Bedside Glucose 156 142 White Blood Count 10.9 #H Red Blood Count 2.52 L Hemoglobin 7.2 L Hematocrit 23.5 L Mean Corpuscular Volume 93.3 Mean Corpuscular Hemoglobin 28.6 L Mean Corpuscular Hemoglobin Concent 30.6 L Red Cell Distribution Width 14.0 Platelet Count 246 Mean Platelet Volume 11.4 H Neutrophils % 83.6 H Lymphocytes % 6.3 L Monocytes % 6.5 Eosinophils % 2.9 Basophils % 0.2 Nucleated Red Blood Cells % 0.0 Neutrophils # (Manual) 9.1 H Lymphocytes # 0.7 L Monocytes # 0.7 Eosinophils # 0.3 Basophils # 0.0 Nucleated Red Blood Cells # 0.0 Sodium Level 139 Potassium Level 5.2 H Chloride Level 100 Carbon Dioxide Level 22 Anion Gap 22 H Blood Urea Nitrogen 68 H Creatinine 4.27 H Glucose Level 149 # Calcium Level 8.5 Random Vancomycin Level 16.2 Medications Medications Current Medications Allopurinol (Zyloprim) 100 mg DAILY PO Last administered on 12/21/16 09:19; Admin Dose 100 MG; Start 12/19/16 at 09:00 Amlodipine Besylate (Norvasc) 10 mg DAILY PO Last administered on 12/20/16 09: 13; Admin Dose 10 MG; Start 12/19/16 at 09:00 Aspirin (Aspirin) 81 mg DAILY PO Last administered on 12/21/16 09:18; Admin Dose 81 MG; Start 12/19/16 at 09:00 Atorvastatin Calcium (Lipitor) 10 mg DAILY@21 PO Last administered on 20:31; Admin Dose 10 MG; Start 12/19/16 at 21:00 Cholecalciferol (Vitamin D) 1,000 unit DAILY PO Last administered on 12/21/16 09:18; Admin Dose 1,000 UNIT; Start 12/19/16 at 09:00 Collagenase (Santyl) 1 applic DAILY TOP Last administered on 12/21/16 09:20; Admin Dose 1 APPLIC; Start 12/19/16 at 09:00 Diltiazem HCl (Cardizem Sr) 60 mg DAILY PO Last administered on 12/20/16 09:12 ; Admin Dose 60 MG; Start 12/19/16 at 09:00 Docusate Sodium (Colace) 100 mg Q12H PO Last administered on 12/21/16 02:30; Admin Dose 100 MG; Start 12/19/16 at 02:30 Hydralazine HCl (Apresoline) 100 mg BID PO Last administered on 12/20/16 20:31 ; Admin Dose 100 MG; Start 12/19/16 at 09:00 Loratadine (Claritin) 5 mg DAILY PO Last administered on 12/21/16 09:17; Admin Dose 5 MG; Start 12/19/16 at 09:00 Pantoprazole (Protonix Tab) 40 mg DAILY@06 PO Last administered on 12/21/16 06 :34; Admin Dose 40 MG; Start 12/19/16 at 06:00 Pentoxifylline (Trental) 400 mg BID PO Last administered on 12/21/16 09:19; Admin Dose 400 MG; Start 12/19/16 at 09:00 Senna (Senokot) 2 tab BID PO Last administered on 12/21/16 09:18; Admin Dose 2 TAB; Start 12/19/16 at 09:00 Silver Sulfadiazine (Thermazene 1% 25 Gm) 1 applic BID TOP Last administered on 12/21/16 09:17; Admin Dose 1 APPLIC; Start 12/19/16 at 09:00 Miscellaneous Information 1 drop Q8H OP ; Start 12/19/16 at 02:30; Status UNV Diagnostic Test (Pha) (Accu-Chek) 1 ea 02 XX ; Start 12/20/16 at 02:00 Ondansetron HCl (Zofran Inj) 4 mg Q6H PRN IV NAUSEA AND/OR VOMITING Last administered on 12/21/16 09:17; Admin Dose 4 MG; Start 12/19/16 at 02:30 Lactobacillus Acidophilus/ Rhamnosus (Culturelle) 1 cap BID PO Last administered on 12/21/16 09:18; Admin Dose 1 CAP; Start 12/19/16 at 09:00 Miscellaneous Information 1 ea NOTE XX ; Start 12/19/16 at 03:00 Glucose (Glutose) 15 gm Q15M PRN PO DECREASED GLUCOSE; Start 12/19/16 at 03:00 Glucose (Glutose) 22.5 gm Q15M PRN PO DECREASED GLUCOSE; Start 12/19/16 at 03: 00 Dextrose (D50w Syringe) 25 ml Q15M PRN IV DECREASED GLUCOSE; Start 12/19/16 at 03:00 Dextrose (D50w Syringe) 50 ml Q15M PRN IV DECREASED GLUCOSE; Start 12/19/16 at 03:00 Glucagon (Glucagen) 1 mg Q15M PRN IM DECREASED GLUCOSE; Start 12/19/16 at 03:00 Glucose (Glutose) 15 gm Q15M PRN BUCCAL DECREASED GLUCOSE; Start 12/19/16 at 03 :00 Eye Lubricant (Artificial Tears Oph) 1 drop QID BOTH EYES Last administered on 12/21/16 09:17; Admin Dose 1 DROP; Start 12/19/16 at 09:00 Miscellaneous Information Ketotifen Fumarate (Alaway... Q8H XX ; Start 12/19/16 at 15:30 Piperacillin Sod/ Tazobactam Sod (Zosyn 2.25gm/ 50ml (Pmx)) 50 ml @ 100 mls/hr Q8 IVPB Last administered on 12/21/16 06:34; Admin Dose 100 MLS/HR; Start at 22:00 Acetaminophen 325 mg 325 mg Q4H PRN PO PAIN AND OR ELEVATED TEMP Last administered on 12/20/16 20:38; Admin Dose 325 MG; Start 12/19/16 at 19:30 Linezolid (Zyvox 600mg/D5W (Pmx)) 300 ml @ 300 mls/hr Q12 IVPB Last administered on 12/21/16 09:16; Admin Dose 300 MLS/HR; Start 12/20/16 at 21:00 Insulin Glargine (Lantus) 42 unit BID SC Last administered on 12/21/16 08:34; Admin Dose 42 UNIT; Start 12/20/16 at 21:00 Morphine Sulfate (morphine) 2 mg Q4H PRN IV PAIN; Start 12/21/16 at 00:15 MONSE CHILEL MD Dec 21, 2016 11:48
[2016-12-21] MEDS ORDERED: METOCLOPRAMIDE 10 MG INJ IV ONE (12:00)
--- NOTE | 2016-12-21 14:22 | PN ---
Date/Time of Note Date/Time of Note DATE: 12/21/16 TIME: 13:51 Assessment/Plan VTE Prophylaxis VTE Prophylaxis Intervention: SCD's Lines/Catheters IV Catheter Type (from Nrsg): PICC Line Central line still needed: Yes Urinary Cath still in place: Yes Reason Cath still needed: other (indicate) Assessment/Plan Assessment/Plan 66-year-old female with pmhx notable for DM2, CKD, HTN recently admitted for diabetic foot OM now with sepsis 2/2 health care associated pneumonia. Hospitalization notable for JENNIFER on CKD with fluid overload warranting HD #HCAP: cont zosyn, vanc changed to linezolid --->abx adjusted for CrCl 19 so decreasing zosyn dose -anticipate 7 days of therapy for HCAP from date of admission -check sputum cultures and strep urine Ag -will monitor platelets closely while on Linezolid #JENNIFER on CKD: baseline closer to mid 2s -likely ATN from sepsis v result of nephrotox abx. -MUCH APPRECIATE RENAL ASSISTANCE. Agreed than given pt's poor renal reserve, ASSEMBLER GOLD FRAME indicated for volume removal for this patient. -ID helping with modification of abx regimen #diabetic foot infection sp debridement NOT amputation or complete resection of infected tissue during previous admission (wound culture NOT bone biopsy with EColi) -MRI results from last admit reviewed. 5th toe with reported cellulitis, read as chronic OM v inflammatory arthritis. Given that OM is CHRONIC and NOT ACUTE, -podiatry consulted for further debridement-->possibly next week - decreased zosyn dose given Crcl 19, ID changed vanc to linezolid #DM2 with hyperglycemia -increase insulin slightly again. CDE note reviewed #HTN. HL: cont home meds CM consult closer to discharge for help with outpatient HD Subjective 24 Hr Interval Summary Free Text/Dictation 2L removed in HD yesterday. Breathing markedly improved Exam/Review of Systems Vital Signs Vitals Vital Signs Date Time Temp Pulse Resp B/P Pulse Ox O2 Delivery O2 Flow Rate FiO2 12/21/16 09:00 92 20 93 Nasal Cannula 5.0 12/21/16 08:13 98.0 140/65 Intake and Output 12/20/16 12/20/16 12/21/16 15:00 23:00 07:00 Intake Total 1430 ml Output Total 2700 ml Balance -1270 ml Exam nad, pleasant, laying in bed lungs much clearer no mrg abd soft no rashes Results Result Diagram: 12/21/16 0455 12/21/16 0455 Results 24 hrs Laboratory Tests Test 12/20/16 17:43 12/20/16 20:21 12/21/16 04:55 12/21/16 12:01 Bedside Glucose 156 142 141 White Blood Count 10.9 #H Red Blood Count 2.52 L Hemoglobin 7.2 L Hematocrit 23.5 L Mean Corpuscular Volume 93.3 Mean Corpuscular Hemoglobin 28.6 L Mean Corpuscular Hemoglobin Concent 30.6 L Red Cell Distribution Width 14.0 Platelet Count 246 Mean Platelet Volume 11.4 H Neutrophils % 83.6 H Lymphocytes % 6.3 L Monocytes % 6.5 Eosinophils % 2.9 Basophils % 0.2 Nucleated Red Blood Cells % 0.0 Neutrophils # (Manual) 9.1 H Lymphocytes # 0.7 L Monocytes # 0.7 Eosinophils # 0.3 Basophils # 0.0 Nucleated Red Blood Cells # 0.0 Sodium Level 139 Potassium Level 5.2 H Chloride Level 100 Carbon Dioxide Level 22 Anion Gap 22 H Blood Urea Nitrogen 68 H Creatinine 4.27 H Glucose Level 149 # Calcium Level 8.5 Random Vancomycin Level 16.2 Medications Medications Current Medications Allopurinol (Zyloprim) 100 mg DAILY PO Last administered on 12/21/16 09:19; Admin Dose 100 MG; Start 12/19/16 at 09:00 Amlodipine Besylate (Norvasc) 10 mg DAILY PO Last administered on 12/20/16 09: 13; Admin Dose 10 MG; Start 12/19/16 at 09:00 Aspirin (Aspirin) 81 mg DAILY PO Last administered on 12/21/16 09:18; Admin Dose 81 MG; Start 12/19/16 at 09:00 Atorvastatin Calcium (Lipitor) 10 mg DAILY@21 PO Last administered on 20:31; Admin Dose 10 MG; Start 12/19/16 at 21:00 Cholecalciferol (Vitamin D) 1,000 unit DAILY PO Last administered on 12/21/16 09:18; Admin Dose 1,000 UNIT; Start 12/19/16 at 09:00 Collagenase (Santyl) 1 applic DAILY TOP Last administered on 12/21/16 09:20; Admin Dose 1 APPLIC; Start 12/19/16 at 09:00 Diltiazem HCl (Cardizem Sr) 60 mg DAILY PO Last administered on 12/20/16 09:12 ; Admin Dose 60 MG; Start 12/19/16 at 09:00 Docusate Sodium (Colace) 100 mg Q12H PO Last administered on 12/21/16 02:30; Admin Dose 100 MG; Start 12/19/16 at 02:30 Hydralazine HCl (Apresoline) 100 mg BID PO Last administered on 12/20/16 20:31 ; Admin Dose 100 MG; Start 12/19/16 at 09:00 Loratadine (Claritin) 5 mg DAILY PO Last administered on 12/21/16 09:17; Admin Dose 5 MG; Start 12/19/16 at 09:00 Pantoprazole (Protonix Tab) 40 mg DAILY@06 PO Last administered on 12/21/16 06 :34; Admin Dose 40 MG; Start 12/19/16 at 06:00 Pentoxifylline (Trental) 400 mg BID PO Last administered on 12/21/16 09:19; Admin Dose 400 MG; Start 12/19/16 at 09:00 Senna (Senokot) 2 tab BID PO Last administered on 12/21/16 09:18; Admin Dose 2 TAB; Start 12/19/16 at 09:00 Silver Sulfadiazine (Thermazene 1% 25 Gm) 1 applic BID TOP Last administered on 12/21/16 09:17; Admin Dose 1 APPLIC; Start 12/19/16 at 09:00 Miscellaneous Information 1 drop Q8H OP ; Start 12/19/16 at 02:30; Status UNV Diagnostic Test (Pha) (Accu-Chek) 1 ea 02 XX ; Start 12/20/16 at 02:00 Ondansetron HCl (Zofran Inj) 4 mg Q6H PRN IV NAUSEA AND/OR VOMITING Last administered on 12/21/16 09:17; Admin Dose 4 MG; Start 12/19/16 at 02:30 Lactobacillus Acidophilus/ Rhamnosus (Culturelle) 1 cap BID PO Last administered on 12/21/16 09:18; Admin Dose 1 CAP; Start 12/19/16 at 09:00 Miscellaneous Information 1 ea NOTE XX ; Start 12/19/16 at 03:00 Glucose (Glutose) 15 gm Q15M PRN PO DECREASED GLUCOSE; Start 12/19/16 at 03:00 Glucose (Glutose) 22.5 gm Q15M PRN PO DECREASED GLUCOSE; Start 12/19/16 at 03: 00 Dextrose (D50w Syringe) 25 ml Q15M PRN IV DECREASED GLUCOSE; Start 12/19/16 at 03:00 Dextrose (D50w Syringe) 50 ml Q15M PRN IV DECREASED GLUCOSE; Start 12/19/16 at 03:00 Glucagon (Glucagen) 1 mg Q15M PRN IM DECREASED GLUCOSE; Start 12/19/16 at 03:00 Glucose (Glutose) 15 gm Q15M PRN BUCCAL DECREASED GLUCOSE; Start 12/19/16 at 03 :00 Eye Lubricant (Artificial Tears Oph) 1 drop QID BOTH EYES Last administered on 12/21/16 09:17; Admin Dose 1 DROP; Start 12/19/16 at 09:00 Miscellaneous Information Ketotifen Fumarate (Alaway... Q8H XX ; Start 12/19/16 at 15:30 Piperacillin Sod/ Tazobactam Sod (Zosyn 2.25gm/ 50ml (Pmx)) 50 ml @ 100 mls/hr Q8 IVPB Last administered on 12/21/16 06:34; Admin Dose 100 MLS/HR; Start at 22:00 Acetaminophen 325 mg 325 mg Q4H PRN PO PAIN AND OR ELEVATED TEMP Last administered on 12/20/16 20:38; Admin Dose 325 MG; Start 12/19/16 at 19:30 Linezolid (Zyvox 600mg/D5W (Pmx)) 300 ml @ 300 mls/hr Q12 IVPB Last administered on 12/21/16 09:16; Admin Dose 300 MLS/HR; Start 12/20/16 at 21:00 Insulin Glargine (Lantus) 42 unit BID SC Last administered on 12/21/16 08:34; Admin Dose 42 UNIT; Start 12/20/16 at 21:00 Morphine Sulfate (morphine) 2 mg Q4H PRN IV PAIN; Start 12/21/16 at 00:15 FABIAN LEO MD Dec 21, 2016 14:17
--- NOTE | 2016-12-21 14:57 | CONS ---
Date/Time of Note Date/Time of Note DATE: 12/21/16 TIME: 14:43 Assessment/Plan Assessment/Plan Chief Complaint/Hosp Course ID PROGRESS NOTE CURRENT ABX: =>Zyvox #2 + Zosyn #4 s/p Vanco IV s/p Daptomycin 24H INTERVAL SUMMARY * A/A/O -> no fevers, VSS, foot is painful -- she is followed by [facility] * 12/20/16 CXR: Multi focal lung consolidation concerning for multifocal pneumonia is mildly increased from prior exam. * 12/18/16 BCx from ED (+)1/2 bottles GPC + * She is current in HD via right FEM Derrick * 12/18/16 FOOT WOUND CX: WOUND CULTURE Final Organism 1 CORYNEBACTERIUM SPECIES QUANTITY SCANT GROWTH CORYN SPS Zone Size RX --------- --- * AMPICILLIN S * CEFAZOLIN S * CEFOTAXIME S * CEFUROXIME S * CIPROFLOXACIN S * CLINDAMYCIN R * ERYTHROMYCIN R * PENICILLIN S * VANCOMYCIN S Exam Constitutional: alert, oriented, super morbid obese, laying in bed supine Psych: nl mood/affect, no complaints HEENT: Unremarkable Neck: non-tender, supple Respiratory: No wheezing, equal chest rise bilaterally without dyspnea on observation Cardiovascular: RRR Gastrointestinal: Soft, NT Extremities: (+)Left complex diabetic foot ulcer - draining see photos Neurological: ENGAGEMENT MANAGER II-XII 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 SIRS on admission w/low grade temp TMax 99.0, leukocytosis 11.6 w/left shift , VSS => due to #2 + #3 * 12/18/16 BCx (+) 1/2 bottles from ED = GPC pending final * 12/04/16 BCx (+) 1/2 bottles from ED = (+)CoNS 2. HCAP CXR 12/20/16: Multi focal lung consolidation concerning for multifocal pneumonia is mildly increased from prior exam. 3. Left diabetic foot wound w/concern acute osteomyelitis => hx of acute traumatic after foot got caught in motor chair * 12/18/16 Left Foot Wound Cx: (+)Corynebacterium (NOT JK) = normal skin hever * 12/08/16 Left Foot Wound Cx: (+) WOUND CULTURE Final Organism 1 ESCHERICHIA COLI * 12/05/16 MRI LEFT FOOT: * 1. Skin ulcer along the lateral plantar aspect of the fifth digit at the level of the distal fifth metatarsal and metatarsophalangeal joint with cellulitis. * 2. Erosive changes with mild deformity of the fifth metatarsal head but no significant abnormal marrow signal. This can be seen with chronic osteomyelitis given the adjacent skin ulcer although inflammatory arthritis can also give this appearance. * 3. Mild osteoarthrosis of the first metatarsophalangeal joint. * Hx of prior left Diabetic foot (+)MRSA infection w/osteomyelitis -> resolved ~ 1-year ago 4. DMT2 w/complication of DM peripheral neuropathy 5. Mild PAD=> Arterial Duplex revealed: Mild plaque formation without evidence for hemodynamically significant stenosis or occlusion. 6. HTN 7. HLD 8. Tinnitus ( + ) MRSA Nares -> 12/07/16 INVASIVES: R-FEM Derrick ABX ALLERGY: PCN CURRENT ABX: =>Zyvox #2 + Zosyn #4 s/p Vanco IV s/p Daptomycin ID RECOMMENDATIONS 1. Continue current ABX 2. Bactroban to bilateral nares 3. Repeat BCx via HD Femoral Derrick 4. Follow [facility] recs Problems: Consultation Date/Type/Reason Admit Date/Time Dec 18, 2016 at 20:59 Initial Consult Date 12/20/16 Type of Consultation: ID Referring Provider: FABIAN LEO MD Exam/Review of Systems Vital Signs Vitals Vital Signs Date Time Temp Pulse Resp B/P Pulse Ox O2 Delivery O2 Flow Rate FiO2 12/21/16 14:30 72 12/21/16 13:00 18 12/21/16 09:00 93 Nasal Cannula 5.0 12/21/16 08:13 98.0 140/65 Intake and Output 12/20/16 12/20/1612/21/17 15:00 23:00 07:00 Intake Total 1430 ml Output Total 2700 ml Balance -1270 ml Results Result Diagram: 12/21/16 0455 12/21/16 0455 Results 24 hrs Laboratory Tests Test 12/20/16 17:43 12/20/16 20:21 12/21/16 04:55 12/21/16 08:03 Bedside Glucose 156 142 165 White Blood Count 10.9 #H Red Blood Count 2.52 L Hemoglobin 7.2 L Hematocrit 23.5 L Mean Corpuscular Volume 93.3 Mean Corpuscular Hemoglobin 28.6 L Mean Corpuscular Hemoglobin Concent 30.6 L Red Cell Distribution Width 14.0 Platelet Count 246 Mean Platelet Volume 11.4 H Neutrophils % 83.6 H Lymphocytes % 6.3 L Monocytes % 6.5 Eosinophils % 2.9 Basophils % 0.2 Nucleated Red Blood Cells % 0.0 Neutrophils # (Manual) 9.1 H Lymphocytes # 0.7 L Monocytes # 0.7 Eosinophils # 0.3 Basophils # 0.0 Nucleated Red Blood Cells # 0.0 Sodium Level 139 Potassium Level 5.2 H Chloride Level 100 Carbon Dioxide Level 22 Anion Gap 22 H Blood Urea Nitrogen 68 H Creatinine 4.27 H Glucose Level 149 # Calcium Level 8.5 Random Vancomycin Level 16.2 Test 12/21/16 12:01 Bedside Glucose 141 Medications Medications Current Medications Allopurinol (Zyloprim) 100 mg DAILY PO Last administered on 12/21/16 09:19; Admin Dose 100 MG; Start 12/19/16 at 09:00 Amlodipine Besylate (Norvasc) 10 mg DAILY PO Last administered on 12/20/16 09: 13; Admin Dose 10 MG; Start 12/19/16 at 09:00 Aspirin (Aspirin) 81 mg DAILY PO Last administered on 12/21/16 09:18; Admin Dose 81 MG; Start 12/19/16 at 09:00 Atorvastatin Calcium (Lipitor) 10 mg DAILY@21 PO Last administered on 20:31; Admin Dose 10 MG; Start 12/19/16 at 21:00 Cholecalciferol (Vitamin D) 1,000 unit DAILY PO Last administered on 12/21/16 09:18; Admin Dose 1,000 UNIT; Start 12/19/16 at 09:00 Collagenase (Santyl) 1 applic DAILY TOP Last administered on 12/21/16 09:20; Admin Dose 1 APPLIC; Start 12/19/16 at 09:00 Diltiazem HCl (Cardizem Sr) 60 mg DAILY PO Last administered on 12/20/16 09:12 ; Admin Dose 60 MG; Start 12/19/16 at 09:00 Docusate Sodium (Colace) 100 mg Q12H PO Last administered on 12/21/16 02:30; Admin Dose 100 MG; Start 12/19/16 at 02:30 Hydralazine HCl (Apresoline) 100 mg BID PO Last administered on 12/20/16 20:31 ; Admin Dose 100 MG; Start 12/19/16 at 09:00 Loratadine (Claritin) 5 mg DAILY PO Last administered on 12/21/16 09:17; Admin Dose 5 MG; Start 12/19/16 at 09:00 Pantoprazole (Protonix Tab) 40 mg DAILY@06 PO Last administered on 12/21/16 06 :34; Admin Dose 40 MG; Start 12/19/16 at 06:00 Pentoxifylline (Trental) 400 mg BID PO Last administered on 12/21/16 09:19; Admin Dose 400 MG; Start 12/19/16 at 09:00 Senna (Senokot) 2 tab BID PO Last administered on 12/21/16 09:18; Admin Dose 2 TAB; Start 12/19/16 at 09:00 Silver Sulfadiazine (Thermazene 1% 25 Gm) 1 applic BID TOP Last administered on 12/21/16 09:17; Admin Dose 1 APPLIC; Start 12/19/16 at 09:00 Miscellaneous Information 1 drop Q8H OP ; Start 12/19/16 at 02:30; Status UNV Diagnostic Test (Pha) (Accu-Chek) 1 ea 02 XX ; Start 12/20/16 at 02:00 Ondansetron HCl (Zofran Inj) 4 mg Q6H PRN IV NAUSEA AND/OR VOMITING Last administered on 12/21/16 09:17; Admin Dose 4 MG; Start 12/19/16 at 02:30 Lactobacillus Acidophilus/ Rhamnosus (Culturelle) 1 cap BID PO Last administered on 12/21/16 09:18; Admin Dose 1 CAP; Start 12/19/16 at 09:00 Miscellaneous Information 1 ea NOTE XX ; Start 12/19/16 at 03:00 Glucose (Glutose) 15 gm Q15M PRN PO DECREASED GLUCOSE; Start 12/19/16 at 03:00 Glucose (Glutose) 22.5 gm Q15M PRN PO DECREASED GLUCOSE; Start 12/19/16 at 03: 00 Dextrose (D50w Syringe) 25 ml Q15M PRN IV DECREASED GLUCOSE; Start 12/19/16 at 03:00 Dextrose (D50w Syringe) 50 ml Q15M PRN IV DECREASED GLUCOSE; Start 12/19/16 at 03:00 Glucagon (Glucagen) 1 mg Q15M PRN IM DECREASED GLUCOSE; Start 12/19/16 at 03:00 Glucose (Glutose) 15 gm Q15M PRN BUCCAL DECREASED GLUCOSE; Start 12/19/16 at 03 :00 Eye Lubricant (Artificial Tears Oph) 1 drop QID BOTH EYES Last administered on 12/21/16 09:17; Admin Dose 1 DROP; Start 12/19/16 at 09:00 Miscellaneous Information Ketotifen Fumarate (Alaway... Q8H XX ; Start 12/19/16 at 15:30 Piperacillin Sod/ Tazobactam Sod (Zosyn 2.25gm/ 50ml (Pmx)) 50 ml @ 100 mls/hr Q8 IVPB Last administered on 12/21/16 06:34; Admin Dose 100 MLS/HR; Start at 22:00 Acetaminophen 325 mg 325 mg Q4H PRN PO PAIN AND OR ELEVATED TEMP Last administered on 12/20/16 20:38; Admin Dose 325 MG; Start 12/19/16 at 19:30 Linezolid (Zyvox 600mg/D5W (Pmx)) 300 ml @ 300 mls/hr Q12 IVPB Last administered on 12/21/16 09:16; Admin Dose 300 MLS/HR; Start 12/20/16 at 21:00 Insulin Glargine (Lantus) 42 unit BID SC Last administered on 12/21/16 08:34; Admin Dose 42 UNIT; Start 12/20/16 at 21:00 Morphine Sulfate (morphine) 2 mg Q4H PRN IV PAIN; Start 12/21/16 at 00:15 NAHOMY LEPE NP Dec 21, 2016 14:55
[2016-12-21] MEDS: MUPIROCIN 2% 22 GM OINT TOP SCH ×2 (16:00→22:50)
[2016-12-21] MEDS: ATORVASTATIN 10 MG TAB PO SCH (20:59)
--- NOTE | 2016-12-21 23:16 | CONS ---
DATE OF ADMISSION: 12/18/2016 DATE OF CONSULTATION: 12/21/2016 CHIEF COMPLAINT: Left foot ulceration. HISTORY OF PRESENT ILLNESS: This is a 66-year-old female, who was admitted for fever, cough. Patient with a chronic left foot ulceration, recent admission with cellulitis, left foot. Patient had MRI, which revealed erosive changes, with mild deformity of 5th metatarsal head on MRI performed on 12/05/2016. Patient with [id number] kidney disease and concern, with possible ATN from sepsis or antibiotics. Patient with multiple comorbidities. PAST MEDICAL HISTORY: 1. Hypertension. 2. CVA. 3. Chronic kidney disease. 4. Diabetic nephropathy. PAST SURGICAL HISTORY: Hysterectomy, left foot debridement. SOCIAL HISTORY: Denies any alcohol or tobacco use. MEDICATION: Reviewed, include: 1. Zosyn. 2. Santyl. 3. Aspirin. 4. Trental. PHYSICAL EXAMINATION: VITAL SIGNS: Temperature is 98.5, pulse 74, respiratory rate 18, blood pressure 155/68, pulse oximetry is 96 with 4 L. OBJECTIVE FINDINGS: Patient alert, pleasant, obese, has dressings, left foot, without malodor. There is an ulceration, posterior aspect of the heel measuring approximately 4 x 5 cm with improved granulation, ulceration to the lateral aspect of the 5th metatarsophalangeal joint, 4 x 3 cm. Central aspect tunnels to the metatarsophalangeal joint. There is mild edema of the foot. Patient with decreased protective sensation. SKIN: Dry. Nails dystrophic, 1+ DP pulse. New ascending cellulitis noted. No decubitus ulceration. LABORATORY: WBC 10.9, hemoglobin 7.2, hematocrit 23.5, platelets 246. Sodium 139, potassium 5.2, chloride 100, CO2 of 22, BUN 68, creatinine 4.27. Extremity arterial study performed on 12/05/2016: Mild plaque, without evidence of hemodynamically stenosis or occlusion. ASSESSMENT: 1. Left foot diabetic foot ulceration. 2. Osteomyelitis, chronic, 5th metatarsal. 3. [id number]-[id number] kidney disease. 4. Diabetes type 2. 5. Hypertension. PLAN: Patient seen and evaluated. Obtain new radiographs. Wound care performed at the bedside. Continue Santyl. Obtained a consent to perform bedside debridement. When medically clear can discuss resection of bone and bone biopsy in the OR setting. Emeterio's ordered from pharmacy to help with wound irrigation. Discussed the planned procedure, risks, benefits, potential complications with patient, and she is amenable. Dictated By: Robson Hernandez DPM /patricia/mathieu /Document#: [id number]
[2016-12-22] VITALS (12 sets, daily range): BP systolic 122–182; BP diastolic 60–81; PULSE 71–77; RESP 18
[2016-12-22] MEDS: ACCU-CHEK XX SCH (01:00)
[2016-12-22] MEDS: DOCUSATE SODIUM 100 MG CAP PO SCH ×2 (01:36→14:08)
[2016-12-22] MEDS ORDERED: MAGNESIUM CITRATE 300 ML BTL PO ONE (02:30)
[2016-12-22] MEDS: PANTOPRAZOLE (EC) 40 MG TAB PO SCH (05:40)
[2016-12-22] MEDS: PIPER-TAZO 2.25 GM (PMX) 50 ML IVPB SCH ×3 (05:40→22:12)
[2016-12-22 07:06] LABS: BASOPHILS % 0.3 % (0.0-2.0); EOSINOPHILS # 0.4 10^3/ul (0.0-0.5); EOSINOPHILS % 3.4 % (0.0-7.0); HEMATOCRIT 25.1 % (37.0-47.0); HEMOGLOBIN 7.5 g/dl (12.0-16.0); LYMPHOCYTES # 0.8 10^3/ul (0.8-2.9); LYMPHOCYTES % 7.1 % (15.0-51.0); MEAN CORPUSCULAR HEMOGLOBIN 27.8 pg (29.0-33.0); MEAN CORPUSCULAR HGB CONC 29.9 g/dl (32.0-37.0); MEAN PLATELET VOLUME 11.1 fl (7.4-10.4); MONOCYTE # 0.8 10^3/ul (0.3-0.9); MONOCYTES % 7.3 % (0.0-11.0); NEUTROPHILS % 81.2 % (39.0-77.0); PLATELET COUNT 278 10^3/UL (140-415); RED CELL DISTRIBUTION WIDTH 14.3 % (11.5-14.5); WHITE BLOOD COUNT 11.2 10^3/ul (4.8-10.8)
[2016-12-22] MEDS: KETOTIFEN FUMARATE XX SCH ×3 (07:30→22:42)
[2016-12-22 08:06] LABS: CALCIUM 8.8 mg/dl (8.4-10.2); CREATININE 4.45 mg/dl (0.44-1.00); POTASSIUM 4.6 mmol/L (3.5-5.1)
[2016-12-22] MEDS: INSULIN ASPART [NOVOLOG] 3 ML PEN SC SCH ×7 (08:15→20:43)
[2016-12-22] MEDS: LACTOBACILLUS RHAMNOSUS CAP PO SCH ×2 (08:30→20:40)
[2016-12-22] MEDS: LORATADINE 10 MG TAB PO SCH (08:30)
[2016-12-22] MEDS: PENTOXIFYLLINE (SR) 400 MG TAB PO SCH ×2 (08:30→20:40)
[2016-12-22] MEDS: CHOLECALCIFEROL 1,000 UNIT TAB PO SCH (08:30)
[2016-12-22] MEDS: ASPIRIN 81 MG TAB PO SCH (08:30)
[2016-12-22] MEDS: ALLOPURINOL 100 MG TAB PO SCH (08:30)
[2016-12-22] MEDS: ARTIFICIAL TEARS 15 ML OPH BOTH EYES SCH ×4 (08:31→20:37)
[2016-12-22] MEDS: SILVER SULFADIAZINE 1% 25 GM CR TOP SCH ×2 (08:32→20:37)
[2016-12-22] MEDS: MUPIROCIN 2% 22 GM OINT TOP SCH ×2 (08:32→20:37)
[2016-12-22] MEDS: COLLAGENASE 30 GM TUBE TOP SCH (08:33)
[2016-12-22] MEDS: SENNA TAB PO SCH ×2 (08:37→20:40)
[2016-12-22] MEDS: LINEZOLID 600 MG/D5W (PMX) 300 ML IVPB SCH ×2 (08:37→20:45)
[2016-12-22] MEDS: INSULIN GLARGINE [LANtus] 3 ML PEN SC SCH ×2 (08:45→20:57)
--- NOTE | 2016-12-22 08:52 | RADRPT ---
PROCEDURE: XR Foot. CLINICAL INDICATION: Left foot ultrasound. Pain and swelling. TECHNIQUE: AP, lateral and oblique views of the left foot was obtained. The images were reviewed on a PACS workstation. COMPARISON: MRI of the left lower extremity December 05, 2016, December 04, 2016 FINDINGS: The bones of the foot appear intact, with no evidence of fracture, dislocation, or subluxation. Ther e is stable cortical irregularity of the left fifth toe metatarsal head and proximal phalanx. Overa ll, there is no interval change. Soft tissue swelling is again noted. No new findings are present. IMPRESSION: Stable cortical irregularity of the left fifth toe. Soft tissue swelling. Overall, no interval eunice nge. No new findings are present. RPTAT: EE .Deepali Dietrich MD, Date Time Electronically viewed and signed by .Deepali Dietrich MD, on 12/22/2016 08:52 .F/
[2016-12-22] MEDS: AMLODIPINE 10 MG TAB PO SCH (09:00)
[2016-12-22] MEDS: DILTIAZEM (SR) 60 MG CAP PO SCH (09:00)
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
--- NOTE | 2016-12-22 12:38 | CONS ---
Date/Time of Note Date/Time of Note DATE: 12/22/16 TIME: 12:36 Assessment/Plan Assessment/Plan Additional Assessment/Plan 1. Non Oliguric to oliguric Acute kidney injury on CKD III/IV due to ATN- worsening renal failure with fluid overload now - stared on HD on 12/20/16 2. 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 HTN 4. Diabetic foot infection 5. Health care associated PNA 6. sepsis with bacteremia , LE gangrene Plan : started on HD for acute renal failure with fluid overload - S/p HD x 2 days in a row, plan for HD today then no HD tomorrow, will draw two sets of blood cx with AM labs currently we will keep leisa unti bacteremia cleas then we will consider permacath Podiatry to decide for LE gangerene renally dose all antibiotics will follow up Consultation Date/Type/Reason Admit Date/Time Dec 18, 2016 at 20:59 Initial Consult Date 12/19/16 Type of Consultation: NEPHROLOGY Referring Provider: FABIAN LEO MD 24 HR Interval Summary Free Text/Dictation BP high, Plan for HD today Exam/Review of Systems Vital Signs Vitals Vital Signs Date Time Temp Pulse Resp B/P Pulse Ox O2 Delivery O2 Flow Rate FiO2 12/22/16 08:22 98.3 78 18 145/60 94 12/22/16 08:00 Nasal Cannula 4.0 Intake and Output 12/21/16 12/21/16 12/22/16 15:00 23:00 07:00 Intake Total 590 ml 900 ml 290 ml Output Total 200 ml 3000 ml Balance 390 ml -2100 ml 290 ml Exam Constitutional: alert, oriented, other Head: normocephalic (Obese) Eyes: PERRL ENMT: mucosa pink and moist Neck: supple Respiratory: crackles/rales, diminished breath sounds, wheezing Cardiovascular: regular rate and rhythm, No murmurs/extra sounds Gastrointestinal: bowel sounds, non-tender, soft Extremities: other (Bilateral foot edema about 2-3+, with left foot ulcer) + leisa catheter Results Result Diagram: 12/22/16 0507 12/22/16 0507 Results 24 hrs Laboratory Tests Test 12/21/16 17:27 12/21/16 20:39 12/22/16 05:07 12/22/16 08:23 Bedside Glucose 103 108 108 White Blood Count 11.2 H Red Blood Count 2.70 L Hemoglobin 7.5 L Hematocrit 25.1 L Mean Corpuscular Volume 93.0 Mean Corpuscular Hemoglobin 27.8 L Mean Corpuscular Hemoglobin Concent 29.9 L Red Cell Distribution Width 14.3 Platelet Count 278 Mean Platelet Volume 11.1 H Neutrophils % 81.2 H Lymphocytes % 7.1 L Monocytes % 7.3 Eosinophils % 3.4 Basophils % 0.3 Nucleated Red Blood Cells % 0.0 Neutrophils # (Manual) 9.1 H Lymphocytes # 0.8 Monocytes # 0.8 Eosinophils # 0.4 Basophils # 0.0 Nucleated Red Blood Cells # 0.0 Sodium Level 139 Potassium Level 4.6 Chloride Level 98 Carbon Dioxide Level 25 Anion Gap 21 H Blood Urea Nitrogen 65 H Creatinine 4.45 H Glucose Level 83 # Calcium Level 8.8 Medications Medications Current Medications Allopurinol (Zyloprim) 100 mg DAILY PO Last administered on 12/22/16 08:30; Admin Dose 100 MG; Start 12/19/16 at 09:00 Amlodipine Besylate (Norvasc) 10 mg DAILY PO Last administered on 12/20/16 09: 13; Admin Dose 10 MG; Start 12/19/16 at 09:00 Aspirin (Aspirin) 81 mg DAILY PO Last administered on 12/22/16 08:30; Admin Dose 81 MG; Start 12/19/16 at 09:00 Atorvastatin Calcium (Lipitor) 10 mg DAILY@21 PO Last administered on 20:59; Admin Dose 10 MG; Start 12/19/16 at 21:00 Cholecalciferol (Vitamin D) 1,000 unit DAILY PO Last administered on 12/22/16 08:30; Admin Dose 1,000 UNIT; Start 12/19/16 at 09:00 Collagenase (Santyl) 1 applic DAILY TOP Last administered on 12/22/16 08:33; Admin Dose 1 APPLIC; Start 12/19/16 at 09:00 Diltiazem HCl (Cardizem Sr) 60 mg DAILY PO Last administered on 12/20/16 09:12 ; Admin Dose 60 MG; Start 12/19/16 at 09:00 Docusate Sodium (Colace) 100 mg Q12H PO Last administered on 12/21/16 16:34; Admin Dose 100 MG; Start 12/19/16 at 02:30 Hydralazine HCl (Apresoline) 100 mg BID PO Last administered on 12/21/16 20:52 ; Admin Dose 100 MG; Start 12/19/16 at 09:00 Loratadine (Claritin) 5 mg DAILY PO Last administered on 12/22/16 08:30; Admin Dose 5 MG; Start 12/19/16 at 09:00 Pantoprazole (Protonix Tab) 40 mg DAILY@06 PO Last administered on 12/22/16 05 :40; Admin Dose 40 MG; Start 12/19/16 at 06:00 Pentoxifylline (Trental) 400 mg BID PO Last administered on 12/22/16 08:30; Admin Dose 400 MG; Start 12/19/16 at 09:00 Senna (Senokot) 2 tab BID PO Last administered on 12/22/16 08:37; Admin Dose 2 TAB; Start 12/19/16 at 09:00 Silver Sulfadiazine (Thermazene 1% 25 Gm) 1 applic BID TOP Last administered on 12/22/16 08:32; Admin Dose 1 APPLIC; Start 12/19/16 at 09:00 Miscellaneous Information 1 drop Q8H OP ; Start 12/19/16 at 02:30; Status UNV Diagnostic Test (Pha) (Accu-Chek) 1 ea 02 XX ; Start 12/20/16 at 02:00 Ondansetron HCl (Zofran Inj) 4 mg Q6H PRN IV NAUSEA AND/OR VOMITING Last administered on 12/21/16 09:17; Admin Dose 4 MG; Start 12/19/16 at 02:30 Lactobacillus Acidophilus/ Rhamnosus (Culturelle) 1 cap BID PO Last administered on 12/22/16 08:30; Admin Dose 1 CAP; Start 12/19/16 at 09:00 Miscellaneous Information 1 ea NOTE XX ; Start 12/19/16 at 03:00 Glucose (Glutose) 15 gm Q15M PRN PO DECREASED GLUCOSE; Start 12/19/16 at 03:00 Glucose (Glutose) 22.5 gm Q15M PRN PO DECREASED GLUCOSE; Start 12/19/16 at 03: 00 Dextrose (D50w Syringe) 25 ml Q15M PRN IV DECREASED GLUCOSE; Start 12/19/16 at 03:00 Dextrose (D50w Syringe) 50 ml Q15M PRN IV DECREASED GLUCOSE; Start 12/19/16 at 03:00 Glucagon (Glucagen) 1 mg Q15M PRN IM DECREASED GLUCOSE; Start 12/19/16 at 03:00 Glucose (Glutose) 15 gm Q15M PRN BUCCAL DECREASED GLUCOSE; Start 12/19/16 at 03 :00 Eye Lubricant (Artificial Tears Oph) 1 drop QID BOTH EYES Last administered on 12/22/16 08:31; Admin Dose 1 DROP; Start 12/19/16 at 09:00 Miscellaneous Information Ketotifen Fumarate (Alaway... Q8H XX ; Start 12/19/16 at 15:30 Piperacillin Sod/ Tazobactam Sod (Zosyn 2.25gm/ 50ml (Pmx)) 50 ml @ 100 mls/hr Q8 IVPB Last administered on 12/22/16 05:40; Admin Dose 100 MLS/HR; Start at 22:00 Acetaminophen 325 mg 325 mg Q4H PRN PO PAIN AND OR ELEVATED TEMP Last administered on 12/20/16 20:38; Admin Dose 325 MG; Start 12/19/16 at 19:30 Linezolid (Zyvox 600mg/D5W (Pmx)) 300 ml @ 300 mls/hr Q12 IVPB Last administered on 12/22/16 08:37; Admin Dose 300 MLS/HR; Start 12/20/16 at 21:00 Insulin Glargine (Lantus) 42 unit BID SC Last administered on 12/22/16 08:45; Admin Dose 42 UNIT; Start 12/20/16 at 21:00 Morphine Sulfate (morphine) 2 mg Q4H PRN IV PAIN; Start 12/21/16 at 00:15 Mupirocin (Bactroban) 1 applic BID TOP Last administered on 12/22/16 08:32; Admin Dose 1 APPLIC; Start 12/21/16 at 16:00 Sodium Hypochlorite (Dakin'S (Dilute 1/40%)) 1 applic DAILY IRR ; Start at 09:00 MONSE CHILEL MD Dec 22, 2016 12:38
--- NOTE | 2016-12-22 13:45 | CONS ---
Date/Time of Note Date/Time of Note DATE: 12/22/16 TIME: 13:42 Assessment/Plan Assessment/Plan Chief Complaint/Hosp Course Assessment/Plan Chief Complaint/Hosp Course ID PROGRESS NOTE CURRENT ABX: =>Zyvox #2 + Zosyn #4 s/p Vanco IV s/p Daptomycin 24H INTERVAL SUMMARY * Alert. No Acute Distress. * 12/20/16 CXR: Multi focal lung consolidation concerning for multifocal pneumonia is mildly increased from prior exam. * 12/18/16 BCx from ED (+)1/2 bottles GPC + * She is current in HD via right FEM Derrick * 12/18/16 FOOT WOUND CX: WOUND CULTURE Final Organism 1 CORYNEBACTERIUM SPECIES QUANTITY SCANT GROWTH CORYN SPS Zone Size RX --------- --- * AMPICILLIN S * CEFAZOLIN S * CEFOTAXIME S * CEFUROXIME S * CIPROFLOXACIN S * CLINDAMYCIN R * ERYTHROMYCIN R * PENICILLIN S * VANCOMYCIN S Exam Constitutional: alert, oriented, super morbid obese, laying in bed supine Psych: nl mood/affect, no complaints HEENT: Unremarkable Neck: non-tender, supple Respiratory: No wheezing, equal chest rise bilaterally without dyspnea on observation Cardiovascular: RRR Gastrointestinal: Soft, NT Extremities: (+)Left complex diabetic foot ulcer - draining see photos Neurological: H[employer] SERVICE WORK[employer] II-XII 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 SIRS on admission w/low grade temp TMax 99.0, leukocytosis 11.6 w/left shift , VSS => due to #2 + #3 * 12/18/16 BCx (+) 1/2 bottles from ED = GPC pending final * 12/04/16 BCx (+) 1/2 bottles from ED = (+)CoNS 2. HCAP CXR 12/20/16: Multi focal lung consolidation concerning for multifocal pneumonia is mildly increased from prior exam. 3. Left diabetic foot wound w/concern acute osteomyelitis => hx of acute traumatic after foot got caught in motor chair * 12/18/16 Left Foot Wound Cx: (+)Corynebacterium (NOT JK) = normal skin hever * 12/08/16 Left Foot Wound Cx: (+) WOUND CULTURE Final Organism 1 ESCHERICHIA COLI * 12/05/16 MRI LEFT FOOT: * 1. Skin ulcer along the lateral plantar aspect of the fifth digit at the level of the distal fifth metatarsal and metatarsophalangeal joint with cellulitis. * 2. Erosive changes with mild deformity of the fifth metatarsal head but no significant abnormal marrow signal. This can be seen with chronic osteomyelitis given the adjacent skin ulcer although inflammatory arthritis can also give this appearance. * 3. Mild osteoarthrosis of the first metatarsophalangeal joint. * Hx of prior left Diabetic foot (+)MRSA infection w/osteomyelitis -> resolved ~ 1-year ago 4. DMT2 w/complication of DM peripheral neuropathy 5. Mild PAD=> Arterial Duplex revealed: Mild plaque formation without evidence for hemodynamically significant stenosis or occlusion. 6. HTN 7. HLD 8. Tinnitus ( + ) MRSA Nares -> 12/07/16 INVASIVES: R-FEM Derrick ABX ALLERGY: PCN CURRENT ABX: =>Zyvox #2 + Zosyn #4 s/p Vanco IV s/p Daptomycin ID RECOMMENDATIONS 1. Continue current ABX 2. Bactroban to bilateral nares 3. Repeat BCx via HD Femoral Derrick 4. Pain Management. GI Prophylaxis. DVT Prophylaxis. Problems: Consultation Date/Type/Reason Admit Date/Time Dec 18, 2016 at 20:59 Initial Consult Date 12/20/16 Type of Consultation: id Referring Provider: FABIAN LEO MD Exam/Review of Systems Vital Signs Vitals Vital Signs Date Time Temp Pulse Resp B/P Pulse Ox O2 Delivery O2 Flow Rate FiO2 12/22/16 13:00 76 22 12/22/16 08:22 98.3 145/60 94 12/22/16 08:00 Nasal Cannula 4.0 Intake and Output 12/21/16 12/21/16 12/22/16 15:00 23:00 07:00 Intake Total 590 ml 900 ml 290 ml Output Total 200 ml 3000 ml Balance 390 ml -2100 ml 290 ml Results Result Diagram: 12/22/16 0507 12/22/16 0507 Results 24 hrs Laboratory Tests Test 12/21/16 17:27 12/21/16 20:39 12/22/16 05:07 12/22/16 08:23 Bedside Glucose 103 108 108 White Blood Count 11.2 H Red Blood Count 2.70 L Hemoglobin 7.5 L Hematocrit 25.1 L Mean Corpuscular Volume 93.0 Mean Corpuscular Hemoglobin 27.8 L Mean Corpuscular Hemoglobin Concent 29.9 L Red Cell Distribution Width 14.3 Platelet Count 278 Mean Platelet Volume 11.1 H Neutrophils % 81.2 H Lymphocytes % 7.1 L Monocytes % 7.3 Eosinophils % 3.4 Basophils % 0.3 Nucleated Red Blood Cells % 0.0 Neutrophils # (Manual) 9.1 H Lymphocytes # 0.8 Monocytes # 0.8 Eosinophils # 0.4 Basophils # 0.0 Nucleated Red Blood Cells # 0.0 Sodium Level 139 Potassium Level 4.6 Chloride Level 98 Carbon Dioxide Level 25 Anion Gap 21 H Blood Urea Nitrogen 65 H Creatinine 4.45 H Glucose Level 83 # Calcium Level 8.8 Medications Medications Current Medications Allopurinol (Zyloprim) 100 mg DAILY PO Last administered on 12/22/16 08:30; Admin Dose 100 MG; Start 12/19/16 at 09:00 Amlodipine Besylate (Norvasc) 10 mg DAILY PO Last administered on 12/20/16 09: 13; Admin Dose 10 MG; Start 12/19/16 at 09:00 Aspirin (Aspirin) 81 mg DAILY PO Last administered on 12/22/16 08:30; Admin Dose 81 MG; Start 12/19/16 at 09:00 Atorvastatin Calcium (Lipitor) 10 mg DAILY@21 PO Last administered on 20:59; Admin Dose 10 MG; Start 12/19/16 at 21:00 Cholecalciferol (Vitamin D) 1,000 unit DAILY PO Last administered on 12/22/16 08:30; Admin Dose 1,000 UNIT; Start 12/19/16 at 09:00 Collagenase (Santyl) 1 applic DAILY TOP Last administered on 12/22/16 08:33; Admin Dose 1 APPLIC; Start 12/19/16 at 09:00 Diltiazem HCl (Cardizem Sr) 60 mg DAILY PO Last administered on 12/20/16 09:12 ; Admin Dose 60 MG; Start 12/19/16 at 09:00 Docusate Sodium (Colace) 100 mg Q12H PO Last administered on 12/21/16 16:34; Admin Dose 100 MG; Start 12/19/16 at 02:30 Hydralazine HCl (Apresoline) 100 mg BID PO Last administered on 12/21/16 20:52 ; Admin Dose 100 MG; Start 12/19/16 at 09:00 Loratadine (Claritin) 5 mg DAILY PO Last administered on 12/22/16 08:30; Admin Dose 5 MG; Start 12/19/16 at 09:00 Pantoprazole (Protonix Tab) 40 mg DAILY@06 PO Last administered on 12/22/16 05 :40; Admin Dose 40 MG; Start 12/19/16 at 06:00 Pentoxifylline (Trental) 400 mg BID PO Last administered on 12/22/16 08:30; Admin Dose 400 MG; Start 12/19/16 at 09:00 Senna (Senokot) 2 tab BID PO Last administered on 12/22/16 08:37; Admin Dose 2 TAB; Start 12/19/16 at 09:00 Silver Sulfadiazine (Thermazene 1% 25 Gm) 1 applic BID TOP Last administered on 12/22/16 08:32; Admin Dose 1 APPLIC; Start 12/19/16 at 09:00 Miscellaneous Information 1 drop Q8H OP ; Start 12/19/16 at 02:30; Status UNV Diagnostic Test (Pha) (Accu-Chek) 1 ea 02 XX ; Start 12/20/16 at 02:00 Ondansetron HCl (Zofran Inj) 4 mg Q6H PRN IV NAUSEA AND/OR VOMITING Last administered on 12/21/16 09:17; Admin Dose 4 MG; Start 12/19/16 at 02:30 Lactobacillus Acidophilus/ Rhamnosus (Culturelle) 1 cap BID PO Last administered on 12/22/16 08:30; Admin Dose 1 CAP; Start 12/19/16 at 09:00 Miscellaneous Information 1 ea NOTE XX ; Start 12/19/16 at 03:00 Glucose (Glutose) 15 gm Q15M PRN PO DECREASED GLUCOSE; Start 12/19/16 at 03:00 Glucose (Glutose) 22.5 gm Q15M PRN PO DECREASED GLUCOSE; Start 12/19/16 at 03: 00 Dextrose (D50w Syringe) 25 ml Q15M PRN IV DECREASED GLUCOSE; Start 12/19/16 at 03:00 Dextrose (D50w Syringe) 50 ml Q15M PRN IV DECREASED GLUCOSE; Start 12/19/16 at 03:00 Glucagon (Glucagen) 1 mg Q15M PRN IM DECREASED GLUCOSE; Start 12/19/16 at 03:00 Glucose (Glutose) 15 gm Q15M PRN BUCCAL DECREASED GLUCOSE; Start 12/19/16 at 03 :00 Eye Lubricant (Artificial Tears Oph) 1 drop QID BOTH EYES Last administered on 12/22/16 08:31; Admin Dose 1 DROP; Start 12/19/16 at 09:00 Miscellaneous Information Ketotifen Fumarate (Alaway... Q8H XX ; Start 12/19/16 at 15:30 Piperacillin Sod/ Tazobactam Sod (Zosyn 2.25gm/ 50ml (Pmx)) 50 ml @ 100 mls/hr Q8 IVPB Last administered on 12/22/16 05:40; Admin Dose 100 MLS/HR; Start at 22:00 Acetaminophen 325 mg 325 mg Q4H PRN PO PAIN AND OR ELEVATED TEMP Last administered on 12/20/16 20:38; Admin Dose 325 MG; Start 12/19/16 at 19:30 Linezolid (Zyvox 600mg/D5W (Pmx)) 300 ml @ 300 mls/hr Q12 IVPB Last administered on 12/22/16 08:37; Admin Dose 300 MLS/HR; Start 12/20/16 at 21:00 Insulin Glargine (Lantus) 42 unit BID SC Last administered on 12/22/16 08:45; Admin Dose 42 UNIT; Start 12/20/16 at 21:00 Morphine Sulfate (morphine) 2 mg Q4H PRN IV PAIN; Start 12/21/16 at 00:15 Mupirocin (Bactroban) 1 applic BID TOP Last administered on 8/27/17at 08:32; Admin Dose 1 APPLIC; Start 12/21/16 at 16:00 Sodium Hypochlorite (Dakin'S (Dilute 1/40%)) 1 applic DAILY IRR ; Start at 09:00 JOSEPH MELENDEZ NP Dec 22, 2016 13:45
[2016-12-22] MEDS: SODIUM HYPOCHLORITE 1/40% 1L IRRIG IRR SCH (16:55)
[2016-12-22] MEDS: ATORVASTATIN 10 MG TAB PO SCH (20:40)
[2016-12-22] MEDS ORDERED: LIDOCAINE 1% (MDV) 20 ML INJ ONE (21:07)
[2016-12-22] MEDS ORDERED: CEFTRIAXONE 1 GM/50 ML (PMX) 50 ML IVPB SCH (21:30)
--- NOTE | 2016-12-22 22:47 | PRO ---
DATE OF PROCEDURE: 12/22/2016 SURGEON: Robson Hernandez DPM CUSTODIAL AIDE: None. PREPROCEDURE DIAGNOSES: 1. Left foot diabetic ulceration, lateral aspect, 5th metatarsophalangeal joint. 2. Left foot diabetic heel ulceration. 3. Osteomyelitis, chronic, 5th metatarsal. 4. Acute on chronic kidney disease. 5. Diabetes, type 2. 6. Peripheral neuropathy. 7. Healthcare-acquired pneumonia. POSTPROCEDURE DIAGNOSES: 1. Left foot diabetic ulceration, lateral aspect, 5th metatarsophalangeal joint. 2. Left foot diabetic heel ulceration. 3. Osteomyelitis, chronic, 5th metatarsal. 4. Acute on chronic kidney disease. 5. Diabetes, type 2. 6. Peripheral neuropathy. 7. Healthcare-acquired pneumonia. PROCEDURES PERFORMED: 1. Excisional debridement of skin, subcutaneous tissue, and muscle, left foot, 5th metatarsophalangeal joint, 4 x 3 cm. 2. Excisional debridement of skin and subcutaneous tissue, left heel ulcer, 4 x 5 cm. ANESTHESIA: Lidocaine 1 percent plain, 10 mL. ESTIMATED BLOOD LOSS: 10 mL., hemostasis at completion. SPECIMEN: Wound culture, left foot, 5th metatarsophalangeal joint. DESCRIPTION OF PROCEDURE: The patient seen at the bedside. Informed consent obtained. Timeout performed. With nursing assistance, the skin was cleansed with chlorhexidine and injection locally to the perforated wound with lidocaine 1 percent plain, 10 mL, utilized. At this time, using a combination of sharp instrumentation, excisional debridement of skin, subcutaneous tissue, and muscle performed of lateral 5th metatarsophalangeal joint. The patient had a tunnel to the bone. Bone was palpated, but not debrided. Cultures of wound exudate obtained and irrigated with Betadine. Attention was directed to the heel and using a 15 blade, excisional debridement performed of skin and subcutaneous tissue, 4 x 5 cm. The patient had estimated blood loss of 5 mL. Hemostasis achieved with compression and cleansed with Betadine and applied a 4 x 4 gauze, Kerlix, and Gustavo wrap. The patient tolerated procedure well. POSTPROCEDURE PLAN: We will follow up on the culture results. Once cleared, can schedule for bone debridement with biopsy. Recommend the use of a heel cushion. The patient at high risk for decubiti. The patient currently on Zyvox and Zosyn. Dictated By: Robson Hernandez DPM /patricia/dayana /Document#: [id number]
[2016-12-23] MEDS: ACCU-CHEK XX SCH (01:01)
[2016-12-23] MEDS: DOCUSATE SODIUM 100 MG CAP PO SCH ×2 (01:44→13:26)
[2016-12-23 02:00] VITALS: BP 167/72; RESP 18
[2016-12-23] MEDS ORDERED: CEFTRIAXONE 1 GM/50 ML (PMX) 50 ML IVPB SCH (04:00)
[2016-12-23] MEDS: PIPER-TAZO 2.25 GM (PMX) 50 ML IVPB SCH ×3 (05:49→23:09)
[2016-12-23] MEDS: PANTOPRAZOLE (EC) 40 MG TAB PO SCH (05:49)
[2016-12-23 06:45] LABS: CALCIUM 8.7 mg/dl (8.4-10.2); CREATININE 3.8 mg/dl (0.44-1.00); POTASSIUM 4.8 mmol/L (3.5-5.1)
[2016-12-23] MEDS: KETOTIFEN FUMARATE XX SCH ×3 (07:30→23:30)
[2016-12-23 08:06] VITALS: BP 166/72; RESP 20
[2016-12-23] MEDS: ALLOPURINOL 100 MG TAB PO SCH (08:12)
[2016-12-23] MEDS: CHOLECALCIFEROL 1,000 UNIT TAB PO SCH (08:12)
[2016-12-23] MEDS: DILTIAZEM (SR) 60 MG CAP PO SCH (08:13)
[2016-12-23] MEDS: PENTOXIFYLLINE (SR) 400 MG TAB PO SCH ×2 (08:13→20:46)
[2016-12-23] MEDS: AMLODIPINE 10 MG TAB PO SCH (08:13)
[2016-12-23] MEDS: LACTOBACILLUS RHAMNOSUS CAP PO SCH ×2 (08:13→20:46)
[2016-12-23] MEDS: LORATADINE 10 MG TAB PO SCH (08:14)
[2016-12-23] MEDS: ASPIRIN 81 MG TAB PO SCH (08:14)
[2016-12-23] MEDS: INSULIN ASPART [NOVOLOG] 3 ML PEN SC SCH ×7 (08:15→20:49)
[2016-12-23] MEDS: ARTIFICIAL TEARS 15 ML OPH BOTH EYES SCH ×4 (08:15→20:47)
[2016-12-23] MEDS: SILVER SULFADIAZINE 1% 25 GM CR TOP SCH ×2 (08:16→20:50)
[2016-12-23] MEDS: MUPIROCIN 2% 22 GM OINT TOP SCH ×2 (08:16→20:50)
[2016-12-23] MEDS: COLLAGENASE 30 GM TUBE TOP SCH (08:17)
[2016-12-23] MEDS: INSULIN GLARGINE [LANtus] 3 ML PEN SC SCH ×2 (08:19→20:49)
[2016-12-23] MEDS: SENNA TAB PO SCH ×2 (08:27→20:47)
[2016-12-23] MEDS: LINEZOLID 600 MG/D5W (PMX) 300 ML IVPB SCH ×2 (08:27→21:00)
[2016-12-23] MEDS: SODIUM HYPOCHLORITE 1/40% 1L IRRIG IRR SCH (08:27)
[2016-12-23] MEDS: NYSTATIN 15 GM CR TOP SCH ×3 (09:00→20:51)
[2016-12-23] MEDS ORDERED: hydrALAzine 20 MG INJ IV PRN (12:30)
--- NOTE | 2016-12-23 12:38 | PN ---
Date/Time of Note Date/Time of Note DATE: 12/23/16 TIME: 12:30 Assessment/Plan VTE Prophylaxis VTE Prophylaxis Intervention: heparin Lines/Catheters IV Catheter Type (from [facility]): PICC Line Central line still needed: Yes Urinary Cath still in place: Yes Reason Cath still needed: urinary retention Assessment/Plan Chief Complaint/Hosp Course Assessment/Plan: 66-year-old female with pmhx notable for DM2, CKD, HTN recently admitted for diabetic foot OM now with sepsis 2/2 health care associated pneumonia, as well as JENNIFER on CKD with fluid overload warranting HD #HCAP: cont zosyn, linezolid --->abx adjusted for CrCl 19 so decreasing zosyn dose -anticipate 7 days of therapy for HCAP from date of admission. ID helping -We will up sputum cultures and strep urine Ag -will monitor platelets closely while on Linezolid -We will follow-up CBC today, and chest x-ray in the morning #JENNIFER on CKD: baseline closer to mid 2s -likely ATN from sepsis v result of nephrotox abx. -MUCH APPRECIATE RENAL ASSISTANCE. Agreed than given pt's poor renal reserve, [employer] indicated for volume removal for this patient, and patient has been on dialysis this admission -Follow up recommendations regarding outpatient dialysis #diabetic foot infection sp debridement NOT amputation or complete resection of infected tissue during previous admission (wound culture NOT bone biopsy with EColi). Patient had most recent debridement on 12/22, last night. MRI results from last admit reviewed. 5th toe with reported cellulitis, read as chronic OM v inflammatory arthritis. -Continue antibiotics, need to discuss length of treatment with infectious disease team now the patient had debridement. Patient does have PICC line - decreased zosyn dose given Crcl 19, on linezolid #DM2 with hyperglycemia -CDE note reviewed, cont current regimen #HTN. HL: cont home meds CM consult closer to discharge for help with outpatient HD, as well as possible detention facility placement Problems: Subjective 24 Hr Interval Summary Free Text/Dictation Patient had debridement yesterday performed on the left foot. Also had 1 unit of PRBC transfused yesterday. Exam/Review of Systems Vital Signs Vitals Vital Signs Date Time Temp Pulse Resp B/P Pulse Ox O2 Delivery O2 Flow Rate FiO2 12/23/16 08:06 98.3 80 20 166/72 95 12/23/16 07:20 Nasal Cannula 4.0 Intake and Output 12/22/16 12/22/16 12/23/16 15:00 23:00 07:00 Intake Total 1150 ml 1600 ml 490 ml Output Total 3800 ml 1 ml Balance -2650 ml 1600 ml 489 ml Exam In bed, family and dog at bedside, Nad, wearing NC lungs clear S1-S2 heard abd soft foot wrapped no rashes Results Result Diagram: 12/22/16 0507 12/23/16 0528 Results 24 hrs Laboratory Tests Test 12/22/16 13:54 12/22/16 17:10 12/22/16 20:42 12/23/16 05:28 Bedside Glucose 103 73 139 Sodium Level 141 Potassium Level 4.8 Chloride Level 99 Carbon Dioxide Level 29 Anion Gap 18 H Blood Urea Nitrogen 54 H Creatinine 3.80 H Glucose Level 132 # Calcium Level 8.7 Test 12/23/16 08:06 Bedside Glucose 136 Medications Medications Current Medications Allopurinol (Zyloprim) 100 mg DAILY PO Last administered on 12/23/16 08:12; Admin Dose 100 MG; Start 12/19/16 at 09:00 Amlodipine Besylate (Norvasc) 10 mg DAILY PO Last administered on 12/23/16 08: 13; Admin Dose 10 MG; Start 12/19/16 at 09:00 Aspirin (Aspirin) 81 mg DAILY PO Last administered on 12/23/16 08:14; Admin Dose 81 MG; Start 12/19/16 at 09:00 Atorvastatin Calcium (Lipitor) 10 mg DAILY@21 PO Last administered on 20:40; Admin Dose 10 MG; Start 12/19/16 at 21:00 Cholecalciferol (Vitamin D) 1,000 unit DAILY PO Last administered on 12/23/16 08:12; Admin Dose 1,000 UNIT; Start 12/19/16 at 09:00 Collagenase (Santyl) 1 applic DAILY TOP Last administered on 12/23/16 08:17; Admin Dose 1 APPLIC; Start 12/19/16 at 09:00 Diltiazem HCl (Cardizem Sr) 60 mg DAILY PO Last administered on 12/23/16 08:13 ; Admin Dose 60 MG; Start 12/19/16 at 09:00 Docusate Sodium (Colace) 100 mg Q12H PO Last administered on 12/22/16 14:08; Admin Dose 100 MG; Start 12/19/16 at 02:30 Hydralazine HCl (Apresoline) 100 mg BID PO Last administered on 12/23/16 08:12 ; Admin Dose 100 MG; Start 12/19/16 at 09:00 Loratadine (Claritin) 5 mg DAILY PO Last administered on 12/23/16 08:14; Admin Dose 5 MG; Start 12/19/16 at 09:00 Pantoprazole (Protonix Tab) 40 mg DAILY@06 PO Last administered on 12/23/16 05 :49; Admin Dose 40 MG; Start 12/19/16 at 06:00 Pentoxifylline (Trental) 400 mg BID PO Last administered on 12/23/16 08:13; Admin Dose 400 MG; Start 12/19/16 at 09:00 Senna (Senokot) 2 tab BID PO Last administered on 12/23/16 08:27; Admin Dose 2 TAB; Start 12/19/16 at 09:00 Silver Sulfadiazine (Thermazene 1% 25 Gm) 1 applic BID TOP Last administered on 12/23/16 08:16; Admin Dose 1 APPLIC; Start 12/19/16 at 09:00 Miscellaneous Information 1 drop Q8H OP ; Start 12/19/16 at 02:30; Status UNV Diagnostic Test (Pha) (Accu-Chek) 1 ea 02 XX ; Start 12/20/16 at 02:00 Ondansetron HCl (Zofran Inj) 4 mg Q6H PRN IV NAUSEA AND/OR VOMITING Last administered on 12/21/16 09:17; Admin Dose 4 MG; Start 12/19/16 at 02:30 Lactobacillus Acidophilus/ Rhamnosus (Culturelle) 1 cap BID PO Last administered on 12/23/16 08:13; Admin Dose 1 CAP; Start 12/19/16 at 09:00 Miscellaneous Information 1 ea NOTE XX ; Start 12/19/16 at 03:00 Glucose (Glutose) 15 gm Q15M PRN PO DECREASED GLUCOSE; Start 12/19/16 at 03:00 Glucose (Glutose) 22.5 gm Q15M PRN PO DECREASED GLUCOSE; Start 12/19/16 at 03: 00 Dextrose (D50w Syringe) 25 ml Q15M PRN IV DECREASED GLUCOSE; Start 12/19/16 at 03:00 Dextrose (D50w Syringe) 50 ml Q15M PRN IV DECREASED GLUCOSE; Start 12/19/16 at 03:00 Glucagon (Glucagen) 1 mg Q15M PRN IM DECREASED GLUCOSE; Start 12/19/16 at 03:00 Glucose (Glutose) 15 gm Q15M PRN BUCCAL DECREASED GLUCOSE; Start 12/19/16 at 03 :00 Eye Lubricant (Artificial Tears Oph) 1 drop QID BOTH EYES Last administered on 12/23/16 08:15; Admin Dose 1 DROP; Start 12/19/16 at 09:00 Miscellaneous Information Ketotifen Fumarate (Alaway... Q8H XX ; Start 12/19/16 at 15:30 Piperacillin Sod/ Tazobactam Sod (Zosyn 2.25gm/ 50ml (Pmx)) 50 ml @ 100 mls/hr Q8 IVPB Last administered on 12/23/16 05:49; Admin Dose 100 MLS/HR; Start at 22:00 Acetaminophen 325 mg 325 mg Q4H PRN PO PAIN AND OR ELEVATED TEMP Last administered on 12/20/16 20:38; Admin Dose 325 MG; Start 12/19/16 at 19:30 Linezolid (Zyvox 600mg/D5W (Pmx)) 300 ml @ 300 mls/hr Q12 IVPB Last administered on 12/23/16 08:27; Admin Dose 300 MLS/HR; Start 12/20/16 at 21:00 Insulin Glargine (Lantus) 42 unit BID SC Last administered on 12/23/16 08:19; Admin Dose 42 UNIT; Start 12/20/16 at 21:00 Morphine Sulfate (morphine) 2 mg Q4H PRN IV PAIN; Start 12/21/16 at 00:15 Mupirocin (Bactroban) 1 applic BID TOP Last administered on 12/23/16 08:16; Admin Dose 1 APPLIC; Start 12/21/16 at 16:00 Sodium Hypochlorite (Dakin'S (Dilute 1/40%)) 1 applic DAILY IRR Last administered on 12/23/16 08:27; Admin Dose 1 APPLIC; Start 12/22/16 at 09:00 Nystatin (Nystatin Cr) 1 applic TID TOP ; Start 12/23/16 at 09:00 Hydralazine HCl (Apresoline) 10 mg Q6H PRN IV ELEVATED BLOOD PRESSURE; Start at 12:30 DEANNA MACIAS Dec 23, 2016 12:38
[2016-12-23 13:26] LABS: BASOPHILS % 0.2 % (0.0-2.0); EOSINOPHILS # 0.5 10^3/ul (0.0-0.5); EOSINOPHILS % 5.6 % (0.0-7.0); HEMATOCRIT 26.2 % (37.0-47.0); HEMOGLOBIN 8.2 g/dl (12.0-16.0); LYMPHOCYTES # 0.9 10^3/ul (0.8-2.9); LYMPHOCYTES % 10.7 % (15.0-51.0); MEAN CORPUSCULAR HEMOGLOBIN 28.9 pg (29.0-33.0); MEAN CORPUSCULAR HGB CONC 31.3 g/dl (32.0-37.0); MEAN CORPUSCULAR VOLUME 92.3 fl (82.0-101.0); MEAN PLATELET VOLUME 9.6 fl (7.4-10.4); MONOCYTE # 0.8 10^3/ul (0.3-0.9); MONOCYTES % 9.9 % (0.0-11.0); NEUTROPHILS % 73.1 % (39.0-77.0); PLATELET COUNT 288 10^3/UL (140-415); RED BLOOD COUNT 2.84 10^6/ul (4.20-5.40); RED CELL DISTRIBUTION WIDTH 14.1 % (11.5-14.5); WHITE BLOOD COUNT 8.2 10^3/ul (4.8-10.8)
[2016-12-23 13:44] LABS: CALCIUM 8.9 mg/dl (8.4-10.2); CREATININE 3.73 mg/dl (0.44-1.00); POTASSIUM 4.6 mmol/L (3.5-5.1)
--- NOTE | 2016-12-23 17:52 | CONS ---
Date/Time of Note Date/Time of Note DATE: 12/23/16 TIME: 17:51 Assessment/Plan Assessment/Plan Additional Assessment/Plan 1. Non Oliguric to oliguric Acute kidney injury on CKD III/IV due to ATN- worsening renal failure with fluid overload now - stared on HD on 12/20/16 2. 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 HTN 4. Diabetic foot infection 5. Health care associated PNA 6. sepsis with bacteremia , LE gangrene Plan : started on HD for acute renal failure with fluid overload during this admissio, joss de la fuente, Plan for HD tomorrow will plan for permacat Podiatry to decide for LE gangerene renally dose all antibiotics will follow up Consultation Date/Type/Reason Admit Date/Time Dec 18, 2016 at 20:59 Initial Consult Date 12/19/16 Type of Consultation: NEPHROLOGY Referring Provider: FABIAN LEO MD 24 HR Interval Summary Free Text/Dictation Plan for HD tomorrow Exam/Review of Systems Vital Signs Vitals Vital Signs Date Time Temp Pulse Resp B/P Pulse Ox O2 Delivery O2 Flow Rate FiO2 12/23/16 08:06 98.3 80 20 166/72 95 12/23/16 07:20 Nasal Cannula 4.0 Intake and Output 12/22/16 12/22/16 12/23/16 15:00 23:00 07:00 Intake Total 1150 ml 1600 ml 490 ml Output Total 3800 ml 1 ml Balance -2650 ml 1600 ml 489 ml Results Result Diagram: 12/23/16 1315 12/23/16 1315 Results 24 hrs Laboratory Tests Test 12/22/16 20:42 12/23/16 05:28 12/23/16 08:06 12/23/16 12:20 Bedside Glucose 139 136 106 Sodium Level 141 Potassium Level 4.8 Chloride Level 99 Carbon Dioxide Level 29 Anion Gap 18 H Blood Urea Nitrogen 54 H Creatinine 3.80 H Glucose Level 132 # Calcium Level 8.7 Test 12/23/16 13:15 12/23/16 17:27 12/23/16 17:49 White Blood Count 8.2 # Red Blood Count 2.84 L Hemoglobin 8.2 L Hematocrit 26.2 L Mean Corpuscular Volume 92.3 Mean Corpuscular Hemoglobin 28.9 L Mean Corpuscular Hemoglobin Concent 31.3 L Red Cell Distribution Width 14.1 Platelet Count 288 Mean Platelet Volume 9.6 Neutrophils % 73.1 Lymphocytes % 10.7 L Monocytes % 9.9 Eosinophils % 5.6 Basophils % 0.2 Nucleated Red Blood Cells % 0.0 Neutrophils # (Manual) 6.0 Lymphocytes # 0.9 Monocytes # 0.8 Eosinophils # 0.5 Basophils # 0.0 Nucleated Red Blood Cells # 0.0 Sodium Level 141 Potassium Level 4.6 Chloride Level 99 Carbon Dioxide Level 29 Anion Gap 18 H Blood Urea Nitrogen 55 H Creatinine 3.73 H Glucose Level 106 Calcium Level 8.9 Bedside Glucose 50 L 59 L Medications Medications Current Medications Allopurinol (Zyloprim) 100 mg DAILY PO Last administered on 12/23/16 08:12; Admin Dose 100 MG; Start 12/19/16 at 09:00 Amlodipine Besylate (Norvasc) 10 mg DAILY PO Last administered on 12/23/16 08: 13; Admin Dose 10 MG; Start 12/19/16 at 09:00 Aspirin (Aspirin) 81 mg DAILY PO Last administered on 12/23/16 08:14; Admin Dose 81 MG; Start 12/19/16 at 09:00 Atorvastatin Calcium (Lipitor) 10 mg DAILY@21 PO Last administered on 20:40; Admin Dose 10 MG; Start 12/19/16 at 21:00 Cholecalciferol (Vitamin D) 1,000 unit DAILY PO Last administered on 12/23/16 08:12; Admin Dose 1,000 UNIT; Start 12/19/16 at 09:00 Collagenase (Santyl) 1 applic DAILY TOP Last administered on 12/23/16 08:17; Admin Dose 1 APPLIC; Start 12/19/16 at 09:00 Diltiazem HCl (Cardizem Sr) 60 mg DAILY PO Last administered on 12/23/16 08:13 ; Admin Dose 60 MG; Start 12/19/16 at 09:00 Docusate Sodium (Colace) 100 mg Q12H PO Last administered on 12/23/16 13:26; Admin Dose 100 MG; Start 12/19/16 at 02:30 Hydralazine HCl (Apresoline) 100 mg BID PO Last administered on 12/23/16 08:12 ; Admin Dose 100 MG; Start 12/19/16 at 09:00 Loratadine (Claritin) 5 mg DAILY PO Last administered on 12/23/16 08:14; Admin Dose 5 MG; Start 12/19/16 at 09:00 Pantoprazole (Protonix Tab) 40 mg DAILY@06 PO Last administered on 12/23/16 05 :49; Admin Dose 40 MG; Start 12/19/16 at 06:00 Pentoxifylline (Trental) 400 mg BID PO Last administered on 12/23/16 08:13; Admin Dose 400 MG; Start 12/19/16 at 09:00 Senna (Senokot) 2 tab BID PO Last administered on 12/23/16 08:27; Admin Dose 2 TAB; Start 12/19/16 at 09:00 Silver Sulfadiazine (Thermazene 1% 25 Gm) 1 applic BID TOP Last administered on 12/23/16 08:16; Admin Dose 1 APPLIC; Start 12/19/16 at 09:00 Miscellaneous Information 1 drop Q8H OP ; Start 12/19/16 at 02:30; Status UNV Diagnostic Test (Pha) (Accu-Chek) 1 ea 02 XX ; Start 12/20/16 at 02:00 Ondansetron HCl (Zofran Inj) 4 mg Q6H PRN IV NAUSEA AND/OR VOMITING Last administered on 12/21/16 09:17; Admin Dose 4 MG; Start 12/19/16 at 02:30 Lactobacillus Acidophilus/ Rhamnosus (Culturelle) 1 cap BID PO Last administered on 12/23/16 08:13; Admin Dose 1 CAP; Start 12/19/16 at 09:00 Miscellaneous Information 1 ea NOTE XX ; Start 12/19/16 at 03:00 Glucose (Glutose) 15 gm Q15M PRN PO DECREASED GLUCOSE; Start 12/19/16 at 03:00 Glucose (Glutose) 22.5 gm Q15M PRN PO DECREASED GLUCOSE; Start 12/19/16 at 03: 00 Dextrose (D50w Syringe) 25 ml Q15M PRN IV DECREASED GLUCOSE; Start 12/19/16 at 03:00 Dextrose (D50w Syringe) 50 ml Q15M PRN IV DECREASED GLUCOSE; Start 12/19/16 at 03:00 Glucagon (Glucagen) 1 mg Q15M PRN IM DECREASED GLUCOSE; Start 12/19/16 at 03:00 Glucose (Glutose) 15 gm Q15M PRN BUCCAL DECREASED GLUCOSE; Start 12/19/16 at 03 :00 Eye Lubricant (Artificial Tears Oph) 1 drop QID BOTH EYES Last administered on 12/23/16 13:26; Admin Dose 1 DROP; Start 12/19/16 at 09:00 Miscellaneous Information Ketotifen Fumarate (Alaway... Q8H XX ; Start 12/19/16 at 15:30 Piperacillin Sod/ Tazobactam Sod (Zosyn 2.25gm/ 50ml (Pmx)) 50 ml @ 100 mls/hr Q8 IVPB Last administered on 12/23/16 13:26; Admin Dose 100 MLS/HR; Start at 22:00 Acetaminophen 325 mg 325 mg Q4H PRN PO PAIN AND OR ELEVATED TEMP Last administered on 12/20/16 20:38; Admin Dose 325 MG; Start 12/19/16 at 19:30 Linezolid (Zyvox 600mg/D5W (Pmx)) 300 ml @ 300 mls/hr Q12 IVPB Last administered on 12/23/16 08:27; Admin Dose 300 MLS/HR; Start 12/20/16 at 21:00 Insulin Glargine (Lantus) 42 unit BID SC Last administered on 12/23/16 08:19; Admin Dose 42 UNIT; Start 12/20/16 at 21:00 Morphine Sulfate (morphine) 2 mg Q4H PRN IV PAIN; Start 12/21/16 at 00:15 Mupirocin (Bactroban) 1 applic BID TOP Last administered on 12/23/16 08:16; Admin Dose 1 APPLIC; Start 12/21/16 at 16:00 Sodium Hypochlorite (Dakin'S (Dilute 1/40%)) 1 applic DAILY IRR Last administered on 12/23/16 08:27; Admin Dose 1 APPLIC; Start 12/22/16 at 09:00 Nystatin (Nystatin Cr) 1 applic TID TOP ; Start 12/23/16 at 09:00 Hydralazine HCl (Apresoline) 10 mg Q6H PRN IV ELEVATED BLOOD PRESSURE; Start at 12:30 Heparin Sodium (Porcine) (Heparin (5000 Units/0.5 ml)) 5,000 unit BID SC ; Start 12/24/16 at 09:00 MONSE CHILEL MD Dec 23, 2016 17:52
[2016-12-23 19:23] VITALS: BP 148/66; RESP 19
[2016-12-23] MEDS: ATORVASTATIN 10 MG TAB PO SCH (20:47)
[2016-12-24] VITALS (11 sets, daily range): BP systolic 142–199; BP diastolic 67–92; PULSE 70–80; RESP 16–20
[2016-12-24] MEDS: ALBUTEROL/IPRATROPIUM (NEB) 3 ML AMP HHN PRN ×2 (01:59→13:59)
[2016-12-24] MEDS: ACCU-CHEK XX SCH (02:00)
[2016-12-24] MEDS: DOCUSATE SODIUM 100 MG CAP PO SCH ×2 (02:15→13:44)
--- NOTE | 2016-12-24 02:17 | PN ---
DATE: 12/23/2016 INFECTIOUS DISEASE PROGRESS NOTE SUBJECTIVE: No acute changes. The patient is awake, looks comfortable. No fevers. ANTIMICROBIALS: The patient is on Zyvox and Zosyn. INDWELLINGS: Left upper extremity PICC line. OBJECTIVE DATA: VITAL SIGNS: Temperature 98.3, pulse 80, respirations 20, blood pressure 166/72, saturation 95 on 4 L. GENERAL: Morbidly obese elderly woman who is awake, in no distress. HEENT: Head atraumatic, normocephalic. Sclerae anicteric. Buccal mucosa dry. NECK: Obese. RESPIRATORY: Chest rise symmetrical. Breath sounds diminished at the bases. HEART: S1, S2. ABDOMEN: Soft. Bowel sounds present. EXTREMITIES: Left lower extremity dressing intact. LABORATORY AND DIAGNOSTIC DATA: WBC 8.2, hemoglobin 8.2, hematocrit 26.2, platelets 288, neutrophils 73.1. BUN 55, creatinine 3.73. MICROBIOLOGY: Blood culture grew coag-negative staph species on admission. Repeat blood culture is negative. Left foot wound culture growing Corynebacterium species. ASSESSMENT: 1. Resolving sepsis. 2. Healthcare-associated pneumonia. 3. Coagulase-negative staphylococcus bacteremia. Possibly contaminant versus secondary to left foot osteomyelitis. 4. Morbid obesity. 5. Acute on chronic kidney disease. 6. Poorly controlled diabetes. 7. Peripheral vascular disease. 8. History of methicillin-resistant Staphylococcus aureus nares colonization. PLAN: The patient remains stable. WBC tracing down. She is on appropriate antimicrobials. Continue local wound care. Follow Podiatry recommendations. Dictated By: Cm Santos NP /patricia/dayana /Document#: [id number]
[2016-12-24] MEDS: PIPER-TAZO 2.25 GM (PMX) 50 ML IVPB SCH ×3 (05:42→21:34)
[2016-12-24] MEDS: PANTOPRAZOLE (EC) 40 MG TAB PO SCH (05:54)
[2016-12-24 06:19] LABS: BASOPHILS % 0.4 % (0.0-2.0); EOSINOPHILS # 0.5 10^3/ul (0.0-0.5); EOSINOPHILS % 5.9 % (0.0-7.0); HEMATOCRIT 26.2 % (37.0-47.0); HEMOGLOBIN 7.9 g/dl (12.0-16.0); LYMPHOCYTES # 0.9 10^3/ul (0.8-2.9); LYMPHOCYTES % 11.2 % (15.0-51.0); MEAN CORPUSCULAR HEMOGLOBIN 28.1 pg (29.0-33.0); MEAN CORPUSCULAR HGB CONC 30.2 g/dl (32.0-37.0); MEAN CORPUSCULAR VOLUME 93.2 fl (82.0-101.0); MEAN PLATELET VOLUME 10.4 fl (7.4-10.4); MONOCYTE # 0.9 10^3/ul (0.3-0.9); MONOCYTES % 10.9 % (0.0-11.0); NEUTROPHILS % 70.9 % (39.0-77.0); PLATELET COUNT 292 10^3/UL (140-415); RED BLOOD COUNT 2.81 10^6/ul (4.20-5.40); RED CELL DISTRIBUTION WIDTH 14.3 % (11.5-14.5); WHITE BLOOD COUNT 8.3 10^3/ul (4.8-10.8)
[2016-12-24 06:54] LABS: CREATININE 3.94 mg/dl (0.44-1.00); POTASSIUM 4.5 mmol/L (3.5-5.1)
[2016-12-24] MEDS: KETOTIFEN FUMARATE XX SCH (07:30)
--- NOTE | 2016-12-24 08:08 | CONS ---
Date/Time of Note Date/Time of Note DATE: 12/24/16 TIME: 08:03 Consult Date/Type/Reason Admit Date/Time Dec 18, 2016 at 20:59 Initial Consult Date 12/20/16 Type of Consultation: Podiatry Reason for Consultation Coverage for Dr. Hernandez. Ordering Provider: FABIAN LEO MD Subjective Left foot, lateral 5th ulcer. Left foot, heel ulcer. Pt in heel offloading device. Objective Vital Signs Date Time Temp Pulse Resp B/P Pulse Ox O2 Delivery O2 Flow Rate FiO2 12/24/16 03:29 98.1 81 20 142/67 97 12/24/16 02:01 5.0 12/24/16 02:00 Nasal Cannula Intake and Output 12/23/16 12/23/16 12/24/16 15:00 23:00 07:00 Intake Total 400 ml 1400 ml 100 ml Output Total 1 ml Balance 400 ml 1399 ml 100 ml Exam Left foot diabetic foot ulceration. Osteomyelitis, chronic, 5th metatarsal. [id number] kidney disease. Diabetes type 2. Hypertension. Results/Medications Result Diagram: 12/24/16 0548 12/24/16 0548 Results 24 hrs Laboratory Tests Test 12/23/16 08:06 12/23/16 12:20 12/23/16 13:15 12/23/16 17:27 Bedside Glucose 136 106 50 L White Blood Count 8.2 # Red Blood Count 2.84 L Hemoglobin 8.2 L Hematocrit 26.2 L Mean Corpuscular Volume 92.3 Mean Corpuscular Hemoglobin 28.9 L Mean Corpuscular Hemoglobin Concent 31.3 L Red Cell Distribution Width 14.1 Platelet Count 288 Mean Platelet Volume 9.6 Neutrophils % 73.1 Lymphocytes % 10.7 L Monocytes % 9.9 Eosinophils % 5.6 Basophils % 0.2 Nucleated Red Blood Cells % 0.0 Neutrophils # (Manual) 6.0 Lymphocytes # 0.9 Monocytes # 0.8 Eosinophils # 0.5 Basophils # 0.0 Nucleated Red Blood Cells # 0.0 Sodium Level 141 Potassium Level 4.6 Chloride Level 99 Carbon Dioxide Level 29 Anion Gap 18 H Blood Urea Nitrogen 55 H Creatinine 3.73 H Glucose Level 106 Calcium Level 8.9 Test 12/23/16 17:49 12/23/16 18:06 12/23/16 18:41 12/23/16 20:45 Bedside Glucose 59 L 88 112 119 Test 12/24/16 05:48 12/24/16 07:27 White Blood Count 8.3 Red Blood Count 2.81 L Hemoglobin 7.9 L Hematocrit 26.2 L Mean Corpuscular Volume 93.2 Mean Corpuscular Hemoglobin 28.1 L Mean Corpuscular Hemoglobin Concent 30.2 L Red Cell Distribution Width 14.3 Platelet Count 292 Mean Platelet Volume 10.4 Neutrophils % 70.9 Lymphocytes % 11.2 L Monocytes % 10.9 Eosinophils % 5.9 Basophils % 0.4 Nucleated Red Blood Cells % 0.0 Neutrophils # (Manual) 5.9 Lymphocytes # 0.9 Monocytes # 0.9 Eosinophils # 0.5 Basophils # 0.0 Nucleated Red Blood Cells # 0.0 Sodium Level 140 Potassium Level 4.5 Chloride Level 100 Carbon Dioxide Level 27 Anion Gap 18 H Blood Urea Nitrogen 57 H Creatinine 3.94 H Glucose Level 137 Calcium Level 9.0 Lab Scanned Report BLOOD TRANSFUSION Medications Current Medications Allopurinol (Zyloprim) 100 mg DAILY PO Last administered on 12/23/16 08:12; Admin Dose 100 MG; Start 12/19/16 at 09:00 Amlodipine Besylate (Norvasc) 10 mg DAILY PO Last administered on 12/23/16 08: 13; Admin Dose 10 MG; Start 12/19/16 at 09:00 Aspirin (Aspirin) 81 mg DAILY PO Last administered on 12/23/16 08:14; Admin Dose 81 MG; Start 12/19/16 at 09:00 Atorvastatin Calcium (Lipitor) 10 mg DAILY@21 PO Last administered on 20:47; Admin Dose 10 MG; Start 12/19/16 at 21:00 Cholecalciferol (Vitamin D) 1,000 unit DAILY PO Last administered on 12/23/16 08:12; Admin Dose 1,000 UNIT; Start 12/19/16 at 09:00 Collagenase (Santyl) 1 applic DAILY TOP Last administered on 12/23/16 08:17; Admin Dose 1 APPLIC; Start 12/19/16 at 09:00 Diltiazem HCl (Cardizem Sr) 60 mg DAILY PO Last administered on 12/23/16 08:13 ; Admin Dose 60 MG; Start 12/19/16 at 09:00 Docusate Sodium (Colace) 100 mg Q12H PO Last administered on 12/23/16 13:26; Admin Dose 100 MG; Start 12/19/16 at 02:30 Hydralazine HCl (Apresoline) 100 mg BID PO Last administered on 12/23/16 20:48 ; Admin Dose 100 MG; Start 12/19/16 at 09:00 Loratadine (Claritin) 5 mg DAILY PO Last administered on 12/23/16 08:14; Admin Dose 5 MG; Start 12/19/16 at 09:00 Pantoprazole (Protonix Tab) 40 mg DAILY@06 PO Last administered on 12/24/16 05 :54; Admin Dose 40 MG; Start 12/19/16 at 06:00 Pentoxifylline (Trental) 400 mg BID PO Last administered on 12/23/16 20:46; Admin Dose 400 MG; Start 12/19/16 at 09:00 Senna (Senokot) 2 tab BID PO Last administered on 12/23/16 20:47; Admin Dose 2 TAB; Start 12/19/16 at 09:00 Silver Sulfadiazine (Thermazene 1% 25 Gm) 1 applic BID TOP Last administered on 12/23/16 20:50; Admin Dose 1 APPLIC; Start 12/19/16 at 09:00 Miscellaneous Information 1 drop Q8H OP ; Start 12/19/16 at 02:30; Status UNV Diagnostic Test (Pha) (Accu-Chek) 1 ea 02 XX ; Start 12/20/16 at 02:00 Ondansetron HCl (Zofran Inj) 4 mg Q6H PRN IV NAUSEA AND/OR VOMITING Last administered on 12/21/16 09:17; Admin Dose 4 MG; Start 12/19/16 at 02:30 Lactobacillus Acidophilus/ Rhamnosus (Culturelle) 1 cap BID PO Last administered on 12/23/16 20:46; Admin Dose 1 CAP; Start 12/19/16 at 09:00 Miscellaneous Information 1 ea NOTE XX ; Start 12/19/16 at 03:00 Glucose (Glutose) 15 gm Q15M PRN PO DECREASED GLUCOSE; Start 12/19/16 at 03:00 Glucose (Glutose) 22.5 gm Q15M PRN PO DECREASED GLUCOSE; Start 12/19/16 at 03: 00 Dextrose (D50w Syringe) 25 ml Q15M PRN IV DECREASED GLUCOSE; Start 12/19/16 at 03:00 Dextrose (D50w Syringe) 50 ml Q15M PRN IV DECREASED GLUCOSE; Start 12/19/16 at 03:00 Glucagon (Glucagen) 1 mg Q15M PRN IM DECREASED GLUCOSE; Start 12/19/16 at 03:00 Glucose (Glutose) 15 gm Q15M PRN BUCCAL DECREASED GLUCOSE; Start 12/19/16 at 03 :00 Eye Lubricant (Artificial Tears Oph) 1 drop QID BOTH EYES Last administered on 12/23/16 20:47; Admin Dose 1 DROP; Start 12/19/16 at 09:00 Miscellaneous Information Ketotifen Fumarate (Alaway... Q8H XX ; Start 12/19/16 at 15:30 Piperacillin Sod/ Tazobactam Sod (Zosyn 2.25gm/ 50ml (Pmx)) 50 ml @ 100 mls/hr Q8 IVPB Last administered on 12/24/16 05:42; Admin Dose 100 MLS/HR; Start at 22:00 Acetaminophen 325 mg 325 mg Q4H PRN PO PAIN AND OR ELEVATED TEMP Last administered on 12/20/16 20:38; Admin Dose 325 MG; Start 12/19/16 at 19:30 Linezolid (Zyvox 600mg/D5W (Pmx)) 300 ml @ 300 mls/hr Q12 IVPB Last administered on 12/23/16 21:00; Admin Dose 300 MLS/HR; Start 12/20/16 at 21:00 Insulin Glargine (Lantus) 42 unit BID SC Last administered on 12/23/16 08:19; Admin Dose 42 UNIT; Start 12/20/16 at 21:00 Morphine Sulfate (morphine) 2 mg Q4H PRN IV PAIN; Start 12/21/16 at 00:15 Mupirocin (Bactroban) 1 applic BID TOP Last administered on 12/23/16 20:50; Admin Dose 1 APPLIC; Start 12/21/16 at 16:00 Sodium Hypochlorite (Dakin'S (Dilute 1/40%)) 1 applic DAILY IRR Last administered on 12/23/16 08:27; Admin Dose 1 APPLIC; Start 12/22/16 at 09:00 Nystatin (Nystatin Cr) 1 applic TID TOP ; Start 12/23/16 at 09:00 Hydralazine HCl (Apresoline) 10 mg Q6H PRN IV ELEVATED BLOOD PRESSURE; Start at 12:30 Heparin Sodium (Porcine) (Heparin (5000 Units/0.5 ml)) 5,000 unit BID SC ; Start 12/24/16 at 09:00 Assessment/Plan Additional Assessment/Plan ASSESSMENT: 1. Left foot diabetic foot ulceration. 2. Osteomyelitis, chronic, 5th metatarsal. 3. [id number] kidney disease. 4. Diabetes type 2. 5. Hypertension. PLAN: Patient seen and evaluated. Obtain new radiographs.Continue Santyl. When medically clear can discuss resection of bone and bone biopsy in the OR setting. Emeterio's ordered from pharmacy to help with wound irrigation. Discussed the planned procedure, risks, benefits, potential complications with patient, and she is amenable. MIESHA GRAFF DPM Dec 24, 2016 08:08
[2016-12-24] MEDS: LINEZOLID 600 MG/D5W (PMX) 300 ML IVPB SCH ×2 (08:11→21:34)
[2016-12-24] MEDS: DILTIAZEM (SR) 60 MG CAP PO SCH (08:13)
[2016-12-24] MEDS: AMLODIPINE 10 MG TAB PO SCH (08:13)
[2016-12-24] MEDS: CHOLECALCIFEROL 1,000 UNIT TAB PO SCH (08:14)
[2016-12-24] MEDS: ALLOPURINOL 100 MG TAB PO SCH (08:14)
[2016-12-24] MEDS: LORATADINE 10 MG TAB PO SCH (08:14)
[2016-12-24] MEDS: INSULIN ASPART [NOVOLOG] 3 ML PEN SC SCH ×7 (08:15→21:00)
[2016-12-24] MEDS: SENNA TAB PO SCH ×2 (08:15→21:18)
[2016-12-24] MEDS: PENTOXIFYLLINE (SR) 400 MG TAB PO SCH ×2 (08:15→21:40)
[2016-12-24] MEDS: LACTOBACILLUS RHAMNOSUS CAP PO SCH ×2 (08:15→21:18)
[2016-12-24] MEDS: ASPIRIN 81 MG TAB PO SCH (08:15)
[2016-12-24] MEDS: ARTIFICIAL TEARS 15 ML OPH BOTH EYES SCH ×4 (08:18→21:17)
[2016-12-24] MEDS: SODIUM HYPOCHLORITE 1/40% 1L IRRIG IRR SCH (08:18)
[2016-12-24] MEDS: MUPIROCIN 2% 22 GM OINT TOP SCH ×2 (08:18→21:00)
[2016-12-24] MEDS: COLLAGENASE 30 GM TUBE TOP SCH (08:19)
[2016-12-24] MEDS: SILVER SULFADIAZINE 1% 25 GM CR TOP SCH ×2 (08:19→21:00)
[2016-12-24] MEDS: NYSTATIN 15 GM CR TOP SCH ×3 (08:20→21:00)
[2016-12-24] MEDS: HEPARIN 5,000 UNIT/0.5 ML VIAL SC SCH ×2 (08:55→21:30)
--- NOTE | 2016-12-24 10:10 | RADRPT ---
PROCEDURE: XR Chest. CLINICAL INDICATION: Pneumonia TECHNIQUE: AP Portable chest. COMPARISON: 12/20/2016 FINDINGS: The left PICC line is in satisfactory position. The cardiac silhouette is enlarged. The aortic arch is calcified. Bilateral interstitial alveolar o pacities are similar in appearance considering for difference in technique. No pneumothorax is seen. There are degenerative changes in the spine. IMPRESSION: No significant change in the edema and airspace opacities. Left PICC line remain in place Physician Johnny Date Time Electronically viewed and signed by Physician Johnny on 12/24/2016 10:09 CS/
[2016-12-24] MEDS: INSULIN GLARGINE [LANtus] 3 ML PEN SC SCH (10:21)
--- NOTE | 2016-12-24 10:59 | PN ---
Date/Time of Note Date/Time of Note DATE: 12/24/16 TIME: 10:51 Assessment/Plan VTE Prophylaxis VTE Prophylaxis Intervention: heparin Lines/Catheters IV Catheter Type ([facility] PICC Line Central line still needed: Yes Urinary Cath still in place: Yes Reason Cath still needed: urinary retention Assessment/Plan Chief Complaint/Hosp Course Assessment/Plan: 66-year-old female with pmhx notable for DM2, CKD, HTN recently admitted for diabetic foot OM now with sepsis 2/2 health care associated pneumonia, as well as JENNIFER on CKD with fluid overload warranting HD #HCAP: cont zosyn, linezolid --->abx adjusted for CrCl 19 so decreasing zosyn dose -anticipate 7 days of therapy for HCAP from date of admission. ID helping -Follow-up final sputum cultures and strep urine Ag -will monitor platelets closely while on Linezolid #JENNIFER on CKD: baseline closer to mid 2s -likely ATN from sepsis v result of nephrotox abx. -MUCH APPRECIATE RENAL ASSISTANCE. Agreed than given pt's poor renal reserve, [employer] indicated for volume removal for this patient, and patient has been on dialysis this admission. -Follow up recommendations regarding outpatient dialysis, likely will need to be started on outpatient dialysis #diabetic foot infection sp debridement (12/22/16) - NOT amputation or complete resection of infected tissue during previous admission (wound culture NOT bone biopsy with EColi). Patient had most recent debridement on 12/22. -Continue antibiotics, per infectious disease recommendations, will need 6 weeks of IV antibiotics, patient does have PICC line - decreased zosyn dose given Crcl 19, on linezolid #DM2 with hyperglycemia -CDE note reviewed, cont current regimen #HTN. HL: cont home meds CM consult for help with outpatient HD, as well as possible fpc facility placement Problems: Subjective 24 Hr Interval Summary Free Text/Dictation Patient presently getting dialysis. Had some low blood sugars in the last 24 hours. Exam/Review of Systems Vital Signs Vitals Vital Signs Date Time Temp Pulse Resp B/P Pulse Ox O2 Delivery O2 Flow Rate FiO2 12/24/16 10:15 72 12/24/16 07:55 97.6 16 177/73 93 12/24/16 02:01 5.0 12/24/16 02:00 Nasal Cannula Intake and Output 8/12/23/16 12/24/16 15:00 23:00 07:00 Intake Total 400 ml 1400 ml 100 ml Output Total 1 ml Balance 400 ml 1399 ml 100 ml Exam In bed, no acute distress, getting dialysis lungs clear S1-S2 heard abd soft foot wrapped no rashes Results Result Diagram: 12/24/16 0548 12/24/16 0548 Results 24 hrs Laboratory Tests Test 12/23/16 12:20 12/23/16 13:15 12/23/16 17:27 12/23/16 17:49 Bedside Glucose 106 50 L 59 L White Blood Count 8.2 # Red Blood Count 2.84 L Hemoglobin 8.2 L Hematocrit 26.2 L Mean Corpuscular Volume 92.3 Mean Corpuscular Hemoglobin 28.9 L Mean Corpuscular Hemoglobin Concent 31.3 L Red Cell Distribution Width 14.1 Platelet Count 288 Mean Platelet Volume 9.6 Neutrophils % 73.1 Lymphocytes % 10.7 L Monocytes % 9.9 Eosinophils % 5.6 Basophils % 0.2 Nucleated Red Blood Cells % 0.0 Neutrophils # (Manual) 6.0 Lymphocytes # 0.9 Monocytes # 0.8 Eosinophils # 0.5 Basophils # 0.0 Nucleated Red Blood Cells # 0.0 Sodium Level 141 Potassium Level 4.6 Chloride Level 99 Carbon Dioxide Level 29 Anion Gap 18 H Blood Urea Nitrogen 55 H Creatinine 3.73 H Glucose Level 106 Calcium Level 8.9 Test 12/23/16 18:06 12/23/16 18:41 12/23/16 20:45 12/24/16 05:48 Bedside Glucose 88 112 119 White Blood Count 8.3 Red Blood Count 2.81 L Hemoglobin 7.9 L Hematocrit 26.2 L Mean Corpuscular Volume 93.2 Mean Corpuscular Hemoglobin 28.1 L Mean Corpuscular Hemoglobin Concent 30.2 L Red Cell Distribution Width 14.3 Platelet Count 292 Mean Platelet Volume 10.4 Neutrophils % 70.9 Lymphocytes % 11.2 L Monocytes % 10.9 Eosinophils % 5.9 Basophils % 0.4 Nucleated Red Blood Cells % 0.0 Neutrophils # (Manual) 5.9 Lymphocytes # 0.9 Monocytes # 0.9 Eosinophils # 0.5 Basophils # 0.0 Nucleated Red Blood Cells # 0.0 Sodium Level 140 Potassium Level 4.5 Chloride Level 100 Carbon Dioxide Level 27 Anion Gap 18 H Blood Urea Nitrogen 57 H Creatinine 3.94 H Glucose Level 137 Calcium Level 9.0 Test 12/24/16 07:27 12/24/16 08:10 12/24/16 10:17 Lab Scanned Report BLOOD TRANSFUSION Bedside Glucose 127 170 Medications Medications Current Medications Allopurinol (Zyloprim) 100 mg DAILY PO Last administered on 12/24/16 08:14; Admin Dose 100 MG; Start 12/19/16 at 09:00 Amlodipine Besylate (Norvasc) 10 mg DAILY PO Last administered on 12/23/16 08: 13; Admin Dose 10 MG; Start 12/19/16 at 09:00 Aspirin (Aspirin) 81 mg DAILY PO Last administered on 12/24/16 08:15; Admin Dose 81 MG; Start 12/19/16 at 09:00 Atorvastatin Calcium (Lipitor) 10 mg DAILY@21 PO Last administered on 20:47; Admin Dose 10 MG; Start 12/19/16 at 21:00 Cholecalciferol (Vitamin D) 1,000 unit DAILY PO Last administered on 12/24/16 08:14; Admin Dose 1,000 UNIT; Start 12/19/16 at 09:00 Collagenase (Santyl) 1 applic DAILY TOP Last administered on 12/24/16 08:19; Admin Dose 1 APPLIC; Start 12/19/16 at 09:00 Diltiazem HCl (Cardizem Sr) 60 mg DAILY PO Last administered on 12/23/16 08:13 ; Admin Dose 60 MG; Start 12/19/16 at 09:00 Docusate Sodium (Colace) 100 mg Q12H PO Last administered on 12/23/16 13:26; Admin Dose 100 MG; Start 12/19/16 at 02:30 Hydralazine HCl (Apresoline) 100 mg BID PO Last administered on 12/23/16 20:48 ; Admin Dose 100 MG; Start 12/19/16 at 09:00 Loratadine (Claritin) 5 mg DAILY PO Last administered on 12/24/16 08:14; Admin Dose 5 MG; Start 12/19/16 at 09:00 Pantoprazole (Protonix Tab) 40 mg DAILY@06 PO Last administered on 12/24/16 05 :54; Admin Dose 40 MG; Start 8/24/17 at 06:00 Pentoxifylline (Trental) 400 mg BID PO Last administered on 12/24/16 08:15; Admin Dose 400 MG; Start 12/19/16 at 09:00 Senna (Senokot) 2 tab BID PO Last administered on 12/24/16 08:15; Admin Dose 2 TAB; Start 12/19/16 at 09:00 Silver Sulfadiazine (Thermazene 1% 25 Gm) 1 applic BID TOP Last administered on 12/24/16 08:19; Admin Dose 1 APPLIC; Start 12/19/16 at 09:00 Diagnostic Test (Pha) (Accu-Chek) 1 ea 02 XX ; Start 12/20/16 at 02:00 Ondansetron HCl (Zofran Inj) 4 mg Q6H PRN IV NAUSEA AND/OR VOMITING Last administered on 12/21/16 09:17; Admin Dose 4 MG; Start 12/19/16 at 02:30 Lactobacillus Acidophilus/ Rhamnosus (Culturelle) 1 cap BID PO Last administered on 12/24/16 08:15; Admin Dose 1 CAP; Start 12/19/16 at 09:00 Miscellaneous Information 1 ea NOTE XX ; Start 12/19/16 at 03:00 Glucose (Glutose) 15 gm Q15M PRN PO DECREASED GLUCOSE; Start 12/19/16 at 03:00 Glucose (Glutose) 22.5 gm Q15M PRN PO DECREASED GLUCOSE; Start 12/19/16 at 03: 00 Dextrose (D50w Syringe) 25 ml Q15M PRN IV DECREASED GLUCOSE; Start 12/19/16 at 03:00 Dextrose (D50w Syringe) 50 ml Q15M PRN IV DECREASED GLUCOSE; Start 12/19/16 at 03:00 Glucagon (Glucagen) 1 mg Q15M PRN IM DECREASED GLUCOSE; Start 12/19/16 at 03:00 Glucose (Glutose) 15 gm Q15M PRN BUCCAL DECREASED GLUCOSE; Start 12/19/16 at 03 :00 Eye Lubricant 1 drop 1 drop QID BOTH EYES Last administered on 12/24/16 08:18 ; Admin Dose 1 DROP; Start 12/19/16 at 09:00 Piperacillin Sod/ Tazobactam Sod (Zosyn 2.25gm/ 50ml (Pmx)) 50 ml @ 100 mls/hr Q8 IVPB Last administered on 12/24/16 05:42; Admin Dose 100 MLS/HR; Start at 22:00 Acetaminophen 325 mg 325 mg Q4H PRN PO PAIN AND OR ELEVATED TEMP Last administered on 12/20/16 20:38; Admin Dose 325 MG; Start 12/19/16 at 19:30 Linezolid (Zyvox 600mg/D5W (Pmx)) 300 ml @ 300 mls/hr Q12 IVPB Last administered on 12/24/16 08:11; Admin Dose 300 MLS/HR; Start 12/20/16 at 21:00 Morphine Sulfate (morphine) 2 mg Q4H PRN IV PAIN; Start 12/21/16 at 00:15 Mupirocin (Bactroban) 1 applic BID TOP Last administered on 12/24/16 08:18; Admin Dose 1 APPLIC; Start 12/21/16 at 16:00 Sodium Hypochlorite (Dakin'S (Dilute 1/40%)) 1 applic DAILY IRR Last administered on 12/24/16 08:18; Admin Dose 1 APPLIC; Start 12/22/16 at 09:00 Nystatin (Nystatin Cr) 1 applic TID TOP ; Start 12/23/16 at 09:00 Hydralazine HCl (Apresoline) 10 mg Q6H PRN IV ELEVATED BLOOD PRESSURE; Start at 12:30 Heparin Sodium (Porcine) (Heparin (5000 Units/0.5 ml)) 5,000 unit BID SC Last administered on 12/24/16 08:55; Admin Dose 5,000 UNIT; Start 12/24/16 at 09:00 Insulin Glargine (Lantus) 32 unit BID SC Last administered on 12/24/16 10:21; Admin Dose 32 UNIT; Start 12/24/16 at 21:00 Metoprolol Tartrate (Lopressor) 12.5 mg BID PO ; Start 12/24/16 at 11:00 DEANNA MACIAS Dec 24, 2016 10:59
[2016-12-24] MEDS: METOPROLOL 25 MG TAB PO SCH ×2 (11:24→21:19)
--- NOTE | 2016-12-24 16:44 | CONS ---
Date/Time of Note Date/Time of Note DATE: 12/24/16 TIME: 16:42 Assessment/Plan Assessment/Plan Additional Assessment/Plan 1. Non Oliguric to oliguric Acute kidney injury on CKD III/IV due to ATN- worsening renal failure with fluid overload now - stared on HD on 12/20/16 2. 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 HTN 4. Diabetic foot infection 5. Health care associated PNA 6. sepsis with bacteremia , LE gangrene Plan : started on HD for acute renal failure with fluid overload -Plan for HD today then we will keep her on TTS schedule while being in hospital has beeen consulted for Permacath placement Podiatry to decide for LE gangerene renally dose all antibiotics will follow up Outpatient HD placement has been requested Consultation Date/Type/Reason Admit Date/Time Dec 18, 2016 at 20:59 Initial Consult Date 12/19/16 Type of Consultation: NEPHROLOGY Referring Provider: FABIAN LEO MD Exam/Review of Systems Vital Signs Vitals Vital Signs Date Time Temp Pulse Resp B/P Pulse Ox O2 Delivery O2 Flow Rate FiO2 12/24/16 14:10 5.0 12/24/16 14:04 60 24 Nasal Cannula 96 12/24/16 13:26 98.4 165/70 91 Intake and Output 12/23/16 12/23/16 12/24/16 15:00 23:00 07:00 Intake Total 400 ml 1400 ml 100 ml Output Total 1 ml Balance 400 ml 1399 ml 100 ml Exam Constitutional: alert, oriented, other Head: normocephalic (Obese) Eyes: PERRL ENMT: mucosa pink and moist Neck: supple Respiratory: crackles/rales, diminished breath sounds, wheezing Cardiovascular: regular rate and rhythm, No murmurs/extra sounds Gastrointestinal: bowel sounds, non-tender, soft Extremities: other (Bilateral foot edema about 2-3+, with left foot ulcer) + leisa catheter Results Result Diagram: 12/24/16 0548 12/24/16 0548 Results 24 hrs Laboratory Tests Test 12/23/16 17:27 12/23/16 17:49 12/23/16 18:06 12/23/16 18:41 Bedside Glucose 50 L 59 L 88 112 Test 12/23/16 20:45 12/24/16 05:48 12/24/16 07:27 12/24/16 08:10 Bedside Glucose 119 127 White Blood Count 8.3 Red Blood Count 2.81 L Hemoglobin 7.9 L Hematocrit 26.2 L Mean Corpuscular Volume 93.2 Mean Corpuscular Hemoglobin 28.1 L Mean Corpuscular Hemoglobin Concent 30.2 L Red Cell Distribution Width 14.3 Platelet Count 292 Mean Platelet Volume 10.4 Neutrophils % 70.9 Lymphocytes % 11.2 L Monocytes % 10.9 Eosinophils % 5.9 Basophils % 0.4 Nucleated Red Blood Cells % 0.0 Neutrophils # (Manual) 5.9 Lymphocytes # 0.9 Monocytes # 0.9 Eosinophils # 0.5 Basophils # 0.0 Nucleated Red Blood Cells # 0.0 Sodium Level 140 Potassium Level 4.5 Chloride Level 100 Carbon Dioxide Level 27 Anion Gap 18 H Blood Urea Nitrogen 57 H Creatinine 3.94 H Glucose Level 137 Calcium Level 9.0 Lab Scanned Report BLOOD TRANSFUSION Test 12/24/16 10:17 12/24/16 12:19 Bedside Glucose 170 132 Medications Medications Current Medications Allopurinol (Zyloprim) 100 mg DAILY PO Last administered on 12/24/16 08:14; Admin Dose 100 MG; Start 12/19/16 at 09:00 Amlodipine Besylate (Norvasc) 10 mg DAILY PO Last administered on 12/23/16 08: 13; Admin Dose 10 MG; Start 12/19/16 at 09:00 Aspirin (Aspirin) 81 mg DAILY PO Last administered on 12/24/16 08:15; Admin Dose 81 MG; Start 12/19/16 at 09:00 Atorvastatin Calcium (Lipitor) 10 mg DAILY@21 PO Last administered on 20:47; Admin Dose 10 MG; Start 12/19/16 at 21:00 Cholecalciferol (Vitamin D) 1,000 unit DAILY PO Last administered on 12/24/16 08:14; Admin Dose 1,000 UNIT; Start 12/19/16 at 09:00 Collagenase (Santyl) 1 applic DAILY TOP Last administered on 12/24/16 08:19; Admin Dose 1 APPLIC; Start 12/19/16 at 09:00 Diltiazem HCl (Cardizem Sr) 60 mg DAILY PO Last administered on 12/23/16 08:13 ; Admin Dose 60 MG; Start 12/19/16 at 09:00 Docusate Sodium (Colace) 100 mg Q12H PO Last administered on 12/24/16 13:44; Admin Dose 100 MG; Start 12/19/16 at 02:30 Hydralazine HCl (Apresoline) 100 mg BID PO Last administered on 12/23/16 20:48 ; Admin Dose 100 MG; Start 12/19/16 at 09:00 Loratadine (Claritin) 5 mg DAILY PO Last administered on 12/24/16 08:14; Admin Dose 5 MG; Start 12/19/16 at 09:00 Pantoprazole (Protonix Tab) 40 mg DAILY@06 PO Last administered on 12/24/16 05 :54; Admin Dose 40 MG; Start 12/19/16 at 06:00 Pentoxifylline (Trental) 400 mg BID PO Last administered on 12/24/16 08:15; Admin Dose 400 MG; Start 12/19/16 at 09:00 Senna (Senokot) 2 tab BID PO Last administered on 12/24/16 08:15; Admin Dose 2 TAB; Start 12/19/16 at 09:00 Silver Sulfadiazine (Thermazene 1% 25 Gm) 1 applic BID TOP Last administered on 12/24/16 08:19; Admin Dose 1 APPLIC; Start 12/19/16 at 09:00 Diagnostic Test (Pha) (Accu-Chek) 1 ea 02 XX ; Start 12/20/16 at 02:00 Ondansetron HCl (Zofran Inj) 4 mg Q6H PRN IV NAUSEA AND/OR VOMITING Last administered on 12/21/16 09:17; Admin Dose 4 MG; Start 12/19/16 at 02:30 Lactobacillus Acidophilus/ Rhamnosus (Culturelle) 1 cap BID PO Last administered on 12/24/16 08:15; Admin Dose 1 CAP; Start 12/19/16 at 09:00 Miscellaneous Information 1 ea NOTE XX ; Start 12/19/16 at 03:00 Glucose (Glutose) 15 gm Q15M PRN PO DECREASED GLUCOSE; Start 12/19/16 at 03:00 Glucose (Glutose) 22.5 gm Q15M PRN PO DECREASED GLUCOSE; Start 12/19/16 at 03: 00 Dextrose (D50w Syringe) 25 ml Q15M PRN IV DECREASED GLUCOSE; Start 12/19/16 at 03:00 Dextrose (D50w Syringe) 50 ml Q15M PRN IV DECREASED GLUCOSE; Start 12/19/16 at 03:00 Glucagon (Glucagen) 1 mg Q15M PRN IM DECREASED GLUCOSE; Start 12/19/16 at 03:00 Glucose (Glutose) 15 gm Q15M PRN BUCCAL DECREASED GLUCOSE; Start 12/19/16 at 03 :00 Eye Lubricant 1 drop 1 drop QID BOTH EYES Last administered on 12/24/16 13:44 ; Admin Dose 1 DROP; Start 12/19/16 at 09:00 Piperacillin Sod/ Tazobactam Sod (Zosyn 2.25gm/ 50ml (Pmx)) 50 ml @ 100 mls/hr Q8 IVPB Last administered on 12/24/16 13:45; Admin Dose 100 MLS/HR; Start at 22:00 Acetaminophen 325 mg 325 mg Q4H PRN PO PAIN AND OR ELEVATED TEMP Last administered on 12/20/16 20:38; Admin Dose 325 MG; Start 12/19/16 at 19:30 Linezolid (Zyvox 600mg/D5W (Pmx)) 300 ml @ 300 mls/hr Q12 IVPB Last administered on 12/24/16 08:11; Admin Dose 300 MLS/HR; Start 12/20/16 at 21:00 Morphine Sulfate (morphine) 2 mg Q4H PRN IV PAIN; Start 12/21/16 at 00:15 Mupirocin (Bactroban) 1 applic BID TOP Last administered on 12/24/16 08:18; Admin Dose 1 APPLIC; Start 12/21/16 at 16:00 Sodium Hypochlorite (Dakin'S (Dilute 1/40%)) 1 applic DAILY IRR Last administered on 12/24/16 08:18; Admin Dose 1 APPLIC; Start 12/22/16 at 09:00 Nystatin (Nystatin Cr) 1 applic TID TOP ; Start 12/23/16 at 09:00 Hydralazine HCl (Apresoline) 10 mg Q6H PRN IV ELEVATED BLOOD PRESSURE; Start at 12:30 Heparin Sodium (Porcine) (Heparin (5000 Units/0.5 ml)) 5,000 unit BID SC Last administered on 12/24/16 08:55; Admin Dose 5,000 UNIT; Start 12/24/16 at 09:00 Insulin Glargine (Lantus) 32 unit BID SC Last administered on 12/24/16 10:21; Admin Dose 32 UNIT; Start 12/24/16 at 21:00 Metoprolol Tartrate (Lopressor) 12.5 mg BID PO Last administered on 12/24/16 11:24; Admin Dose 12.5 MG; Start 12/24/16 at 11:00 MONSE CHILEL MD Dec 24, 2016 16:44
[2016-12-24] MEDS: ATORVASTATIN 10 MG TAB PO SCH (21:17)
--- NOTE | 2016-12-24 22:56 | PN ---
DATE: 12/24/2016 SUBJECTIVE DATA: No acute changes overnight. Patient is lying comfortably in bed. She is in hemodialysis. VITAL SIGNS: Afebrile, temperature 98.4, pulse 69, respirations 17, blood pressure 165/70. Saturation 91 percent on room air. LABORATORY AND DIAGNOSTIC DATA: WBC 8.3, H and H 7.9 and 26.2, platelets 292, neutrophils 70.9. BUN 57, creatinine 3.94. INDWELLING: Right femoral Derrick, left upper extremity PICC line that was new. ANTIMICROBIALS: Patient is on: 1. Zosyn. 2. Zyvox. PHYSICAL EXAMINATION: GENERAL: This is a morbidly obese, elderly woman, who is lethargic, in no distress. HEENT: Head atraumatic, normocephalic. Sclerae anicteric. Buccal mucosa dry. NECK: Obese. Trachea midline. CHEST: Rise symmetrical. Breath sounds diminished at the bases. HEART: S1, S2. ABDOMEN: Obese, soft, bowel sounds hypoactive. EXTREMITIES: No cyanosis. Bilateral edema. Left foot dressing intact. ASSESSMENT: 1. Sepsis, resolving. 2. Healthcare-associated pneumonia. 3. Coag-negative staph bacteremia, possibly contaminant, with repeat blood cultures negative. 4. Left foot osteomyelitis. 5. [id number] kidney disease, started on hemodialysis. 6. Poorly-controlled diabetes. 7. Peripheral vascular disease, with bilateral lower extremities chronic venous stasis. PLAN: Patient remains stable. White blood cell count tracing down. Repeat blood cultures negative. We will continue her on current antimicrobials. Follow recommendations of consultants. Dictated By: Cm Santos NP /patricia/mathieu /Document#: [id number]
[2016-12-25] MEDS: ACCU-CHEK XX SCH (02:00)
[2016-12-25] MEDS: DOCUSATE SODIUM 100 MG CAP PO SCH ×2 (02:30→14:21)
[2016-12-25 02:55] VITALS: BP 137/69; RESP 20
[2016-12-25] MEDS: PANTOPRAZOLE (EC) 40 MG TAB PO SCH (06:18)
[2016-12-25] MEDS: PIPER-TAZO 2.25 GM (PMX) 50 ML IVPB SCH ×3 (06:18→22:45)
[2016-12-25 06:52] LABS: HAAIG REFLEX REFLEX FILED
[2016-12-25 06:53] LABS: BASOPHILS % 0.2 % (0.0-2.0); EOSINOPHILS # 0.4 10^3/ul (0.0-0.5); EOSINOPHILS % 5.1 % (0.0-7.0); HEMATOCRIT 26.8 % (37.0-47.0); HEMOGLOBIN 8.2 g/dl (12.0-16.0); LYMPHOCYTES # 1.1 10^3/ul (0.8-2.9); MEAN CORPUSCULAR HGB CONC 30.6 g/dl (32.0-37.0); MEAN CORPUSCULAR VOLUME 91.5 fl (82.0-101.0); MEAN PLATELET VOLUME 10.3 fl (7.4-10.4); MONOCYTE # 0.7 10^3/ul (0.3-0.9); NEUTROPHILS % 72.3 % (39.0-77.0); PLATELET COUNT 326 10^3/UL (140-415); RED BLOOD COUNT 2.93 10^6/ul (4.20-5.40); WHITE BLOOD COUNT 8.2 10^3/ul (4.8-10.8)
[2016-12-25 07:15] VITALS: BP 170/79; RESP 20
[2016-12-25 07:25] LABS: CALCIUM 9.1 mg/dl (8.4-10.2); CREATININE 3.22 mg/dl (0.44-1.00); POTASSIUM 4.8 mmol/L (3.5-5.1)
[2016-12-25 08:17] LABS: HEPATITIS B CORE ANTIBODY REACTIVE (NEGATIVE)
[2016-12-25] MEDS: CHOLECALCIFEROL 1,000 UNIT TAB PO SCH (08:20)
[2016-12-25] MEDS: SENNA TAB PO SCH ×2 (08:20→21:34)
[2016-12-25] MEDS: ASPIRIN 81 MG TAB PO SCH (08:21)
[2016-12-25] MEDS: PENTOXIFYLLINE (SR) 400 MG TAB PO SCH ×2 (08:21→21:34)
[2016-12-25] MEDS: LORATADINE 10 MG TAB PO SCH (08:21)
[2016-12-25] MEDS: ALLOPURINOL 100 MG TAB PO SCH (08:22)
[2016-12-25] MEDS: METOPROLOL 25 MG TAB PO SCH ×2 (08:23→21:34)
[2016-12-25] MEDS: AMLODIPINE 10 MG TAB PO SCH (08:23)
[2016-12-25] MEDS: DILTIAZEM (SR) 60 MG CAP PO SCH (08:24)
[2016-12-25] MEDS: ARTIFICIAL TEARS 15 ML OPH BOTH EYES SCH ×4 (08:25→21:39)
[2016-12-25] MEDS: MUPIROCIN 2% 22 GM OINT TOP SCH ×2 (08:26→21:00)
[2016-12-25] MEDS: COLLAGENASE 30 GM TUBE TOP SCH (08:27)
[2016-12-25] MEDS: SILVER SULFADIAZINE 1% 25 GM CR TOP SCH ×2 (08:27→21:36)
[2016-12-25] MEDS: SODIUM HYPOCHLORITE 1/40% 1L IRRIG IRR SCH (08:27)
[2016-12-25] MEDS: INSULIN ASPART [NOVOLOG] 3 ML PEN SC SCH ×7 (08:28→21:00)
[2016-12-25] MEDS: INSULIN GLARGINE [LANtus] 3 ML PEN SC SCH ×2 (08:29→21:00)
[2016-12-25] MEDS: LACTOBACILLUS RHAMNOSUS CAP PO SCH ×2 (08:34→21:34)
[2016-12-25] MEDS: LINEZOLID 600 MG/D5W (PMX) 300 ML IVPB SCH ×2 (08:35→21:39)
[2016-12-25] MEDS: HEPARIN 5,000 UNIT/0.5 ML VIAL SC SCH ×2 (08:43→21:39)
[2016-12-25] MEDS: NYSTATIN 15 GM CR TOP SCH ×3 (09:00→21:00)
--- NOTE | 2016-12-25 12:28 | PN ---
Date/Time of Note Date/Time of Note DATE: 12/25/16 TIME: 12:23 Assessment/Plan VTE Prophylaxis VTE Prophylaxis Intervention: heparin Lines/Catheters IV C[facility]ter Type (from [facility]): Peripheral IV Urinary Cath still in place: Yes Reason Cath still needed: urinary retention Assessment/Plan Chief Complaint/Hosp Course Assessment/Plan: 66-year-old female with pmhx notable for DM2, CKD, HTN recently admitted for diabetic foot OM now with sepsis 2/2 health care associated pneumonia, as well as JENNIFER on CKD with fluid overload warranting HD #HCAP: Improving - cont zosyn, linezolid --->abx adjusted for CrCl 19 so decreasing zosyn dose -anticipate 7 days of therapy for HCAP from date of admission -Follow-up final sputum cultures and strep urine Ag -will monitor platelets closely while on Linezolid #JENNIFER on CKD: baseline closer to mid 2s -likely ATN from sepsis v result of nephrotox abx. -MUCH APPRECIATE RENAL ASSISTANCE. Agreed than given pt's poor renal reserve, PSYCH TECH indicated for volume removal for this patient, and patient has been on dialysis this admission. -Follow up recommendations regarding outpatient dialysis, likely will need to be started on outpatient dialysis. -Awaiting vascular surgery consult for PermCath placement #diabetic foot infection sp debridement (12/22/16) - NOT amputation or complete resection of infected tissue during previous admission (wound culture NOT bone biopsy with EColi). Patient had most recent debridement on 12/22. -Continue antibiotics, per infectious disease recommendations, will need 6 weeks of IV antibiotics, patient does have PICC line - decreased zosyn dose given Crcl 19, on linezolid #DM2 with hyperglycemia -sugars actually became low a couple of days ago, and insulins were adjusted. In the last 24 hours sugars have been in the normal range. cont current regimen #HTN. HL: cont home meds CM consult for help with outpatient HD, as well as possible [facility] facility placement-they are working on this Problems: Subjective 24 Hr Interval Summary Free Text/Dictation Had dialysis yesterday. PICC line unfortunately came out yesterday as well. Has peripheral line now. Exam/Review of Systems Vital Signs Vitals Vital Signs Date Time Temp Pulse Resp B/P Pulse Ox O2 Delivery O2 Flow Rate FiO2 12/25/16 07:15 98.9 86 20 170/79 98 12/25/16 04:12 4.0 12/24/16 20:00 Nasal Cannula 12/24/16 14:04 96 Intake and Output 12/24/16 12/24/16 12/25/16 15:00 23:00 07:00 Intake Total 1350 ml 710 ml Output Total 6000 ml Balance -4650 ml 710 ml Exam Sleeping, in no acute distress lungs clear S1-S2 heard abd soft foot wrapped no rashes Results Result Diagram: 12/25/16 0623 12/25/16 0623 Results 24 hrs Laboratory Tests Test 12/24/16 17:24 12/24/16 21:16 12/25/16 06:23 12/25/16 08:15 Bedside Glucose 99 76 165 White Blood Count 8.2 Red Blood Count 2.93 L Hemoglobin 8.2 L Hematocrit 26.8 L Mean Corpuscular Volume 91.5 Mean Corpuscular Hemoglobin 28.0 L Mean Corpuscular Hemoglobin Concent 30.6 L Red Cell Distribution Width 14.0 Platelet Count 326 Mean Platelet Volume 10.3 Neutrophils % 72.3 Lymphocytes % 13.0 L Monocytes % 9.0 Eosinophils % 5.1 Basophils % 0.2 Nucleated Red Blood Cells % 0.0 Neutrophils # (Manual) 5.9 Lymphocytes # 1.1 Monocytes # 0.7 Eosinophils # 0.4 Basophils # 0.0 Nucleated Red Blood Cells # 0.0 Sodium Level 139 Potassium Level 4.8 Chloride Level 97 Carbon Dioxide Level 29 Anion Gap 18 H Blood Urea Nitrogen 46 #H Creatinine 3.22 H Glucose Level 143 Calcium Level 9.1 Hepatitis B Surface Antigen NEGATIVE Hepatitis B Core Total Antibody REACTIVE H Hepatitis C Antibody NEGATIVE HIV (1&2) Antibody NEGATIVE Test 12/25/16 12:04 Bedside Glucose 164 Medications Medications Current Medications Allopurinol (Zyloprim) 100 mg DAILY PO Last administered on 12/25/16 08:22; Admin Dose 100 MG; Start 12/19/16 at 09:00 Amlodipine Besylate (Norvasc) 10 mg DAILY PO Last administered on 12/25/16 08: 23; Admin Dose 10 MG; Start 12/19/16 at 09:00 Aspirin (Aspirin) 81 mg DAILY PO Last administered on 12/25/16 08:21; Admin Dose 81 MG; Start 12/19/16 at 09:00 Atorvastatin Calcium (Lipitor) 10 mg DAILY@21 PO Last administered on 21:17; Admin Dose 10 MG; Start 12/19/16 at 21:00 Cholecalciferol (Vitamin D) 1,000 unit DAILY PO Last administered on 12/25/16 08:20; Admin Dose 1,000 UNIT; Start 12/19/16 at 09:00 Collagenase (Santyl) 1 applic DAILY TOP Last administered on 12/25/16 08:27; Admin Dose 1 APPLIC; Start 12/19/16 at 09:00 Diltiazem HCl (Cardizem Sr) 60 mg DAILY PO Last administered on 12/25/16 08:24 ; Admin Dose 60 MG; Start 12/19/16 at 09:00 Docusate Sodium (Colace) 100 mg Q12H PO Last administered on 12/24/16 13:44; Admin Dose 100 MG; Start 12/19/16 at 02:30 Hydralazine HCl (Apresoline) 100 mg BID PO Last administered on 12/25/16 08:35 ; Admin Dose 100 MG; Start 12/19/16 at 09:00 Loratadine (Claritin) 5 mg DAILY PO Last administered on 12/25/16 08:21; Admin Dose 5 MG; Start 12/19/16 at 09:00 Pantoprazole (Protonix Tab) 40 mg DAILY@06 PO Last administered on 12/25/16 06 :18; Admin Dose 40 MG; Start 12/19/16 at 06:00 Pentoxifylline (Trental) 400 mg BID PO Last administered on 12/25/16 08:21; Admin Dose 400 MG; Start 12/19/16 at 09:00 Senna (Senokot) 2 tab BID PO Last administered on 12/25/16 08:20; Admin Dose 2 TAB; Start 12/19/16 at 09:00 Silver Sulfadiazine (Thermazene 1% 25 Gm) 1 applic BID TOP Last administered on 12/25/16 08:27; Admin Dose 1 APPLIC; Start 12/19/16 at 09:00 Diagnostic Test (Pha) (Accu-Chek) 1 ea 02 XX ; Start 12/20/16 at 02:00 Ondansetron HCl (Zofran Inj) 4 mg Q6H PRN IV NAUSEA AND/OR VOMITING Last administered on 12/21/16 09:17; Admin Dose 4 MG; Start 12/19/16 at 02:30 Lactobacillus Acidophilus/ Rhamnosus (Culturelle) 1 cap BID PO Last administered on 12/25/16 08:34; Admin Dose 1 CAP; Start 12/19/16 at 09:00 Miscellaneous Information 1 ea NOTE XX ; Start 12/19/16 at 03:00 Glucose (Glutose) 15 gm Q15M PRN PO DECREASED GLUCOSE; Start 12/19/16 at 03:00 Glucose (Glutose) 22.5 gm Q15M PRN PO DECREASED GLUCOSE; Start 12/19/16 at 03: 00 Dextrose (D50w Syringe) 25 ml Q15M PRN IV DECREASED GLUCOSE; Start 12/19/16 at 03:00 Dextrose (D50w Syringe) 50 ml Q15M PRN IV DECREASED GLUCOSE; Start 12/19/16 at 03:00 Glucagon (Glucagen) 1 mg Q15M PRN IM DECREASED GLUCOSE; Start 12/19/16 at 03:00 Glucose (Glutose) 15 gm Q15M PRN BUCCAL DECREASED GLUCOSE; Start 12/19/16 at 03 :00 Eye Lubricant 1 drop 1 drop QID BOTH EYES Last administered on 12/25/16 12:10 ; Admin Dose 1 DROP; Start 12/19/16 at 09:00 Piperacillin Sod/ Tazobactam Sod (Zosyn 2.25gm/ 50ml (Pmx)) 50 ml @ 100 mls/hr Q8 IVPB Last administered on 12/25/16 06:18; Admin Dose 100 MLS/HR; Start at 22:00 Acetaminophen 325 mg 325 mg Q4H PRN PO PAIN AND OR ELEVATED TEMP Last administered on 12/20/16 20:38; Admin Dose 325 MG; Start 12/19/16 at 19:30 Linezolid (Zyvox 600mg/D5W (Pmx)) 300 ml @ 300 mls/hr Q12 IVPB Last administered on 12/25/16 08:35; Admin Dose 300 MLS/HR; Start 12/20/16 at 21:00 Morphine Sulfate (morphine) 2 mg Q4H PRN IV PAIN; Start 12/21/16 at 00:15 Mupirocin (Bactroban) 1 applic BID TOP Last administered on 12/25/16 08:26; Admin Dose 1 APPLIC; Start 12/21/16 at 16:00 Sodium Hypochlorite (Dakin'S (Dilute 1/40%)) 1 applic DAILY IRR Last administered on 12/25/16 08:27; Admin Dose 1 APPLIC; Start 12/22/16 at 09:00 Nystatin (Nystatin Cr) 1 applic TID TOP ; Start 12/23/16 at 09:00 Hydralazine HCl (Apresoline) 10 mg Q6H PRN IV ELEVATED BLOOD PRESSURE; Start at 12:30 Heparin Sodium (Porcine) (Heparin (5000 Units/0.5 ml)) 5,000 unit BID SC Last administered on 12/25/16 08:43; Admin Dose 5,000 UNIT; Start 12/24/16 at 09:00 Insulin Glargine (Lantus) 32 unit BID SC Last administered on 12/25/16 08:29; Admin Dose 32 UNIT; Start 12/24/16 at 21:00 Metoprolol Tartrate (Lopressor) 12.5 mg BID PO Last administered on 12/25/16 08:23; Admin Dose 12.5 MG; Start 12/24/16 at 11:00 DEANNA MACIAS Dec 25, 2016 12:28
[2016-12-25 14:52] VITALS: BP 149/69; RESP 18
--- NOTE | 2016-12-25 16:54 | CONS ---
Date/Time of Note Date/Time of Note DATE: 12/25/16 TIME: 16:52 Assessment/Plan Assessment/Plan Additional Assessment/Plan 1. Non Oliguric to oliguric Acute kidney injury on CKD III/IV due to ATN- worsening renal failure with fluid overload now - stared on HD on 12/20/16 2. 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 HTN 4. Diabetic foot infection 5. Health care associated PNA 6. sepsis with bacteremia , LE gangrene Plan : started on HD for acute renal failure with fluid overload -Plan for HD today then we will keep her on TTS schedule while being in hospital, HD ordered for tomorrow has beeen consulted for Permacath placement Podiatry to decide for LE gangerene renally dose all antibiotics will follow up Outpatient HD placement has been requested to [facility] HD center Consultation Date/Type/Reason Admit Date/Time Dec 18, 2016 at 20:59 Initial Consult Date 12/19/16 Type of Consultation: NEPHROLOGY Referring Provider: FABIAN LEO MD 24 HR Interval Summary Free Text/Dictation no acute events overnight,BP stable, pt pulled out PICC line by accident Exam/Review of Systems Vital Signs Vitals Vital Signs Date Time Temp Pulse Resp B/P Pulse Ox O2 Delivery O2 Flow Rate FiO2 12/25/16 14:52 98.7 62 18 149/69 95 12/25/16 12:32 Nasal Cannula 4.0 12/24/16 14:04 96 Intake and Output 12/24/16 12/24/16 12/25/16 15:00 23:00 07:00 Intake Total 1350 ml 710 ml Output Total 6000 ml Balance -4650 ml 710 ml Exam Constitutional: alert, oriented, other Head: normocephalic (Obese) Eyes: PERRL ENMT: mucosa pink and moist Neck: supple Respiratory: crackles/rales, diminished breath sounds, wheezing Cardiovascular: regular rate and rhythm, No murmurs/extra sounds Gastrointestinal: bowel sounds, non-tender, soft Extremities: other (Bilateral foot edema about 2-3+, with left foot ulcer) Results Result Diagram: 12/25/16 0623 12/25/16 0623 Results 24 hrs Laboratory Tests Test 12/24/16 17:24 12/24/16 21:16 12/25/16 06:23 12/25/16 08:15 Bedside Glucose 99 76 165 White Blood Count 8.2 Red Blood Count 2.93 L Hemoglobin 8.2 L Hematocrit 26.8 L Mean Corpuscular Volume 91.5 Mean Corpuscular Hemoglobin 28.0 L Mean Corpuscular Hemoglobin Concent 30.6 L Red Cell Distribution Width 14.0 Platelet Count 326 Mean Platelet Volume 10.3 Neutrophils % 72.3 Lymphocytes % 13.0 L Monocytes % 9.0 Eosinophils % 5.1 Basophils % 0.2 Nucleated Red Blood Cells % 0.0 Neutrophils # (Manual) 5.9 Lymphocytes # 1.1 Monocytes # 0.7 Eosinophils # 0.4 Basophils # 0.0 Nucleated Red Blood Cells # 0.0 Sodium Level 139 Potassium Level 4.8 Chloride Level 97 Carbon Dioxide Level 29 Anion Gap 18 H Blood Urea Nitrogen 46 #H Creatinine 3.22 H Glucose Level 143 Calcium Level 9.1 Hepatitis B Surface Antigen NEGATIVE Hepatitis B Core Total Antibody REACTIVE H Hepatitis C Antibody NEGATIVE HIV (1&2) Antibody NEGATIVE Test 12/25/16 12:04 Bedside Glucose 164 Medications Medications Current Medications Allopurinol (Zyloprim) 100 mg DAILY PO Last administered on 12/25/16 08:22; Admin Dose 100 MG; Start 12/19/16 at 09:00 Amlodipine Besylate (Norvasc) 10 mg DAILY PO Last administered on 12/25/16 08: 23; Admin Dose 10 MG; Start 12/19/16 at 09:00 Aspirin (Aspirin) 81 mg DAILY PO Last administered on 12/25/16 08:21; Admin Dose 81 MG; Start 12/19/16 at 09:00 Atorvastatin Calcium (Lipitor) 10 mg DAILY@21 PO Last administered on 21:17; Admin Dose 10 MG; Start 12/19/16 at 21:00 Cholecalciferol (Vitamin D) 1,000 unit DAILY PO Last administered on 12/25/16 08:20; Admin Dose 1,000 UNIT; Start 12/19/16 at 09:00 Collagenase (Santyl) 1 applic DAILY TOP Last administered on 12/25/16 08:27; Admin Dose 1 APPLIC; Start 12/19/16 at 09:00 Diltiazem HCl (Cardizem Sr) 60 mg DAILY PO Last administered on 12/25/16 08:24 ; Admin Dose 60 MG; Start 12/19/16 at 09:00 Docusate Sodium (Colace) 100 mg Q12H PO Last administered on 12/25/16 14:21; Admin Dose 100 MG; Start 12/19/16 at 02:30 Hydralazine HCl (Apresoline) 100 mg BID PO Last administered on 12/25/16 08:35 ; Admin Dose 100 MG; Start 12/19/16 at 09:00 Loratadine (Claritin) 5 mg DAILY PO Last administered on 12/25/16 08:21; Admin Dose 5 MG; Start 12/19/16 at 09:00 Pantoprazole (Protonix Tab) 40 mg DAILY@06 PO Last administered on 12/25/16 06 :18; Admin Dose 40 MG; Start 12/19/16 at 06:00 Pentoxifylline (Trental) 400 mg BID PO Last administered on 12/25/16 08:21; Admin Dose 400 MG; Start 12/19/16 at 09:00 Senna (Senokot) 2 tab BID PO Last administered on 12/25/16 08:20; Admin Dose 2 TAB; Start 12/19/16 at 09:00 Silver Sulfadiazine (Thermazene 1% 25 Gm) 1 applic BID TOP Last administered on 12/25/16 08:27; Admin Dose 1 APPLIC; Start 12/19/16 at 09:00 Diagnostic Test (Pha) (Accu-Chek) 1 ea 02 XX ; Start 12/20/16 at 02:00 Ondansetron HCl (Zofran Inj) 4 mg Q6H PRN IV NAUSEA AND/OR VOMITING Last administered on 12/21/16 09:17; Admin Dose 4 MG; Start 12/19/16 at 02:30 Lactobacillus Acidophilus/ Rhamnosus (Culturelle) 1 cap BID PO Last administered on 12/25/16 08:34; Admin Dose 1 CAP; Start 12/19/16 at 09:00 Miscellaneous Information 1 ea NOTE XX ; Start 12/19/16 at 03:00 Glucose (Glutose) 15 gm Q15M PRN PO DECREASED GLUCOSE; Start 12/19/16 at 03:00 Glucose (Glutose) 22.5 gm Q15M PRN PO DECREASED GLUCOSE; Start 12/19/16 at 03: 00 Dextrose (D50w Syringe) 25 ml Q15M PRN IV DECREASED GLUCOSE; Start 12/19/16 at 03:00 Dextrose (D50w Syringe) 50 ml Q15M PRN IV DECREASED GLUCOSE; Start 12/19/16 at 03:00 Glucagon (Glucagen) 1 mg Q15M PRN IM DECREASED GLUCOSE; Start 12/19/16 at 03:00 Glucose (Glutose) 15 gm Q15M PRN BUCCAL DECREASED GLUCOSE; Start 12/19/16 at 03 :00 Eye Lubricant 1 drop 1 drop QID BOTH EYES Last administered on 12/25/16 12:10 ; Admin Dose 1 DROP; Start 12/19/16 at 09:00 Piperacillin Sod/ Tazobactam Sod (Zosyn 2.25gm/ 50ml (Pmx)) 50 ml @ 100 mls/hr Q8 IVPB Last administered on 12/25/16 14:22; Admin Dose 100 MLS/HR; Start at 22:00 Acetaminophen 325 mg 325 mg Q4H PRN PO PAIN AND OR ELEVATED TEMP Last administered on 12/20/16 20:38; Admin Dose 325 MG; Start 12/19/16 at 19:30 Linezolid (Zyvox 600mg/D5W (Pmx)) 300 ml @ 300 mls/hr Q12 IVPB Last administered on 12/25/16 08:35; Admin Dose 300 MLS/HR; Start 12/20/16 at 21:00 Morphine Sulfate (morphine) 2 mg Q4H PRN IV PAIN; Start 12/21/16 at 00:15 Mupirocin (Bactroban) 1 applic BID TOP Last administered on 12/25/16 08:26; Admin Dose 1 APPLIC; Start 12/21/16 at 16:00 Sodium Hypochlorite (Dakin'S (Dilute 1/40%)) 1 applic DAILY IRR Last administered on 12/25/16 08:27; Admin Dose 1 APPLIC; Start 12/22/16 at 09:00 Nystatin (Nystatin Cr) 1 applic TID TOP ; Start 12/23/16 at 09:00 Hydralazine HCl (Apresoline) 10 mg Q6H PRN IV ELEVATED BLOOD PRESSURE; Start at 12:30 Heparin Sodium (Porcine) (Heparin (5000 Units/0.5 ml)) 5,000 unit BID SC Last administered on 12/25/16 08:43; Admin Dose 5,000 UNIT; Start 12/24/16 at 09:00 Insulin Glargine (Lantus) 32 unit BID SC Last administered on 12/25/16 08:29; Admin Dose 32 UNIT; Start 12/24/16 at 21:00 Metoprolol Tartrate (Lopressor) 12.5 mg BID PO Last administered on 12/25/16 08:23; Admin Dose 12.5 MG; Start 12/24/16 at 11:00 MONSE CHILEL MD Dec 25, 2016 16:54
[2016-12-25 19:37] VITALS: BP 166/72; RESP 20
[2016-12-25] MEDS: ATORVASTATIN 10 MG TAB PO SCH (21:33)
[2016-12-25] MEDS: ONDANSETRON 4 MG INJ IV PRN (21:56)
--- NOTE | 2016-12-25 23:44 | CONS ---
DATE OF ADMISSION: 12/18/2016 DATE OF CONSULTATION: 12/25/2016 SUBJECTIVE: The patient returns for followup of her left foot ulceration. Differential diagnosis osteomyelitis fifth metatarsal, patient denies any fever, nausea, or vomiting. Has pending dialysis and PermCath placement. Discussed surgical intervention once medically cleared. The patient on antibiotics for healthcare acquired pneumonia. OBJECTIVE: VITAL SIGNS: Temperature 98.7, pulse 62, respiratory rate 18, blood pressure 149/69, and pulse ox is 95 room air. GENERAL: The patient alert, oriented, no acute distress. HEENT: Head is normocephalic. Patient obese. EXTREMITIES: Patient with dressings intact left foot. Ulceration lateral aspect, with tunneling to the metatarsal bone and mild serosanguineous drainage. The patient with heel ulceration approximately 4 x 5 cm with epidermal lysis of skin. No ascending cellulitis. LABORATORY: WBC 8.2, hemoglobin 8.2, hematocrit 26.8, and platelets 326. Glucose of 143. Blood culture no growth. Wound culture no growth. Foot x-ray with cortical irregularity of the 5th metatarsal head and proximal phalanx. ASSESSMENT: 1. Left foot diabetic foot ulceration. 2. Cellulitis likely osteomyelitis fifth metatarsophalangeal joint. 3. Healthcare associated pneumonia. 4. Bacteremia. 5. Chronic kidney disease, pending hemodialysis. PLAN: Discussed diagnosis and treatment options. Once stable undergo biopsy with resection of bone at the fifth metatarsophalangeal joint. Debridement, possible application of skin substitute. Can tentatively schedule for Friday p.m. if medically cleared. We will coordinate with the OR staff. Dictated By: Robson Hernandez DPM /patricia/reese /Document#: [id number]
[2016-12-26] VITALS (13 sets, daily range): BP systolic 130–167; BP diastolic 60–89; PULSE 66–78; RESP 18–20
[2016-12-26] MEDS: ACCU-CHEK XX SCH (02:00)
[2016-12-26] MEDS: DOCUSATE SODIUM 100 MG CAP PO SCH ×2 (02:30→14:17)
--- NOTE | 2016-12-26 03:00 | PN ---
DATE: 12/25/2016 SUBJECTIVE DATA: No acute changes overnight. The patient is alert, feels better, eating lunch. No fevers. LABORATORY AND DIAGNOSTIC DATA: WBC 8.2, H and H 8.2 and 26.8, platelets 326. INDWELLINGS: Right femoral Derrick and left upper extremity PICC line. ANTIMICROBIALS: Zosyn and Zyvox. PHYSICAL EXAMINATION: VITALS: Temperature 98.9, pulse 86, respirations 20, blood pressure 170/79, saturation 98 on 4 L nasal cannula. GENERAL: This is a morbidly obese, well developed, elderly woman who is awake in no distress. HEENT: Head atraumatic and normocephalic. Sclerae are anicteric. Buccal mucosa is dry. NECK: Supple. LUNGS: Chest rise symmetrical. Breath sounds are diminished at the bases. HEART: S1, S2. ABDOMEN: Soft. Bowel sounds present. EXTREMITIES: With bilateral lower extremities edema. Left foot dressing intact. ASSESSMENT: 1. Resolving sepsis. 2. Healthcare-associated pneumonia. 3. Respiratory failure secondary to pneumonia and fluid overload. 4. Left foot osteomyelitis. 5. Acute on chronic kidney disease, on hemodialysis. 6. Diabetes, poorly controlled. 7. Bilateral lower extremities chronic venous stasis. PLAN: The patient is doing better. She is on appropriate antimicrobials. We will continue her on current regimen. We will change her back to daptomycin and Rocephin when she goes home to complete treatment for osteomyelitis. Dictated By: Cm Santos NP /patricia/adelita /Document#: [id number]
[2016-12-26] MEDS: PIPER-TAZO 2.25 GM (PMX) 50 ML IVPB SCH ×3 (05:48→23:52)
[2016-12-26] MEDS: PANTOPRAZOLE (EC) 40 MG TAB PO SCH (05:48)
[2016-12-26 06:27] LABS: BASOPHILS % 0.4 % (0.0-2.0); EOSINOPHILS # 0.4 10^3/ul (0.0-0.5); EOSINOPHILS % 6.3 % (0.0-7.0); HEMATOCRIT 26.9 % (37.0-47.0); HEMOGLOBIN 8.2 g/dl (12.0-16.0); LYMPHOCYTES # 1.1 10^3/ul (0.8-2.9); LYMPHOCYTES % 16.9 % (15.0-51.0); MEAN CORPUSCULAR HEMOGLOBIN 28.2 pg (29.0-33.0); MEAN CORPUSCULAR HGB CONC 30.5 g/dl (32.0-37.0); MEAN CORPUSCULAR VOLUME 92.4 fl (82.0-101.0); MEAN PLATELET VOLUME 9.5 fl (7.4-10.4); MONOCYTE # 0.7 10^3/ul (0.3-0.9); MONOCYTES % 10.4 % (0.0-11.0); NEUTROPHILS % 65.4 % (39.0-77.0); PLATELET COUNT 323 10^3/UL (140-415); RED BLOOD COUNT 2.91 10^6/ul (4.20-5.40); RED CELL DISTRIBUTION WIDTH 13.8 % (11.5-14.5); WHITE BLOOD COUNT 6.7 10^3/ul (4.8-10.8)
[2016-12-26 07:08] LABS: CALCIUM 9.2 mg/dl (8.4-10.2); CREATININE 3.41 mg/dl (0.44-1.00); POTASSIUM 4.8 mmol/L (3.5-5.1)
[2016-12-26] MEDS: INSULIN ASPART [NOVOLOG] 3 ML PEN SC SCH ×8 (08:04→21:00)
[2016-12-26] MEDS: INSULIN GLARGINE [LANtus] 3 ML PEN SC SCH ×2 (08:10→21:00)
[2016-12-26] MEDS: NYSTATIN 15 GM CR TOP SCH ×3 (09:00→21:00)
[2016-12-26] MEDS: AMLODIPINE 10 MG TAB PO SCH (09:00)
[2016-12-26] MEDS: DILTIAZEM (SR) 60 MG CAP PO SCH (09:00)
[2016-12-26] MEDS: METOPROLOL 25 MG TAB PO SCH ×2 (09:00→21:48)
[2016-12-26] MEDS: MUPIROCIN 2% 22 GM OINT TOP SCH ×2 (09:00→21:00)
[2016-12-26] MEDS: ARTIFICIAL TEARS 15 ML OPH BOTH EYES SCH ×4 (09:17→21:45)
[2016-12-26] MEDS: SODIUM HYPOCHLORITE 1/40% 1L IRRIG IRR SCH (09:17)
[2016-12-26] MEDS: ALLOPURINOL 100 MG TAB PO SCH (09:18)
[2016-12-26] MEDS: PENTOXIFYLLINE (SR) 400 MG TAB PO SCH ×2 (09:18→21:47)
[2016-12-26] MEDS: CHOLECALCIFEROL 1,000 UNIT TAB PO SCH (09:18)
[2016-12-26] MEDS: SENNA TAB PO SCH ×2 (09:18→21:46)
[2016-12-26] MEDS: LORATADINE 10 MG TAB PO SCH (09:18)
[2016-12-26] MEDS: LACTOBACILLUS RHAMNOSUS CAP PO SCH ×2 (09:18→21:47)
[2016-12-26] MEDS: COLLAGENASE 30 GM TUBE TOP SCH (09:20)
[2016-12-26] MEDS: SILVER SULFADIAZINE 1% 25 GM CR TOP SCH ×2 (09:20→21:45)
[2016-12-26] MEDS: ASPIRIN 81 MG TAB PO SCH (09:38)
[2016-12-26] MEDS: LINEZOLID 600 MG/D5W (PMX) 300 ML IVPB SCH ×2 (09:39→21:45)
[2016-12-26] MEDS: HEPARIN 5,000 UNIT/0.5 ML VIAL SC SCH ×2 (09:42→22:11)
--- NOTE | 2016-12-26 09:51 | CONS ---
Date/Time of Note Date/Time of Note DATE: 12/26/16 TIME: 09:47 Assessment/Plan Assessment/Plan Additional Assessment/Plan 1. Non Oliguric to oliguric Acute kidney injury on CKD III/IV due to ATN- worsening renal failure with fluid overload now - stared on HD on 12/20/16 2. 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 HTN 4. Diabetic foot infection 5. Health care associated PNA 6. sepsis with bacteremia , LE gangrene Plan : started on HD for acute renal failure with fluid overload -Plan for HD today then we will keep her on TTS schedule while being in hospital, HD ordered for today has beeen consulted for Permacath placement Podiatry to decide for LE gangerene debridement, possibly on friday if cleared, From nephrology stand point of view, pt is cleared for Debridement renally dose all antibiotics will follow up Outpatient HD placement has been requested to [facility]- in Process, almost confirmed by tomorrow Consultation Date/Type/Reason Admit Date/Time Dec 18, 2016 at 20:59 Initial Consult Date 12/19/16 Type of Consultation: NEPHROLOGY Referring Provider: FABIAN LEO MD 24 HR Interval Summary Free Text/Dictation plan for debridement tomorrow, Plan for HD today, still has leisa catheter, Bp stable Exam/Review of Systems Vital Signs Vitals Vital Signs Date Time Temp Pulse Resp B/P Pulse Ox O2 Delivery O2 Flow Rate FiO2 12/26/16 08:30 72 12/26/16 07:33 98.4 18 156/70 94 12/26/16 06:18 4.0 12/25/16 22:00 Nasal Cannula 12/24/16 14:04 96 Intake and Output 12/25/16 12/25/16 12/26/16 15:00 23:00 07:00 Intake Total 750 ml 890 ml 350 ml Balance 750 ml 890 ml 350 ml Exam Constitutional: alert, oriented, other Head: normocephalic (Obese) Eyes: PERRL ENMT: mucosa pink and moist Neck: supple Respiratory: crackles/rales, diminished breath sounds, wheezing Cardiovascular: regular rate and rhythm, No murmurs/extra sounds Gastrointestinal: bowel sounds, non-tender, soft Extremities: other (Bilateral foot edema about 2-3+, with left foot ulcer) + right groin leisa catheter Results Result Diagram: 12/26/16 0555 12/26/16 0555 Results 24 hrs Laboratory Tests Test 12/25/16 12:04 12/25/16 17:10 12/25/16 21:32 12/26/16 05:55 Bedside Glucose 164 71 84 White Blood Count 6.7 Red Blood Count 2.91 L Hemoglobin 8.2 L Hematocrit 26.9 L Mean Corpuscular Volume 92.4 Mean Corpuscular Hemoglobin 28.2 L Mean Corpuscular Hemoglobin Concent 30.5 L Red Cell Distribution Width 13.8 Platelet Count 323 Mean Platelet Volume 9.5 Neutrophils % 65.4 Lymphocytes % 16.9 Monocytes % 10.4 Eosinophils % 6.3 Basophils % 0.4 Nucleated Red Blood Cells % 0.0 Neutrophils # (Manual) 4.4 Lymphocytes # 1.1 Monocytes # 0.7 Eosinophils # 0.4 Basophils # 0.0 Nucleated Red Blood Cells # 0.0 Sodium Level 137 Potassium Level 4.8 Chloride Level 97 Carbon Dioxide Level 29 Anion Gap 16 Blood Urea Nitrogen 53 H Creatinine 3.41 H Glucose Level 116 Calcium Level 9.2 Test 12/26/16 08:03 Bedside Glucose 106 Medications Medications Current Medications Allopurinol (Zyloprim) 100 mg DAILY PO Last administered on 12/26/16 09:18; Admin Dose 100 MG; Start 12/19/16 at 09:00 Amlodipine Besylate (Norvasc) 10 mg DAILY PO Last administered on 12/25/16 08: 23; Admin Dose 10 MG; Start 12/19/16 at 09:00 Aspirin (Aspirin) 81 mg DAILY PO Last administered on 12/26/16 09:38; Admin Dose 81 MG; Start 12/19/16 at 09:00 Atorvastatin Calcium (Lipitor) 10 mg DAILY@21 PO Last administered on 21:33; Admin Dose 10 MG; Start 12/19/16 at 21:00 Cholecalciferol (Vitamin D) 1,000 unit DAILY PO Last administered on 12/26/16 09:18; Admin Dose 1,000 UNIT; Start 12/19/16 at 09:00 Collagenase (Santyl) 1 applic DAILY TOP Last administered on 12/26/16 09:20; Admin Dose 1 APPLIC; Start 12/19/16 at 09:00 Diltiazem HCl (Cardizem Sr) 60 mg DAILY PO Last administered on 12/25/16 08:24 ; Admin Dose 60 MG; Start 12/19/16 at 09:00 Docusate Sodium (Colace) 100 mg Q12H PO Last administered on 12/25/16 14:21; Admin Dose 100 MG; Start 12/19/16 at 02:30 Hydralazine HCl (Apresoline) 100 mg BID PO Last administered on 12/25/16 21:33 ; Admin Dose 100 MG; Start 12/19/16 at 09:00 Loratadine (Claritin) 5 mg DAILY PO Last administered on 12/26/16 09:18; Admin Dose 5 MG; Start 12/19/16 at 09:00 Pantoprazole (Protonix Tab) 40 mg DAILY@06 PO Last administered on 12/26/16 05 :48; Admin Dose 40 MG; Start 12/19/16 at 06:00 Pentoxifylline (Trental) 400 mg BID PO Last administered on 12/26/16 09:18; Admin Dose 400 MG; Start 12/19/16 at 09:00 Senna (Senokot) 2 tab BID PO Last administered on 12/26/16 09:18; Admin Dose 2 TAB; Start 12/19/16 at 09:00 Silver Sulfadiazine (Thermazene 1% 25 Gm) 1 applic BID TOP Last administered on 12/26/16 09:20; Admin Dose 1 APPLIC; Start 12/19/16 at 09:00 Diagnostic Test (Pha) (Accu-Chek) 1 ea 02 XX ; Start 12/20/16 at 02:00 Ondansetron HCl (Zofran Inj) 4 mg Q6H PRN IV NAUSEA AND/OR VOMITING Last administered on 12/25/16 21:56; Admin Dose 4 MG; Start 12/19/16 at 02:30 Lactobacillus Acidophilus/ Rhamnosus (Culturelle) 1 cap BID PO Last administered on 12/26/16 09:18; Admin Dose 1 CAP; Start 12/19/16 at 09:00 Miscellaneous Information 1 ea NOTE XX ; Start 12/19/16 at 03:00 Glucose (Glutose) 15 gm Q15M PRN PO DECREASED GLUCOSE; Start 12/19/16 at 03:00 Glucose (Glutose) 22.5 gm Q15M PRN PO DECREASED GLUCOSE; Start 12/19/16 at 03: 00 Dextrose (D50w Syringe) 25 ml Q15M PRN IV DECREASED GLUCOSE; Start 12/19/16 at 03:00 Dextrose (D50w Syringe) 50 ml Q15M PRN IV DECREASED GLUCOSE; Start 12/19/16 at 03:00 Glucagon (Glucagen) 1 mg Q15M PRN IM DECREASED GLUCOSE; Start 12/19/16 at 03:00 Glucose (Glutose) 15 gm Q15M PRN BUCCAL DECREASED GLUCOSE; Start 12/19/16 at 03 :00 Eye Lubricant 1 drop 1 drop QID BOTH EYES Last administered on 12/26/16 09:17 ; Admin Dose 1 DROP; Start 12/19/16 at 09:00 Piperacillin Sod/ Tazobactam Sod (Zosyn 2.25gm/ 50ml (Pmx)) 50 ml @ 100 mls/hr Q8 IVPB Last administered on 12/26/16 05:48; Admin Dose 100 MLS/HR; Start at 22:00 Acetaminophen 325 mg 325 mg Q4H PRN PO PAIN AND OR ELEVATED TEMP Last administered on 12/20/16 20:38; Admin Dose 325 MG; Start 12/19/16 at 19:30 Linezolid (Zyvox 600mg/D5W (Pmx)) 300 ml @ 300 mls/hr Q12 IVPB Last administered on 12/26/16 09:39; Admin Dose 300 MLS/HR; Start 12/20/16 at 21:00 Morphine Sulfate (morphine) 2 mg Q4H PRN IV PAIN; Start 12/21/16 at 00:15 Mupirocin (Bactroban) 1 applic BID TOP Last administered on 12/25/16 08:26; Admin Dose 1 APPLIC; Start 12/21/16 at 16:00 Sodium Hypochlorite (Dakin'S (Dilute 1/40%)) 1 applic DAILY IRR Last administered on 12/26/16 09:17; Admin Dose 1 APPLIC; Start 12/22/16 at 09:00 Nystatin (Nystatin Cr) 1 applic TID TOP ; Start 12/23/16 at 09:00 Hydralazine HCl (Apresoline) 10 mg Q6H PRN IV ELEVATED BLOOD PRESSURE; Start at 12:30 Heparin Sodium (Porcine) (Heparin (5000 Units/0.5 ml)) 5,000 unit BID SC Last administered on 12/26/16 09:42; Admin Dose 5,000 UNIT; Start 12/24/16 at 09:00 Insulin Glargine (Lantus) 32 unit BID SC Last administered on 12/26/16 08:10; Admin Dose 32 UNIT; Start 12/24/16 at 21:00 Metoprolol Tartrate (Lopressor) 12.5 mg BID PO Last administered on 12/25/16 21:34; Admin Dose 12.5 MG; Start 12/24/16 at 11:00 MONSE CHILEL MD Dec 26, 2016 09:51
--- NOTE | 2016-12-26 12:09 | PN ---
Date/Time of Note Date/Time of Note DATE: 12/26/16 TIME: 12:03 Assessment/Plan VTE Prophylaxis VTE Prophylaxis Intervention: heparin Lines/Catheters IV C[facility]ter Type [facility]from [facility]): Central Line Central line still needed: Yes Urinary Cath still in place: No Assessment/Plan Chief Complaint/Hosp Course Assessment/Plan: 66-year-old female with pmhx notable for DM2, CKD, HTN recently admitted for diabetic foot OM now with sepsis 2/2 health care associated pneumonia, as well as JENNIFER on CKD with fluid overload warranting HD #HCAP: Improving - cont zosyn, linezolid --->abx adjusted for CrCl 19 so decreasing zosyn dose -anticipate 7 days of therapy for HCAP from date of admission -Follow-up final sputum cultures and strep urine Ag -will monitor platelets closely while on Linezolid #JENNIFER on CKD: baseline closer to mid 2s -likely ATN from sepsis v result of nephrotox abx. -MUCH APPRECIATE RENAL ASSISTANCE. Agreed than given pt's poor renal reserve, WELDING OPERATOR indicated for volume removal for this patient, and patient has been on dialysis this admission. -Follow up recommendations regarding outpatient dialysis, likely will need to be started on outpatient dialysis. -Awaiting vascular surgery consult for PermCath placement #diabetic foot infection sp debridement (12/22/16) - NOT amputation or complete resection of infected tissue during previous admission (wound culture NOT bone biopsy with EColi). Patient had most recent debridement on 12/22. -Continue antibiotics, per infectious disease recommendations, will need 6 weeks of IV antibiotics, patient does have PICC line - decreased zosyn dose given Crcl 19, on linezolid #DM2 with hyperglycemia -sugars actually became low a couple of days ago, and insulins were adjusted. Sugars have been in the low normal range the last 24 hours. Will lower Lantus and aspart doses today. #HTN. HL: cont home meds CM consult for help with outpatient HD, as well as possible alf facility placement-they are working on this Problems: Subjective 24 Hr Interval Summary Free Text/Dictation No acute events overnight. Seen by renal team this morning, awaiting dialysis for later today. Exam/Review of Systems Vital Signs Vitals Vital Signs Date Time Temp Pulse Resp B/P Pulse Ox O2 Delivery O2 Flow Rate FiO2 12/26/16 10:30 76 12/26/16 10:30 16 12/26/16 09:00 Nasal Cannula 4.0 12/26/16 07:33 98.4 156/70 94 12/24/16 14:04 96 Intake and Output 12/25/16 12/25/16 12/26/16 15:00 23:00 07:00 Intake Total 750 ml 890 ml 350 ml Balance 750 ml 890 ml 350 ml Results Result Diagram: 12/26/16 0555 12/26/16 0555 Results 24 hrs Laboratory Tests Test 12/25/16 12:04 12/25/16 17:10 12/25/16 21:32 12/26/16 05:55 Bedside Glucose 164 71 84 White Blood Count 6.7 Red Blood Count 2.91 L Hemoglobin 8.2 L Hematocrit 26.9 L Mean Corpuscular Volume 92.4 Mean Corpuscular Hemoglobin 28.2 L Mean Corpuscular Hemoglobin Concent 30.5 L Red Cell Distribution Width 13.8 Platelet Count 323 Mean Platelet Volume 9.5 Neutrophils % 65.4 Lymphocytes % 16.9 Monocytes % 10.4 Eosinophils % 6.3 Basophils % 0.4 Nucleated Red Blood Cells % 0.0 Neutrophils # (Manual) 4.4 Lymphocytes # 1.1 Monocytes # 0.7 Eosinophils # 0.4 Basophils # 0.0 Nucleated Red Blood Cells # 0.0 Sodium Level 137 Potassium Level 4.8 Chloride Level 97 Carbon Dioxide Level 29 Anion Gap 16 Blood Urea Nitrogen 53 H Creatinine 3.41 H Glucose Level 116 Calcium Level 9.2 Test 12/26/16 08:03 12/26/16 11:52 Bedside Glucose 106 85 Medications Medications Current Medications Allopurinol (Zyloprim) 100 mg DAILY PO Last administered on 12/26/16 09:18; Admin Dose 100 MG; Start 12/19/16 at 09:00 Amlodipine Besylate (Norvasc) 10 mg DAILY PO Last administered on 12/25/16 08: 23; Admin Dose 10 MG; Start 12/19/16 at 09:00 Aspirin (Aspirin) 81 mg DAILY PO Last administered on 12/26/16 09:38; Admin Dose 81 MG; Start 12/19/16 at 09:00 Atorvastatin Calcium (Lipitor) 10 mg DAILY@21 PO Last administered on 21:33; Admin Dose 10 MG; Start 12/19/16 at 21:00 Cholecalciferol (Vitamin D) 1,000 unit DAILY PO Last administered on 12/26/16 09:18; Admin Dose 1,000 UNIT; Start 12/19/16 at 09:00 Collagenase (Santyl) 1 applic DAILY TOP Last administered on 12/26/16 09:20; Admin Dose 1 APPLIC; Start 12/19/16 at 09:00 Diltiazem HCl (Cardizem Sr) 60 mg DAILY PO Last administered on 12/25/16 08:24 ; Admin Dose 60 MG; Start 12/19/16 at 09:00 Docusate Sodium (Colace) 100 mg Q12H PO Last administered on 12/25/16 14:21; Admin Dose 100 MG; Start 12/19/16 at 02:30 Hydralazine HCl (Apresoline) 100 mg BID PO Last administered on 12/25/16 21:33 ; Admin Dose 100 MG; Start 12/19/16 at 09:00 Loratadine (Claritin) 5 mg DAILY PO Last administered on 12/26/16 09:18; Admin Dose 5 MG; Start 12/19/16 at 09:00 Pantoprazole (Protonix Tab) 40 mg DAILY@06 PO Last administered on 12/26/16 05 :48; Admin Dose 40 MG; Start 12/19/16 at 06:00 Pentoxifylline (Trental) 400 mg BID PO Last administered on 12/26/16 09:18; Admin Dose 400 MG; Start 12/19/16 at 09:00 Senna (Senokot) 2 tab BID PO Last administered on 12/26/16 09:18; Admin Dose 2 TAB; Start 12/19/16 at 09:00 Silver Sulfadiazine (Thermazene 1% 25 Gm) 1 applic BID TOP Last administered on 12/26/16 09:20; Admin Dose 1 APPLIC; Start 12/19/16 at 09:00 Diagnostic Test (Pha) (Accu-Chek) 1 ea 02 XX ; Start 12/20/16 at 02:00 Ondansetron HCl (Zofran Inj) 4 mg Q6H PRN IV NAUSEA AND/OR VOMITING Last administered on 12/25/16 21:56; Admin Dose 4 MG; Start 12/19/16 at 02:30 Lactobacillus Acidophilus/ Rhamnosus (Culturelle) 1 cap BID PO Last administered on 12/26/16 09:18; Admin Dose 1 CAP; Start 12/19/16 at 09:00 Miscellaneous Information 1 ea NOTE XX ; Start 12/19/16 at 03:00 Glucose (Glutose) 15 gm Q15M PRN PO DECREASED GLUCOSE; Start 12/19/16 at 03:00 Glucose (Glutose) 22.5 gm Q15M PRN PO DECREASED GLUCOSE; Start 12/19/16 at 03: 00 Dextrose (D50w Syringe) 25 ml Q15M PRN IV DECREASED GLUCOSE; Start 12/19/16 at 03:00 Dextrose (D50w Syringe) 50 ml Q15M PRN IV DECREASED GLUCOSE; Start 12/19/16 at 03:00 Glucagon (Glucagen) 1 mg Q15M PRN IM DECREASED GLUCOSE; Start 12/19/16 at 03:00 Glucose (Glutose) 15 gm Q15M PRN BUCCAL DECREASED GLUCOSE; Start 12/19/16 at 03 :00 Eye Lubricant 1 drop 1 drop QID BOTH EYES Last administered on 12/26/16 09:17 ; Admin Dose 1 DROP; Start 12/19/16 at 09:00 Piperacillin Sod/ Tazobactam Sod (Zosyn 2.25gm/ 50ml (Pmx)) 50 ml @ 100 mls/hr Q8 IVPB Last administered on 12/26/16 05:48; Admin Dose 100 MLS/HR; Start at 22:00 Acetaminophen 325 mg 325 mg Q4H PRN PO PAIN AND OR ELEVATED TEMP Last administered on 12/20/16 20:38; Admin Dose 325 MG; Start 12/19/16 at 19:30 Linezolid (Zyvox 600mg/D5W (Pmx)) 300 ml @ 300 mls/hr Q12 IVPB Last administered on 12/26/16 09:39; Admin Dose 300 MLS/HR; Start 12/20/16 at 21:00 Morphine Sulfate (morphine) 2 mg Q4H PRN IV PAIN; Start 12/21/16 at 00:15 Mupirocin (Bactroban) 1 applic BID TOP Last administered on 12/25/16 08:26; Admin Dose 1 APPLIC; Start 8/26/17 at 16:00 Sodium Hypochlorite (Dakin'S (Dilute 1/40%)) 1 applic DAILY IRR Last administered on 12/26/16 09:17; Admin Dose 1 APPLIC; Start 12/22/16 at 09:00 Nystatin (Nystatin Cr) 1 applic TID TOP ; Start 12/23/16 at 09:00 Hydralazine HCl (Apresoline) 10 mg Q6H PRN IV ELEVATED BLOOD PRESSURE; Start at 12:30 Heparin Sodium (Porcine) (Heparin (5000 Units/0.5 ml)) 5,000 unit BID SC Last administered on 12/26/16 09:42; Admin Dose 5,000 UNIT; Start 12/24/16 at 09:00 Insulin Glargine (Lantus) 32 unit BID SC Last administered on 12/26/16 08:10; Admin Dose 32 UNIT; Start 12/24/16 at 21:00 Metoprolol Tartrate (Lopressor) 12.5 mg BID PO Last administered on 12/25/16 21:34; Admin Dose 12.5 MG; Start 12/24/16 at 11:00 DEANNA MACIAS Dec 26, 2016 12:09
--- NOTE | 2016-12-26 15:22 | PN ---
DATE: 12/26/2016 SUBJECTIVE DATA: No acute changes. The patient looks comfortable, afebrile. LABORATORY AND DIAGNOSTIC DATA: WBC 6.7, platelets 323,000. Blood culture on admission grew coag-negative staph. Repeat blood cultures negative. INDWELLING: The patient has right femoral Derrick, left upper extremity PICC line. ANTIMICROBIALS: 1. Zosyn. 2. Zyvox. PHYSICAL EXAMINATION: GENERAL: Morbidly obese, elderly woman who is in no distress. HEENT: Head atraumatic, normocephalic. Sclerae anicteric. Buccal mucosa dry. NECK: Obese. CHEST: Rise symmetrical. Breath sounds diminished at the bases. HEART: S1, S2. ABDOMEN: Soft, bowel sounds present. EXTREMITIES: With bilateral edema. SKIN: No jaundice. No cyanosis. ASSESSMENT: 1. Resolving sepsis. 2. Resolving pneumonia. 3. Fluid overload. 4. Acute on chronic kidney disease, on hemodialysis. 5. Left foot osteomyelitis. 6. Diabetes, poorly controlled. 7. Bilateral lower extremity chronic venous stasis. PLAN: The patient remains stable. We are going to continue her on current antimicrobials for now to complete treatment for pneumonia. Plan to undergo biopsy with resection of bone at the 5th metatarsophalangeal joint with debridement and possible application of skin graft as per podiatry note. Dictated By: Cm Santos NP /patricia/laura /Document#: [id number]
[2016-12-26] MEDS ORDERED: HEPARIN 1000 UNITS/ML 10 ML INJ ONE (19:09)
[2016-12-26] MEDS ORDERED: IODIXANOL LOCM 50 ML BTL ONE (19:09)
[2016-12-26] MEDS ORDERED: MIDAZOLAM 1 MG/ML 2 ML INJ ONE (19:09)
[2016-12-26] MEDS ORDERED: FENTAnyl 50 MCG/ML VIAL ONE (19:09)
[2016-12-26] MEDS ORDERED: LIDOCAINE 1% (MDV) 20 ML INJ ONE (19:09)
--- NOTE | 2016-12-26 19:37 | OPR ---
Date/Time of Note Date/Time of Note DATE: 12/26/16 TIME: 19:35 Operative Report Procedure Date: Dec 26, 2016 Preoperative Diagnosis ESRD Postoperative Diagnosis ESRD Operation Performed RIJV Permcath placement Surgeon: LAI LOPEZ MD Anesthesia Type: MAC Estimated Blood Loss: none Transfusion Required: no Specimen: none Grafts/Implants: none Complications: no Pt Condition Post Procedure: stable Disposition: PACU Indications ESRD Operative\Procedure Findings Dictated Procedure Description Dictated LAI LOPEZ MD Dec 26, 2016 19:37
[2016-12-26] MEDS ORDERED: HEPARIN 1000 UNITS/NS (A-LINE) 1,000 ML ONE (19:50)
[2016-12-26] MEDS ORDERED: SOD CHLORIDE 0.9% 500 ML ONE (19:51)
--- NOTE | 2016-12-26 19:56 | OPR ---
DATE OF OPERATION: 12/26/2016 PREOPERATIVE DIAGNOSIS: Renal failure. POSTOPERATIVE DIAGNOSIS: Renal failure. OPERATION PERFORMED: 1. Right internal jugular vein primary catheter placement. 2. Ultrasound guidance into the central vein. SURGEON: Ryan Tobias MD ANESTHESIA: Local. INDICATIONS: Risks, benefits, complications, alternative therapies explained to the patient and the family. Consent obtained. OPERATIVE PROCEDURE: Patient was placed in supine position, prepped and draped in the usual sterile fashion; 1 percent lidocaine was used throughout the operation for local anesthesia. Under ultrasonic guidance, access was gained into the right internal jugular vein. Guidewire was advanced through without any difficulty. Subcutaneous tissue was dilated. A 19-cm tunneled hemodialysis catheter brought into the subcutaneous tunnel and advanced into the right internal jugular vein and superior vena cava, all under fluoroscopic guidance. The tip was placed at the junction of the superior vena cava and right atrium. Both ports of the catheter were aspirated and injected using heparinized saline solution. The catheter was secured to the skin using 2-0 nylon sutures, and the exit site on the neck site was closed using a single 3-0 Vicryl suture in an interrupted fashion. Patient tolerated the procedure well. Dictated By: Ryan Tobias MD /patricia/mathieu /Document#: [id number]
[2016-12-26] MEDS: ATORVASTATIN 10 MG TAB PO SCH (21:47)
[2016-12-26] MEDS: ALBUTEROL/IPRATROPIUM (NEB) 3 ML AMP HHN PRN (22:28)
[2016-12-27] VITALS (21 sets, daily range): BP systolic 151–169; BP diastolic 59–76; PULSE 63–70; RESP 15–20
[2016-12-27] MEDS: DOCUSATE SODIUM 100 MG CAP PO SCH ×2 (02:30→14:30)
[2016-12-27] MEDS: ACCU-CHEK XX SCH ×2 (02:46→22:51)
[2016-12-27] MEDS: PANTOPRAZOLE (EC) 40 MG TAB PO SCH (05:01)
[2016-12-27] MEDS: PIPER-TAZO 2.25 GM (PMX) 50 ML IVPB SCH ×3 (05:01→22:46)
[2016-12-27] MEDS: ACETAMINOPHEN 325 MG TAB PO PRN (05:01)
[2016-12-27 06:20] LABS: BASOPHILS % 0.3 % (0.0-2.0); EOSINOPHILS # 0.3 10^3/ul (0.0-0.5); EOSINOPHILS % 4.7 % (0.0-7.0); HEMATOCRIT 27.7 % (37.0-47.0); HEMOGLOBIN 8.3 g/dl (12.0-16.0); LYMPHOCYTES # 0.7 10^3/ul (0.8-2.9); LYMPHOCYTES % 11.5 % (15.0-51.0); MEAN CORPUSCULAR HEMOGLOBIN 27.9 pg (29.0-33.0); MEAN PLATELET VOLUME 9.7 fl (7.4-10.4); MONOCYTE # 0.7 10^3/ul (0.3-0.9); MONOCYTES % 11.3 % (0.0-11.0); NEUTROPHILS % 71.3 % (39.0-77.0); PLATELET COUNT 308 10^3/UL (140-415); RED BLOOD COUNT 2.98 10^6/ul (4.20-5.40); RED CELL DISTRIBUTION WIDTH 13.7 % (11.5-14.5); WHITE BLOOD COUNT 5.8 10^3/ul (4.8-10.8)
[2016-12-27 06:53] LABS: CREATININE 3.22 mg/dl (0.44-1.00); POTASSIUM 4.7 mmol/L (3.5-5.1)
[2016-12-27] MEDS: LORATADINE 10 MG TAB PO SCH (08:06)
[2016-12-27] MEDS: CHOLECALCIFEROL 1,000 UNIT TAB PO SCH (08:07)
[2016-12-27] MEDS: METOPROLOL 25 MG TAB PO SCH ×2 (08:07→20:45)
[2016-12-27] MEDS: ALLOPURINOL 100 MG TAB PO SCH (08:07)
[2016-12-27] MEDS: ASPIRIN 81 MG TAB PO SCH (08:07)
[2016-12-27] MEDS: AMLODIPINE 10 MG TAB PO SCH (08:07)
[2016-12-27] MEDS: DILTIAZEM (SR) 60 MG CAP PO SCH (08:08)
[2016-12-27] MEDS: PENTOXIFYLLINE (SR) 400 MG TAB PO SCH ×2 (08:08→20:43)
[2016-12-27] MEDS: LACTOBACILLUS RHAMNOSUS CAP PO SCH ×2 (08:08→20:43)
[2016-12-27] MEDS: SENNA TAB PO SCH ×2 (08:09→20:44)
[2016-12-27] MEDS: MUPIROCIN 2% 22 GM OINT TOP SCH ×2 (08:10→21:00)
[2016-12-27] MEDS: SILVER SULFADIAZINE 1% 25 GM CR TOP SCH ×2 (08:10→21:00)
[2016-12-27] MEDS: LINEZOLID 600 MG/D5W (PMX) 300 ML IVPB SCH ×2 (08:10→20:42)
[2016-12-27] MEDS: ARTIFICIAL TEARS 15 ML OPH BOTH EYES SCH ×4 (08:10→20:43)
[2016-12-27] MEDS: COLLAGENASE 30 GM TUBE TOP SCH (08:10)
[2016-12-27] MEDS: DEXTROSE 5%-0.45% NACL 500 ML IV SCH ×2 (08:14→17:39)
[2016-12-27] MEDS: INSULIN GLARGINE [LANtus] 3 ML PEN SC SCH ×2 (08:15→21:01)
[2016-12-27] MEDS: SODIUM HYPOCHLORITE 1/40% 1L IRRIG IRR SCH (08:18)
[2016-12-27] MEDS: INSULIN ASPART [NOVOLOG] 3 ML PEN SC SCH ×7 (08:20→21:00)
[2016-12-27] MEDS: HEPARIN 5,000 UNIT/0.5 ML VIAL SC SCH (08:30)
[2016-12-27] MEDS: NYSTATIN 15 GM CR TOP SCH ×3 (08:30→21:00)
[2016-12-27] MEDS ORDERED: DEXTROSE 5%-0.45% NACL 1,000 ML IV SCH (09:00)
--- NOTE | 2016-12-27 12:25 | PN ---
Date/Time of Note Date/Time of Note DATE: 12/27/16 TIME: 12:22 Assessment/Plan VTE Prophylaxis VTE Prophylaxis Intervention: contraindicated Lines/Catheters IV [facility]atheter Type (from [facility]): permacath Urinary Cath still in place: No Assessment/Plan Chief Complaint/Hosp Course Assessment/Plan: 66-year-old female with pmhx notable for DM2, CKD, HTN recently admitted for diabetic foot OM now with sepsis 2/2 health care associated pneumonia, as well as JENNIFER on CKD with fluid overload warranting HD #HCAP: Improving - cont zosyn, linezolid --->abx adjusted for CrCl 19 so decreasing zosyn dose -anticipate 7 days of therapy for HCAP from date of admission -Follow-up final sputum cultures and strep urine Ag -will monitor platelets closely while on Linezolid #JENNIFER on CKD: baseline closer to mid 2s -likely ATN from sepsis v result of nephrotox abx. -MUCH APPRECIATE RENAL ASSISTANCE. Agreed than given pt's poor renal reserve, RELAY ASSEMBLER indicated for volume removal for this patient, and patient has been on dialysis this admission. -Follow up recommendations regarding outpatient dialysis, has been set up per discussion with case management team now -Data supposed PermCath placement-monitor for any oozing of blood #diabetic foot infection sp debridement (12/22/16) - NOT amputation or complete resection of infected tissue during previous admission (wound culture NOT bone biopsy with EColi). Patient had most recent debridement on 12/22. -Continue antibiotics, per infectious disease recommendations, will need 6 weeks of IV antibiotics, patient does have PICC line -For other debridement surgery by podiatry later today, follow-up post operation recommend a #DM2 with hyperglycemia -sugars high normal range in the last 24 hour, and insulins were adjusted. Continue current aspart and Lantus #HTN. HL: cont home meds CM consult for help with outpatient HD, as well as possible longterm facility placement-they are working on this-likely for discharge to longterm facility in 24 hours once debridement surgery is performed and bleeding issues from catheters have resolved. Problems: Subjective 24 Hr Interval Summary Free Text/Dictation Patient had PermCath placed yesterday, having some slight oozing of blood coming from there this morning, as well as some bleeding from the groin catheter. Otherwise no acute events overnight. Awaiting debridement surgery by podiatry team for later today. Exam/Review of Systems Vital Signs Vitals Vital Signs Date Time Temp Pulse Resp B/P Pulse Ox O2 Delivery O2 Flow Rate FiO2 12/27/16 08:30 Nasal Cannula 4.0 12/27/16 07:41 98.3 67 18 151/67 92 12/24/16 14:04 96 Intake and Output 12/26/16 12/26/16 12/27/16 15:00 23:00 07:00 Intake Total 1650 ml 300 ml 550 ml Output Total 6000 ml Balance -4350 ml 300 ml 550 ml Exam Sleeping, in no acute distress lungs clear S1-S2 heard abd soft foot wrapped no rashes Results Result Diagram: 12/27/16 0529 12/27/16 0529 Results 24 hrs Laboratory Tests Test 12/26/16 21:30 12/26/16 21:57 12/26/16 22:03 12/26/16 22:26 Bedside Glucose 36 *L 35 *L 38 *L 157 Test 12/26/16 22:51 12/27/16 02:07 12/27/16 05:29 12/27/16 08:03 Bedside Glucose 183 207 182 White Blood Count 5.8 Red Blood Count 2.98 L Hemoglobin 8.3 L Hematocrit 27.7 L Mean Corpuscular Volume 93.0 Mean Corpuscular Hemoglobin 27.9 L Mean Corpuscular Hemoglobin Concent 30.0 L Red Cell Distribution Width 13.7 Platelet Count 308 Mean Platelet Volume 9.7 Neutrophils % 71.3 Lymphocytes % 11.5 L Monocytes % 11.3 H Eosinophils % 4.7 Basophils % 0.3 Nucleated Red Blood Cells % 0.0 Neutrophils # (Manual) 4.1 Lymphocytes # 0.7 L Monocytes # 0.7 Eosinophils # 0.3 Basophils # 0.0 Nucleated Red Blood Cells # 0.0 Sodium Level 136 Potassium Level 4.7 Chloride Level 98 Carbon Dioxide Level 30 Anion Gap 13 Blood Urea Nitrogen 46 H Creatinine 3.22 H Glucose Level 189 Calcium Level 9.0 Test 12/27/16 09:47 12/27/16 11:55 Lab Scanned Report REFERENCE LAB Bedside Glucose 181 Medications Medications Current Medications Allopurinol (Zyloprim) 100 mg DAILY PO Last administered on 12/27/16t 08:07; Admin Dose 100 MG; Start 12/19/16 at 09:00 Amlodipine Besylate (Norvasc) 10 mg DAILY PO Last administered on 12/27/16 08: 07; Admin Dose 10 MG; Start 12/19/16 at 09:00 Aspirin (Aspirin) 81 mg DAILY PO Last administered on 12/27/16 08:07; Admin Dose 81 MG; Start 12/19/16 at 09:00 Atorvastatin Calcium (Lipitor) 10 mg DAILY@21 PO Last administered on 21:47; Admin Dose 10 MG; Start 12/19/16 at 21:00 Cholecalciferol (Vitamin D) 1,000 unit DAILY PO Last administered on 12/27/16 08:07; Admin Dose 1,000 UNIT; Start 12/19/16 at 09:00 Collagenase (Santyl) 1 applic DAILY TOP Last administered on 12/27/16 08:10; Admin Dose 1 APPLIC; Start 12/19/16 at 09:00 Diltiazem HCl (Cardizem Sr) 60 mg DAILY PO Last administered on 12/27/16 08:08 ; Admin Dose 60 MG; Start 12/19/16 at 09:00 Docusate Sodium (Colace) 100 mg Q12H PO Last administered on 12/26/16 14:17; Admin Dose 100 MG; Start 12/19/16 at 02:30 Hydralazine HCl (Apresoline) 100 mg BID PO Last administered on 12/27/16 08:08 ; Admin Dose 100 MG; Start 12/19/16 at 09:00 Loratadine (Claritin) 5 mg DAILY PO Last administered on 12/27/16 08:06; Admin Dose 5 MG; Start 12/19/16 at 09:00 Pantoprazole (Protonix Tab) 40 mg DAILY@06 PO Last administered on 12/27/16 05: 01; Admin Dose 40 MG; Start 12/19/16 at 06:00 Pentoxifylline (Trental) 400 mg BID PO Last administered on 12/27/16 08:08; Admin Dose 400 MG; Start 12/19/16 at 09:00 Senna (Senokot) 2 tab BID PO Last administered on 12/27/16 08:09; Admin Dose 2 TAB; Start 12/19/16 at 09:00 Silver Sulfadiazine (Thermazene 1% 25 Gm) 1 applic BID TOP Last administered on 12/27/16 08:10; Admin Dose 1 APPLIC; Start 12/19/16 at 09:00 Diagnostic Test (Pha) (Accu-Chek) 1 ea 02 XX Last administered on 12/27/16 02: 46; Admin Dose 1 EA; Start 12/20/16 at 02:00 Ondansetron HCl (Zofran Inj) 4 mg Q6H PRN IV NAUSEA AND/OR VOMITING Last administered on 12/25/16 21:56; Admin Dose 4 MG; Start 12/19/16 at 02:30 Lactobacillus Acidophilus/ Rhamnosus (Culturelle) 1 cap BID PO Last administered on 12/27/16 08:08; Admin Dose 1 CAP; Start 12/19/16 at 09:00 Miscellaneous Information 1 ea NOTE XX ; Start 12/19/16 at 03:00 Glucose (Glutose) 15 gm Q15M PRN PO DECREASED GLUCOSE; Start 12/19/16 at 03:00 Glucose (Glutose) 22.5 gm Q15M PRN PO DECREASED GLUCOSE Last administered on 21:40; Admin Dose 22.5 GM; Start 12/19/16 at 03:00 Dextrose (D50w Syringe) 25 ml Q15M PRN IV DECREASED GLUCOSE; Start 12/19/16 at 03:00 Dextrose (D50w Syringe) 50 ml Q15M PRN IV DECREASED GLUCOSE Last administered on 12/26/16 22:03; Admin Dose 50 ML; Start 12/19/16 at 03:00 Glucagon (Glucagen) 1 mg Q15M PRN IM DECREASED GLUCOSE; Start 12/19/16 at 03:00 Glucose (Glutose) 15 gm Q15M PRN BUCCAL DECREASED GLUCOSE; Start 12/19/16 at 03 :00 Eye Lubricant 1 drop 1 drop QID BOTH EYES Last administered on 12/27/16 08:10; Admin Dose 1 DROP; Start 12/19/16 at 09:00 Piperacillin Sod/ Tazobactam Sod (Zosyn 2.25gm/ 50ml (Pmx)) 50 ml @ 100 mls/hr Q8 IVPB Last administered on 12/27/16 05:01; Admin Dose 100 MLS/HR; Start 12/19 at 22:00 Acetaminophen 325 mg 325 mg Q4H PRN PO PAIN AND OR ELEVATED TEMP Last administered on 12/27/16 05:01; Admin Dose 325 MG; Start 12/19/16 at 19:30 Linezolid (Zyvox 600mg/D5W (Pmx)) 300 ml @ 300 mls/hr Q12 IVPB Last administered on 12/27/16 08:10; Admin Dose 300 MLS/HR; Start 12/20/16 at 21:00 Morphine Sulfate (morphine) 2 mg Q4H PRN IV PAIN; Start 12/21/16 at 00:15 Mupirocin (Bactroban) 1 applic BID TOP Last administered on 12/27/16 08:10; Admin Dose 1 APPLIC; Start 12/21/16 at 16:00 Sodium Hypochlorite (Dakin'S (Dilute 1/40%)) 1 applic DAILY IRR Last administered on 12/27/16 08:18; Admin Dose 1 APPLIC; Start 12/22/16 at 09:00 Nystatin (Nystatin Cr) 1 applic TID TOP Last administered on 12/27/16 08:30; Admin Dose 1 APPLIC; Start 12/23/16 at 09:00 Hydralazine HCl (Apresoline) 10 mg Q6H PRN IV ELEVATED BLOOD PRESSURE; Start at 12:30 Heparin Sodium (Porcine) (Heparin (5000 Units/0.5 ml)) 5,000 unit BID SC Last administered on 12/26/16 22:11; Admin Dose 5,000 UNIT; Start 12/24/16 at 09:00 Metoprolol Tartrate (Lopressor) 12.5 mg BID PO Last administered on 12/27/16 08 :07; Admin Dose 12.5 MG; Start 12/24/16 at 11:00 Insulin Glargine 26 unit 26 unit BID SC Last administered on 12/27/16 08:15; Admin Dose 26 UNIT; Start 12/26/16 at 21:00 Dextrose/Sodium Chloride (D5-1/2ns) 500 ml @ 50 mls/hr Q10H IV Last administered on 12/27/16 08:14; Admin Dose 50 MLS/HR; Start 12/27/16 at 08:00 DEANNA MACIAS Dec 27, 2016 12:25
--- NOTE | 2016-12-27 13:03 | PN ---
DATE: 12/27/2016 SUBJECTIVE DATA: The patient is alert, feels better, looks comfortable. She is afebrile. Temperature 98.3, pulse 67, respirations 18, blood pressure 151/67, saturation 96 on 2 L. LABORATORY AND DIAGNOSTIC DATA: WBC 5.8. H and H 8.3 and 27.7, platelets 308. BUN 46, creatinine 3.22. MICROBIOLOGY: Blood culture grew on admission coag-negative staph species. Repeat blood cultures negative. Wound culture grew Corynebacterium species. INDWELLINGS: Patient has left upper extremity PICC line placed on previous admission, and the right femoral Derrick catheter. ANTIBACTERIALS: The patient remains on Zyvox and Zosyn. PHYSICAL EXAMINATION: GENERAL: This is a morbidly-obese, elderly white woman, who is awake, in no distress. HEENT: Head atraumatic, normocephalic. Sclerae anicteric. Buccal mucosa pink. NECK: Obese. CHEST: Chest rise symmetrical. Breath sounds diminished at the bases. HEART: S1, S2. ABDOMEN: Soft, bowel sounds present. EXTREMITIES: Left foot dressing intact. Bilateral lower extremities edematous. SKIN: With resolving anasarca. ASSESSMENT: 1. Status post sepsis. 2. Resolving pneumonia. 3. Left foot osteomyelitis, status post debridement. 4. Coag-negative Staph bacteremia with repeat blood cultures negative. 5. Poorly-controlled diabetes. 6. Acute on chronic kidney disease, hemodialysis dependent. PLAN: The patient remains stable, overall improving. Continue present care. Anticipate discharge on Rocephin and oral daptomycin to complete six weeks' treatment for osteomyelitis. Pending PermCath placement. Dictated By: Cm Santos NP /patricia/jasmyne /Document#: [id number]
[2016-12-27] MEDS: ONDANSETRON 4 MG INJ IV PRN (14:52)
--- NOTE | 2016-12-27 16:11 | CONS ---
Date/Time of Note Date/Time of Note DATE: 12/27/16 TIME: 16:09 Assessment/Plan Assessment/Plan Additional Assessment/Plan 1. Non Oliguric to oliguric Acute kidney injury on CKD III/IV due to ATN- worsening renal failure with fluid overload now - stared on HD on 12/20/16 2. 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 HTN 4. Diabetic foot infection 5. Health care associated PNA 6. sepsis with bacteremia , LE gangrene Plan : started on HD for worsening enal failure with fluid overload -Plan for HD today then we will keep her on TTS schedule while being in hospital,HD ordered for tomorrow S/p permacath placement, plan is to d/claudio mcqueen today Podiatry to decide for LE gangerene debridement, possibly on friday if cleared, From nephrology stand point of view, pt is cleared for Debridement renally dose all antibiotics Outpatient HD placement has been requested to [facility] center- in Process, - pt is confirmed for chair time TTS at 4.30 pm will follow up Consultation Date/Type/Reason Admit Date/Time Dec 18, 2016 at 20:59 Initial Consult Date 12/19/16 Type of Consultation: NEPHROLOGY Referring Provider: FABIAN LEO MD 24 HR Interval Summary Free Text/Dictation s/p permacath, paln is to [facility], HD placement confirmed, SNF placement requested today Exam/Review of Systems Vital Signs Vitals Vital Signs Date Time Temp Pulse Resp B/P Pulse Ox O2 Delivery O2 Flow Rate FiO2 12/27/16 14:54 98.7 68 20 162/71 92 12/27/16 08:30 Nasal Cannula 4.0 12/24/16 14:04 96 Intake and Output 12/26/16 12/26/16 12/27/16 15:00 23:00 07:00 Intake Total 1650 ml 300 ml 550 ml Output Total 6000 ml Balance -4350 ml 300 ml 550 ml Exam Constitutional: alert, oriented, other Head: normocephalic (Obese) Eyes: PERRL ENMT: mucosa pink and moist Neck: supple Respiratory: crackles/rales, diminished breath sounds, wheezing Cardiovascular: regular rate and rhythm, No murmurs/extra sounds Gastrointestinal: bowel sounds, non-tender, soft Extremities: other (Bilateral foot edema about 2-3+, with left foot ulcer) + right groin leisa catheter Results Result Diagram: 12/27/16 0529 12/27/16 0529 Results 24 hrs Laboratory Tests Test 12/26/16 21:30 12/26/16 21:57 12/26/16 22:03 12/26/16 22:26 Bedside Glucose 36 *L 35 *L 38 *L 157 Test 12/26/16 22:51 12/27/16 02:07 12/27/16 05:29 12/27/16 08:03 Bedside Glucose 183 207 182 White Blood Count 5.8 Red Blood Count 2.98 L Hemoglobin 8.3 L Hematocrit 27.7 L Mean Corpuscular Volume 93.0 Mean Corpuscular Hemoglobin 27.9 L Mean Corpuscular Hemoglobin Concent 30.0 L Red Cell Distribution Width 13.7 Platelet Count 308 Mean Platelet Volume 9.7 Neutrophils % 71.3 Lymphocytes % 11.5 L Monocytes % 11.3 H Eosinophils % 4.7 Basophils % 0.3 Nucleated Red Blood Cells % 0.0 Neutrophils # (Manual) 4.1 Lymphocytes # 0.7 L Monocytes # 0.7 Eosinophils # 0.3 Basophils # 0.0 Nucleated Red Blood Cells # 0.0 Sodium Level 136 Potassium Level 4.7 Chloride Level 98 Carbon Dioxide Level 30 Anion Gap 13 Blood Urea Nitrogen 46 H Creatinine 3.22 H Glucose Level 189 Calcium Level 9.0 Test 12/27/16 09:47 12/27/16 11:55 Lab Scanned Report REFERENCE LAB Bedside Glucose 181 Medications Medications Current Medications Allopurinol (Zyloprim) 100 mg DAILY PO Last administered on 12/27/16 08:07; Admin Dose 100 MG; Start 12/19/16 at 09:00 Amlodipine Besylate (Norvasc) 10 mg DAILY PO Last administered on 12/27/16 08: 07; Admin Dose 10 MG; Start 12/19/16 at 09:00 Aspirin (Aspirin) 81 mg DAILY PO Last administered on 12/27/16 08:07; Admin Dose 81 MG; Start 12/19/16 at 09:00 Atorvastatin Calcium (Lipitor) 10 mg DAILY@21 PO Last administered on 21:47; Admin Dose 10 MG; Start 12/19/16 at 21:00 Cholecalciferol (Vitamin D) 1,000 unit DAILY PO Last administered on 12/27/16 08:07; Admin Dose 1,000 UNIT; Start 12/19/16 at 09:00 Collagenase (Santyl) 1 applic DAILY TOP Last administered on 12/27/16 08:10; Admin Dose 1 APPLIC; Start 12/19/16 at 09:00 Diltiazem HCl (Cardizem Sr) 60 mg DAILY PO Last administered on 12/27/16 08:08 ; Admin Dose 60 MG; Start 12/19/16 at 09:00 Docusate Sodium (Colace) 100 mg Q12H PO Last administered on 12/26/16 14:17; Admin Dose 100 MG; Start 12/19/16 at 02:30 Hydralazine HCl (Apresoline) 100 mg BID PO Last administered on 12/27/16 08:08 ; Admin Dose 100 MG; Start 12/19/16 at 09:00 Loratadine (Claritin) 5 mg DAILY PO Last administered on 12/27/16 08:06; Admin Dose 5 MG; Start 12/19/16 at 09:00 Pantoprazole (Protonix Tab) 40 mg DAILY@06 PO Last administered on 12/27/16 05: 01; Admin Dose 40 MG; Start 12/19/16 at 06:00 Pentoxifylline (Trental) 400 mg BID PO Last administered on 12/27/16 08:08; Admin Dose 400 MG; Start 12/19/16 at 09:00 Senna (Senokot) 2 tab BID PO Last administered on 12/27/16 08:09; Admin Dose 2 TAB; Start 12/19/16 at 09:00 Silver Sulfadiazine (Thermazene 1% 25 Gm) 1 applic BID TOP Last administered on 12/27/16 08:10; Admin Dose 1 APPLIC; Start 12/19/16 at 09:00 Diagnostic Test (Pha) (Accu-Chek) 1 ea 02 XX Last administered on 12/27/16 02: 46; Admin Dose 1 EA; Start 12/20/16 at 02:00 Ondansetron HCl (Zofran Inj) 4 mg Q6H PRN IV NAUSEA AND/OR VOMITING Last administered on 12/27/16 14:52; Admin Dose 4 MG; Start 12/19/16 at 02:30 Lactobacillus Acidophilus/ Rhamnosus (Culturelle) 1 cap BID PO Last administered on 12/27/16 08:08; Admin Dose 1 CAP; Start 12/19/16 at 09:00 Miscellaneous Information 1 ea NOTE XX ; Start 12/19/16 at 03:00 Glucose (Glutose) 15 gm Q15M PRN PO DECREASED GLUCOSE; Start 12/19/16 at 03:00 Glucose (Glutose) 22.5 gm Q15M PRN PO DECREASED GLUCOSE Last administered on 21:40; Admin Dose 22.5 GM; Start 12/19/16 at 03:00 Dextrose (D50w Syringe) 25 ml Q15M PRN IV DECREASED GLUCOSE; Start 12/19/16 at 03:00 Dextrose (D50w Syringe) 50 ml Q15M PRN IV DECREASED GLUCOSE Last administered on 12/26/16 22:03; Admin Dose 50 ML; Start 12/19/16 at 03:00 Glucagon (Glucagen) 1 mg Q15M PRN IM DECREASED GLUCOSE; Start 12/19/16 at 03:00 Glucose (Glutose) 15 gm Q15M PRN BUCCAL DECREASED GLUCOSE; Start 12/19/16 at 03 :00 Eye Lubricant 1 drop 1 drop QID BOTH EYES Last administered on 12/27/16 08:10; Admin Dose 1 DROP; Start 12/19/16 at 09:00 Piperacillin Sod/ Tazobactam Sod (Zosyn 2.25gm/ 50ml (Pmx)) 50 ml @ 100 mls/hr Q8 IVPB Last administered on 12/27/16 14:42; Admin Dose 100 MLS/HR; Start 12/19 at 22:00 Acetaminophen 325 mg 325 mg Q4H PRN PO PAIN AND OR ELEVATED TEMP Last administered on 12/27/16 05:01; Admin Dose 325 MG; Start 12/19/16 at 19:30 Linezolid (Zyvox 600mg/D5W (Pmx)) 300 ml @ 300 mls/hr Q12 IVPB Last administered on 12/27/16 08:10; Admin Dose 300 MLS/HR; Start 12/20/16 at 21:00 Morphine Sulfate (morphine) 2 mg Q4H PRN IV PAIN; Start 12/21/16 at 00:15 Mupirocin (Bactroban) 1 applic BID TOP Last administered on 12/27/16 08:10; Admin Dose 1 APPLIC; Start 12/21/16 at 16:00 Sodium Hypochlorite (Dakin'S (Dilute 1/40%)) 1 applic DAILY IRR Last administered on 12/27/16 08:18; Admin Dose 1 APPLIC; Start 12/22/16 at 09:00 Nystatin (Nystatin Cr) 1 applic TID TOP Last administered on 12/27/16 08:30; Admin Dose 1 APPLIC; Start 12/23/16 at 09:00 Hydralazine HCl (Apresoline) 10 mg Q6H PRN IV ELEVATED BLOOD PRESSURE; Start at 12:30 Metoprolol Tartrate (Lopressor) 12.5 mg BID PO Last administered on 12/27/16 08 :07; Admin Dose 12.5 MG; Start 12/24/16 at 11:00 Insulin Glargine 26 unit 26 unit BID SC Last administered on 12/27/16 08:15; Admin Dose 26 UNIT; Start 12/26/16 at 21:00 Dextrose/Sodium Chloride (D5-1/2ns) 500 ml @ 50 mls/hr Q10H IV Last administered on 12/27/16 08:14; Admin Dose 50 MLS/HR; Start 12/27/16 at 08:00 MONSE CHILEL MD Dec 27, 2016 16:11
--- NOTE | 2016-12-27 17:07 | HPN ---
Date/Time of Note Date/Time of Note DATE: 12/27/16 TIME: 17:07 Interval H&P Admission Note Pt. seen H&P reviewed: No system changes JOSEPH HAHN DPM Dec 27, 2016 17:07
[2016-12-27] MEDS ORDERED: BUPIVACAINE 0.5% (SDV) 30 ML INJ ONE (17:10)
[2016-12-27] MEDS ORDERED: LIDOCAINE 1% (MPF) 30 ML INJ ONE (17:10)
[2016-12-27] MEDS ORDERED: LIDOCAINE 2% (SDV) 5 ML INJ ONE (17:34)
[2016-12-27] MEDS ORDERED: PROPOFOL 20 ML ONE (17:34)
[2016-12-27] MEDS ORDERED: METOCLOPRAMIDE 10 MG INJ ONE (18:14)
[2016-12-27] MEDS ORDERED: ONDANSETRON 4 MG INJ ONE (18:14)
--- NOTE | 2016-12-27 18:23 | SIPON ---
Date/Time of Note Date/Time of Note DATE: 12/27/16 TIME: 18:20 Operative Report Preoperative Diagnosis Left foot ulceration OM 5th metatarsal Left heel ulceration Postoperative Diagnosis same Operation/Procedure Performed Left foot excisional debridement bone < 20 cm2 Biopsy bone Application of allograft left foot Surgeon: JOSEPH HAHN DPM Anesthesia Type: general, MAC Estimated Blood Loss: 10 - 50 ml's Transfusion Required: no Specimen: none (bone 5th metatarsal/ bone culture) Grafts/Implants meshed 4x 4.5 cm epifix Complications: no JOSEPH HAHN DPM Dec 27, 2016 18:23
[2016-12-27] MEDS ORDERED: DIPHENHYDRAMINE 50 MG INJ IV PRN (18:30)
[2016-12-27] MEDS ORDERED: FENTAnyl 50 MCG/ML VIAL IV PRN ×3 (18:30)
[2016-12-27] MEDS ORDERED: EPHEDrine SULFATE 50 MG/5 ML SYG IV PRN (18:30)
[2016-12-27] MEDS ORDERED: OXYCODONE/ACETAMINOPHEN (5/325) TAB PO PRN ×2 (18:30)
[2016-12-27] MEDS ORDERED: METOCLOPRAMIDE 10 MG INJ IV PRN (18:30)
[2016-12-27] MEDS ORDERED: MEPERIDINE 25 MG INJ IV PRN (18:30)
[2016-12-27] MEDS ORDERED: MIDAZOLAM 1 MG/ML 2 ML INJ IV PRN (18:30)
[2016-12-27] MEDS ORDERED: ONDANSETRON 4 MG INJ IV PRN (18:30)
[2016-12-27] MEDS ORDERED: LABETALOL HCL 20MG INJ IV PRN (18:30)
[2016-12-27] MEDS ORDERED: hydrALAzine 20 MG INJ IV PRN (18:30)
[2016-12-27] MEDS: ATORVASTATIN 10 MG TAB PO SCH (20:44)
--- NOTE | 2016-12-27 21:02 | OPR ---
DATE OF OPERATION: 12/27/2016 SURGEON: Dr. Robson Hernandez. CERTIFIED MEDICAL CODER: None. PREOPERATIVE DIAGNOSES: 1. Left foot diabetic ulceration. 2. Osteomyelitis of metatarsal. 3. Left heel ulceration. 4. Bacteremia. POSTOPERATIVE DIAGNOSES: 1. Left foot diabetic ulceration. 2. Osteomyelitis of metatarsal. 3. Left heel ulceration. 4. Bacteremia. PROCEDURES PERFORMED: 1. Excisional debridement skin, subcutaneous tissue, muscle and bone, less than 20 cm squared. 2. Biopsy of bone 5th metatarsal. 3. Application of allograft EpiFix 4 x 4.5 cm meshed. PATHOLOGY: Bone for pathology and bone culture. ANESTHESIA: 1-1 mixture of 1 percent lidocaine plain with 0.5 percent Marcaine plain. HEMOSTASIS: Compression. ESTIMATED BLOOD LOSS: 50 cc. COMPLICATIONS: None. INDICATION FOR PROCEDURE: This is a 66-year-old female with nonhealing wounds. Suspicion for osteomyelitis, multiple comorbidities, on intravenous antibiotics with acute renal failure and has been recommended long-term antibiotics for health- care acquired pneumonia, as well as osteomyelitis. Discussed the planned procedure. All risks, benefits, potential complications. The foot was marked in the preoperative setting. The patient has been on antibiotics. OPERATIVE PROCEDURE: Patient brought into the operating room and placed in the supine position. A formal timeout was performed. Extremities prepped and draped in usual sterile fashion. Using a 15 blade the ulceration was incised, plantar aspect inferior was used to elevate the tissue from the periosteum of the fifth metatarsal. At this time using a bone cutter the fifth metatarsal head was transected, excised, specimen obtained for culture, as well as for pathology. Wound was irrigated. Using pickup scissors, a 15 blade and curette, excisional debridement performed of skin, subcutaneous tissue, muscle and bone. Attention directed to the inferior left heel and ulceration was debrided with a curette, skin and subcutaneous tissue, 4 x 5 cm. The wounds were irrigated with saline. At this time the wound on the fifth metatarsophalangeal joint the granulation tissue was reapproximated using 3-0 nylon and at this time the EpiFix allograft applied to the wounds. We hydrated with saline and applied Xeroform, 4 x 4 gauze, Kerlix, and a bias. The patient tolerated the procedure well, transferred to PACU with vital signs stable. POSTOP PLAN: Await culture and bone pathology reports. Continue IV antibiotics as recommended by ID. Can reinforced dressings if strike through drainage. Hemostasis is achieved intraoperatively. The patient had injection with lidocaine 1 percent and 0.5 percent Marcaine plain 20 cc at the superficial peroneal and sural nerve distribution. Dictated By: Robson Hernandez DPM /patricia/reese /Document#: [id number]
[2016-12-28] VITALS (13 sets, daily range): BP systolic 122–173; BP diastolic 63–78; PULSE 69–85; RESP 18–22
[2016-12-28] MEDS: DOCUSATE SODIUM 100 MG CAP PO SCH ×3 (02:30→15:25)
[2016-12-28] MEDS: DEXTROSE 5%-0.45% NACL 500 ML IV SCH ×2 (04:00→06:09)
[2016-12-28 06:01] LABS: BASOPHILS % 0.3 % (0.0-2.0); EOSINOPHILS # 0.1 10^3/ul (0.0-0.5); EOSINOPHILS % 1.7 % (0.0-7.0); HEMATOCRIT 26.5 % (37.0-47.0); HEMOGLOBIN 8.2 g/dl (12.0-16.0); LYMPHOCYTES # 0.7 10^3/ul (0.8-2.9); LYMPHOCYTES % 12.1 % (15.0-51.0); MEAN CORPUSCULAR HEMOGLOBIN 28.5 pg (29.0-33.0); MEAN CORPUSCULAR HGB CONC 30.9 g/dl (32.0-37.0); MEAN PLATELET VOLUME 9.4 fl (7.4-10.4); MONOCYTE # 0.5 10^3/ul (0.3-0.9); MONOCYTES % 9.2 % (0.0-11.0); NEUTROPHILS % 75.7 % (39.0-77.0); PLATELET COUNT 281 10^3/UL (140-415); RED BLOOD COUNT 2.88 10^6/ul (4.20-5.40); RED CELL DISTRIBUTION WIDTH 13.6 % (11.5-14.5); WHITE BLOOD COUNT 5.9 10^3/ul (4.8-10.8)
[2016-12-28] MEDS: PIPER-TAZO 2.25 GM (PMX) 50 ML IVPB SCH ×3 (06:08→22:27)
[2016-12-28] MEDS: PANTOPRAZOLE (EC) 40 MG TAB PO SCH (06:11)
[2016-12-28 06:42] LABS: CALCIUM 8.8 mg/dl (8.4-10.2); CREATININE 3.51 mg/dl (0.44-1.00); POTASSIUM 4.6 mmol/L (3.5-5.1)
[2016-12-28] MEDS: INSULIN ASPART [NOVOLOG] 3 ML PEN SC SCH ×7 (08:39→20:52)
[2016-12-28] MEDS: MUPIROCIN 2% 22 GM OINT TOP SCH ×2 (09:00→21:04)
[2016-12-28] MEDS: SODIUM HYPOCHLORITE 1/40% 1L IRRIG IRR SCH (09:00)
[2016-12-28] MEDS: NYSTATIN 15 GM CR TOP SCH ×3 (09:00→21:00)
[2016-12-28] MEDS: METOPROLOL 25 MG TAB PO SCH ×2 (09:00→20:48)
[2016-12-28] MEDS: COLLAGENASE 30 GM TUBE TOP SCH (09:00)
[2016-12-28] MEDS: SILVER SULFADIAZINE 1% 25 GM CR TOP SCH ×2 (09:00→21:00)
[2016-12-28] MEDS: ARTIFICIAL TEARS 15 ML OPH BOTH EYES SCH ×4 (12:18→21:00)
[2016-12-28] MEDS: INSULIN GLARGINE [LANtus] 3 ML PEN SC SCH ×2 (12:25→21:07)
--- NOTE | 2016-12-28 12:46 | PDOCDIS ---
Discharge Instructions CONDITION Patient Condition: Stable HOME CARE INSTRUCTIONS: Special Diet: 1800 andry ada diet DEANNA MACIAS Dec 28, 2016 12:46
[2016-12-28] MEDS: LINEZOLID 600 MG/D5W (PMX) 300 ML IVPB SCH ×2 (14:00→21:00)
[2016-12-28] MEDS: ASPIRIN 81 MG TAB PO SCH (14:03)
[2016-12-28] MEDS: LACTOBACILLUS RHAMNOSUS CAP PO SCH ×2 (14:03→20:47)
[2016-12-28] MEDS: PENTOXIFYLLINE (SR) 400 MG TAB PO SCH ×2 (14:03→22:27)
[2016-12-28] MEDS: CHOLECALCIFEROL 1,000 UNIT TAB PO SCH (14:04)
[2016-12-28] MEDS: SENNA TAB PO SCH ×2 (14:05→20:48)
[2016-12-28] MEDS: ALLOPURINOL 100 MG TAB PO SCH (14:06)
[2016-12-28] MEDS: AMLODIPINE 10 MG TAB PO SCH (14:06)
[2016-12-28] MEDS: LORATADINE 10 MG TAB PO SCH (14:07)
[2016-12-28] MEDS: DILTIAZEM (SR) 60 MG CAP PO SCH (14:08)
--- NOTE | 2016-12-28 14:14 | PN ---
Date/Time of Note Date/Time of Note DATE: 12/28/16 TIME: 14:13 Assessment/Plan Lines/Catheters IV Catheter Type (from Nrsg): Dialysis cath Buitrago in Place (from Nrsg): No Assessment/Plan Chief Complaint/Hosp Course ESRD SP Permcath plan for AVF when stable Problems: Subjective 24 Hr Interval Summary Constitutional: improved Pain Control: mild Exam/Review of Systems Vital Signs Vitals Vital Signs Date Time Temp Pulse Resp B/P Pulse Ox O2 Delivery O2 Flow Rate FiO2 12/28/16 13:30 85 12/28/16 10:30 19 12/28/16 08:45 Nasal Cannula 4.0 12/28/16 07:38 99.0 173/77 93 12/24/16 14:04 96 Intake and Output 12/27/16 12/27/16 12/28/16 15:00 23:00 07:00 Intake Total 350 ml 900 ml 100 ml Output Total 10 ml Balance 350 ml 890 ml 100 ml Exam Neck: non-tender, supple Respiratory: clear to auscultation, normal air movement Cardiovascular: nl pulses, regular rate and rhythm Results Result Diagram: 12/28/16 0529 12/28/16 0529 LAI LOPEZ MD Dec 28, 2016 14:14
--- NOTE | 2016-12-28 14:38 | DS ---
DATE OF ADMISSION: 12/18/2016 DATE OF DISCHARGE: 12/28/2016 DISPOSITION: [facility] HOSPITAL COURSE: The patient came in with fever and cough. She was found with sepsis secondary to healthcare-associated pneumonia as well as wound infection from osteomyelitis. So, she was admitted, seen by multiple specialists during this hospital stay including infectious disease, podiatry team, vascular surgery team, renal team. The patient was treated for sepsis with broad-spectrum antibiotics. Her pneumonia symptoms improved and she had less cough and less shortness of breath. She also had [id number] renal insufficiency and kidney doctor started her on dialysis. Eventually she had PermCath placed. And also had adjustments made to her insulin medications as well. She had 2 debridements performed on her diabetic foot infection, first on December 22, 2016, then again on December 27, 2016 which included an excisional debridement of the skin tissue and muscle of the left foot 5th metatarsophalangeal joint and excisional debridement of the skin, subcu tissue of left heel ulcer as well. Then a 2nd excisional debridement of the skin tissue, muscle and bone of the left diabetic foot ulcer was performed and again a biopsy performed of the bone of the 5th metatarsal on the left foot. The patient tolerated both procedures well. Her white count was stable on day of discharge. She had no fevers. Her wound culture did show Corynebacterium species and her blood culture did show coagulase-negative Staph 2/2 bottles and again she was placed on appropriate antibiotics for that. She was able to ambulate with assistance of physical therapy. Tolerated p.o. diet. Her vital signs were stable as well and she has been set up for outpatient dialysis after getting PermCath placed as well. She will be discharged to prison facility today in improved condition. She will continue wound care for her left foot. DISCHARGE MEDICATIONS: She will go home with: 1. Tylenol 325 q.4 p.r.n. 2. DuoNebs inhaled q.2 p.r.n. 3. Allopurinol 100 mg daily. 4. Norvasc 10 mg daily. 5. Artificial Tears both eyes 4 times a day. 6. Aspirin 81 mg daily. 7. Lipitor 10 mg daily. 8. Vitamin D 1000 units daily. 9. Santyl apply topically daily. 10. Diltiazem 60 mg p.o. daily. 11. Colace 100 mg q.12 hours. 12. Hydralazine 100 mg p.o. b.i.d. 13. Aspart insulin sliding scale. 14. She will go home with Lantus 18 units subcu b.i.d. 15. Claritin 5 mg daily. 16. Lactobacillus capsule b.i.d. 17. Metoprolol 12.5 mg b.i.d. 18. Morphine 2 mg IV q.4 p.r.n. 19. Bactroban apply topically b.i.d. 20. Nystatin apply topically t.i.d. 21. Zofran 4 mg IV q.6 p.r.n. 22. Protonix 40 mg p.o. daily. 23. Trental 400 mg b.i.d. 24. Senna 2 tabs b.i.d. 25. Silver sulfadiazine applied topically b.i.d. 26. Dakin solution apply topically daily. 27. Aspart insulin 5 units subcu with meals. 28. Daptomycin 250 mg daily until January 29, 2017 29. Rocephin 1 gram IV daily until January 29, 2017. FINAL DIAGNOSES: 1. Sepsis secondary to healthcare-associated pneumonia, now resolved. 2. Fcntu-mg-xqpxret kidney disease, now on permanent dialysis, set up for outpatient dialysis with PermCath placement. 3. Diabetic foot infection of the left foot, heel, and 5th metatarsal, status post 2 debridements this admission. 4. Type 2 diabetes with sugars improved on insulin. 5. High cholesterol. 6. History of gout. 7. Morbid obesity. 8. Osteomyelitis. TIME SPENT ON DISCHARGE: 55 minutes. Dictated By: Jeronimo Sequeira MD /patricia/quentin /Document#: [id number]
--- NOTE | 2016-12-28 15:16 | PN ---
DATE: 12/28/2016 SUBJECTIVE DATA: Patient is postop day 1, left foot incision and drainage with bone biopsy, excisional debridement of ulceration and application of allograft. Patient currently receiving dialysis. No acute complaints. OBJECTIVE DATA: VITAL SIGNS: Temperature is 99, pulse 87, respiratory rate 22, blood pressure 173/77, pulse ox is 93. GENERAL: Alert, oriented, in no acute distress. Patient with a pet therapy dog getting hemodialysis. EXTREMITIES: She has dressings to the left foot. Ulceration to the lateral 5th MPJ with sutures present. There is good granulation tissue formation, graft present and ulceration to the heel with good color and no malodor, no active bleeding. LABORATORY: WBC 5.9, hemoglobin 8.2, hematocrit 26.5, platelets 281. Cultures pending. Pathology pending. ASSESSMENT: Left foot osteomyelitis status post incision and drainage, bone biopsy. 1. Diabetic foot ulceration. 2. Diabetes with end-stage renal disease, on hemodialysis. PLAN: Patient's wounds are stable, no signs of active bleeding. Skin care, wound care performed. Recommend discharge planning. Patient did have a discussion with case management for SNF placement. We will need to follow on a weekly basis. Can keep dressings are clean, dry, and intact unless become soiled. Further recommendation once culture results are available. Likely surgical eradication of the osteomyelitis can shorten the course of antibiotics. Dictated By: Robson Hernandez DPM /patricia/quentin /Document#: [id number]
--- NOTE | 2016-12-28 15:49 | CONS ---
Date/Time of Note Date/Time of Note DATE: 12/28/16 TIME: 15:34 Assessment/Plan Assessment/Plan Additional Assessment/Plan 1. Non Oliguric to oliguric Acute kidney injury on CKD III/IV due to ATN- worsening renal failure with fluid overload now - stared on HD on 12/20/16 2. 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 HTN- BP stable today. 4. Diabetic foot infection 5. Health care associated PNA 6. sepsis with bacteremia , LE gangrene- sp debridement 12/27/2016 Plan : -started on HD for worsening renal failure with fluid overload - sp HD today - S/p PermCath placement, plan is to d/c Derrick catheter today - SP LE gangrene debridement on Friday if cleared -Outpatient HD placement has been requested to [facility] center- in Process, - pt is confirmed for chair time TTS at 4.30 pm - patient is discharged and will be Transfer to [facility] today. -Dw Dr Rigoberto Stark/ staff Consultation Date/Type/Reason Admit Date/Time Dec 18, 2016 at 20:59 Initial Consult Date 12/20/16 Type of Consultation: NEPHROLOGY Referring Provider: FABIAN LEO MD 24 HR Interval Summary Constitutional: improved, requiring O2 Detailed Summary Respiratory: shortness of breath Cardiovascular: no complaints Gastrointestinal: no complaints Musculoskeletal: bone/joint pain Skin: other Exam/Review of Systems Vital Signs Vitals Vital Signs Date Time Temp Pulse Resp B/P Pulse Ox O2 Delivery O2 Flow Rate FiO2 12/28/16 15:22 3.0 12/28/16 14:14 98.5 66 18 129/75 100 12/28/16 08:45 Nasal Cannula 12/24/16 14:04 96 Intake and Output 12/27/16 12/27/16 12/28/16 15:00 23:00 07:00 Intake Total 350 ml 900 ml 100 ml Output Total 10 ml Balance 350 ml 890 ml 100 ml Exam Constitutional: alert, oriented, well developed Respiratory: clear to auscultation, normal air movement Cardiovascular: nl pulses, regular rate and rhythm Gastrointestinal: non-tender, soft Musculoskeletal: other Extremities: normal pulses Neurological: nl mental status, nl speech Results Result Diagram: 12/28/16 0529 12/28/16 0529 Results 24 hrs Laboratory Tests Test 12/27/16 18:37 9/1/17 20:46 12/28/16 02:58 12/28/16 05:29 Bedside Glucose 181 180 175 White Blood Count 5.9 Red Blood Count 2.88 L Hemoglobin 8.2 L Hematocrit 26.5 L Mean Corpuscular Volume 92.0 Mean Corpuscular Hemoglobin 28.5 L Mean Corpuscular Hemoglobin Concent 30.9 L Red Cell Distribution Width 13.6 Platelet Count 281 Mean Platelet Volume 9.4 Neutrophils % 75.7 Lymphocytes % 12.1 L Monocytes % 9.2 Eosinophils % 1.7 Basophils % 0.3 Nucleated Red Blood Cells % 0.0 Neutrophils # (Manual) 4.4 Lymphocytes # 0.7 L Monocytes # 0.5 Eosinophils # 0.1 Basophils # 0.0 Nucleated Red Blood Cells # 0.0 Sodium Level 136 Potassium Level 4.6 Chloride Level 99 Carbon Dioxide Level 29 Anion Gap 13 Blood Urea Nitrogen 54 H Creatinine 3.51 H Glucose Level 177 Calcium Level 8.8 Test 12/28/16 08:05 12/28/16 12:10 Bedside Glucose 162 136 Medications Medications Current Medications Allopurinol (Zyloprim) 100 mg DAILY PO Last administered on 12/28/16 14:06; Admin Dose 100 MG; Start 12/19/16 at 09:00 Amlodipine Besylate (Norvasc) 10 mg DAILY PO Last administered on 12/28/16 14: 06; Admin Dose 10 MG; Start 12/19/16 at 09:00 Aspirin (Aspirin) 81 mg DAILY PO Last administered on 12/28/16 14:03; Admin Dose 81 MG; Start 12/19/16 at 09:00 Atorvastatin Calcium (Lipitor) 10 mg DAILY@21 PO Last administered on 12/27/16 20:44; Admin Dose 10 MG; Start 12/19/16 at 21:00 Cholecalciferol (Vitamin D) 1,000 unit DAILY PO Last administered on 12/28/16 14:04; Admin Dose 1,000 UNIT; Start 12/19/16 at 09:00 Collagenase (Santyl) 1 applic DAILY TOP Last administered on 12/27/16 08:10; Admin Dose 1 APPLIC; Start 12/19/16 at 09:00 Diltiazem HCl (Cardizem Sr) 60 mg DAILY PO Last administered on 12/28/16 14:08 ; Admin Dose 60 MG; Start 12/19/16 at 09:00 Docusate Sodium (Colace) 100 mg Q12H PO Last administered on 12/28/16 15:25; Admin Dose 100 MG; Start 12/19/16 at 02:30 Hydralazine HCl (Apresoline) 100 mg BID PO Last administered on 12/27/16 20:44 ; Admin Dose 100 MG; Start 12/19/16 at 09:00 Loratadine (Claritin) 5 mg DAILY PO Last administered on 12/28/16 14:07; Admin Dose 5 MG; Start 12/19/16 at 09:00 Pantoprazole (Protonix Tab) 40 mg DAILY@06 PO Last administered on 12/28/16 06: 11; Admin Dose 40 MG; Start 12/19/16 at 06:00 Pentoxifylline (Trental) 400 mg BID PO Last administered on 12/28/16 14:03; Admin Dose 400 MG; Start 12/19/16 at 09:00 Senna (Senokot) 2 tab BID PO Last administered on 12/28/16 14:05; Admin Dose 2 TAB; Start 12/19/16 at 09:00 Silver Sulfadiazine (Thermazene 1% 25 Gm) 1 applic BID TOP Last administered on 12/27/16 08:10; Admin Dose 1 APPLIC; Start 12/19/16 at 09:00 Diagnostic Test (Pha) (Accu-Chek) 1 ea 02 XX Last administered on 12/27/16 02: 46; Admin Dose 1 EA; Start 12/20/16 at 02:00 Ondansetron HCl (Zofran Inj) 4 mg Q6H PRN IV NAUSEA AND/OR VOMITING Last administered on 12/27/16 14:52; Admin Dose 4 MG; Start 12/19/16 at 02:30 Lactobacillus Acidophilus/ Rhamnosus (Culturelle) 1 cap BID PO Last administered on 12/28/16 14:03; Admin Dose 1 CAP; Start 12/19/16 at 09:00 Miscellaneous Information 1 ea NOTE XX ; Start 12/19/16 at 03:00 Glucose (Glutose) 15 gm Q15M PRN PO DECREASED GLUCOSE; Start 12/19/16 at 03:00 Glucose (Glutose) 22.5 gm Q15M PRN PO DECREASED GLUCOSE Last administered on 21:40; Admin Dose 22.5 GM; Start 12/19/16 at 03:00 Dextrose (D50w Syringe) 25 ml Q15M PRN IV DECREASED GLUCOSE; Start 12/19/16 at 03:00 Dextrose (D50w Syringe) 50 ml Q15M PRN IV DECREASED GLUCOSE Last administered on 12/26/16 22:03; Admin Dose 50 ML; Start 12/19/16 at 03:00 Glucagon (Glucagen) 1 mg Q15M PRN IM DECREASED GLUCOSE; Start 12/19/16 at 03:00 Glucose (Glutose) 15 gm Q15M PRN BUCCAL DECREASED GLUCOSE; Start 12/19/16 at 03 :00 Eye Lubricant 1 drop 1 drop QID BOTH EYES Last administered on 12/28/16 12:18; Admin Dose 1 DROP; Start 12/19/16 at 09:00 Piperacillin Sod/ Tazobactam Sod (Zosyn 2.25gm/ 50ml (Pmx)) 50 ml @ 100 mls/hr Q8 IVPB Last administered on 12/28/16 15:25; Admin Dose 100 MLS/HR; Start 12/19 at 22:00 Acetaminophen 325 mg 325 mg Q4H PRN PO PAIN AND OR ELEVATED TEMP Last administered on 12/27/16 05:01; Admin Dose 325 MG; Start 12/19/16 at 19:30 Linezolid (Zyvox 600mg/D5W (Pmx)) 300 ml @ 300 mls/hr Q12 IVPB Last administered on 12/28/16 14:00; Admin Dose 300 MLS/HR; Start 12/20/16 at 21:00 Morphine Sulfate (morphine) 2 mg Q4H PRN IV PAIN; Start 12/21/16 at 00:15 Mupirocin (Bactroban) 1 applic BID TOP Last administered on 12/28/16 09:00; Admin Dose 1 APPLIC; Start 12/21/16 at 16:00 Sodium Hypochlorite (Dakin'S (Dilute 1/40%)) 1 applic DAILY IRR Last administered on 12/27/16 08:18; Admin Dose 1 APPLIC; Start 12/22/16 at 09:00 Nystatin (Nystatin Cr) 1 applic TID TOP Last administered on 12/28/16 09:00; Admin Dose 1 APPLIC; Start 12/23/16 at 09:00 Metoprolol Tartrate (Lopressor) 12.5 mg BID PO Last administered on 12/27/16 20 :45; Admin Dose 12.5 MG; Start 12/24/16 at 11:00 Insulin Glargine (Lantus) 26 unit BID SC Last administered on 12/28/16 12:25; Admin Dose 26 UNIT; Start 12/26/16 at 21:00 Hydralazine HCl (Apresoline) 10 mg Q4H PRN IV ELEVATED BLOOD PRESSURE; Start at 16:30 ORESTES WYMAN Dec 28, 2016 15:45
[2016-12-28] MEDS ORDERED: hydrALAzine 20 MG INJ IV PRN (16:30)
[2016-12-28] MEDS ORDERED: LIDOCAINE 1% (MPF) 5 ML VIAL SC ONE (18:30)
--- NOTE | 2016-12-28 18:55 | CONS ---
Date/Time of Note Date/Time of Note DATE: 12/28/16 TIME: 18:45 Assessment/Plan Assessment/Plan Chief Complaint/Hosp Course ID PROGRESS NOTE CURRENT ABX: =>Zyvox #8 + Zosyn #10 s/p Vanco IV s/p Daptomycin 24H INTERVAL SUMMARY * Doing well, no new issues, no c/o * POD #1 -> s/p I&D of foot -> Micro (-) * 12/18/16 FOOT WOUND CX: WOUND CULTURE Final Organism 1 CORYNEBACTERIUM SPECIES QUANTITY SCANT GROWTH CORYN SPS Zone Size RX --------- --- * AMPICILLIN S * CEFAZOLIN S * CEFOTAXIME S * CEFUROXIME S * CIPROFLOXACIN S * CLINDAMYCIN R * ERYTHROMYCIN R * PENICILLIN S * VANCOMYCIN S Exam Constitutional: alert, oriented, super morbid obese, laying in bed supine Psych: nl mood/affect, no complaints HEENT: Unremarkable Neck: non-tender, supple Respiratory: No wheezing, equal chest rise bilaterally without dyspnea on observation Cardiovascular: RRR Gastrointestinal: Soft, NT Extremities: (+)Left complex diabetic foot ulcer - draining see photos Neurological: [employer] II-XII 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 SIRS on admission w/low grade temp TMax 99.0, leukocytosis 11.6 w/left shift , VSS => due to #2 + #3 * 12/18/16 BCx (+) 1/2 bottles from ED = (+)CoNS * 12/04/16 BCx (+) 1/2 bottles from ED = (+)CoNS 2. HCAP CXR 12/20/16: Multi focal lung consolidation concerning for multifocal pneumonia is mildly increased from prior exam. 3. Left diabetic foot wound w/concern acute osteomyelitis => hx of acute traumatic after foot got caught in motor chair * 12/27/16-> s/p I&D w/wound Cx * 12/18/16 Left Foot Wound Cx: (+)Corynebacterium (NOT JK) = normal skin hever * 12/08/16 Left Foot Wound Cx: (+) WOUND CULTURE Final Organism 1 ESCHERICHIA COLI * 12/05/16 MRI LEFT FOOT: * 1. Skin ulcer along the lateral plantar aspect of the fifth digit at the level of the distal fifth metatarsal and metatarsophalangeal joint with cellulitis. * 2. Erosive changes with mild deformity of the fifth metatarsal head but no significant abnormal marrow signal. This can be seen with chronic osteomyelitis given the adjacent skin ulcer although inflammatory arthritis can also give this appearance. * 3. Mild osteoarthrosis of the first metatarsophalangeal joint. * Hx of prior left Diabetic foot (+)MRSA infection w/osteomyelitis -> resolved ~ 1-year ago 4. DMT2 w/complication of DM peripheral neuropathy 5. Mild PAD=> Arterial Duplex revealed: Mild plaque formation without evidence for hemodynamically significant stenosis or occlusion. 6. HTN 7. HLD 8. Tinnitus ( + ) MRSA Nares -> 12/07/16 INVASIVES: R-FEM Derrick ABX ALLERGY: PCN CURRENT ABX: =>Zyvox #8 + Zosyn #10 s/p Vanco IV s/p Daptomycin ID RECOMMENDATIONS 1. Continue current ABX -> TNS to SNF on current ABX x 6 weeks 2. Unclear to me why she is not on Vanco IV post HD + GENT for hx of E.Coli GNR foot cx prior admit ? . Problems: Consultation Date/Type/Reason Admit Date/Time Dec 18, 2016 at 20:59 Initial Consult Date 12/20/16 Type of Consultation: ID Referring Provider: FABIAN LEO MD Exam/Review of Systems Vital Signs Vitals Vital Signs Date Time Temp Pulse Resp B/P Pulse Ox O2 Delivery O2 Flow Rate FiO2 12/28/16 15:22 3.0 12/28/16 14:14 98.5 66 18 129/75 100 12/28/16 08:45 Nasal Cannula 12/24/16 14:04 96 Intake and Output 12/27/16 12/27/16 12/28/16 15:00 23:00 07:00 Intake Total 350 ml 900 ml 100 ml Output Total 10 ml Balance 350 ml 890 ml 100 ml Results Result Diagram: 12/28/16 0529 12/28/1629 Results 24 hrs Laboratory Tests Test 12/27/16 20:46 12/28/16 02:58 12/28/16 05:29 12/28/16 08:05 Bedside Glucose 180 175 162 White Blood Count 5.9 Red Blood Count 2.88 L Hemoglobin 8.2 L Hematocrit 26.5 L Mean Corpuscular Volume 92.0 Mean Corpuscular Hemoglobin 28.5 L Mean Corpuscular Hemoglobin Concent 30.9 L Red Cell Distribution Width 13.6 Platelet Count 281 Mean Platelet Volume 9.4 Neutrophils % 75.7 Lymphocytes % 12.1 L Monocytes % 9.2 Eosinophils % 1.7 Basophils % 0.3 Nucleated Red Blood Cells % 0.0 Neutrophils # (Manual) 4.4 Lymphocytes # 0.7 L Monocytes # 0.5 Eosinophils # 0.1 Basophils # 0.0 Nucleated Red Blood Cells # 0.0 Sodium Level 136 Potassium Level 4.6 Chloride Level 99 Carbon Dioxide Level 29 Anion Gap 13 Blood Urea Nitrogen 54 H Creatinine 3.51 H Glucose Level 177 Calcium Level 8.8 Test 12/28/16 12:10 12/28/16 17:27 Bedside Glucose 136 124 Medications Medications Current Medications Allopurinol (Zyloprim) 100 mg DAILY PO Last administered on 12/28/16 14:06; Admin Dose 100 MG; Start 12/19/16 at 09:00 Amlodipine Besylate (Norvasc) 10 mg DAILY PO Last administered on 12/28/16 14: 06; Admin Dose 10 MG; Start 12/19/16 at 09:00 Aspirin (Aspirin) 81 mg DAILY PO Last administered on 12/28/16 14:03; Admin Dose 81 MG; Start 12/19/16 at 09:00 Atorvastatin Calcium (Lipitor) 10 mg DAILY@21 PO Last administered on 12/27/16 20:44; Admin Dose 10 MG; Start 12/19/16 at 21:00 Cholecalciferol (Vitamin D) 1,000 unit DAILY PO Last administered on 12/28/16 14:04; Admin Dose 1,000 UNIT; Start 12/19/16 at 09:00 Collagenase (Santyl) 1 applic DAILY TOP Last administered on 12/27/16 08:10; Admin Dose 1 APPLIC; Start 12/19/16 at 09:00 Diltiazem HCl (Cardizem Sr) 60 mg DAILY PO Last administered on 12/28/16 14:08 ; Admin Dose 60 MG; Start 12/19/16 at 09:00 Docusate Sodium (Colace) 100 mg Q12H PO Last administered on 12/28/16 15:25; Admin Dose 100 MG; Start 12/19/16 at 02:30 Hydralazine HCl (Apresoline) 100 mg BID PO Last administered on 12/27/16 20:44 ; Admin Dose 100 MG; Start 12/19/16 at 09:00 Loratadine (Claritin) 5 mg DAILY PO Last administered on 12/28/16 14:07; Admin Dose 5 MG; Start 12/19/16 at 09:00 Pantoprazole (Protonix Tab) 40 mg DAILY@06 PO Last administered on 12/28/16 06: 11; Admin Dose 40 MG; Start 12/19/16 at 06:00 Pentoxifylline (Trental) 400 mg BID PO Last administered on 12/28/16 14:03; Admin Dose 400 MG; Start 12/19/16 at 09:00 Senna (Senokot) 2 tab BID PO Last administered on 12/28/16 14:05; Admin Dose 2 TAB; Start 12/19/16 at 09:00 Silver Sulfadiazine (Thermazene 1% 25 Gm) 1 applic BID TOP Last administered on 12/27/16 08:10; Admin Dose 1 APPLIC; Start 12/19/16 at 09:00 Diagnostic Test (Pha) (Accu-Chek) 1 ea 02 XX Last administered on 12/27/16 02: 46; Admin Dose 1 EA; Start 12/20/16 at 02:00 Ondansetron HCl (Zofran Inj) 4 mg Q6H PRN IV NAUSEA AND/OR VOMITING Last administered on 12/27/16 14:52; Admin Dose 4 MG; Start 12/19/16 at 02:30 Lactobacillus Acidophilus/ Rhamnosus (Culturelle) 1 cap BID PO Last administered on 12/28/16 14:03; Admin Dose 1 CAP; Start 12/19/16 at 09:00 Miscellaneous Information 1 ea NOTE XX ; Start 12/19/16 at 03:00 Glucose (Glutose) 15 gm Q15M PRN PO DECREASED GLUCOSE; Start 12/19/16 at 03:00 Glucose (Glutose) 22.5 gm Q15M PRN PO DECREASED GLUCOSE Last administered on 21:40; Admin Dose 22.5 GM; Start 12/19/16 at 03:00 Dextrose (D50w Syringe) 25 ml Q15M PRN IV DECREASED GLUCOSE; Start 12/19/16 at 03:00 Dextrose (D50w Syringe) 50 ml Q15M PRN IV DECREASED GLUCOSE Last administered on 12/26/16 22:03; Admin Dose 50 ML; Start 12/19/16 at 03:00 Glucagon (Glucagen) 1 mg Q15M PRN IM DECREASED GLUCOSE; Start 12/19/16 at 03:00 Glucose (Glutose) 15 gm Q15M PRN BUCCAL DECREASED GLUCOSE; Start 12/19/16 at 03 :00 Eye Lubricant 1 drop 1 drop QID BOTH EYES Last administered on 12/28/16 17:14; Admin Dose 1 DROP; Start 12/19/16 at 09:00 Piperacillin Sod/ Tazobactam Sod (Zosyn 2.25gm/ 50ml (Pmx)) 50 ml @ 100 mls/hr Q8 IVPB Last administered on 12/28/16 15:25; Admin Dose 100 MLS/HR; Start 12/19 at 22:00 Acetaminophen 325 mg 325 mg Q4H PRN PO PAIN AND OR ELEVATED TEMP Last administered on 12/27/16 05:01; Admin Dose 325 MG; Start 12/19/16 at 19:30 Linezolid (Zyvox 600mg/D5W (Pmx)) 300 ml @ 300 mls/hr Q12 IVPB Last administered on 12/28/16 14:00; Admin Dose 300 MLS/HR; Start 12/20/16 at 21:00 Morphine Sulfate (morphine) 2 mg Q4H PRN IV PAIN; Start 12/21/16 at 00:15 Mupirocin (Bactroban) 1 applic BID TOP Last administered on 12/28/16 09:00; Admin Dose 1 APPLIC; Start 12/21/16 at 16:00 Sodium Hypochlorite (Dakin'S (Dilute 1/40%)) 1 applic DAILY IRR Last administered on 12/27/16 08:18; Admin Dose 1 APPLIC; Start 12/22/16 at 09:00 Nystatin (Nystatin Cr) 1 applic TID TOP Last administered on 12/28/16 09:00; Admin Dose 1 APPLIC; Start 12/23/16 at 09:00 Metoprolol Tartrate (Lopressor) 12.5 mg BID PO Last administered on 12/27/16 20 :45; Admin Dose 12.5 MG; Start 12/24/16 at 11:00 Insulin Glargine (Lantus) 26 unit BID SC Last administered on 12/28/16 12:25; Admin Dose 26 UNIT; Start 12/26/16 at 21:00 Hydralazine HCl (Apresoline) 10 mg Q4H PRN IV ELEVATED BLOOD PRESSURE; Start at 16:30 NAHOMY LEPE NP Dec 28, 2016 18:55
[2016-12-28] MEDS: ATORVASTATIN 10 MG TAB PO SCH (20:47)
[2016-12-29 02:00] VITALS: BP 183/79; RESP 18
[2016-12-29] MEDS: ACCU-CHEK XX SCH (02:00)
[2016-12-29] MEDS: DOCUSATE SODIUM 100 MG CAP PO SCH ×2 (02:40→13:00)
[2016-12-29 04:54] VITALS: BP 165/72; PULSE 71
[2016-12-29] MEDS: PIPER-TAZO 2.25 GM (PMX) 50 ML IVPB SCH ×2 (05:57→13:00)
[2016-12-29] MEDS: PANTOPRAZOLE (EC) 40 MG TAB PO SCH (05:57)
[2016-12-29 07:46] VITALS: BP 191/81; RESP 20
[2016-12-29] MEDS: ASPIRIN 81 MG TAB PO SCH (08:02)
[2016-12-29] MEDS: SENNA TAB PO SCH (08:02)
[2016-12-29] MEDS: ALLOPURINOL 100 MG TAB PO SCH (08:02)
[2016-12-29] MEDS: LORATADINE 10 MG TAB PO SCH (08:02)
[2016-12-29] MEDS: CHOLECALCIFEROL 1,000 UNIT TAB PO SCH (08:02)
[2016-12-29] MEDS: DILTIAZEM (SR) 60 MG CAP PO SCH (08:03)
[2016-12-29] MEDS: LACTOBACILLUS RHAMNOSUS CAP PO SCH (08:03)
[2016-12-29] MEDS: PENTOXIFYLLINE (SR) 400 MG TAB PO SCH (08:03)
[2016-12-29] MEDS: METOPROLOL 25 MG TAB PO SCH (08:04)
[2016-12-29] MEDS: SILVER SULFADIAZINE 1% 25 GM CR TOP SCH (08:04)
[2016-12-29] MEDS: MUPIROCIN 2% 22 GM OINT TOP SCH (08:04)
[2016-12-29] MEDS: AMLODIPINE 10 MG TAB PO SCH (08:04)
[2016-12-29] MEDS: COLLAGENASE 30 GM TUBE TOP SCH (08:04)
[2016-12-29] MEDS: ARTIFICIAL TEARS 15 ML OPH BOTH EYES SCH ×3 (08:05→16:04)
[2016-12-29] MEDS: LINEZOLID 600 MG/D5W (PMX) 300 ML IVPB SCH (08:05)
[2016-12-29] MEDS: SODIUM HYPOCHLORITE 1/40% 1L IRRIG IRR SCH (08:05)
[2016-12-29] MEDS: INSULIN ASPART [NOVOLOG] 3 ML PEN SC SCH ×4 (08:05→12:37)
[2016-12-29] MEDS: NYSTATIN 15 GM CR TOP SCH ×2 (08:06→12:38)
[2016-12-29] MEDS: INSULIN GLARGINE [LANtus] 3 ML PEN SC SCH (08:15)
--- NOTE | 2016-12-29 10:37 | DS ---
Date/Time of Note Date/Time of Note DATE: 12/29/16 TIME: 10:35 Discharge Summary Admission/Discharge Info Admit Date/Time Dec 18, 2016 at 20:59 Discharge Date/Time Discharge Diagnosis FINAL DIAGNOSES: 1. Sepsis secondary to healthcare-associated pneumonia, now resolved. 2. [id number]-ct-wjawikn kidney disease, now on permanent dialysis, set up for outpatient dialysis with PermCath placement. 3. Diabetic foot infection of the left foot, heel, and 5th metatarsal, status post 2 debridements this admission. 4. Type 2 diabetes with sugars improved on insulin. 5. High cholesterol. 6. History of gout. 7. Morbid obesity. 8. Osteomyelitis. TIME SPENT ON DISCHARGE: 55 minutes. Patient Condition: Stable Hx of Present Illness Ms. Sheridan is a 66-year-old female with a history of high blood pressure, diabetes, gout, and osteomyelitis in the past who presents to the ER with fever and cough. She was just here and discharged 5 days ago after being diagnosed with osteomyelitis from a diabetic ulcer and is scheduled to receive long-term IV antibiotics via PICC line. Fever cough started a few days after discharge, but the cough is nonbloody, she has had no vomiting or abdominal pain, denies blood in her urine or in her stool. She has had no diarrhea as well. Chest x- ray in the emergency room is concerning for multifocal pneumonia, she is being admitted for further management. Hospital Course HOSPITAL COURSE: The patient came in with fever and cough. She was found with sepsis secondary to healthcare-associated pneumonia as well as wound infection from osteomyelitis. So, she was admitted, seen by multiple specialists during this hospital stay including infectious disease, podiatry team, vascular surgery team, renal team. The patient was treated for sepsis with broad-spectrum antibiotics. Her pneumonia symptoms improved and she had less cough and less shortness of breath. She also had [id number] renal insufficiency and kidney doctor started her on dialysis. Eventually she had PermCath placed. And also had adjustments made to her insulin medications as well. She had 2 debridements performed on her diabetic foot infection, first on December 22, 2016, then again on December 27, 2016 which included an excisional debridement of the skin tissue and muscle of the left foot 5th metatarsophalangeal joint and excisional debridement of the skin, subcu tissue of left heel ulcer as well. Then a 2nd excisional debridement of the skin tissue, muscle and bone of the left diabetic foot ulcer was performed and again a biopsy performed of the bone of the 5th metatarsal on the left foot. The patient tolerated both procedures well. Her white count was stable on day of discharge. She had no fevers. Her wound culture did show Corynebacterium species and her blood culture did show coagulase-negative Staph 2/2 bottles and again she was placed on appropriate antibiotics for that. She was able to ambulate with assistance of physical therapy. Tolerated p.o. diet. Her vital signs were stable as well and she has been set up for outpatient dialysis after getting PermCath placed as well. [facility] after she gets her PICC line, in improved condition. She will continue wound care for her left foot. DISCHARGE MEDICATIONS: She will go to the penitentiary facility with: 1. Tylenol 325 q.4 p.r.n. 2. DuoNebs inhaled q.2 p.r.n. 3. Allopurinol 100 mg daily. 4. Norvasc 10 mg daily. 5. Artificial Tears both eyes 4 times a day. 6. Aspirin 81 mg daily. 7. Lipitor 10 mg daily. 8. Vitamin D 1000 units daily. 9. Santyl apply topically daily. 10. Diltiazem 60 mg p.o. daily. 11. Colace 100 mg q.12 hours. 12. Hydralazine 100 mg p.o. b.i.d. 13. Aspart insulin sliding scale. 14. She will go home with Lantus 18 units subcu b.i.d. 15. Claritin 5 mg daily. 16. Lactobacillus capsule b.i.d. 17. Metoprolol 12.5 mg b.i.d. 18. Morphine 2 mg IV q.4 p.r.n. 19. Bactroban apply topically b.i.d. 20. Nystatin apply topically t.i.d. 21. Zofran 4 mg IV q.6 p.r.n. 22. Protonix 40 mg p.o. daily. 23. Trental 400 mg b.i.d. 24. Senna 2 tabs b.i.d. 25. Silver sulfadiazine applied topically b.i.d. 26. Dakin solution apply topically daily. 27. Aspart insulin 5 units subcu with meals. 28. Daptomycin 250 mg daily until January 29, 2017 29. Rocephin 1 gram IV daily until January 29, 2017. Home Meds Active Scripts Silver Sulfadiazine (THERMAZENE 1% 25 GM) 1 Applic Cr, 1 APPLIC TOP BID, #100 GM Prov:DOROTA LEMON 12/11/16 Sennosides* (Senna Lax*) 8.6 Mg Tablet, 2 TAB PO BID for 30 Days, TAB Prov:DOROTA LEMON 12/11/16 Pentoxifylline* (Pentoxifylline*) 400 Mg Tablet.sa, 400 MG PO BID for 30 Days Prov:DOROTA LEMON 12/11/16 Pantoprazole* (Pantoprazole*) 40 Mg Tablet.dr, 40 MG PO DAILY@06 for 30 Days Prov:DOROTA LEMON 12/11/16 Insulin Aspart* (Novolog Insulin Pen*) 100 Unit/Ml Soln, 12 UNIT SC WITH MEALS for 30 Days Prov:DOROTA LEMON 12/11/16 Docusate Sodium (Dok) 100 Mg Capsule, 100 MG PO Q12H, #60 CAP Prov:MATTDOROTA PEREZ 12/11/16 Furosemide* (Furosemide*) 40 Mg Tablet, 40 MG PO DAILY@06 for 30 Days, TAB Prov:DOROTA LEMON 12/11/16 Diltiazem Hcl* (Cardizem SR*) 60 Mg Capsr, 60 MG PO DAILY for 30 Days, CAP Prov:DOROTA LEMON 12/11/16 Daptomycin (Daptomycin) 500 Mg Vial, 815 MG IV DAILY for 42 Days, VIAL Prov:DOROTA LEMON 12/11/16 Collagenase* (Santyl*) 30 Gm Oint..gm., 1 APPLIC TOP DAILY for 30 Days Prov:DOROTA LEMON 12/11/16 Ceftriaxone Sod* (Rocephin* 1GM/50ML (PMX)) 1 Gm/50 Ml Iv.soln., 1 GM IVPB Q24H for 42 Days, EA Prov:DOROTA LEMON 12/11/16 Atorvastatin (Atorvastatin) 10 Mg Tablet, 10 MG PO DAILY@21 for 30 Days, TAB Prov:DOROTA LEMON 12/11/16 Aspirin (Aspirin) 81 Mg Chew, 81 MG PO DAILY for 30 Days, TAB Prov:DOROTA LEMON 12/11/16 Amlodipine Besylate* (Amlodipine Besylate*) 10 Mg Tablet, 10 MG PO DAILY for 30 Days, TAB Prov:DOROTA LEMON 12/11/16 Allopurinol* (Allopurinol*) 100 Mg Tablet, 100 MG PO DAILY for 30 Days, TAB Prov:XOCHILTDOROTA 12/11/16 Hydralazine Hcl* (Hydralazine Hcl*) 100 Mg Tablet, 100 MG PO BID for 30 Days, TAB Prov:DOROTA LEMON 12/11/16 Reported Medications Insulin Glargine* (Lantus*) 100 Unit/Ml Soln, 32 UNIT SC BID, #1 VIAL 12/18/16 Cholecalciferol* (Vitamin D3*) 1,000 Unit Tablet, 1000 UNIT PO DAILY, TAB 12/04/16 Dextran 70/Hypromellose/Pf (ARTIFICIAL TEARS DROPS) 1 Each Droperette, 1 DROP OP QID 12/04/16 Nystatin* (Nystatin*) 15 Gm Cr, 1 APPLIC TOP TID, #1 TUB 12/04/16 Loratadine* (Loratadine* Soln) 5 Mg/5 Ml Solution, 5 MG PO DAILY, #150 ML 12/04/16 Ketotifen Fumarate (Alaway) 10 Ml Drops, 1 DROP OP Q8H, BOTTLE 12/04/16 Primary Care Provider Not On Staff Doctor Time spent on discharge: > 30 minutes Pending Labs Laboratory Tests Test 12/28/16 12:10 12/28/16 17:27 12/28/16 20:51 12/29/16 08:01 Bedside Glucose 136mg/dL (70-220) 124mg/dL (70-220) 130mg/dL (70-220) 135mg/dL (70-220) DEANNA MACIAS Dec 29, 2016 10:37
[2016-12-29] MEDS: ONDANSETRON 4 MG INJ IV PRN (12:59)
--- NOTE | 2016-12-29 13:12 | RADRPT ---
PROCEDURE: XR Chest. CLINICAL INDICATION: PICC line placement evaluation TECHNIQUE: Single view of the chest COMPARISON: Chest radiograph December 24, 2016 FINDINGS: There is a left-sided PICC with its tip at the cavoatrial junction. There is a right-sided tunnel v enous catheter with its tip at the cavoatrial junction. There is mild vascular congestion with improvement in the previously seen right mid lung airspace op acity. There is no pleural effusion. There is no pneumothorax. There is no acute osseous abnormality. IMPRESSION: 1. Left-sided PICC with its tip at the cavoatrial junction. 2. Mild vascular congestion with improvement in the right mid lung air space opacity since the prev ious chest radiograph. RPTAT: UU .Jitendra Fajardo MD, Date Time Electronically viewed and signed by .Jitendra Fajardo MD, on 12/29/2016 13:11 .K/
--- NOTE | 2016-12-29 13:15 | RADRPT ---
PROCEDURE: Ultrasound guidance for placement of needle in the right upper extremity vein CLINICAL INDICATION: Venous access. TECHNIQUE: Limited sonography of the right upper extremity was performed. Ultrasound images were recorded and s tored in the patient's medical record. COMPARISON: None. FINDINGS: The ultrasound images demonstrate a patent right upper extremity vein. The PICC line was inserted by the PICC line nurse. IMPRESSION: 1. Ultrasound guidance for a needle placement in a right upper extremity vein. 2. The visualized right upper extremity vein is patent. RPTAT: QQ .Jitendra Fajardo MD, MD Date Time Electronically viewed and signed by .Jitendra Fajardo MD, on 12/29/2016 13:14 .K/
[2016-12-29 13:20] VITALS: BP 152/67; RESP 20
--- NOTE | 2016-12-29 16:14 | CONS ---
Date/Time of Note Date/Time of Note DATE: 12/29/16 TIME: 16:11 Assessment/Plan Assessment/Plan Additional Assessment/Plan 1. Non Oliguric to oliguric Acute kidney injury on CKD III/IV due to ATN- worsening renal failure with fluid overload now - stared on HD on 12/20/16 2. 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 HTN- BP stable today. 4. Diabetic foot infection 5. Health care associated PNA 6. sepsis with bacteremia , LE gangrene- sp debridement 12/27/2016 Plan : -started on HD for worsening renal failure with fluid overload - sp HD today - S/p PermCath placement, plan is to d/c Derrick catheter today - SP LE gangrene debridement on Friday if cleared -Outpatient HD placement has been requested to [facility] center- in Process, - pt is confirmed for chair time TTS at 4.30 pm - patient is discharged and will be Transfer to [facility] today. -Dw Dr Rigoberto Stark/ staff Consultation Date/Type/Reason Admit Date/Time Dec 18, 2016 at 20:59 Initial Consult Date 12/20/16 Type of Consultation: ID Referring Provider: FABIAN LEO MD 24 HR Interval Summary Constitutional: requiring IVF Detailed Summary Respiratory: shortness of breath Gastrointestinal: no complaints Genitourinary: no complaints Musculoskeletal: no complaints Skin: no complaints Neurologic: no complaints Exam/Review of Systems Vital Signs Vitals Vital Signs Date Time Temp Pulse Resp B/P Pulse Ox O2 Delivery O2 Flow Rate FiO2 12/29/16 13:20 97.4 63 20 152/67 94 12/29/16 09:45 Nasal Cannula 4.0 Intake and Output 12/28/16 12/28/16 12/29/16 15:00 23:00 07:00 Intake Total 650 ml 520 ml 400 ml Output Total 3300 ml Balance -2650 ml 520 ml 400 ml Exam Constitutional: alert, well developed Psych: nl mood/affect Respiratory: clear to auscultation, normal air movement Cardiovascular: nl pulses, regular rate and rhythm Gastrointestinal: non-tender, soft Musculoskeletal: nl extremities to inspection Extremities: normal pulses Neurological: nl mental status, nl speech Results Result Diagram: 12/28/16 0529 12/28/16 0529 Results 24 hrs Laboratory Tests Test 12/28/16 17:27 12/28/16 20:51 12/29/16 08:01 12/29/16 12:32 Bedside Glucose 124 130 135 168 Medications Medications Current Medications Allopurinol (Zyloprim) 100 mg DAILY PO Last administered on 12/29/16 08:02; Admin Dose 100 MG; Start 12/19/16 at 09:00 Amlodipine Besylate (Norvasc) 10 mg DAILY PO Last administered on 12/29/16 08: 04; Admin Dose 10 MG; Start 12/19/16 at 09:00 Aspirin (Aspirin) 81 mg DAILY PO Last administered on 12/29/16 08:02; Admin Dose 81 MG; Start 12/19/16 at 09:00 Atorvastatin Calcium (Lipitor) 10 mg DAILY@21 PO Last administered on 12/28/16 20:47; Admin Dose 10 MG; Start 12/19/16 at 21:00 Cholecalciferol (Vitamin D) 1,000 unit DAILY PO Last administered on 12/29/16 08:02; Admin Dose 1,000 UNIT; Start 12/19/16 at 09:00 Collagenase (Santyl) 1 applic DAILY TOP Last administered on 12/29/16 08:04; Admin Dose 1 APPLIC; Start 12/19/16 at 09:00 Diltiazem HCl (Cardizem Sr) 60 mg DAILY PO Last administered on 12/29/16 08:03 ; Admin Dose 60 MG; Start 12/19/16 at 09:00 Docusate Sodium (Colace) 100 mg Q12H PO Last administered on 12/29/16 13:00; Admin Dose 100 MG; Start 12/19/16 at 02:30 Hydralazine HCl (Apresoline) 100 mg BID PO Last administered on 12/29/16 08:03 ; Admin Dose 100 MG; Start 12/19/16 at 09:00 Loratadine (Claritin) 5 mg DAILY PO Last administered on 12/29/16 08:02; Admin Dose 5 MG; Start 12/19/16 at 09:00 Pantoprazole (Protonix Tab) 40 mg DAILY@06 PO Last administered on 12/29/16 05: 57; Admin Dose 40 MG; Start 12/19/16 at 06:00 Pentoxifylline (Trental) 400 mg BID PO Last administered on 12/29/16 08:03; Admin Dose 400 MG; Start 12/19/16 at 09:00 Senna (Senokot) 2 tab BID PO Last administered on 12/29/16 08:02; Admin Dose 2 TAB; Start 12/19/16 at 09:00 Silver Sulfadiazine (Thermazene 1% 25 Gm) 1 applic BID TOP Last administered on 12/29/16 08:04; Admin Dose 1 APPLIC; Start 12/19/16 at 09:00 Diagnostic Test (Pha) (Accu-Chek) 1 ea 02 XX Last administered on 12/27/16 02: 46; Admin Dose 1 EA; Start 12/20/16 at 02:00 Ondansetron HCl (Zofran Inj) 4 mg Q6H PRN IV NAUSEA AND/OR VOMITING Last administered on 12/29/16 12:59; Admin Dose 4 MG; Start 12/19/16 at 02:30 Lactobacillus Acidophilus/ Rhamnosus (Culturelle) 1 cap BID PO Last administered on 12/29/16 08:03; Admin Dose 1 CAP; Start 12/19/16 at 09:00 Miscellaneous Information 1 ea NOTE XX ; Start 12/19/16 at 03:00 Glucose (Glutose) 15 gm Q15M PRN PO DECREASED GLUCOSE; Start 12/19/16 at 03:00 Glucose (Glutose) 22.5 gm Q15M PRN PO DECREASED GLUCOSE Last administered on 21:40; Admin Dose 22.5 GM; Start 12/19/16 at 03:00 Dextrose (D50w Syringe) 25 ml Q15M PRN IV DECREASED GLUCOSE; Start 12/19/16 at 03:00 Dextrose (D50w Syringe) 50 ml Q15M PRN IV DECREASED GLUCOSE Last administered on 12/26/16 22:03; Admin Dose 50 ML; Start 12/19/16 at 03:00 Glucagon (Glucagen) 1 mg Q15M PRN IM DECREASED GLUCOSE; Start 12/19/16 at 03:00 Glucose (Glutose) 15 gm Q15M PRN BUCCAL DECREASED GLUCOSE; Start 12/19/16 at 03 :00 Eye Lubricant 1 drop 1 drop QID BOTH EYES Last administered on 12/29/16 12:33; Admin Dose 1 DROP; Start 12/19/16 at 09:00 Piperacillin Sod/ Tazobactam Sod (Zosyn 2.25gm/ 50ml (Pmx)) 50 ml @ 100 mls/hr Q8 IVPB Last administered on 12/29/16 13:00; Admin Dose 100 MLS/HR; Start 12/19 at 22:00 Acetaminophen 325 mg 325 mg Q4H PRN PO PAIN AND OR ELEVATED TEMP Last administered on 12/27/16 05:01; Admin Dose 325 MG; Start 12/19/16 at 19:30 Linezolid (Zyvox 600mg/D5W (Pmx)) 300 ml @ 300 mls/hr Q12 IVPB Last administered on 12/29/16 08:05; Admin Dose 300 MLS/HR; Start 12/20/16 at 21:00 Morphine Sulfate (morphine) 2 mg Q4H PRN IV PAIN; Start 12/21/16 at 00:15 Mupirocin (Bactroban) 1 applic BID TOP Last administered on 12/29/16 08:04; Admin Dose 1 APPLIC; Start 12/21/16 at 16:00 Sodium Hypochlorite (Dakin'S (Dilute 1/40%)) 1 applic DAILY IRR Last administered on 12/29/16 08:05; Admin Dose 1 APPLIC; Start 12/22/16 at 09:00 Nystatin (Nystatin Cr) 1 applic TID TOP Last administered on 12/29/16 12:38; Admin Dose 1 APPLIC; Start 12/23/16 at 09:00 Metoprolol Tartrate (Lopressor) 12.5 mg BID PO Last administered on 12/29/16 08 :04; Admin Dose 12.5 MG; Start 12/24/16 at 11:00 Insulin Glargine (Lantus) 26 unit BID SC Last administered on 12/29/16 08:15; Admin Dose 26 UNIT; Start 12/26/16 at 21:00 Hydralazine HCl (Apresoline) 10 mg Q4H PRN IV ELEVATED BLOOD PRESSURE Last administered on 12/29/16 03:05; Admin Dose 10 MG; Start 12/28/16 at 16:30 ORESTES WYMAN Dec 29, 2016 16:14
== END 2016-12-29 16:50 | DRG 853 ==
LOC: E/R 17:15 → MS3 20:59 → MS2 12-19 17:50
PROVIDERS: ADMIT Family Medicine; ATTEND Family Medicine
PROC: 06HM33Z Insertion of Infusion Device into Right Femoral Vein, Percutaneous Approach (ICD-10-PCS; 2016-12-20)
PROC: 5A1D60Z (ICD-10-PCS; 2016-12-20)
PROC: 30230N1 Transfusion of Nonautologous Red Blood Cells into Peripheral Vein, Open Approach (ICD-10-PCS; principal; 2016-12-22)
PROC: 0SBL0ZZ Excision of Left Tarsometatarsal Joint, Open Approach (ICD-10-PCS; 2016-12-22)
PROC: 0JBR0ZZ Excision of Left Foot Subcutaneous Tissue and Fascia, Open Approach (ICD-10-PCS; 2016-12-22)
PROC: 0HRNXK3 Replacement of Left Foot Skin with Nonautologous Tissue Substitute, Full Thickness, External Approach (ICD-10-PCS; 2016-12-27)
PROC: 0QBP0ZZ Excision of Left Metatarsal, Open Approach (ICD-10-PCS; 2016-12-27)
PROC: 0JBR0ZZ Excision of Left Foot Subcutaneous Tissue and Fascia, Open Approach (ICD-10-PCS; 2016-12-27)
PROC: 02HV33Z Insertion of Infusion Device into Superior Vena Cava, Percutaneous Approach (ICD-10-PCS; 2016-12-29)
DX: A41.9 Sepsis, unspecified organism (principal); J18.9 Pneumonia, unspecified organism; N17.0 Acute kidney failure with tubular necrosis; E11.21 Type 2 diabetes mellitus with diabetic nephropathy; N18.4 Chronic kidney disease, stage 4 (severe); E11.621 Type 2 diabetes mellitus with foot ulcer; I70.262 Atherosclerosis of native arteries of extremities with gangrene, left leg; L03.116 Cellulitis of left lower limb; Z68.42 Body mass index [BMI] 45.0-49.9, adult; M86.672 Other chronic osteomyelitis, left ankle and foot; L97.429 Non-pressure chronic ulcer of left heel and midfoot with unspecified severity; E66.01 Morbid (severe) obesity due to excess calories; Z79.82 Long term (current) use of aspirin; Z79.4 Long term (current) use of insulin; M10.9 Gout, unspecified; E78.5 Hyperlipidemia, unspecified; I12.9 Hypertensive chronic kidney disease with stage 1 through stage 4 chronic kidney disease, or unspecified chronic kidney disease; E11.22 Type 2 diabetes mellitus with diabetic chronic kidney disease; B95.7 Other staphylococcus as the cause of diseases classified elsewhere
CPT/HCPCS: 36415; 36430; 36569; 71010; 73620; 76937; 80048; 80053; 80076; 80202; 82962; 83605; 83690; 83880; 84145; 84484; 85025; 85610; 85730; 86703; 86704; 86709; 86803; 86850; 86900; 86901; 86920; 87040; 87070; 87075; 87102; 87340; 88304; 88311; 90935; 93005; 94640; 94644; 94664; 96374; 96375; C1750; C1752; C1769; J0360; J0696; J1644; J1815; J1885; J1940; J2250; J2270; J2405; J2543; J2765; J3010; J3370; J7030; J7040; J7042; P9016; P9047; Q9967

== ENCOUNTER 2017-07-07 21:23 | Emergency (ER) | END 2017-07-08 10:15 | disposition home or self-care (01) ==

== ENCOUNTER 2017-10-04 03:48 | Emergency (ER) | END 2017-10-04 07:45 | disposition home or self-care (01) ==